=== PATIENT | female | born 1960 | race Caucasian/White ===

== ENCOUNTER 2019-07-20 13:20 | Inpatient (IN) | payer MEDICARE ==
[2019-07-20] VITALS (7 sets, daily range): BP systolic 100–133; BP diastolic 66–78
[~2019-07-20] VITALS: Ht 167.6 cm; Wt 54.9 kg
[~2019-07-20 13:20] MED LIST: ALPR1TAB2 PO; AMOX1TAB11 PO; GUAI-108 PO; IPRA3AMP29 NEB; OXYC-411 PO; QUET400T7 PO; VENL75TA PO
[2019-07-20] MEDS ORDERED: 0.9 % SODIUM CHLORIDE 10 ML DISP.SYRIN. IV PRN (17:30)
[2019-07-20] MEDS ORDERED: NOREPINEPHRIN 8MG/250ML PREMIX 250 ML IV PRN (17:45)
[2019-07-20] MEDS ORDERED: MIDAZOLAM 100mg/100ml NS BAG 100 ML IV PRN (17:45)
[2019-07-20] MEDS: PROPOFOL 100 ML IV PRN (17:57)
[2019-07-20 18:07] LABS: BASE EXCESS ABG -4 mmol/L (-3-3); HCO3 ABG 19 mmol/L (21-28); PCO2 ABG 30 mmHg (35-46); PO2 ABG 128 mmHg (65-108); SAT O2 ABG 99 % (92-99)
[2019-07-20 18:11] LABS: FIO2 ABG 40
[2019-07-20] MEDS ORDERED: INFLUENZA VAX SCREEN BY RX. MC PRN (18:45)
[2019-07-21] VITALS (24 sets, daily range): BP systolic 92–143; BP diastolic 59–80
[2019-07-21] MEDS: PROPOFOL 100 ML IV PRN (05:41)
[2019-07-21 06:25] LABS: CALCIUM 8.4 mg/dL (8.5-10.1); CREATININE 0.8 mg/dL (0.6-1.0); GFR 73.2; MAGNESIUM 1.9 mg/dL (1.8-2.4); POTASSIUM 4.6 mmol/L (3.5-5.1)
--- NOTE | 2019-07-21 07:46 | RAD ---
CHEST AP ONLY History: Ventilator Comparison: July 20, 2019 Findings: Single view of the chest is submitted. There is again enteric catheter coursing into the stomach, right internal jugular venous catheter terminating in the superior vena cava, and endotracheal tube with tip about 3 to 4 cm from juliet. There is again masslike opacity of the right perihilar region and mid to superior right hemithorax. There is mild increased infiltrate of the right lung base, other hazy airspace opacity bilaterally. Heart size is similar. No pneumothorax is identified. There is no significant dependent pleural fluid. Impression: 1. There are support catheters and tubes as stated. 2. There is again masslike opacity of the right hemithorax. There is mild increased infiltrate at the right lung base, other mild hazy airspace opacity bilaterally which could be a component of edema. Electronically signed by: Luke Schaefer MD (07/21/2019 7:43 AM) [facility]
--- NOTE | 2019-07-21 08:02 | RAD ---
KUB History: Orogastric tube placement Comparison: March 18, 2018 Findings: Single supine AP view of the abdomen is submitted. Tip of enteric catheter courses into the stomach, side port likely near level of the gastroesophageal junction. Exam is insufficient for the evaluation for free air. There is a greater degree of retained stool in the pelvis and right abdomen, gas distended segments of colon in the left abdomen likely component of redundant sigmoid colon. There may be hepatomegaly. Impression: 1. Tip of enteric catheter terminates in the region of stomach. 2. There is a greater degree of retained stool in the pelvis and right colon, somewhat gas distended colon in the left abdomen likely component of redundant sigmoid colon. 3. There may be hepatomegaly. Electronically signed by: Luke Schaefer MD (07/21/2019 7:59 AM) [facility]
[2019-07-21] MEDS: IPRATRPIUM/ALBUTEROL 0.5/2.5MG 3 ML NEBU. NEB SCH ×4 (08:05→19:40)
--- NOTE | 2019-07-21 08:44 | PN ---
DATE: 07/21/2019 SUBJECTIVE: The patient is a 59-year-old female patient who was seen yesterday at [facility] Emergency Room, went into acute hypoxic respiratory failure. She was initially put on BiPAP, but her condition deteriorated further and was intubated and mechanically ventilated, transferred to [facility]. While on BiPAP, she went into what seemed to be third-degree heart block; however, after intubation, she went into sinus tachycardia. She was treated with IV antibiotic and steroids as well as nebulized albuterol and Atrovent, was started on Levophed and overnight she remained stable in the ICU. PHYSICAL EXAMINATION: GENERAL: When I saw her this morning, she continued to be intubated, sedated, mechanically ventilated. She was pale. No jaundice, cyanosis or thyromegaly. No jugular venous distention. No lower limb edema. VITAL SIGNS: Her heart rate was 69, blood pressure was 92/59, temperature was 98.3, respiratory rate was 18 and oxygen saturation was 98%. HEAD, EYES, EARS, NOSE AND THROAT: Showed normocephalic, atraumatic. NECK: Supple. HEART: Showed normal first and second heart sounds. No gallop or murmur. CHEST: Clear to auscultation. No crepitation or rhonchi. ABDOMEN: Distended, soft, nontender. No guarding or rigidity. No organomegaly. All hernial orifices intact. Bowel sounds normal. NEUROLOGIC: She was sedated; however, she does open her eyes and responds by nodding her head. She moves all extremities without difficulty. Her intake over the last 24 hours was incompletely recorded, output was 1880. LABORATORY DATA: Her white cell count is 13,700, hemoglobin 9.5, hematocrit 29, MCV was 83 and platelet count of 117,000. Her blood gas showed a pH of 7.43, pCO2 of 30, pO2 of 128, bicarbonate 19 and oxygen saturation was 99% on FiO2 of 40%. Her chemistry showed a serum sodium 141, potassium 4.6, chloride 106, bicarbonate 26, anion gap of 9, BUN 14, creatinine 0.8, estimated GFR was 73 mL per minute. Her glucose 125, calcium was 8.4, magnesium was 1.9. She has had a chest x-ray done, which showed that there is tubes and catheters are in place. There is again mass-like opacity in the right hemithorax. There is mild increased infiltrate at the right lung base, other mild hazy airspace opacity bilaterally, which could be a component of edema. PLAN: We will continue with mechanical ventilation, sedation and continue with IV antibiotic in the form of Levaquin and vancomycin. I will consult the Infectious Disease; the Cardiology, she had an episode of third-degree heart block as well as the frame repairer for ventilator management. BERTRAND RENTERIA MD DR: SADAF/vita JOB#: [id number] / [id number]
[2019-07-21 08:50] LABS: BASE EXCESS COOX -1 mmol/L (-3-3); HCO3 COOX 24 mmol/L (21-28); METHEMOGLOBIN 0.3 % (0.0-1.9); OXYHEMOGLOBIN 92.8 %; PCO2 COOX 43 mmHg (35-46); PO2 COOX 74 mmHg (65-108); SAT O2 COOX 94 % (92-99)
--- NOTE | 2019-07-21 08:52 | HP ---
ADMIT DATE: 07/20/2019 HISTORY OF PRESENT ILLNESS: The patient is a 59-year-old female patient who was seen yesterday at the Emergency Room of [facility] with worsening shortness of breath. She was brought by the emergency medical services with respiratory distress. She noted that her oxygen saturation is down into her 60s. They noted her oxygen saturation in the 60s upon their arrival. She was placed on nonrebreather mask at 15 liters. EMS attempted to start the patient on CPAP, which they reported she refused. EMS reports the patient did appear altered. She is known to have history of alcohol and benzodiazepine abuse. The patient with limited verbal response due to respiratory distress. She is able to move all extremities. Apparently, the patient's condition has deteriorated. She has had a chest x-ray, which showed mild worsening infiltrate and/or edema, particularly in the right lung. According to the ER physician, her level of consciousness has deteriorated and the patient became more hypoxic, on BiPAP machine with decreased mentation and her heart rate has dropped to like third-degree heart block; and therefore, a pacer pad was placed and the patient was moved to trauma for airway protection by intubation. Subsequent EKG showed that she was in sinus tachycardia. Levophed was started. Chest x-ray confirmed her endotracheal tube placement and orogastric tube was placed. Central line was placed under ultrasound guidance. Her chest x-ray showed good positioning of the central line and orogastric tube. CT scan of the head was without any acute process and the patient was transferred to [facility] to continue with mechanical ventilation to consult the coach driver and photolith operator. PAST MEDICAL HISTORY: Significant for chronic obstructive pulmonary disease, congestive heart failure, vitamin D deficiency, bipolar disorder, depression, severe anxiety, tobacco use disorder and alcohol and benzodiazepine abuse. PAST SURGICAL HISTORY: Significant for hysterectomy and tonsillectomy. She did have prior intubation and mechanical ventilation. FAMILY HISTORY: She has one sister who is younger and healthy. Her father at the age of 46 as he committed suicide and mother at age of 66 because of stroke. SOCIAL HISTORY: She has 1 son. She quit smoking a year ago, although she apparently continued to smoke. She does not drink alcohol or use recreational drugs, although her urine tox screen was positive for methadone and benzodiazepine. ALLERGIES: She has no known drug allergies. MEDICATIONS: She is currently on following medications: She is on albuterol sulfate 2.5 mg 0.5 mL via nebulizer every 6 hours, metoprolol succinate 50 mg once a day, venlafaxine 150 mg daily, quetiapine fumarate 100 mg 2 tablets at bedtime, alprazolam 1 mg every 8 hours, hydroxyzine 25 mg every 6 hours as needed and Requip 0.5 mg at bedtime. PHYSICAL EXAMINATION: GENERAL: On arrival to the Emergency Room, the patient was tachypneic, hypoxic on 15 liters nonrebreather mask. Initially, the patient was somewhat lethargic, but arousable. Her Celi coma scale was 11 and she was initially found to be hypoxic with oxygen saturation of only 60%, was started on 15 liters of nonrebreather mask and eventually was started on BiPAP machine. However, she deteriorated further and was intubated, mechanically ventilated. On examining her, she was well-developed, well-nourished 59-year-old female patient who has orotracheal and orogastric tube in place. VITAL SIGNS: Her heart rate was 106, blood pressure was 110/70, temperature was 99.1, respiratory rate was 26 and oxygen saturation was 97% on 15 liters by nonrebreather mask. NECK: Supple. HEART: Showed normal first and second heart sounds. No gallop, rub or murmur. CHEST: Equally reduced expansion, reduced air entry, vesicular sounds with crepitation, more on the right than left with severe respiratory distress and tachypnea. ABDOMEN: Soft, nontender. NEUROLOGIC: She has [place] coma scale of 11. The patient was able to move her extremities. She was obtunded. LABORATORY DATA: While at [facility] showed that her white cell count was 10,600, hemoglobin 9.5, hematocrit 29.5, MCV 85 and platelet count 442,000. Her blood gases showed a pH of 7.33, pCO2 of 48, pO2 of 152, bicarbonate 25, oxygen saturation was 99% on FiO2 of 50%. Her chemistry showed a serum sodium 140, potassium 4.2, chloride 105, bicarbonate 27, anion gap of 9, BUN 9, creatinine 0.8, estimated GFR was 73 mL per minute. Her glucose 114, calcium was 8.2, magnesium was 2.2. Lactic acid was only 1.2. Total bilirubin, AST, ALT, alkaline phosphatase were normal. Ammonia was only 14. CK, CK-MB and cardiac enzymes, she had 2 cardiac enzymes were less than 0.017. Her beta natriuretic peptide was 1834. Total protein was 7.3, albumin was 2.2. Her prothrombin time, INR and aPTT were normal. Urinalysis was essentially unremarkable and tox screen was positive for methadone as well as benzodiazepine. Her influenza A and B were negative. Her chest x-ray initially showed that the patient has mild worsening infiltrate and/or edema, particularly in the right lung. The second x-ray showed that there is an endotracheal tube, there is persistent prominent right perihilar opacity increased of the right upper lobe. There is also degree of interstitial opacity near the lung bases, which may have a component of interstitial edema. Her third x-ray showed that she had an endotracheal tube remains in place. She has tip 47 mm above the juliet. She has right internal jugular vein in place and tip extended to the region of the lower superior vena cava. Feeding tube was identified with tip overlying the expected region of the stomach. Abnormal pulmonary opacities are again seen in both lungs, greatest in the right upper lobe, appears similar. No evidence of pneumothorax. There may be small pleural effusion, has had a CT scan of the head, which was unremarkable with no convincing acute intracranial abnormality identified. There is again mild prominence of the subtentorial subarachnoid spaces may be due to involutional changes. The patient was transferred to [facility], was admitted to the ICU, continued on mechanical ventilation and we will consult the coach driver as well as the photolith operator as she had an episode of third-degree heart block. BERTRAND RENTERIA MD DR: SADAF/vita JOB#: [id number] / [id number]
--- NOTE | 2019-07-21 09:05 | PDOC ---
Infectious Disease Note Vital Sign Vital Signs Vital Signs Date Time Temp Pulse Resp B/P (MAP) Pulse Ox O2 Delivery O2 Flow Rate FiO2 07/21/19 08:05 Ventilator 07/21/19 07:36 98 07/21/19 06:00 69 18 92/59 (70) 07/21/19 04:00 98.3 98.3 Labs Lab Laboratory Tests Test 07/20/19 17:30 07/21/19 05:30 07/21/19 08:40 O2 Saturation 99 % (92-99) 94 % (92-99) Arterial Blood pH 7.43 (7.35-7.45) 7.37 (7.35-7.45) Arterial Blood pCO2 at Patient Temp 30 mmHg (35-46) 43 mmHg (35-46) Arterial Blood pO2 at Patient Temp 128 mmHg (65-108) 74 mmHg (65-108) Arterial Blood HCO3 19 mmol/L (21-28) 24 mmol/L (21-28) Arterial Blood Base Excess -4 mmol/L (-3-3) -1 mmol/L (-3-3) FiO2 40 35 White Blood Count 13.7 x10^3/uL (4.0-11.0) Red Blood Count 3.54 x10^6/uL (3.50-5.40) Hemoglobin 9.5 g/dL (12.0-15.5) Hematocrit 29.3 % (36.0-47.0) Mean Corpuscular Volume 83 fL (79-100) Mean Corpuscular Hemoglobin 27 pg (25-35) Mean Corpuscular Hemoglobin Concent 32 g/dL (31-37) Red Cell Distribution Width 19.1 % (11.5-14.5) Platelet Count 417 x10^3/uL (140-400) Sodium Level 141 mmol/L (136-145) Potassium Level 4.6 mmol/L (3.5-5.1) Chloride Level 106 mmol/L (98-107) Carbon Dioxide Level 26 mmol/L (21-32) Anion Gap 9 (6-14) Blood Urea Nitrogen 14 mg/dL (7-20) Creatinine 0.8 mg/dL (0.6-1.0) Estimated GFR (Cockcroft-Gault) 73.2 Glucose Level 125 mg/dL (70-99) Calcium Level 8.4 mg/dL (8.5-10.1) Magnesium Level 1.9 mg/dL (1.8-2.4) Oxyhemoglobin 92.8 % Methemoglobin 0.3 % (0.0-1.9) Carbon Monoxide, Quantitative 0.9 % (0.0-1.9) Objective Assessment Pneumonia Leukocytosis Hypotension, levophed gtt Acute respiratory failure 3rd degree block COPD h/o substance abuse h/o MRSA Plan Plan of Care Continue Zosyn d/c Levaquin Dose vanc 07/20 f/u BC from [facility], 07/20 Pulmonary and cardiology have been consulted D/w Ambrosio D/w nursing Thank you [phone] Attending Co-Sign The patient was seen and interviewed as well as examined at the bedside. The chart was reviewed. The case was discussed. Agree with the plan of care. JO LEIGH APRN Jul 21, 2019 09:05 CANDY PEACE MD Jul 21, 2019 11:25
--- NOTE | 2019-07-21 09:30 | NUR ---
Pt extubated without difficulty. Placed on NC @ 5L. Will monitor closely.
[2019-07-21] MEDS: PIPERACILLIN/TAZOBACTAM 3.375 GM in IV NORMAL SALINE 50ML 50 ML IV SCH ×3 (09:37→19:40)
[2019-07-21] MEDS: methylPREDNISolone SOD SUCC PF 40 MG/ML VIAL. IV SCH ×3 (09:37→21:38)
--- NOTE | 2019-07-21 10:26 | PDOC ---
PULMONARY PROGRESS NOTES Vitals Vital Signs Date Time Temp Pulse Resp B/P (MAP) Pulse Ox O2 Delivery O2 Flow Rate FiO2 07/21/19 08:05 Ventilator 07/21/19 07:36 98 07/21/19 06:00 69 18 92/59 (70) 07/21/19 04:00 98.3 98.3 General: Alert, No acute distress HEENT: Other Lungs: Other Cardiovascular: S1, S2 Abdomen: Soft, Non-tender Extremities: No Edema Labs Laboratory Tests Test 07/20/19 17:30 07/21/19 05:30 07/21/19 08:40 O2 Saturation 99 % (92-99) 94 % (92-99) Arterial Blood pH 7.43 (7.35-7.45) 7.37 (7.35-7.45) Arterial Blood pCO2 at Patient Temp 30 mmHg (35-46) 43 mmHg (35-46) Arterial Blood pO2 at Patient Temp 128 mmHg (65-108) 74 mmHg (65-108) Arterial Blood HCO3 19 mmol/L (21-28) 24 mmol/L (21-28) Arterial Blood Base Excess -4 mmol/L (-3-3) -1 mmol/L (-3-3) FiO2 40 35 White Blood Count 13.7 x10^3/uL (4.0-11.0) Red Blood Count 3.54 x10^6/uL (3.50-5.40) Hemoglobin 9.5 g/dL (12.0-15.5) Hematocrit 29.3 % (36.0-47.0) Mean Corpuscular Volume 83 fL (79-100) Mean Corpuscular Hemoglobin 27 pg (25-35) Mean Corpuscular Hemoglobin Concent 32 g/dL (31-37) Red Cell Distribution Width 19.1 % (11.5-14.5) Platelet Count 417 x10^3/uL (140-400) Sodium Level 141 mmol/L (136-145) Potassium Level 4.6 mmol/L (3.5-5.1) Chloride Level 106 mmol/L (98-107) Carbon Dioxide Level 26 mmol/L (21-32) Anion Gap 9 (6-14) Blood Urea Nitrogen 14 mg/dL (7-20) Creatinine 0.8 mg/dL (0.6-1.0) Estimated GFR (Cockcroft-Gault) 73.2 Glucose Level 125 mg/dL (70-99) Calcium Level 8.4 mg/dL (8.5-10.1) Magnesium Level 1.9 mg/dL (1.8-2.4) Oxyhemoglobin 92.8 % Methemoglobin 0.3 % (0.0-1.9) Carbon Monoxide, Quantitative 0.9 % (0.0-1.9) Laboratory Tests Test 07/20/19 17:30 07/21/19 05:30 07/21/19 08:40 O2 Saturation 99 % (92-99) 94 % (92-99) Arterial Blood pH 7.43 (7.35-7.45) 7.37 (7.35-7.45) Arterial Blood pCO2 at Patient Temp 30 mmHg (35-46) 43 mmHg (35-46) Arterial Blood pO2 at Patient Temp 128 mmHg (65-108) 74 mmHg (65-108) Arterial Blood HCO3 19 mmol/L (21-28) 24 mmol/L (21-28) Arterial Blood Base Excess -4 mmol/L (-3-3) -1 mmol/L (-3-3) FiO2 40 35 White Blood Count 13.7 x10^3/uL (4.0-11.0) Red Blood Count 3.54 x10^6/uL (3.50-5.40) Hemoglobin 9.5 g/dL (12.0-15.5) Hematocrit 29.3 % (36.0-47.0) Mean Corpuscular Volume 83 fL (79-100) Mean Corpuscular Hemoglobin 27 pg (25-35) Mean Corpuscular Hemoglobin Concent 32 g/dL (31-37) Red Cell Distribution Width 19.1 % (11.5-14.5) Platelet Count 417 x10^3/uL (140-400) Sodium Level 141 mmol/L (136-145) Potassium Level 4.6 mmol/L (3.5-5.1) Chloride Level 106 mmol/L (98-107) Carbon Dioxide Level 26 mmol/L (21-32) Anion Gap 9 (6-14) Blood Urea Nitrogen 14 mg/dL (7-20) Creatinine 0.8 mg/dL (0.6-1.0) Estimated GFR (Cockcroft-Gault) 73.2 Glucose Level 125 mg/dL (70-99) Calcium Level 8.4 mg/dL (8.5-10.1) Magnesium Level 1.9 mg/dL (1.8-2.4) Oxyhemoglobin 92.8 % Methemoglobin 0.3 % (0.0-1.9) Carbon Monoxide, Quantitative 0.9 % (0.0-1.9) Medications Active Scripts Medications Dose Route/Sig Max Daily Dose Days Date Category Oxycodone-Acetaminophen 10-325 (Oxycodone Hcl/Acetaminophen) 1 Each Tablet 1 Tab PO PRN Q4HRS PRN 30 03/26/18 Rx Duoneb 0.5-3(2.5) Mg/3 Ml (Albuterol/Ipratropium) 3 Ml Ampul.neb 3 Ml NEB RTQID 30 03/26/18 Rx Amox Tr-K Clv 875-125 Mg Tab (Amoxicillin/Potassium Clav) 1 Each Tablet 1 Tab PO BID 7 03/26/18 Rx Mucinex Dm Er 600-30 Mg Tablet (Guaifenesin/Dextromethorphan) 1 Each Tab.er.12h 1 Each PO BID 03/18/18 Reported Xanax (Alprazolam) 1 Mg Tablet 1 Tab PO Q8HRS PRN 03/18/18 Reported Seroquel Xr (Quetiapine Fumarate) 400 Mg Tab.er.24h 800 Mg PO HS 03/18/18 Reported Venlafaxine Hcl 75 Mg Tablet 150 Mg PO HS 03/18/18 Reported Impression . FULL NOTE DICTATED WILL CHECK CT CHEST CONTINUE SUPPORT THANKS BO LINCOLN MD Jul 21, 2019 10:26
--- NOTE | 2019-07-21 11:50 | CONS ---
DATE OF CONSULTATION: 07/21/2019 REASON FOR CONSULTATION: Third-degree heart block. HISTORY OF PRESENT ILLNESS: The patient is a 59-year-old woman who presents to the hospital in the setting of respiratory distress. She originally presented to [facility] and during her respiratory distress with significant hypoxia she was noted to have transient third-degree heart block, which resolved after intubation and successful resuscitation. Since then, she has not had any arrhythmias, but she has been transferred to [place] for further evaluation and treatment. This morning, she has already been extubated and overall was doing well. Denies any current chest pain or angina. At home, she states that she is at baseline with functional capacity and is able to do ADLs without any significant problems or limitations. She does report a prior diagnosis of congestive heart failure and reports that 2 weeks ago, she was in [facility] where she was intubated and some workup was performed. PAST MEDICAL HISTORY: 1. COPD. 2. Presumed congestive heart failure, although whether it is systolic or diastolic is unknown. 3. History of depression, anxiety as per record and also alcohol and benzodiazepine abuse, although the patient denies this. SURGICAL HISTORY: Reviewed per H and P. FAMILY HISTORY: Reviewed per H and P. SOCIAL HISTORY: The patient reports that she quit smoking. Denies any alcohol use. ALLERGIES: No known drug allergies. CURRENT CARDIOVASCULAR MEDICATIONS: Lovenox 40 mg subcutaneous daily. REVIEW OF SYSTEMS: Negative unless otherwise mentioned above in HPI. PHYSICAL EXAMINATION: VITAL SIGNS: Afebrile, pulse 69, respirations 18, blood pressure 92/59, 98% on 3 liters nasal cannula. GENERAL: She is alert and oriented, in no acute distress. She has a flat affect. HEAD AND NECK: Unremarkable. CARDIAC: Regular rate and rhythm without any obvious murmurs, rubs or gallops. LUNGS: Notable for decreased breath sounds at the bases. ABDOMEN: Soft, nontender, nondistended. EXTREMITIES: 2+ radial and 1+ dorsalis pedis pulse. NEUROLOGIC: No obvious focal deficits. MUSCULOSKELETAL: No trauma. DIAGNOSTIC STUDIES: Potassium 4.6. Creatinine 0.8, ABG with normalization of her hypoxia. Hemoglobin is low at 9.5. Chest x-ray demonstrates a right lung mass-like opacity, but no obvious heart failure signs. EKG demonstrates sinus tachycardia. Third-degree heart block. EKG was reviewed during the time of severe hypoxia and likely vagal episode. Echocardiogram pending. IMPRESSION: 1. Third-degree heart block, likely in the setting of severe hypoxia and vagal episode, which has resolved after successful resuscitation. 2. Presumed heart failure, probable diastolic. No obvious evidence of heart failure on examination today. RECOMMENDATIONS: 1. We will obtain records from [facility] and plan for a limited echocardiogram. 2. Continue telemetry. No further cardiovascular workup necessary at this time unless she has any significant changes to her symptoms. The most likely etiology of her respiratory failure is assumed to be benzodiazepine overdose versus other, but no obvious cardiac pathology is evident thus far. Thank you for this consultation. RUBEN SCHMID MD DR: BALTAZAR/nts JOB#: [id number] / [id number]
--- NOTE | 2019-07-21 12:00 | CONS ---
DATE OF CONSULTATION: 07/21/2019 ATTENDING PHYSICIAN: Dr. Valente. REASON FOR CONSULTATION: The patient seen in pulmonary consultation at the request of Dr. Valente for acute respiratory failure requiring mechanical ventilation. HISTORY OF PRESENT ILLNESS: The patient is a 59-year-old that was here sometime in 2018 for acute respiratory failure. At that time, she underwent a diagnostic bronchoscopy for abnormal chest x-ray. The bronchoscopy, BAL grew out yeast. The patient informed me that she quit tobacco approximately 4-5 years ago, has been admitted at [facility] on several occasions. In fact, she was there approximately a week ago. She presented to the Emergency Room at [facility] with decreased saturations in the 60s. She was placed on nonrebreather. Initially, she was placed on CPAP. Apparently, the patient did not tolerate CPAP very well. She deteriorated. She was intubated. She was transferred to [facility] Her arterial blood gas upon arrival to the [facility] revealed a pH of 7.43, PaCO2 of 30, pO2 of 128, bicarb of 19. The patient was supported overnight with mechanical ventilation. This morning, she had a spontaneous trial with 5 of pressure support, 5 of PEEP. Her arterial blood gas revealed a pH of 7.37, PaCO2 of 43, pO2 of 74. The patient was extubated. She is currently awake, alert, following commands. Has a cough productive of some discolored sputum. No hemoptysis. She is wearing oxygen at home on a p.r.n. basis. Once again, she quit tobacco 4-5 months ago. I specifically asked her if she was told that she had a previously abnormal chest x-ray, she does not recall. She did have an x-ray here which I personally reviewed revealing mass-like opacity in the right hemithorax. PAST MEDICAL HISTORY: 1. COPD of the emphysematous type. 2. Prior respiratory failure requiring mechanical ventilation, she has had a prior BAL performed back in 2018 growing out yeast. 3. Tobacco dependence, in remission, quit 4-5 months ago. 4. Bipolar disorder. 5. Severe anxiety. 6. Alcohol and benzodiazepine abuse. 7. Chronic heart failure. PAST SURGICAL HISTORY: Status post hysterectomy and tonsillectomy. FAMILY HISTORY: She has one sister who is younger and healthy. Father at the age of 46 from suicide. Mother at the age of 66 as a result of stroke. No family history of lung cancer. SOCIAL HISTORY: She quit 4-5 months ago, tobacco use. Currently denies any recreational drug, although her urine tox screen was positive for methadone and benzodiazepines. ALLERGIES: No known drug allergies. REVIEW OF SYSTEMS: As indicated above, otherwise, a 10-point system was reviewed and negative. CONSTITUTIONAL: She denies fever or chills. EYES: No change in visual acuity. HEENT: No nasal congestion or sore throat. PULMONARY: As indicated above. CARDIOVASCULAR: No chest pain. No pressure. GASTROINTESTINAL: No nausea, vomiting, diarrhea. GENITOURINARY: No dysuria or frequency. MUSCULOSKELETAL: No localized muscle aches or joint pains. SKIN: No new skin rashes. NEUROLOGIC: No headaches, diplopia or blurred vision. MEDICATIONS: List was reviewed. She is currently on IV Zosyn, nebulized treatments, DVT prophylaxis and Solu-Medrol. PHYSICAL EXAMINATION: VITAL SIGNS: On examination, the patient had been previously extubated approximately 2 hours ago, currently in no respiratory distress. HEENT: Eyes, the sclerae were nonicteric. NECK: Jugular venous distention was not elevated. No lymphadenopathy. CHEST: Full expansion. LUNGS: Crackles throughout. No wheezes. CARDIOVASCULAR: Regular rate and rhythm with S1, S2, no S3. ABDOMEN: Soft, nontender, nondistended. EXTREMITIES: No clubbing, cyanosis or edema. NEUROLOGICAL: The patient was awake, alert, following commands. A detailed neuro exam was not performed. LABORATORY DATA: White count was 13.7, hemoglobin and hematocrit of 9 and 29. Electrolytes were noted. BUN and creatinine were normal. RADIOLOGICAL DATA: Chest x-ray as indicated above. IMPRESSION: 1. Acute on chronic hypoxemic respiratory failure. 2. Abnormal x-ray. 3. Right hemithorax, mass-like opacity on chest x-ray. 4. Acute exacerbation of chronic obstructive pulmonary disease. 5. Possible gram-positive, gram-negative pneumonia. 6. Third-degree heart block. 7. Hypotension, possibly related to sepsis. 8. Polysubstance use. 9. History of methicillin-resistant Staphylococcus aureus. 10. Tobacco dependence, in remission, quit approximately 4-5 months ago. PLAN: 1. As indicated above, the patient had a spontaneous breathing trial, did well. He is currently extubated. 2. Continue antibiotics per Infectious Disease: The patient on Zosyn and vancomycin. 3. We will obtain CT chest to better delineate the mass-like opacity on chest x-ray. 4. Continue steroid. 5. Nebulized treatments. 6. Deep venous thrombosis prophylaxis. The above was discussed with the patient at times. She appears to get agitated easily. We will continue current support and make recommendations once CT scan has been obtained and reviewed. Dr. Valente, I do appreciate the privilege in sharing in the patient's care. Total cumulative critical care time of 50 minutes. BO LINCOLN MD DR: BAL/vita JOB#: [id number] / [id number]
--- NOTE | 2019-07-21 12:04 | CONS ---
DATE OF CONSULTATION: 07/21/2019 REFERRING PHYSICIAN: Dr. Valente REASON FOR CONSULT: Antibiotic management. HISTORY OF PRESENT ILLNESS: This patient is a 59-year-old female with past medical history of COPD and substance abuse, who presented to [facility] ER via EMS yesterday for respiratory distress and altered mental status. She was initially found in third-degree block, likely hypoxic induced. She was intubated. A chest x-ray showed mild worsening of infiltrate and/or edema, particularly in the right lung concerning for pneumonia, possible aspiration or increased vascular congestion. A right IJ line was placed. She was dosed with dexamethasone, Lasix as well as empiric vancomycin, Zosyn and levofloxacin. She has since been transferred to [place] for continuum of care. The patient remains intubated, but awake and responsive to questions via nodding her head. She indicates that she was not feeling well for a few days. She felt increasingly short of air with chest congestion. She denies trying [id number] medications. Denies fevers, chills, sweats or body aches. Denies nausea, vomiting or diarrhea. She is and lives at home. Denies ill contacts or recent travel. She indicates that she got the flu vaccine this season. She has a former history of smoking. Denies vaping. She is requiring vasopressor support for hypotension. PAST MEDICAL HISTORY: COPD, congestive heart failure, hyperlipidemia, GERD, arthritis, osteoporosis, degenerative disk disease, hypothyroidism, bipolar disorder, depression, substance abuse, peripheral neuropathy, sexually transmitted disorders, history of UTI with streptococcus group B, history of MRSA lung abscess. PAST SURGICAL HISTORY: Tonsillectomy, hysterectomy. FAMILY HISTORY: Cardiovascular disease, suicide, COPD. SOCIAL HISTORY: The patient is and lives at home. Former smoker. History of substance abuse. ALLERGIES: No known drug allergies. MEDICATIONS: Zosyn, levofloxacin, one-time dose of vancomycin on 07/20/2019, methylprednisolone, DuoNeb, Lovenox, Levophed drip. REVIEW OF SYSTEMS: Per HPI, otherwise all other review of systems are negative. PHYSICAL EXAMINATION: VITAL SIGNS: Temperature is 98.3, blood pressure 92/59, heart rate 69, respiratory rate 18, pulse oximetry is 98% on FiO2 35% via ventilator. GENERAL: The patient is slightly propped up in bed, awake, orally intubated, calm with mittens on. HEENT: Pupils equally round, reactive. ETT and OGT in place. NECK: Supple. LUNGS: Clear to auscultation. HEART: S1 and S2. Regular. ABDOMEN: Soft and nontender with bowel sounds present. GENITOURINARY: Diaz. EXTREMITIES: No gross edema or cyanosis. SKIN: Warm to touch. No signs of rash. NEUROLOGICAL: Awake, answers questions appropriately via nodding head and trying to mouth words, follows commands. RIJ (07/20) without signs of any complications. LABORATORY AND DIAGNOSTIC DATA: Admitting labs ([facility]) WBC 10.6, hemoglobin 9.5, platelets 442,000, segs 67%, bands 2%. Electrolytes unremarkable. Creatinine 0.8, BUN 9, glucose 114, lactic acid 1.2, total bilirubin 0.3, AST 6, ALT 7, creatine kinase 31. Troponin less than 0.017, BNP 1834, albumin 2.2. Urine toxicology positive for methadone, benzodiazepines, ethyl alcohol less than 10. Urinalysis unremarkable for infection. Blood cultures from 07/20 pending. Influenza screen negative. Chest x-ray per HPI. Head CT showed no convincing acute intracranial abnormality. Today's WBC 13.7, hemoglobin 9.5, platelets 417,000. Electrolytes are unremarkable. Creatinine 0.8, BUN 14, glucose 125. Chest x-ray shows a mass-like opacity right hemothorax. Mild increased infiltrate at the right lung base. Other mild hazy airspace opacity bilaterally, which could be a component of edema. No pneumothorax or significant dependent pleural fluid. KUB shows retained stool. IMPRESSION: 1. Pneumonia. 2. Leukocytosis. 3. Hypotension requiring Levophed. 4. Acute respiratory failure. 5. Third-degree block. 6. Chronic obstructive pulmonary disease. 7. History of substance abuse. 8. History of methicillin-resistant Staphylococcus aureus. PLAN: Continue Zosyn, Levaquin. We will follow up on blood cultures from [facility]. Pulmonary and Cardiology have been consulted. Thank you, Dr. Valente for asking us to participate in this patient's care. Should you have further questions or concerns, please call. CANDY PEACE MD DR: JJ/vita JOB#: [id number] / [id number]
[2019-07-21] MEDS ORDERED: CONTRAST GIVEN. MC PRN (12:15)
[2019-07-21] MEDS ORDERED: IOHEXOL 300 MG/ML 100ML VIAL. IV ONE (12:30)
--- NOTE | 2019-07-21 12:30 | NUR ---
Pt refusing to go to CT. Dr. Cota notified.
[2019-07-21] MEDS: ENOXAPARIN 40 MG/0.4 ML SYRINGE. SQ SCH (16:00)
--- NOTE | 2019-07-21 16:15 | NUR ---
Attempted to get pt up to chair, she became hostile and refusing to get out of bed. Refusing to let RN perform assessment and refusing to let RT give breathing treatment. Addendum: 07/21/19 at 1650 by HARPREET GRAHAM RN RN Also refusing to let RN give Lovenox. Dr. Cota called and notified of situation. Orders received to transfer patient out of ICU.
--- NOTE | 2019-07-21 19:50 | NUR ---
Patient alert/orientedx4, withdrawn--only answering questions with few words without giving any additional information and with very poor eye contact. She did allow for partial assessment; refusing temperature, pupil check, sitting up to assess posterior lung sounds, coccyx check and also any hygiene. Patient continues to refuse TEDs/SCDs and Lovenox scheduled on day shift; educated on increased risk of DVT. Encouraged patient to get up in the chair or turn to avoid bedsore, which she again refused stating the whole time, "I'm ok." Patient did request Xanax reordered--Dr Valente called, notified of above and patient's complaint of back pain but no prn meds ordered and she is refusing any pain meds at this time. Orders received to restart patient's home dose of Xanax (1MG PRN PO Q8HRS) and Tylenol 650MG PRN PO Q6HRS. See orders, patient notified and agreeable.
[2019-07-21] MEDS: ALPRAZolam 1 MG TABLET PO PRN (20:14)
[2019-07-21 21:34] LABS: BASO # 0.1 x10^3/uL (0.0-0.2); BASO % 1 % (0-3); EOS % 0 % (0-3); HEMATOCRIT 31.2 % (36.0-47.0); HEMOGLOBIN 9.4 g/dL (12.0-15.5); LYMPH % 8 % (24-48); MEAN CORPUSCULAR HEMOGLOBIN 26 pg (25-35); MEAN CORPUSCULAR HGB CONC 30 g/dL (31-37); MEAN CORPUSCULAR VOLUME 88 fL (79-100); MONO # 0.8 x10^3/uL (0.0-1.1); MONO % 6 % (0-9); NEUT # 11.9 x10^3/uL (1.8-7.7); NEUT % 86 % (31-73); PLATELET COUNT 437 x10^3/uL (140-400); RED BLOOD COUNT 3.57 x10^6/uL (3.50-5.40); RED CELL DISTRIBUTION WIDTH 20.3 % (11.5-14.5); WHITE BLOOD COUNT 13.8 x10^3/uL (4.0-11.0)
[2019-07-21 21:44] LABS: ALBUMIN 2.2 g/dL (3.4-5.0); ALBUMIN/GLOBULIN RATIO 0.5 (1.0-1.7); CALCIUM 8.5 mg/dL (8.5-10.1); CREATININE 0.9 mg/dL (0.6-1.0); GFR 63.9; POTASSIUM 4.6 mmol/L (3.5-5.1); TOTAL BILIRUBIN 0.3 mg/dL (0.2-1.0)
[2019-07-21 22:28] LABS: % BANDS 8 % (0-9); % LYMPHS 10 % (24-48); % MONOS 3 % (0-10); % MYELOS 4 % (0-0); % SEGS 75 % (35-66); ANISOCYTOSIS MOD; PLT ESTIMATE INCREASED (ADEQUATE); POIKILOCYTOSIS SLIGHT; POLYCHROMASIA SLIGHT
[2019-07-21 22:29] LABS: OVALOCYTES FEW
[2019-07-21 22:30] LABS: BURR CELLS PRESENT
[2019-07-22] VITALS (8 sets, daily range): BP systolic 92–167; BP diastolic 59–76
[2019-07-22] MEDS: PIPERACILLIN/TAZOBACTAM 3.375 GM in IV NORMAL SALINE 50ML 50 ML IV SCH ×4 (02:00→18:57)
--- NOTE | 2019-07-22 02:00 | NUR ---
After notification to patient, transferred to [id number] via bed with Telemonitor on and O2 3L/NC--belongings sent separately. Patient accompanied by RN and nursing terrazzo supervisor.
--- NOTE | 2019-07-22 02:40 | NUR ---
Patient arrived to floor via bed and accompanied wit this nurse. She refused to have extra bedding removed from under her, stating that she was fine. Pt telemetry and oxygen was placed. Pt is resting and comfortable in bed.
[2019-07-22] MEDS: methylPREDNISolone SOD SUCC PF 40 MG/ML VIAL. IV SCH ×3 (06:00→22:10)
[2019-07-22] MEDS: IPRATRPIUM/ALBUTEROL 0.5/2.5MG 3 ML NEBU. NEB SCH ×4 (07:13→19:42)
[2019-07-22 08:34] LABS: BASO # 0.1 x10^3/uL (0.0-0.2); BASO % 1 % (0-3); EOS % 0 % (0-3); HEMATOCRIT 26.5 % (36.0-47.0); HEMOGLOBIN 8.6 g/dL (12.0-15.5); LYMPH # 1.2 x10^3/uL (1.0-4.8); LYMPH % 16 % (24-48); MEAN CORPUSCULAR HEMOGLOBIN 27 pg (25-35); MEAN CORPUSCULAR HGB CONC 32 g/dL (31-37); MEAN CORPUSCULAR VOLUME 83 fL (79-100); MONO # 0.6 x10^3/uL (0.0-1.1); MONO % 8 % (0-9); NEUT # 5.6 x10^3/uL (1.8-7.7); NEUT % 75 % (31-73); PLATELET COUNT 323 x10^3/uL (140-400); RED BLOOD COUNT 3.21 x10^6/uL (3.50-5.40); RED CELL DISTRIBUTION WIDTH 18.6 % (11.5-14.5); WHITE BLOOD COUNT 7.5 x10^3/uL (4.0-11.0)
[2019-07-22 09:21] LABS: ALBUMIN 2.2 g/dL (3.4-5.0); ALBUMIN/GLOBULIN RATIO 0.5 (1.0-1.7); CREATININE 0.7 mg/dL (0.6-1.0); GFR 85.4; POTASSIUM 3.8 mmol/L (3.5-5.1); TOTAL BILIRUBIN 0.3 mg/dL (0.2-1.0); TOTAL PROTEIN 6.9 g/dL (6.4-8.2)
--- NOTE | 2019-07-22 10:10 | PDOC ---
PULMONARY PROGRESS NOTES Subjective NO INCREASE SOA NO HEMOTYSISI Vitals Vital Signs Date Time Temp Pulse Resp B/P (MAP) Pulse Ox O2 Delivery O2 Flow Rate FiO2 07/22/19 07:00 97.7 75 20 167/71 (103) 14 Nasal Cannula 3.0 97.7 ROS: No Nausea, No Abdominal Pain, No Increase Cough Labs Laboratory Tests Test 07/20/19 17:30 07/21/19 05:30 07/21/19 08:40 07/22/19 08:20 O2 Saturation 99 % (92-99) 94 % (92-99) Arterial Blood pH 7.43 (7.35-7.45) 7.37 (7.35-7.45) Arterial Blood pCO2 at Patient Temp 30 mmHg (35-46) 43 mmHg (35-46) Arterial Blood pO2 at Patient Temp 128 mmHg (65-108) 74 mmHg (65-108) Arterial Blood HCO3 19 mmol/L (21-28) 24 mmol/L (21-28) Arterial Blood Base Excess -4 mmol/L (-3-3) -1 mmol/L (-3-3) FiO2 40 35 White Blood Count 13.8 x10^3/uL (4.0-11.0) 7.5 x10^3/uL (4.0-11.0) Red Blood Count 3.57 x10^6/uL (3.50-5.40) 3.21 x10^6/uL (3.50-5.40) Hemoglobin 9.4 g/dL (12.0-15.5) 8.6 g/dL (12.0-15.5) Hematocrit 31.2 % (36.0-47.0) 26.5 % (36.0-47.0) Mean Corpuscular Volume 88 fL (79-100) 83 fL (79-100) Mean Corpuscular Hemoglobin 26 pg (25-35) 27 pg (25-35) Mean Corpuscular Hemoglobin Concent 30 g/dL (31-37) 32 g/dL (31-37) Red Cell Distribution Width 20.3 % (11.5-14.5) 18.6 % (11.5-14.5) Platelet Count 437 x10^3/uL (140-400) 323 x10^3/uL (140-400) Neutrophils (%) (Auto) 86 % (31-73) 75 % (31-73) Lymphocytes (%) (Auto) 8 % (24-48) 16 % (24-48) Monocytes (%) (Auto) 6 % (0-9) 8 % (0-9) Eosinophils (%) (Auto) 0 % (0-3) 0 % (0-3) Basophils (%) (Auto) 1 % (0-3) 1 % (0-3) Neutrophils # (Auto) 11.9 x10^3/uL (1.8-7.7) 5.6 x10^3/uL (1.8-7.7) Lymphocytes # (Auto) 1.0 x10^3/uL (1.0-4.8) 1.2 x10^3/uL (1.0-4.8) Monocytes # (Auto) 0.8 x10^3/uL (0.0-1.1) 0.6 x10^3/uL (0.0-1.1) Eosinophils # (Auto) 0.0 x10^3/uL (0.0-0.7) 0.0 x10^3/uL (0.0-0.7) Basophils # (Auto) 0.1 x10^3/uL (0.0-0.2) 0.1 x10^3/uL (0.0-0.2) Segmented Neutrophils % 75 % (35-66) Band Neutrophils % 8 % (0-9) Lymphocytes % 10 % (24-48) Monocytes % 3 % (0-10) Myelocytes % 4 % (0-0) Platelet Estimate Increased (ADEQUATE) Polychromasia Slight Poikilocytosis Slight Anisocytosis Mod Ovalocytes Few [place] Cells Present Sodium Level 141 mmol/L (136-145) 144 mmol/L (136-145) Potassium Level 4.6 mmol/L (3.5-5.1) 3.8 mmol/L (3.5-5.1) Chloride Level 106 mmol/L (98-107) 109 mmol/L (98-107) Carbon Dioxide Level 26 mmol/L (21-32) 29 mmol/L (21-32) Anion Gap 9 (6-14) 6 (6-14) Blood Urea Nitrogen 14 mg/dL (7-20) 21 mg/dL (7-20) Creatinine 0.8 mg/dL (0.6-1.0) 0.7 mg/dL (0.6-1.0) Estimated GFR (Cockcroft-Gault) 73.2 85.4 BUN/Creatinine Ratio 17 (6-20) 30 (6-20) Glucose Level 125 mg/dL (70-99) 101 mg/dL (70-99) Calcium Level 8.4 mg/dL (8.5-10.1) 9.0 mg/dL (8.5-10.1) Magnesium Level 1.9 mg/dL (1.8-2.4) Total Bilirubin 0.3 mg/dL (0.2-1.0) 0.3 mg/dL (0.2-1.0) Aspartate Amino Transf (AST/SGOT) 10 U/L (15-37) 7 U/L (15-37) Alanine Aminotransferase (ALT/SGPT) 7 U/L (14-59) 7 U/L (14-59) Alkaline Phosphatase 94 U/L (46-116) 83 U/L (46-116) Total Protein 7.0 g/dL (6.4-8.2) 6.9 g/dL (6.4-8.2) Albumin 2.2 g/dL (3.4-5.0) 2.2 g/dL (3.4-5.0) Albumin/Globulin Ratio 0.5 (1.0-1.7) 0.5 (1.0-1.7) Oxyhemoglobin 92.8 % Methemoglobin 0.3 % (0.0-1.9) Carbon Monoxide, Quantitative 0.9 % (0.0-1.9) Laboratory Tests Test 07/22/19 08:20 White Blood Count 7.5 x10^3/uL (4.0-11.0) Red Blood Count 3.21 x10^6/uL (3.50-5.40) Hemoglobin 8.6 g/dL (12.0-15.5) Hematocrit 26.5 % (36.0-47.0) Mean Corpuscular Volume 83 fL (79-100) Mean Corpuscular Hemoglobin 27 pg (25-35) Mean Corpuscular Hemoglobin Concent 32 g/dL (31-37) Red Cell Distribution Width 18.6 % (11.5-14.5) Platelet Count 323 x10^3/uL (140-400) Neutrophils (%) (Auto) 75 % (31-73) Lymphocytes (%) (Auto) 16 % (24-48) Monocytes (%) (Auto) 8 % (0-9) Eosinophils (%) (Auto) 0 % (0-3) Basophils (%) (Auto) 1 % (0-3) Neutrophils # (Auto) 5.6 x10^3/uL (1.8-7.7) Lymphocytes # (Auto) 1.2 x10^3/uL (1.0-4.8) Monocytes # (Auto) 0.6 x10^3/uL (0.0-1.1) Eosinophils # (Auto) 0.0 x10^3/uL (0.0-0.7) Basophils # (Auto) 0.1 x10^3/uL (0.0-0.2) Sodium Level 144 mmol/L (136-145) Potassium Level 3.8 mmol/L (3.5-5.1) Chloride Level 109 mmol/L (98-107) Carbon Dioxide Level 29 mmol/L (21-32) Anion Gap 6 (6-14) Blood Urea Nitrogen 21 mg/dL (7-20) Creatinine 0.7 mg/dL (0.6-1.0) Estimated GFR (Cockcroft-Gault) 85.4 BUN/Creatinine Ratio 30 (6-20) Glucose Level 101 mg/dL (70-99) Calcium Level 9.0 mg/dL (8.5-10.1) Total Bilirubin 0.3 mg/dL (0.2-1.0) Aspartate Amino Transf (AST/SGOT) 7 U/L (15-37) Alanine Aminotransferase (ALT/SGPT) 7 U/L (14-59) Alkaline Phosphatase 83 U/L (46-116) Total Protein 6.9 g/dL (6.4-8.2) Albumin 2.2 g/dL (3.4-5.0) Albumin/Globulin Ratio 0.5 (1.0-1.7) Medications Active Scripts Medications Dose Route/Sig Max Daily Dose Days Date Category Oxycodone-Acetaminophen 10-325 (Oxycodone Hcl/Acetaminophen) 1 Each Tablet 1 Tab PO PRN Q4HRS PRN 30 03/26/18 Rx Duoneb 0.5-3(2.5) Mg/3 Ml (Albuterol/Ipratropium) 3 Ml Ampul.neb 3 Ml NEB RTQID 30 03/26/18 Rx Amox Tr-K Clv 875-125 Mg Tab (Amoxicillin/Potassium Clav) 1 Each Tablet 1 Tab PO BID 7 03/26/18 Rx Mucinex Dm Er 600-30 Mg Tablet (Guaifenesin/Dextromethorphan) 1 Each Tab.er.12h 1 Each PO BID 03/18/18 Reported Xanax (Alprazolam) 1 Mg Tablet 1 Tab PO Q8HRS PRN 03/18/18 Reported Seroquel Xr (Quetiapine Fumarate) 400 Mg Tab.er.24h 800 Mg PO HS 03/18/18 Reported Venlafaxine Hcl 75 Mg Tablet 150 Mg PO HS 03/18/18 Reported Impression . IMPRESSION: 1. Acute on chronic hypoxemic respiratory failure. 2. Abnormal x-ray. 3. Right hemithorax, mass-like opacity on chest x-ray. 4. Acute exacerbation of chronic obstructive pulmonary disease. 5. Possible gram-positive, gram-negative pneumonia. 6. Third-degree heart block. 7. Hypotension, possibly related to sepsis. 8. Polysubstance use. 9. History of methicillin-resistant Staphylococcus aureus. 10. Tobacco dependence, in remission, quit approximately 4-5 months ago. Plan . PATIENT REFUSES PHYSICAL EXAM REFUSES CT CHEST WILL CONTINUE THE SAME FOR NOW PT INFORMED THAT WE MAY BE DEALING WITH CANCER...SHE ADAMANTLY REFUSES WORK UP BO LINCOLN MD Jul 22, 2019 10:10
--- NOTE | 2019-07-22 11:15 | PDOC ---
Infectious Disease Note Subjective Subjective pt is feeling better ROS ROS no n/v/d/sob Vital Sign Vital Signs Vital Signs Date Time Temp Pulse Resp B/P (MAP) Pulse Ox O2 Delivery O2 Flow Rate FiO2 07/22/19 08:00 Nasal Cannula 3.0 07/22/19 07:00 97.7 75 20 167/71 (103) 14 97.7 Physical Exam PHYSICAL EXAM GENERAL: awake, comfortable, not in distress HEENT: Pupils equally round, reactive. NECK: Supple. LUNGS: Clear to auscultation. HEART: S1 and S2. Regular. ABDOMEN: Soft and nontender with bowel sounds present. GENITOURINARY: Diaz. EXTREMITIES: No gross edema or cyanosis. SKIN: Warm to touch. No signs of rash. NEUROLOGICAL: A and O x 3, no focal deficit RIJ (07/20) without signs of any complications. Labs Lab Laboratory Tests Test 07/22/19 08:20 White Blood Count 7.5 x10^3/uL (4.0-11.0) Red Blood Count 3.21 x10^6/uL (3.50-5.40) Hemoglobin 8.6 g/dL (12.0-15.5) Hematocrit 26.5 % (36.0-47.0) Mean Corpuscular Volume 83 fL (79-100) Mean Corpuscular Hemoglobin 27 pg (25-35) Mean Corpuscular Hemoglobin Concent 32 g/dL (31-37) Red Cell Distribution Width 18.6 % (11.5-14.5) Platelet Count 323 x10^3/uL (140-400) Neutrophils (%) (Auto) 75 % (31-73) Lymphocytes (%) (Auto) 16 % (24-48) Monocytes (%) (Auto) 8 % (0-9) Eosinophils (%) (Auto) 0 % (0-3) Basophils (%) (Auto) 1 % (0-3) Neutrophils # (Auto) 5.6 x10^3/uL (1.8-7.7) Lymphocytes # (Auto) 1.2 x10^3/uL (1.0-4.8) Monocytes # (Auto) 0.6 x10^3/uL (0.0-1.1) Eosinophils # (Auto) 0.0 x10^3/uL (0.0-0.7) Basophils # (Auto) 0.1 x10^3/uL (0.0-0.2) Sodium Level 144 mmol/L (136-145) Potassium Level 3.8 mmol/L (3.5-5.1) Chloride Level 109 mmol/L (98-107) Carbon Dioxide Level 29 mmol/L (21-32) Anion Gap 6 (6-14) Blood Urea Nitrogen 21 mg/dL (7-20) Creatinine 0.7 mg/dL (0.6-1.0) Estimated GFR (Cockcroft-Gault) 85.4 BUN/Creatinine Ratio 30 (6-20) Glucose Level 101 mg/dL (70-99) Calcium Level 9.0 mg/dL (8.5-10.1) Total Bilirubin 0.3 mg/dL (0.2-1.0) Aspartate Amino Transf (AST/SGOT) 7 U/L (15-37) Alanine Aminotransferase (ALT/SGPT) 7 U/L (14-59) Alkaline Phosphatase 83 U/L (46-116) Total Protein 6.9 g/dL (6.4-8.2) Albumin 2.2 g/dL (3.4-5.0) Albumin/Globulin Ratio 0.5 (1.0-1.7) Objective Assessment 1. Pneumonia. 2. Leukocytosis. 3. Hypotension requiring Levophed. 4. Acute respiratory failure. 5. Third-degree block. 6. Chronic obstructive pulmonary disease. 7. History of substance abuse. 8. History of methicillin-resistant Staphylococcus aureus. Plan Plan of Care Continue Zosyn d/c Levaquin Dose vanc 07/20 f/u BC from [facility], 07/20 D/w Ambrosio D/w nursing CANDY PEACE MD Jul 22, 2019 11:15
--- NOTE | 2019-07-22 11:24 | CARD ---
MR#: [id number] Date of Study: 07/21/2019 Ordering Physician: RUBEN SCHMID, Referring Physician: RUBEN SCHMID, Tech: Queta Crowe APPROVED REPORT EXAM: Two-dimensional and M-mode echocardiogram with Doppler and color Doppler. Other Information Quality : GoodHR: 96bpm INDICATION Dyspnea Congestive Heart Failure RISK FACTORS Smoking 2D DIMENSIONS RVDd4.2 (2.9-3.5cm)Left Atrium(2D)3.9 (1.6-4.0cm) IVSd0.7 (0.7-1.1cm)LVDd4.3 (3.9-5.9cm) LVOT Diameter2.2 (1.8-2.4cm)PWd0.9 (0.7-1.1cm) LVDs2.5 (2.5-4.0cm)FS (%) 43.0 % SV62.5 ml LEFT VENTRICLE Limited study. The left ventricle is normal size. There is normal left ventricular wall thickness. Th e left ventricular systolic function is normal and the ejection fraction is within normal range. The Ejection Fraction is 55-60%. There is normal LV segmental wall motion. Diastology not performed. RIGHT VENTRICLE The right ventricle is mildly dilated. There is normal right ventricular wall thickness. The right ve ntricular systolic function is normal. ATRIA The left atrium size is normal. The right atrium size is normal. The interatrial septum is intact wit h no evidence for an atrial septal defect or patent foramen ovale as noted on 2-D or Doppler imaging. AORTIC VALVE The aortic valve is normal in structure and function. Doppler and color-flow analysis was not perform ed. There is no significant aortic valvular stenosis. MITRAL VALVE The mitral valve is normal in structure and function. There is no evidence of mitral valve prolapse. There is no mitral valve stenosis. Doppler and color-flow analysis was not performed. TRICUSPID VALVE The tricuspid valve is normal in structure and function. Doppler and color-flow analysis was not perf ormed. There is no tricuspid valve prolapse or vegetation. There is no tricuspid valve stenosis. PULMONIC VALVE The pulmonic valve is not well visualized. Doppler and color-flow analysis was not performed. GREAT VESSELS The aortic root is normal in size. The IVC is normal in size and collapses >50% with inspiration. PERICARDIAL EFFUSION There is no evidence of significant pericardial effusion. Critical Notification Critical Value: No <Conclusion> Limited study. The left ventricle is normal size. The left ventricular systolic function is normal and the ejection fraction is within normal range. The Ejection Fraction is 55-60%. There is normal left ventricular wall thickness. There is no significant aortic valvular stenosis. There is no mitral valve stenosis. There is no evidence of significant pericardial effusion. Signed by : Guanakito Cummings MD Electronically Approved : 07/22/2019 09:07:47
--- NOTE | 2019-07-22 11:28 | PN ---
DATE: 07/22/2019 SUBJECTIVE: The patient is resting, slightly propped up in bed, in no apparent distress. She is noncompliant and uncooperative with care, refusing all the investigation and imaging studies recommended by the manager brand. She wants to basically left alone according to her, does not want to eat her breakfast. PHYSICAL EXAMINATION: GENERAL: When I examined her, she looked pale, somewhat cachectic, but no jaundice, cyanosis, or thyromegaly. No jugular venous distention. No limb edema. VITAL SIGNS: Her heart rate was 75, blood pressure was 167/71, temperature was 97.7, respiratory rate 20, and oxygen saturation was 100% on 3 liters oxygen by nasal cannula. HEAD, EYES, EARS, NOSE, AND THROAT: Showed normocephalic, atraumatic. NECK: Supple. HEART: Showed normal first and second heart sounds. No gallop or murmur. CHEST: Showed central trachea, equal bilateral expansion, air entry, vesicular sounds. I could not really appreciate any crepitation or rhonchi. ABDOMEN: Distended, soft, nontender. NEUROLOGIC: She is awake, alert. All cranial nerves are intact. She moves extremities without difficulty, however. LABORATORY DATA: This morning showed a serum sodium 144, potassium 3.8, chloride 109, bicarbonate 29, anion gap of 6, BUN 21, creatinine 0.7. Her white cell count was 7500, hemoglobin 8.6, hematocrit 26.5, MCV 83, and platelet count of 323,000. Her blood gases as of yesterday showed a pH of 7.37, pCO2 of 43, pO2 of 74, bicarbonate 24, and oxygen saturation was 94% on FiO2 of 35%. Her chest x-ray showed mass-like opacity in the right hemithorax. There is mild increased infiltrate at the right lung base. There is mild hazy airspace opacity bilaterally, could be a component of edema. ASSESSMENT: 1. This is a 59-year-old female patient who yet again came with community-acquired pneumonia. 2. Acute hypoxic respiratory failure requiring intubation and mechanical ventilation. She is known to have chronic obstructive pulmonary disease and history of narcotic abuse as well as continuous tobacco abuse. She is also known to have benzodiazepine abuse and severe anxiety. PLAN: To continue with IV steroids. Continue with IV antibiotic. Continue with bronchodilator. Continue with alprazolam and DVT prophylaxis. BERTRAND RENTERIA MD DR: SADAF/vita JOB#: [id number] / [id number]
--- NOTE | 2019-07-22 13:30 | PDOC ---
CARDIO Progress Notes Date and Time Date of Service 07/22/19 Time of Evaluation 1310 Subjective Subjective: No Chest Pain, No Palpitations, No Dizziness, Other (breathing better) Vitals Vitals Vital Signs Date Time Temp Pulse Resp B/P (MAP) Pulse Ox O2 Delivery O2 Flow Rate FiO2 07/22/19 11:00 97.4 65 18 140/75 (96) 95 Nasal Cannula 3.0 97.4 Weight Weight [ ] Input and Output Intake and Output Intake and Output 07/22/19 07:00 Intake Total 550 ml Output Total 640 ml Balance -90 ml Intake Oral 200 ml IV Total 150 ml Other 200 ml Output Urine Total 640 ml Laboratory Labs Laboratory Tests Test 07/22/19 08:20 White Blood Count 7.5 x10^3/uL (4.0-11.0) Red Blood Count 3.21 x10^6/uL (3.50-5.40) Hemoglobin 8.6 g/dL (12.0-15.5) Hematocrit 26.5 % (36.0-47.0) Mean Corpuscular Volume 83 fL (79-100) Mean Corpuscular Hemoglobin 27 pg (25-35) Mean Corpuscular Hemoglobin Concent 32 g/dL (31-37) Red Cell Distribution Width 18.6 % (11.5-14.5) Platelet Count 323 x10^3/uL (140-400) Neutrophils (%) (Auto) 75 % (31-73) Lymphocytes (%) (Auto) 16 % (24-48) Monocytes (%) (Auto) 8 % (0-9) Eosinophils (%) (Auto) 0 % (0-3) Basophils (%) (Auto) 1 % (0-3) Neutrophils # (Auto) 5.6 x10^3/uL (1.8-7.7) Lymphocytes # (Auto) 1.2 x10^3/uL (1.0-4.8) Monocytes # (Auto) 0.6 x10^3/uL (0.0-1.1) Eosinophils # (Auto) 0.0 x10^3/uL (0.0-0.7) Basophils # (Auto) 0.1 x10^3/uL (0.0-0.2) Sodium Level 144 mmol/L (136-145) Potassium Level 3.8 mmol/L (3.5-5.1) Chloride Level 109 mmol/L (98-107) Carbon Dioxide Level 29 mmol/L (21-32) Anion Gap 6 (6-14) Blood Urea Nitrogen 21 mg/dL (7-20) Creatinine 0.7 mg/dL (0.6-1.0) Estimated GFR (Cockcroft-Gault) 85.4 BUN/Creatinine Ratio 30 (6-20) Glucose Level 101 mg/dL (70-99) Calcium Level 9.0 mg/dL (8.5-10.1) Total Bilirubin 0.3 mg/dL (0.2-1.0) Aspartate Amino Transf (AST/SGOT) 7 U/L (15-37) Alanine Aminotransferase (ALT/SGPT) 7 U/L (14-59) Alkaline Phosphatase 83 U/L (46-116) Total Protein 6.9 g/dL (6.4-8.2) Albumin 2.2 g/dL (3.4-5.0) Albumin/Globulin Ratio 0.5 (1.0-1.7) Physical Exam HEENT: Neck Supple W Full Motion Chest: Symmetric LUNGS: Other (diminished bases) Heart: S1S2, RRR Abdomen: Soft N/T Extremities: No Edema Neurology: alert, oriented, follow commands Assessment Assessment 1. Acute on chronic respiratory failure in setting of CAP and AE COPD., better compensated 2. Third-degree heart block in the setting of severe hypoxia and vagal episode. No further significant arrhythmias. 3. Diastolic CHF; Echo with preserved LV systolic function 4. H/o polysubstance abuse 5. Abnormal CXR; mass-like opacity noted. Refusing further workup with CT, presently Recommendations Ongoing antibiotic, steroids Supportive care from a CV standpoint Will follow along peripherally. EDVIN HARRIS APRN Jul 22, 2019 13:30
--- NOTE | 2019-07-22 14:15 | NUR ---
SW following pt for dc planning. Chart reviewed and discussed with RN. Pt lives at home with spouse, currently at baseline per Rehab screen. Per RN, pt is wanting to be left alone, refusing medications and tx. ID following pt. SW will be available as needed.
--- NOTE | 2019-07-22 14:36 | NUR ---
Pt remains in bed. Refusing to have anything done. Refusing all medications. Refusing Chest xray and CT of chest. Refusing to let staff change sheets on her bed. She just continues to say she wants to be left alone. She did not want to have her lara cath removed but it was removed with no complications. She continues to moan and cry out but has no specific complaints. When asked how i can help, she says leave me alone. Dr Leblanc and Dr Valente have been here and are aware of the pts behaviors.
--- NOTE | 2019-07-22 16:30 | NUR ---
Pt very anxious and screaming. Up and down from the bed to the bed side commode. When I asked her what the problem was, she said nothing! Denies pain or discomfort, refused Oxygen. I called the head gauge unit operator and hospital nursing sample room supervisor to assess the situation. Pt was also pulling off telemetry. Nursing sample room supervisor spoke to pt and discussed her behaviors. Pt continues to deny pain or discomfort. They were able to get pt back into bed, tele back on and vital signs. O2 sat 80% on room air. Nursing sample room supervisor spoke to pt about the need for oxygen, pt continues to refuse. She discussed the importance of carbon dioxide build up and the dangers of needing to be intubated again. Pt continues to be non compliant. Pt continues to say "leave me alone!" Pt was sitting on the commode with the lid down. She urinated once since the Diaz was removed. Call placed to Dr Valente for update.
[2019-07-22] MEDS: ALPRAZolam 1 MG TABLET PO PRN (16:48)
[2019-07-22 17:07] LABS: BASE EXCESS COOX 1 mmol/L (-3-3); HCO3 COOX 25 mmol/L (21-28); METHEMOGLOBIN 0.4 % (0.0-1.9); OXYHEMOGLOBIN 77.3 %; PCO2 COOX 36 mmHg (35-46); SAT O2 COOX 78 % (92-99)
[2019-07-22 17:09] LABS: PO2 COOX < 42 mmHg (65-108)
--- NOTE | 2019-07-22 17:47 | NUR ---
Received orders for ABGs. Labs done with much encouragement from this nurse, RT and Rn Home Health. ABGs were critical. Call placed to Dr Valente and Dr Cota. Received orders to transfer pt to ICU. When going into the room to move the pt, she had pulled out her triple lumen. Blood noted on pts gown. No swelling noted. No active bleeding noted. Tip intact on central line. IV stabilizer was still intact with sutures. Pt taken to room 111 per bed. Ex-carlos notified.
[2019-07-22] MEDS: DEXMEDETOMIDINE 400 MCG in IV NORMAL SALINE 100ML 96 ML IV PRN (18:36)
[2019-07-22] MEDS: ENOXAPARIN 40 MG/0.4 ML SYRINGE. SQ SCH (18:43)
[2019-07-22] MEDS: ACETAMINOPHEN 325 MG TABLET. PO PRN (19:09)
[2019-07-22 19:53] LABS: BASE EXCESS ABG -3 mmol/L (-3-3); HCO3 ABG 22 mmol/L (21-28); PCO2 ABG 35 mmHg (35-46); PO2 ABG 220 mmHg (65-108); SAT O2 ABG 99 % (92-99)
[2019-07-22 20:01] LABS: FIO2 ABG 50
[2019-07-22] MEDS: LACTOBACILLUS RHAMNOSUS GG 1 CAPSULE. PO SCH (21:15)
[2019-07-23] VITALS (24 sets, daily range): BP systolic 93–153; BP diastolic 55–98
[2019-07-23] MEDS: PIPERACILLIN/TAZOBACTAM 3.375 GM in IV NORMAL SALINE 50ML 50 ML IV SCH ×4 (00:01→17:58)
[2019-07-23] MEDS: ALPRAZolam 1 MG TABLET PO PRN ×2 (04:48→14:42)
[2019-07-23] MEDS: ACETAMINOPHEN 325 MG TABLET. PO PRN (04:48)
[2019-07-23] MEDS: methylPREDNISolone SOD SUCC PF 40 MG/ML VIAL. IV SCH ×2 (05:42→14:43)
[2019-07-23 06:07] LABS: BASO % 1 % (0-3); EOS # 0.1 x10^3/uL (0.0-0.7); EOS % 2 % (0-3); HEMATOCRIT 27.7 % (36.0-47.0); LYMPH # 0.6 x10^3/uL (1.0-4.8); LYMPH % 13 % (24-48); MEAN CORPUSCULAR HEMOGLOBIN 27 pg (25-35); MEAN CORPUSCULAR HGB CONC 33 g/dL (31-37); MEAN CORPUSCULAR VOLUME 82 fL (79-100); MONO # 0.1 x10^3/uL (0.0-1.1); MONO % 2 % (0-9); NEUT # 3.6 x10^3/uL (1.8-7.7); NEUT % 83 % (31-73); PLATELET COUNT 331 x10^3/uL (140-400); RED BLOOD COUNT 3.37 x10^6/uL (3.50-5.40); RED CELL DISTRIBUTION WIDTH 19.2 % (11.5-14.5); WHITE BLOOD COUNT 4.3 x10^3/uL (4.0-11.0)
[2019-07-23 06:32] LABS: ALBUMIN 2.5 g/dL (3.4-5.0); ALBUMIN/GLOBULIN RATIO 0.5 (1.0-1.7); CREATININE 0.8 mg/dL (0.6-1.0); GFR 73.2; POTASSIUM 3.5 mmol/L (3.5-5.1); TOTAL BILIRUBIN 0.4 mg/dL (0.2-1.0); TOTAL PROTEIN 7.5 g/dL (6.4-8.2)
[2019-07-23] MEDS: HALOPERIDOL LACTATE 5 MG/ML VIAL. IVP PRN ×2 (07:35→16:27)
[2019-07-23] MEDS: IPRATRPIUM/ALBUTEROL 0.5/2.5MG 3 ML NEBU. NEB SCH ×4 (08:31→19:56)
--- NOTE | 2019-07-23 08:38 | PDOC ---
Infectious Disease Note Subjective Subjective back to ICU, pt refusing every thing and wants to go home though sob, and was agitated, now sedated ROS ROS no n/v/d/fever is sob Vital Sign Vital Signs Vital Signs Date Time Temp Pulse Resp B/P (MAP) Pulse Ox O2 Delivery O2 Flow Rate FiO2 07/23/19 08:00 Nasal Cannula 2.0 07/23/19 08:00 96.7 91 18 133/82 (99) 100 96.7 Physical Exam PHYSICAL EXAM GENERAL: pt is sedated now calm with mittens on. HEENT: Pupils equally round, reactive. NECK: Supple. LUNGS: Clear to auscultation. HEART: S1 and S2. Regular. ABDOMEN: Soft and nontender with bowel sounds present. GENITOURINARY: Diaz. EXTREMITIES: No gross edema or cyanosis. SKIN: Warm to touch. No signs of rash. NEUROLOGICAL: no focal deficit RIJ (07/20) without signs of any complications. Labs Lab Laboratory Tests Test 07/22/19 17:00 07/22/19 19:48 07/23/19 05:25 O2 Saturation 78 % (92-99) 99 % (92-99) Arterial Blood pH 7.45 (7.35-7.45) 7.41 (7.35-7.45) Arterial Blood pCO2 at Patient Temp 36 mmHg (35-46) 35 mmHg (35-46) Arterial Blood pO2 at Patient Temp < 42 mmHg (65-108) 220 mmHg (65-108) Arterial Blood HCO3 25 mmol/L (21-28) 22 mmol/L (21-28) Arterial Blood Base Excess 1 mmol/L (-3-3) -3 mmol/L (-3-3) Oxyhemoglobin 77.3 % Methemoglobin 0.4 % (0.0-1.9) Carbon Monoxide, Quantitative 0.5 % (0.0-1.9) FiO2 .21 50 White Blood Count 4.3 x10^3/uL (4.0-11.0) Red Blood Count 3.37 x10^6/uL (3.50-5.40) Hemoglobin 9.0 g/dL (12.0-15.5) Hematocrit 27.7 % (36.0-47.0) Mean Corpuscular Volume 82 fL (79-100) Mean Corpuscular Hemoglobin 27 pg (25-35) Mean Corpuscular Hemoglobin Concent 33 g/dL (31-37) Red Cell Distribution Width 19.2 % (11.5-14.5) Platelet Count 331 x10^3/uL (140-400) Neutrophils (%) (Auto) 83 % (31-73) Lymphocytes (%) (Auto) 13 % (24-48) Monocytes (%) (Auto) 2 % (0-9) Eosinophils (%) (Auto) 2 % (0-3) Basophils (%) (Auto) 1 % (0-3) Neutrophils # (Auto) 3.6 x10^3/uL (1.8-7.7) Lymphocytes # (Auto) 0.6 x10^3/uL (1.0-4.8) Monocytes # (Auto) 0.1 x10^3/uL (0.0-1.1) Eosinophils # (Auto) 0.1 x10^3/uL (0.0-0.7) Basophils # (Auto) 0.0 x10^3/uL (0.0-0.2) Sodium Level 143 mmol/L (136-145) Potassium Level 3.5 mmol/L (3.5-5.1) Chloride Level 107 mmol/L (98-107) Carbon Dioxide Level 25 mmol/L (21-32) Anion Gap 11 (6-14) Blood Urea Nitrogen 23 mg/dL (7-20) Creatinine 0.8 mg/dL (0.6-1.0) Estimated GFR (Cockcroft-Gault) 73.2 BUN/Creatinine Ratio 29 (6-20) Glucose Level 138 mg/dL (70-99) Calcium Level 9.0 mg/dL (8.5-10.1) Total Bilirubin 0.4 mg/dL (0.2-1.0) Aspartate Amino Transf (AST/SGOT) 11 U/L (15-37) Alanine Aminotransferase (ALT/SGPT) 7 U/L (14-59) Alkaline Phosphatase 83 U/L (46-116) Total Protein 7.5 g/dL (6.4-8.2) Albumin 2.5 g/dL (3.4-5.0) Albumin/Globulin Ratio 0.5 (1.0-1.7) Objective Assessment 1. Pneumonia. 2. Leukocytosis. 3. Hypotension requiring Levophed. 4. Acute respiratory failure. 5. Third-degree block. 6. Chronic obstructive pulmonary disease. 7. History of substance abuse. 8. History of methicillin-resistant Staphylococcus aureus. Plan Plan of Care Continue Zosyn d/c Levaquin Dose vanc 07/20 f/u BC from [facility], 07/20 D/w Ambrosio D/w nursing CANDY PEACE MD Jul 23, 2019 08:38
[2019-07-23] MEDS: LACTOBACILLUS RHAMNOSUS GG 1 CAPSULE. PO SCH ×2 (09:00→20:45)
--- NOTE | 2019-07-23 09:06 | PN ---
DATE: SUBJECTIVE: The patient is resting slightly propped up in bed, no apparent distress. She is on Precedex at maximum dose, has been restless, agitated, yelling, refusing all treatments, refusing to allow an IV line to be placed. When I asked did her heart stop, she stated that she does not care, refused to have the CT scans recommended by the wax cutter. PHYSICAL EXAMINATION: GENERAL: When I examined her this morning, she was pale, but no jaundice, cyanosis or thyromegaly. No jugular venous distention. No lower limb edema. VITAL SIGNS: Her heart rate was 91, blood pressure was 133/82, temperature was 96.7, respiratory rate was 18, and oxygen saturation was 100% on 2 liters oxygen. HEAD, EYES, EARS, NOSE, AND THROAT: Showed normocephalic, atraumatic. NECK: Supple. HEART: Showed normal first and second heart sounds. No gallop or murmur. CHEST: Clear to auscultation. No crepitation or rhonchi. ABDOMEN: Distended, soft, nontender. NEUROLOGIC: She is obtunded, does open her eyes and drifts back to sleep. She moves all extremities spontaneously. Her intake over the last 24 hours was 1550, output was 1660. LABORATORY DATA: Her lab work this morning showed a white cell count 4300, hemoglobin 9, hematocrit 27, MCV 82 and platelet count of 331,000. Her chemistry showed a serum sodium 143, potassium 3.5, chloride 107, bicarbonate 25, anion gap of 11, BUN 23, creatinine 0.8. Estimated GFR was 73 mL per minute. Her glucose 138, calcium was 9. Total bilirubin, AST, ALT, and alkaline phosphatase were normal. Total protein was 7.5, albumin 2.5. Her blood gases as of yesterday showed a pH of 7.41, pCO2 of 35, pO2 of 220, bicarbonate 22, and oxygen saturation was 99% on 5 liters of oxygen. Unfortunately, the patient does not keep the BiPAP on, does not keep the oxygen on and refusing all treatment and imaging studies and therefore, I did consult the palliative care team to talk with her family to perhaps consider palliative and hospice care. BERTRAND RENTERIA MD DR: SADAF/vita JOB#: [id number] / [id number]
--- NOTE | 2019-07-23 09:23 | NUR ---
Pt refusing to wear bipap this AM. placed back on precedex, 91% on RA. Refused CHG bath.
[2019-07-23] MEDS: DEXMEDETOMIDINE 400 MCG in IV NORMAL SALINE 100ML 96 ML IV PRN ×3 (10:24→21:24)
--- NOTE | 2019-07-23 10:32 | NUR ---
SS following up with discharge planning. Pt transferred to ICU. SS discussed with Daisha COLLAZO. Pt is from home with spouse and is currently requiring oxygen. Palliative Care consulted. OT screened pt on 07/22/2019 and stated no needs at that time. SS will continue to follow for discharge planning.
--- NOTE | 2019-07-23 10:39 | PDOC2 ---
PALLIATIVE CARE Palliative Care Note Palliative Care Consult requested by Dr. Valente to address goals of care/patient refusing treatments/ Consider Hospice. Medical Assessment per medical record; 1. Acute on chronic respiratory failure in setting of CAP and AE COPD., better compensated 2. Third-degree heart block in the setting of severe hypoxia and vagal episode. No further significant arrhythmias. 3. Diastolic CHF; Echo with preserved LV systolic function 4. H/o polysubstance abuse 5. Abnormal CXR; mass-like opacity noted. Refusing further workup with CT, presently Patient sedated. Attempted to reach Rivera at [phone]. Message to return call. Code status; Full Code. Rivera returned call. Discussed Code Status; He requests Full Code. Brief discussion about options for care. "She needs to go to a home" "I can't afford her" Plan: Full Code Family Meeting tomorrow at 1300. SHANTELL WARD Jul 23, 2019 10:39
--- NOTE | 2019-07-23 11:27 | PDOC ---
PULMONARY PROGRESS NOTES Subjective PT ON BIPAP NOT IN ANY DISTRESS Vitals Vital Signs Date Time Temp Pulse Resp B/P (MAP) Pulse Ox O2 Delivery O2 Flow Rate FiO2 07/23/19 09:00 71 19 125/69 (87) 90 Room Air 07/23/19 08:00 2.0 07/23/19 08:00 96.7 96.7 ROS: No Nausea, No Abdominal Pain, No Increase Cough Lungs: Crackles Cardiovascular: S1, S2 Abdomen: Soft Neuro Exam: Alert Extremities: No Edema Skin: Warm Labs Laboratory Tests Test 07/22/19 08:20 07/22/19 17:00 07/22/19 19:48 07/23/19 05:25 White Blood Count 7.5 x10^3/uL (4.0-11.0) 4.3 x10^3/uL (4.0-11.0) Red Blood Count 3.21 x10^6/uL (3.50-5.40) 3.37 x10^6/uL (3.50-5.40) Hemoglobin 8.6 g/dL (12.0-15.5) 9.0 g/dL (12.0-15.5) Hematocrit 26.5 % (36.0-47.0) 27.7 % (36.0-47.0) Mean Corpuscular Volume 83 fL (79-100) 82 fL (79-100) Mean Corpuscular Hemoglobin 27 pg (25-35) 27 pg (25-35) Mean Corpuscular Hemoglobin Concent 32 g/dL (31-37) 33 g/dL (31-37) Red Cell Distribution Width 18.6 % (11.5-14.5) 19.2 % (11.5-14.5) Platelet Count 323 x10^3/uL (140-400) 331 x10^3/uL (140-400) Neutrophils (%) (Auto) 75 % (31-73) 83 % (31-73) Lymphocytes (%) (Auto) 16 % (24-48) 13 % (24-48) Monocytes (%) (Auto) 8 % (0-9) 2 % (0-9) Eosinophils (%) (Auto) 0 % (0-3) 2 % (0-3) Basophils (%) (Auto) 1 % (0-3) 1 % (0-3) Neutrophils # (Auto) 5.6 x10^3/uL (1.8-7.7) 3.6 x10^3/uL (1.8-7.7) Lymphocytes # (Auto) 1.2 x10^3/uL (1.0-4.8) 0.6 x10^3/uL (1.0-4.8) Monocytes # (Auto) 0.6 x10^3/uL (0.0-1.1) 0.1 x10^3/uL (0.0-1.1) Eosinophils # (Auto) 0.0 x10^3/uL (0.0-0.7) 0.1 x10^3/uL (0.0-0.7) Basophils # (Auto) 0.1 x10^3/uL (0.0-0.2) 0.0 x10^3/uL (0.0-0.2) Sodium Level 144 mmol/L (136-145) 143 mmol/L (136-145) Potassium Level 3.8 mmol/L (3.5-5.1) 3.5 mmol/L (3.5-5.1) Chloride Level 109 mmol/L (98-107) 107 mmol/L (98-107) Carbon Dioxide Level 29 mmol/L (21-32) 25 mmol/L (21-32) Anion Gap 6 (6-14) 11 (6-14) Blood Urea Nitrogen 21 mg/dL (7-20) 23 mg/dL (7-20) Creatinine 0.7 mg/dL (0.6-1.0) 0.8 mg/dL (0.6-1.0) Estimated GFR (Cockcroft-Gault) 85.4 73.2 BUN/Creatinine Ratio 30 (6-20) 29 (6-20) Glucose Level 101 mg/dL (70-99) 138 mg/dL (70-99) Calcium Level 9.0 mg/dL (8.5-10.1) 9.0 mg/dL (8.5-10.1) Total Bilirubin 0.3 mg/dL (0.2-1.0) 0.4 mg/dL (0.2-1.0) Aspartate Amino Transf (AST/SGOT) 7 U/L (15-37) 11 U/L (15-37) Alanine Aminotransferase (ALT/SGPT) 7 U/L (14-59) 7 U/L (14-59) Alkaline Phosphatase 83 U/L (46-116) 83 U/L (46-116) Total Protein 6.9 g/dL (6.4-8.2) 7.5 g/dL (6.4-8.2) Albumin 2.2 g/dL (3.4-5.0) 2.5 g/dL (3.4-5.0) Albumin/Globulin Ratio 0.5 (1.0-1.7) 0.5 (1.0-1.7) O2 Saturation 78 % (92-99) 99 % (92-99) Arterial Blood pH 7.45 (7.35-7.45) 7.41 (7.35-7.45) Arterial Blood pCO2 at Patient Temp 36 mmHg (35-46) 35 mmHg (35-46) Arterial Blood pO2 at Patient Temp < 42 mmHg (65-108) 220 mmHg (65-108) Arterial Blood HCO3 25 mmol/L (21-28) 22 mmol/L (21-28) Arterial Blood Base Excess 1 mmol/L (-3-3) -3 mmol/L (-3-3) Oxyhemoglobin 77.3 % Methemoglobin 0.4 % (0.0-1.9) Carbon Monoxide, Quantitative 0.5 % (0.0-1.9) FiO2 .21 50 Laboratory Tests Test 07/22/19 17:00 07/22/19 19:48 07/23/19 05:25 O2 Saturation 78 % (92-99) 99 % (92-99) Arterial Blood pH 7.45 (7.35-7.45) 7.41 (7.35-7.45) Arterial Blood pCO2 at Patient Temp 36 mmHg (35-46) 35 mmHg (35-46) Arterial Blood pO2 at Patient Temp < 42 mmHg (65-108) 220 mmHg (65-108) Arterial Blood HCO3 25 mmol/L (21-28) 22 mmol/L (21-28) Arterial Blood Base Excess 1 mmol/L (-3-3) -3 mmol/L (-3-3) Oxyhemoglobin 77.3 % Methemoglobin 0.4 % (0.0-1.9) Carbon Monoxide, Quantitative 0.5 % (0.0-1.9) FiO2 .21 50 White Blood Count 4.3 x10^3/uL (4.0-11.0) Red Blood Count 3.37 x10^6/uL (3.50-5.40) Hemoglobin 9.0 g/dL (12.0-15.5) Hematocrit 27.7 % (36.0-47.0) Mean Corpuscular Volume 82 fL (79-100) Mean Corpuscular Hemoglobin 27 pg (25-35) Mean Corpuscular Hemoglobin Concent 33 g/dL (31-37) Red Cell Distribution Width 19.2 % (11.5-14.5) Platelet Count 331 x10^3/uL (140-400) Neutrophils (%) (Auto) 83 % (31-73) Lymphocytes (%) (Auto) 13 % (24-48) Monocytes (%) (Auto) 2 % (0-9) Eosinophils (%) (Auto) 2 % (0-3) Basophils (%) (Auto) 1 % (0-3) Neutrophils # (Auto) 3.6 x10^3/uL (1.8-7.7) Lymphocytes # (Auto) 0.6 x10^3/uL (1.0-4.8) Monocytes # (Auto) 0.1 x10^3/uL (0.0-1.1) Eosinophils # (Auto) 0.1 x10^3/uL (0.0-0.7) Basophils # (Auto) 0.0 x10^3/uL (0.0-0.2) Sodium Level 143 mmol/L (136-145) Potassium Level 3.5 mmol/L (3.5-5.1) Chloride Level 107 mmol/L (98-107) Carbon Dioxide Level 25 mmol/L (21-32) Anion Gap 11 (6-14) Blood Urea Nitrogen 23 mg/dL (7-20) Creatinine 0.8 mg/dL (0.6-1.0) Estimated GFR (Cockcroft-Gault) 73.2 BUN/Creatinine Ratio 29 (6-20) Glucose Level 138 mg/dL (70-99) Calcium Level 9.0 mg/dL (8.5-10.1) Total Bilirubin 0.4 mg/dL (0.2-1.0) Aspartate Amino Transf (AST/SGOT) 11 U/L (15-37) Alanine Aminotransferase (ALT/SGPT) 7 U/L (14-59) Alkaline Phosphatase 83 U/L (46-116) Total Protein 7.5 g/dL (6.4-8.2) Albumin 2.5 g/dL (3.4-5.0) Albumin/Globulin Ratio 0.5 (1.0-1.7) Medications Active Scripts Medications Dose Route/Sig Max Daily Dose Days Date Category Oxycodone-Acetaminophen 10-325 (Oxycodone Hcl/Acetaminophen) 1 Each Tablet 1 Tab PO PRN Q4HRS PRN 30 03/26/18 Rx Duoneb 0.5-3(2.5) Mg/3 Ml (Albuterol/Ipratropium) 3 Ml Ampul.neb 3 Ml NEB RTQID 30 03/26/18 Rx Amox Tr-K Clv 875-125 Mg Tab (Amoxicillin/Potassium Clav) 1 Each Tablet 1 Tab PO BID 7 03/26/18 Rx Mucinex Dm Er 600-30 Mg Tablet (Guaifenesin/Dextromethorphan) 1 Each Tab.er.12h 1 Each PO BID 03/18/18 Reported Xanax (Alprazolam) 1 Mg Tablet 1 Tab PO Q8HRS PRN 03/18/18 Reported Seroquel Xr (Quetiapine Fumarate) 400 Mg Tab.er.24h 800 Mg PO HS 03/18/18 Reported Venlafaxine Hcl 75 Mg Tablet 150 Mg PO HS 03/18/18 Reported Impression . IMPRESSION: 1. Acute on chronic hypoxemic respiratory failure. 2. Abnormal x-ray. 3. Right hemithorax, mass-like opacity on chest x-ray. 4. Acute exacerbation of chronic obstructive pulmonary disease. 5. Possible gram-positive, gram-negative pneumonia. 6. Third-degree heart block. 7. Hypotension, possibly related to sepsis. 8. Polysubstance use. 9. History of methicillin-resistant Staphylococcus aureus. 10. Tobacco dependence, in remission, quit approximately 4-5 months ago. 11. ACUTE TOXIC METABOLIC ENC 12 DELIRIUM Plan . PT ON BIPAP ON PRECEDEX WILL TRY GET CT TODAY ANTIBX D/W CT PERSONAL AND RN WILL CONTINUE THE SAME FOR NOW BO LINCOLN MD Jul 23, 2019 11:27
--- NOTE | 2019-07-23 15:11 | NUR ---
Pt ripping blood pressure cuff and pulse ox off every hour. Refusing to wear them. Vitals charted Q4HRS as tolerated by patient. Not waking pt due to severe agitation and verbally aggressive to take vital signs. Pt on heart monitor. Pt given Xanax and on Precedex gtt to keep patient calm.
--- NOTE | 2019-07-23 15:54 | RAD ---
Examination: PORTABLE CHEST 1V History: On BiPAP Comparison/Correlation: 07/21/2019 AP view of the chest Findings: Portable upright frontal view chest was obtained. Heart size unremarkable. Pulmonary vasculature is within upper limits of normal. No pneumothorax. Biapical pleural thickening is present. Interstitial thickening of the lung hinojosa is similar to previous exam. Right upper lung mass previously described overlies the right hilar region on the current exam and this appears to represent differences in positioning. Minimal left costophrenic angle blunting which may present small pleural effusion is unchanged. Impression: No new infiltrate. No pneumothorax. Right hilar masslike infiltrates. Electronically signed by: Arnel Carlos MD (07/23/2019 3:51 PM) [facility]
[2019-07-23] MEDS: ENOXAPARIN 40 MG/0.4 ML SYRINGE. SQ SCH (16:27)
[2019-07-23] MEDS: OLANZapine IM 10 MG VIAL. IM PRN (16:55)
[2019-07-24] VITALS (23 sets, daily range): BP systolic 86–148; BP diastolic 60–88
[2019-07-24] MEDS: PIPERACILLIN/TAZOBACTAM 3.375 GM in IV NORMAL SALINE 50ML 50 ML IV SCH ×5 (00:05→23:30)
[2019-07-24] MEDS: methylPREDNISolone SOD SUCC PF 40 MG/ML VIAL. IV SCH ×3 (00:05→20:35)
[2019-07-24] MEDS: HALOPERIDOL LACTATE 5 MG/ML VIAL. IVP PRN ×3 (00:05→14:31)
[2019-07-24 04:43] LABS: BASO # 0.1 x10^3/uL (0.0-0.2); BASO % 1 % (0-3); EOS # 0.1 x10^3/uL (0.0-0.7); EOS % 3 % (0-3); HEMATOCRIT 27.7 % (36.0-47.0); LYMPH # 0.8 x10^3/uL (1.0-4.8); LYMPH % 15 % (24-48); MEAN CORPUSCULAR HEMOGLOBIN 26 pg (25-35); MEAN CORPUSCULAR HGB CONC 33 g/dL (31-37); MEAN CORPUSCULAR VOLUME 81 fL (79-100); MONO # 0.3 x10^3/uL (0.0-1.1); MONO % 5 % (0-9); NEUT # 4.2 x10^3/uL (1.8-7.7); NEUT % 77 % (31-73); PLATELET COUNT 329 x10^3/uL (140-400); RED BLOOD COUNT 3.43 x10^6/uL (3.50-5.40); RED CELL DISTRIBUTION WIDTH 18.6 % (11.5-14.5); WHITE BLOOD COUNT 5.5 x10^3/uL (4.0-11.0)
[2019-07-24 05:02] LABS: ALBUMIN 2.6 g/dL (3.4-5.0); ALBUMIN/GLOBULIN RATIO 0.6 (1.0-1.7); CALCIUM 8.9 mg/dL (8.5-10.1); CREATININE 0.9 mg/dL (0.6-1.0); GFR 63.9; POTASSIUM 3.2 mmol/L (3.5-5.1); TOTAL BILIRUBIN 0.5 mg/dL (0.2-1.0); TOTAL PROTEIN 7.3 g/dL (6.4-8.2)
[2019-07-24] MEDS: ALPRAZolam 1 MG TABLET PO PRN ×3 (05:18→18:05)
--- NOTE | 2019-07-24 07:54 | PDOC ---
Infectious Disease Note Subjective Subjective pt is on BiPAP says feeling better ROS ROS no n/v/d/fever Vital Sign Vital Signs Vital Signs Date Time Temp Pulse Resp B/P (MAP) Pulse Ox O2 Delivery O2 Flow Rate FiO2 07/24/19 06:00 50 20 86/60 (69) 100 BiPAP/CPAP 07/24/19 04:00 98.2 98.2 07/23/19 08:00 2.0 Physical Exam PHYSICAL EXAM GENERAL: pt is on bipap calm with mittens on. HEENT: Pupils equally round, reactive. NECK: Supple. LUNGS: Clear to auscultation. HEART: S1 and S2. Regular. ABDOMEN: Soft and nontender with bowel sounds present. GENITOURINARY: Diaz. EXTREMITIES: No gross edema or cyanosis. SKIN: Warm to touch. No signs of rash. NEUROLOGICAL: no focal deficit [facility] (07/20) without signs of any complications. Labs Lab Laboratory Tests Test 07/24/19 04:25 White Blood Count 5.5 x10^3/uL (4.0-11.0) Red Blood Count 3.43 x10^6/uL (3.50-5.40) Hemoglobin 9.0 g/dL (12.0-15.5) Hematocrit 27.7 % (36.0-47.0) Mean Corpuscular Volume 81 fL (79-100) Mean Corpuscular Hemoglobin 26 pg (25-35) Mean Corpuscular Hemoglobin Concent 33 g/dL (31-37) Red Cell Distribution Width 18.6 % (11.5-14.5) Platelet Count 329 x10^3/uL (140-400) Neutrophils (%) (Auto) 77 % (31-73) Lymphocytes (%) (Auto) 15 % (24-48) Monocytes (%) (Auto) 5 % (0-9) Eosinophils (%) (Auto) 3 % (0-3) Basophils (%) (Auto) 1 % (0-3) Neutrophils # (Auto) 4.2 x10^3/uL (1.8-7.7) Lymphocytes # (Auto) 0.8 x10^3/uL (1.0-4.8) Monocytes # (Auto) 0.3 x10^3/uL (0.0-1.1) Eosinophils # (Auto) 0.1 x10^3/uL (0.0-0.7) Basophils # (Auto) 0.1 x10^3/uL (0.0-0.2) Sodium Level 144 mmol/L (136-145) Potassium Level 3.2 mmol/L (3.5-5.1) Chloride Level 107 mmol/L (98-107) Carbon Dioxide Level 24 mmol/L (21-32) Anion Gap 13 (6-14) Blood Urea Nitrogen 22 mg/dL (7-20) Creatinine 0.9 mg/dL (0.6-1.0) Estimated GFR (Cockcroft-Gault) 63.9 BUN/Creatinine Ratio 24 (6-20) Glucose Level 144 mg/dL (70-99) Calcium Level 8.9 mg/dL (8.5-10.1) Total Bilirubin 0.5 mg/dL (0.2-1.0) Aspartate Amino Transf (AST/SGOT) 8 U/L (15-37) Alanine Aminotransferase (ALT/SGPT) 6 U/L (14-59) Alkaline Phosphatase 81 U/L (46-116) Total Protein 7.3 g/dL (6.4-8.2) Albumin 2.6 g/dL (3.4-5.0) Albumin/Globulin Ratio 0.6 (1.0-1.7) Objective Assessment 1. Pneumonia. 2. Leukocytosis. 3. Hypotension improved 4. Acute respiratory failure. 5. Third-degree block. 6. Chronic obstructive pulmonary disease. 7. History of substance abuse. 8. History of methicillin-resistant Staphylococcus aureus. Plan Plan of Care Continue Zosyn d/c Levaquin Dose vanc 07/20 f/u BC from [facility], 07/20 D/w Ambrosio D/w nursing CANDY PEACE MD Jul 24, 2019 07:54
[2019-07-24] MEDS: IPRATRPIUM/ALBUTEROL 0.5/2.5MG 3 ML NEBU. NEB SCH ×4 (08:21→20:17)
--- NOTE | 2019-07-24 09:47 | PDOC ---
PULMONARY PROGRESS NOTES Subjective PT OFF BIPAP APPEARS MORE COMFORTABLE TODAY NO NEW COMPLAINTS Vitals Vital Signs Date Time Temp Pulse Resp B/P (MAP) Pulse Ox O2 Delivery O2 Flow Rate FiO2 07/24/19 08:21 94 Nasal Cannula 2.0 07/24/19 06:00 50 20 86/60 (69) 07/24/19 04:00 98.2 98.2 ROS: No Nausea, No Chest Pain, No Abdominal Pain, No Increase Cough General: Alert Lungs: Crackles Cardiovascular: S1, S2 Abdomen: Soft Neuro Exam: Alert Extremities: No Edema Skin: Warm Labs Laboratory Tests Test 07/22/19 17:00 07/22/19 19:48 07/23/19 05:25 07/24/19 04:25 O2 Saturation 78 % (92-99) 99 % (92-99) Arterial Blood pH 7.45 (7.35-7.45) 7.41 (7.35-7.45) Arterial Blood pCO2 at Patient Temp 36 mmHg (35-46) 35 mmHg (35-46) Arterial Blood pO2 at Patient Temp < 42 mmHg (65-108) 220 mmHg (65-108) Arterial Blood HCO3 25 mmol/L (21-28) 22 mmol/L (21-28) Arterial Blood Base Excess 1 mmol/L (-3-3) -3 mmol/L (-3-3) Oxyhemoglobin 77.3 % Methemoglobin 0.4 % (0.0-1.9) Carbon Monoxide, Quantitative 0.5 % (0.0-1.9) FiO2 .21 50 White Blood Count 4.3 x10^3/uL (4.0-11.0) 5.5 x10^3/uL (4.0-11.0) Red Blood Count 3.37 x10^6/uL (3.50-5.40) 3.43 x10^6/uL (3.50-5.40) Hemoglobin 9.0 g/dL (12.0-15.5) 9.0 g/dL (12.0-15.5) Hematocrit 27.7 % (36.0-47.0) 27.7 % (36.0-47.0) Mean Corpuscular Volume 82 fL (79-100) 81 fL (79-100) Mean Corpuscular Hemoglobin 27 pg (25-35) 26 pg (25-35) Mean Corpuscular Hemoglobin Concent 33 g/dL (31-37) 33 g/dL (31-37) Red Cell Distribution Width 19.2 % (11.5-14.5) 18.6 % (11.5-14.5) Platelet Count 331 x10^3/uL (140-400) 329 x10^3/uL (140-400) Neutrophils (%) (Auto) 83 % (31-73) 77 % (31-73) Lymphocytes (%) (Auto) 13 % (24-48) 15 % (24-48) Monocytes (%) (Auto) 2 % (0-9) 5 % (0-9) Eosinophils (%) (Auto) 2 % (0-3) 3 % (0-3) Basophils (%) (Auto) 1 % (0-3) 1 % (0-3) Neutrophils # (Auto) 3.6 x10^3/uL (1.8-7.7) 4.2 x10^3/uL (1.8-7.7) Lymphocytes # (Auto) 0.6 x10^3/uL (1.0-4.8) 0.8 x10^3/uL (1.0-4.8) Monocytes # (Auto) 0.1 x10^3/uL (0.0-1.1) 0.3 x10^3/uL (0.0-1.1) Eosinophils # (Auto) 0.1 x10^3/uL (0.0-0.7) 0.1 x10^3/uL (0.0-0.7) Basophils # (Auto) 0.0 x10^3/uL (0.0-0.2) 0.1 x10^3/uL (0.0-0.2) Sodium Level 143 mmol/L (136-145) 144 mmol/L (136-145) Potassium Level 3.5 mmol/L (3.5-5.1) 3.2 mmol/L (3.5-5.1) Chloride Level 107 mmol/L (98-107) 107 mmol/L (98-107) Carbon Dioxide Level 25 mmol/L (21-32) 24 mmol/L (21-32) Anion Gap 11 (6-14) 13 (6-14) Blood Urea Nitrogen 23 mg/dL (7-20) 22 mg/dL (7-20) Creatinine 0.8 mg/dL (0.6-1.0) 0.9 mg/dL (0.6-1.0) Estimated GFR (Cockcroft-Gault) 73.2 63.9 BUN/Creatinine Ratio 29 (6-20) 24 (6-20) Glucose Level 138 mg/dL (70-99) 144 mg/dL (70-99) Calcium Level 9.0 mg/dL (8.5-10.1) 8.9 mg/dL (8.5-10.1) Total Bilirubin 0.4 mg/dL (0.2-1.0) 0.5 mg/dL (0.2-1.0) Aspartate Amino Transf (AST/SGOT) 11 U/L (15-37) 8 U/L (15-37) Alanine Aminotransferase (ALT/SGPT) 7 U/L (14-59) 6 U/L (14-59) Alkaline Phosphatase 83 U/L (46-116) 81 U/L (46-116) Total Protein 7.5 g/dL (6.4-8.2) 7.3 g/dL (6.4-8.2) Albumin 2.5 g/dL (3.4-5.0) 2.6 g/dL (3.4-5.0) Albumin/Globulin Ratio 0.5 (1.0-1.7) 0.6 (1.0-1.7) Laboratory Tests Test 07/24/19 04:25 White Blood Count 5.5 x10^3/uL (4.0-11.0) Red Blood Count 3.43 x10^6/uL (3.50-5.40) Hemoglobin 9.0 g/dL (12.0-15.5) Hematocrit 27.7 % (36.0-47.0) Mean Corpuscular Volume 81 fL (79-100) Mean Corpuscular Hemoglobin 26 pg (25-35) Mean Corpuscular Hemoglobin Concent 33 g/dL (31-37) Red Cell Distribution Width 18.6 % (11.5-14.5) Platelet Count 329 x10^3/uL (140-400) Neutrophils (%) (Auto) 77 % (31-73) Lymphocytes (%) (Auto) 15 % (24-48) Monocytes (%) (Auto) 5 % (0-9) Eosinophils (%) (Auto) 3 % (0-3) Basophils (%) (Auto) 1 % (0-3) Neutrophils # (Auto) 4.2 x10^3/uL (1.8-7.7) Lymphocytes # (Auto) 0.8 x10^3/uL (1.0-4.8) Monocytes # (Auto) 0.3 x10^3/uL (0.0-1.1) Eosinophils # (Auto) 0.1 x10^3/uL (0.0-0.7) Basophils # (Auto) 0.1 x10^3/uL (0.0-0.2) Sodium Level 144 mmol/L (136-145) Potassium Level 3.2 mmol/L (3.5-5.1) Chloride Level 107 mmol/L (98-107) Carbon Dioxide Level 24 mmol/L (21-32) Anion Gap 13 (6-14) Blood Urea Nitrogen 22 mg/dL (7-20) Creatinine 0.9 mg/dL (0.6-1.0) Estimated GFR (Cockcroft-Gault) 63.9 BUN/Creatinine Ratio 24 (6-20) Glucose Level 144 mg/dL (70-99) Calcium Level 8.9 mg/dL (8.5-10.1) Total Bilirubin 0.5 mg/dL (0.2-1.0) Aspartate Amino Transf (AST/SGOT) 8 U/L (15-37) Alanine Aminotransferase (ALT/SGPT) 6 U/L (14-59) Alkaline Phosphatase 81 U/L (46-116) Total Protein 7.3 g/dL (6.4-8.2) Albumin 2.6 g/dL (3.4-5.0) Albumin/Globulin Ratio 0.6 (1.0-1.7) Medications Active Scripts Medications Dose Route/Sig Max Daily Dose Days Date Category Oxycodone-Acetaminophen 10-325 (Oxycodone Hcl/Acetaminophen) 1 Each Tablet 1 Tab PO PRN Q4HRS PRN 30 03/26/ Rx Duoneb 0.5-3(2.5) Mg/3 Ml (Albuterol/Ipratropium) 3 Ml Ampul.neb 3 Ml NEB RTQID 30 03/26/18 Rx Amox Tr-K Clv 875-125 Mg Tab (Amoxicillin/Potassium Clav) 1 Each Tablet 1 Tab PO BID 7 03/26/18 Rx Mucinex Dm Er 600-30 Mg Tablet (Guaifenesin/Dextromethorphan) 1 Each Tab.er.12h 1 Each PO BID 03/18/18 Reported Xanax (Alprazolam) 1 Mg Tablet 1 Tab PO Q8HRS PRN 03/18/18 Reported Seroquel Xr (Quetiapine Fumarate) 400 Mg Tab.er.24h 800 Mg PO HS 03/18/18 Reported Venlafaxine Hcl 75 Mg Tablet 150 Mg PO HS 03/18/18 Reported Impression . IMPRESSION: 1. Acute on chronic hypoxemic respiratory failure. 2. Abnormal x-ray. 3. Right hemithorax, mass-like opacity on chest x-ray. 4. Acute exacerbation of chronic obstructive pulmonary disease. 5. Possible gram-positive, gram-negative pneumonia. 6. Third-degree heart block. 7. Hypotension, possibly related to sepsis. 8. Polysubstance use. 9. History of methicillin-resistant Staphylococcus aureus. 10. Tobacco dependence, in remission, quit approximately 4-5 months ago. 11. ACUTE TOXIC METABOLIC ENC POA 12 DELIRIUM IMPROVED Plan . PT AGREED TO UNDERGO CT CHEST I TOLD HER THAT I WOULD TAKE GOOD CARE OF HER AND I NEEDED TO OBTAIN ADDITIONAL INFORMATION WITH CT CHEST. SHE AGREE THAT SHE IS SCARED AND ANXIOUS, INFORMED PT I CAN GIVE HER SOMETHING FOR ANXIETY D/W JANNY THOMPSON AND LEXI IN CT SCAN [address] PER ID PRN ALECIAAP BO LINCOLN MD Jul 24, 2019 09:47
[2019-07-24] MEDS: LACTOBACILLUS RHAMNOSUS GG 1 CAPSULE. PO SCH ×2 (10:16→20:41)
[2019-07-24] MEDS ORDERED: POTASSIUM CHLORIDE 20 MEQ TABLET.ER. PO ONE (11:30)
--- NOTE | 2019-07-24 11:47 | RAD ---
Examination: PORTABLE CHEST 1V History: Shortness of breath Comparison/Correlation: 07/21/2019 Portable Chest X-ray Exam Findings: Portable semiupright frontal view of the chest was obtained. Right perihilar and suprahilar infiltrates are again seen. Somewhat greater opacity at the right hilar level as suggested may represent atelectasis or may be due to slight differences in positioning. Interstitial thickening and lung hinojosa noted. No pneumothorax. Minimal left basilar angle blunting is present. Pulmonary hyperinflation noted. Impression: No significant change in pulmonary aeration. Right perihilar and suprahilar opacities again seen and may be slightly increased. Electronically signed by: Arnel Carlos MD (07/24/2019 11:44 AM) [facility]
[2019-07-24] MEDS ORDERED: CONTRAST GIVEN. MC PRN (12:15)
[2019-07-24] MEDS ORDERED: IOHEXOL 300 MG/ML 100ML VIAL. IV ONE (12:15)
--- NOTE | 2019-07-24 14:16 | PDOC2 ---
PALLIATIVE CARE Palliative Care Note Palliative Care Patient moaning, crying out, agitated. Off BiPap Met with Rivera and patient's sister Janine, son Arjun Reviewed current medical condition: COPD, respiratory distress requiring BiPap, agitation, confusion, pneumonia CHF, Bipolar CT chest pending; Janine states patient was discharged from [facility] less that a week prior to her admission here. States she has history of Histoplasmosis. Family states her mental status his her biggest problem. "She is as a good as she want to be and as bad as she wants to be" Family would like to have more opportunity to address mental status. ???[facility] or [facility] health facility. Understand that she likely is not stable medically for mental health facility. If no improvement or lacks cooperation Hospice with [facility] would be the next step. No resources for Nursing Facility. She likely would need to go home with hospice. They would like her to remain full code until evaluated for [facility]. SHANTELL WARD Jul 24, 2019 14:16
[2019-07-24] MEDS: ACETAMINOPHEN 325 MG TABLET. PO PRN (14:35)
--- NOTE | 2019-07-24 16:20 | NUR ---
SS following up with discharge planning. SS discussed with palliative care RN. SS phoned and faxed referral to [facility], ; fax [phone]. SS will await acceptance decision and will proceed accordingly.
[2019-07-24] MEDS: OLANZapine IM 10 MG VIAL. IM PRN ×2 (16:39→23:17)
[2019-07-24] MEDS: ENOXAPARIN 40 MG/0.4 ML SYRINGE. SQ SCH (16:45)
[2019-07-24] MEDS: POTASSIUM CHLORIDE 20 MEQ TABLET.ER. PO SCH ×2 (18:06→20:36)
--- NOTE | 2019-07-24 20:03 | PN ---
DATE: 07/24/2019 SUBJECTIVE: The patient is resting, slightly propped up in bed, in no apparent respiratory distress. She is awake, alert, more responsive and cooperative today. She was given Zyprexa last night and that helped her tolerate the BiPAP machine and that was taken off this morning. She managed to eat some of her breakfast. When I questioned her, she was very anxious, worried about she will . I explained to her that if she is cooperative, we will continue to work with her and help her symptoms. Dr. Cota recommended that she should do the CT scan, she seemed to be receptive to the idea. PHYSICAL EXAMINATION: GENERAL: When I examined her this morning, she looked pale, somewhat cachectic, but no jaundice, cyanosis or thyromegaly. No jugular venous distention. No limb edema. VITAL SIGNS: Her heart rate was 88, blood pressure was 128/84, temperature was 97.8, respiratory rate was 18 and oxygen saturation 98% on 2 liters of oxygen. HEAD, EYES, EARS, NOSE AND THROAT: Showed normocephalic, atraumatic. NECK: Supple. HEART: Showed normal first and second heart sounds. No gallop or murmur. CHEST: Clear to auscultation. No crepitation or rhonchi. ABDOMEN: Distended, soft, nontender. No guarding or rigidity. No organomegaly. All hernial orifices intact. Bowel sounds normal. NEUROLOGIC: She is definitely more awake, alert, responding appropriately. All cranial nerves intact. She moves extremities without difficulty. Her intake over the last 24 hours was 775, output was 1085. LABORATORY DATA: As of this morning showed a white cell count of 5500, hemoglobin 9, hematocrit 28, MCV 81 and platelet count of 329,000. Her chemistry showed a serum sodium 144, potassium 3.2, chloride 107, bicarbonate 24, anion gap of 13, BUN 22, creatinine was 0.9, estimated GFR was 64 mL per minute. Her glucose 144, calcium was 8.9. Total bilirubin, AST, ALT, alkaline phosphatase were normal. Total protein was 7.3, albumin 2.6. ASSESSMENT: 1. Acute hypoxic respiratory failure. 2. Chronic obstructive pulmonary disease exacerbation. 3. Community-acquired pneumonia. 4. Chronic obstructive pulmonary disease. 5. History of narcotic abuse as well as continued tobacco abuse. She is also known to abuse benzodiazepine for her severe anxiety. I have reconciled all her medication. Apparently Zyprexa was effective last night and she tolerated the BiPAP machine. I will cut down her steroids to 40 mg twice a day and obviously Dr. Cota might cut down that further, continue meanwhile with IV antibiotic, continue with the Xanax and we will put her back on her Seroquel as well as venlafaxine. BERTRAND RENTERIA MD DR: SADAF/vita JOB#: [id number] / [id number]
[2019-07-24] MEDS ORDERED: QUEtiapine 300 MG TAB.ER.24H. PO SCH (21:00)
[2019-07-24] MEDS ORDERED: VENLAFAXINE 75 MG TABLET. PO SCH (21:00)
[2019-07-24] MEDS ORDERED: QUEtiapine 50 MG TAB.ER.24H. PO SCH (21:00)
[2019-07-25] VITALS (13 sets, daily range): BP systolic 97–132; BP diastolic 66–78
[2019-07-25] MEDS: HALOPERIDOL LACTATE 5 MG/ML VIAL. IVP PRN (00:39)
--- NOTE | 2019-07-25 01:40 | NUR ---
Pt continues to show increased anxiety this shift. Pt shifting in bed often, moaning, and pulling at cords. Pt asked multiple times the dose of Seroquel she was to receive at bedtime. Pt also asked what other antipsychotic medications she was to receive so she "could go to sleep." Pt administered scheduled Seroquel and Effexor. Pt also given PRN Zyprexa and PRN Haldol during this shift. Pt states medications are "not very effective" when RN enters the room. This RN has noticed pt resting with eyes closed and decreased moaning since medication administration. Pt also reported "breathing better." Pt has been alert and oriented this shift, but continues to be forgetful. Pt is within sight of care team, pts call light within reach. Will continue to monitor.
[2019-07-25] MEDS: ALPRAZolam 1 MG TABLET PO PRN ×2 (02:16→10:06)
[2019-07-25] MEDS: PIPERACILLIN/TAZOBACTAM 3.375 GM in IV NORMAL SALINE 50ML 50 ML IV SCH ×2 (05:27→12:29)
[2019-07-25] MEDS: OLANZapine IM 10 MG VIAL. IM PRN ×2 (05:39→14:37)
[2019-07-25] MEDS: IPRATRPIUM/ALBUTEROL 0.5/2.5MG 3 ML NEBU. NEB SCH ×2 (08:00→11:24)
--- NOTE | 2019-07-25 08:06 | PDOC ---
Infectious Disease Note Subjective Subjective says feeling better ROS ROS no n/v/d/sob Vital Sign Vital Signs Vital Signs Date Time Temp Pulse Resp B/P (MAP) Pulse Ox O2 Delivery O2 Flow Rate FiO2 07/25/19 07:00 73 27 117/72 (87) 99 Nasal Cannula 2.0 07/25/19 04:00 97.4 97.4 Physical Exam PHYSICAL EXAM GENERAL: awake, comfortable calm with mittens on. HEENT: Pupils equally round, reactive. NECK: Supple. LUNGS: Clear to auscultation. HEART: S1 and S2. Regular. ABDOMEN: Soft and nontender with bowel sounds present. GENITOURINARY: Diaz. EXTREMITIES: No gross edema or cyanosis. SKIN: Warm to touch. No signs of rash. NEUROLOGICAL: no focal deficit [facility] (07/20) without signs of any complications. Objective Assessment 1. Pneumonia. 2. Leukocytosis. 3. Hypotension improved 4. Acute respiratory failure. 5. Third-degree block. 6. Chronic obstructive pulmonary disease. 7. History of substance abuse. 8. History of methicillin-resistant Staphylococcus aureus. Plan Plan of Care Continue Zosyn d/c Levaquin Dose vanc 07/20 f/u BC from [facility], 07/20 D/w Ambrosio D/w nursing CANDY PEACE MD Jul 25, 2019 08:06
[2019-07-25] MEDS: methylPREDNISolone SOD SUCC PF 40 MG/ML VIAL. IV SCH (08:49)
[2019-07-25] MEDS: LACTOBACILLUS RHAMNOSUS GG 1 CAPSULE. PO SCH (08:49)
[2019-07-25] MEDS: POTASSIUM CHLORIDE 20 MEQ TABLET.ER. PO SCH ×2 (08:49→14:30)
--- NOTE | 2019-07-25 08:49 | RAD ---
Examination: PORTABLE CHEST 1V History: On ventilator Comparison/Correlation: 07/24/2019 Portable Chest X-ray Exam Findings: Portable supine frontal view of the chest was obtained. Heart size normal. Interstitial thickening of the lung hinojosa is noted. Right perihilar, suprahilar infiltrate again identified although direct comparison is limited due to significant patient rotation. No significant change in pulmonary aeration and interval. Minimal biapical pleural thickening noted. No pneumothorax but may patient is supine and this may limited assessment. Impression: No change in pulmonary aeration. Electronically signed by: Arnel Carlos MD (07/25/2019 8:46 AM) [facility]
--- NOTE | 2019-07-25 09:17 | PDOC ---
PULMONARY PROGRESS NOTES Subjective PT OFF BIPAP APPEARS MORE COMFORTABLE TODAY NO NEW COMPLAINTS Vitals Vital Signs Date Time Temp Pulse Resp B/P (MAP) Pulse Ox O2 Delivery O2 Flow Rate FiO2 07/25/19 09:00 77 18 132/78 (96) 96 Nasal Cannula 2.0 07/25/19 08:00 97.8 97.8 ROS: No Nausea, No Chest Pain, No Abdominal Pain, No Increase Cough General: Alert Lungs: Crackles Cardiovascular: S1, S2 Abdomen: Soft Neuro Exam: Alert Extremities: No Edema Skin: Warm Labs Laboratory Tests Test 07/24/19 04:25 White Blood Count 5.5 x10^3/uL (4.0-11.0) Red Blood Count 3.43 x10^6/uL (3.50-5.40) Hemoglobin 9.0 g/dL (12.0-15.5) Hematocrit 27.7 % (36.0-47.0) Mean Corpuscular Volume 81 fL (79-100) Mean Corpuscular Hemoglobin 26 pg (25-35) Mean Corpuscular Hemoglobin Concent 33 g/dL (31-37) Red Cell Distribution Width 18.6 % (11.5-14.5) Platelet Count 329 x10^3/uL (140-400) Neutrophils (%) (Auto) 77 % (31-73) Lymphocytes (%) (Auto) 15 % (24-48) Monocytes (%) (Auto) 5 % (0-9) Eosinophils (%) (Auto) 3 % (0-3) Basophils (%) (Auto) 1 % (0-3) Neutrophils # (Auto) 4.2 x10^3/uL (1.8-7.7) Lymphocytes # (Auto) 0.8 x10^3/uL (1.0-4.8) Monocytes # (Auto) 0.3 x10^3/uL (0.0-1.1) Eosinophils # (Auto) 0.1 x10^3/uL (0.0-0.7) Basophils # (Auto) 0.1 x10^3/uL (0.0-0.2) Sodium Level 144 mmol/L (136-145) Potassium Level 3.2 mmol/L (3.5-5.1) Chloride Level 107 mmol/L (98-107) Carbon Dioxide Level 24 mmol/L (21-32) Anion Gap 13 (6-14) Blood Urea Nitrogen 22 mg/dL (7-20) Creatinine 0.9 mg/dL (0.6-1.0) Estimated GFR (Cockcroft-Gault) 63.9 BUN/Creatinine Ratio 24 (6-20) Glucose Level 144 mg/dL (70-99) Calcium Level 8.9 mg/dL (8.5-10.1) Total Bilirubin 0.5 mg/dL (0.2-1.0) Aspartate Amino Transf (AST/SGOT) 8 U/L (15-37) Alanine Aminotransferase (ALT/SGPT) 6 U/L (14-59) Alkaline Phosphatase 81 U/L (46-116) Total Protein 7.3 g/dL (6.4-8.2) Albumin 2.6 g/dL (3.4-5.0) Albumin/Globulin Ratio 0.6 (1.0-1.7) Medications Active Scripts Medications Dose Route/Sig Max Daily Dose Days Date Category Oxycodone-Acetaminophen 10-325 (Oxycodone Hcl/Acetaminophen) 1 Each Tablet 1 Tab PO PRN Q4HRS PRN 30 03/26/18 Rx Duoneb 0.5-3(2.5) Mg/3 Ml (Albuterol/Ipratropium) 3 Ml Ampul.neb 3 Ml NEB RTQID 30 03/26/18 Rx Amox Tr-K Clv 875-125 Mg Tab (Amoxicillin/Potassium Clav) 1 Each Tablet 1 Tab PO BID 7 03/26/18 Rx Mucinex Dm Er 600-30 Mg Tablet (Guaifenesin/Dextromethorphan) 1 Each Tab.er.12h 1 Each PO BID 03/18/18 Reported Xanax (Alprazolam) 1 Mg Tablet 1 Tab PO Q8HRS PRN 03/18/18 Reported Seroquel Xr (Quetiapine Fumarate) 400 Mg Tab.er.24h 800 Mg PO HS 03/18/18 Reported Venlafaxine Hcl 75 Mg Tablet 150 Mg PO HS 03/18/18 Reported Impression . IMPRESSION: 1. Acute on chronic hypoxemic respiratory failure. 2. Abnormal x-ray. 3. Right hemithorax, mass-like opacity on chest x-ray. 4. Acute exacerbation of chronic obstructive pulmonary disease. 5. Possible gram-positive, gram-negative pneumonia. 6. Third-degree heart block. 7. Hypotension, possibly related to sepsis. 8. Polysubstance use. 9. History of methicillin-resistant Staphylococcus aureus. 10. Tobacco dependence, in remission, quit approximately 4-5 months ago. 11. 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 Dense nodular infiltrate with spiculated margins. Findings are new since previous CT examination. While infectious or inflammatory process may account for this finding, neoplastic etiology is of concern. Follow-up to resolution is recommended. If resolution is not observed, then consider further evaluation with PET/CT imaging. Emphysema. No change in right lower paratracheal mildly enlarged lymph node. Plan . CT REPORT NOTED WILL TREAT FOR PE PT HAD A BRONCH AT [facility] NO ENDOBRONCHIAL LESION, BAL NEGATIVE FOR MALIGNANT CELL CULTURES NEGATIVE WILL NEED A REPEAT CT IN 6-8 WEEKS, CURRENT CT REVIEWED I DONT SEE A GOOD AREA TO PERFORM FNA MAY CONSIDER A PET OUT PT TRANSFER TO FLOOR BO LINCOLN MD Jul 25, 2019 09:17
[2019-07-25 10:05] LABS: BASO % 0 % (0-3); EOS # 0.1 x10^3/uL (0.0-0.7); EOS % 2 % (0-3); HEMATOCRIT 30.3 % (36.0-47.0); HEMOGLOBIN 9.8 g/dL (12.0-15.5); LYMPH # 1.4 x10^3/uL (1.0-4.8); LYMPH % 20 % (24-48); MEAN CORPUSCULAR HEMOGLOBIN 26 pg (25-35); MEAN CORPUSCULAR HGB CONC 32 g/dL (31-37); MEAN CORPUSCULAR VOLUME 81 fL (79-100); MONO # 0.6 x10^3/uL (0.0-1.1); MONO % 8 % (0-9); NEUT % 70 % (31-73); PLATELET COUNT 381 x10^3/uL (140-400); RED BLOOD COUNT 3.75 x10^6/uL (3.50-5.40); RED CELL DISTRIBUTION WIDTH 18.7 % (11.5-14.5); WHITE BLOOD COUNT 7.1 x10^3/uL (4.0-11.0)
[2019-07-25 10:35] LABS: ALBUMIN 2.8 g/dL (3.4-5.0); ALBUMIN/GLOBULIN RATIO 0.6 (1.0-1.7); CALCIUM 8.8 mg/dL (8.5-10.1); CREATININE 0.7 mg/dL (0.6-1.0); GFR 85.4; POTASSIUM 3.7 mmol/L (3.5-5.1); TOTAL BILIRUBIN 0.6 mg/dL (0.2-1.0); TOTAL PROTEIN 7.2 g/dL (6.4-8.2)
[2019-07-25] MEDS ORDERED: IOHEXOL 300 MG/ML 100ML VIAL. IV ONE (11:15)
--- NOTE | 2019-07-25 11:38 | PN ---
DATE: 07/25/2019 SUBJECTIVE: The patient is resting slightly propped up in bed, no apparent distress. She is definitely more awake, alert, apparently more cooperative and compliant with care and medication. She agreed to have a CT scan done and was screened to see if she qualifies to go to [facility]. PHYSICAL EXAMINATION: GENERAL: When I examined her, she looked pale, somewhat cachectic, but no jaundice, cyanosis or thyromegaly. No jugular venous distension. No lower limb edema. VITAL SIGNS: Her heart rate was 79, blood pressure is 109/66, temperature was 97.8, respiratory rate was 18 and oxygen saturation was 97% on room air. HEAD, EYES, EARS, NOSE AND THROAT: Showed normocephalic, atraumatic. NECK: Supple. HEART: Showed normal first and second heart sounds. No gallop or murmur. CHEST: Clear to auscultation. No crepitation or rhonchi. ABDOMEN: Distended, soft, nontender. NEUROLOGIC: She is awake, alert, responding appropriately. All cranial nerves intact. She moves extremities without difficulty. Her intake was 640, output 670. LABORATORY DATA: Her lab work this morning showed a serum sodium 144, potassium 3.2, chloride 107, bicarbonate 24, anion gap of 13, BUN 22, creatinine 0.9, estimated GFR was 64 mL per minute. Her glucose 144, calcium was 8.9. Total bilirubin, AST, ALT, alkaline phosphatase were normal. Total protein was 7.3, albumin 2.6. Her white cell count was 7100, hemoglobin 10, hematocrit 30, MCV 81 and platelet count 381,000. ASSESSMENT: Acute on chronic hypoxic respiratory failure, acute exacerbation of chronic obstructive pulmonary disease, episode of third-degree heart block, polysubstance abuse, history of methicillin-resistant Staphylococcus aureus infection, tobacco dependence, also benzodiazepine and opiate dependence. PLAN: To arrange for the CT scan of the chest. The patient can be transferred to the floor. Apparently, she was [facility] and if she is accepted, we will transfer her. Meanwhile, we will continue with steroids as well as antibiotic and nebulized treatment. BERTRAND RENTERIA MD DR: SADAF/vita JOB#: [id number] / [id number]
--- NOTE | 2019-07-25 12:10 | RAD ---
Examination: CT CHEST W/CONTRAST History: Respiratory failure, abnormal chest x-ray, pneumonia versus tumor Comparison/Correlation: CT chest without contrast 03/20/2018, CT chest with contrast 03/21/2018 Findings: Axial images of the chest were obtained following IV contrast. Sagittal and coronal reformatted images were provided. Dense patchy consolidation involving the right suprahilar region extending to the apex is noted. Mild superior retraction of the right hilum is noted. Patchy nodular infiltrate extends into the right infrahilar region within the lower lobe. This extends to nearly the paraspinal region. Spiculated margins of this dense nodular infiltrate is noted throughout its extent. Minimal linear atelectasis or scarring involving the left posterior upper and posterior lower lung hinojosa are minimal. Diffuse emphysematous involvement of the lung hinojosa noted. No pneumothorax or pleural effusion. No pericardial effusion. No new enlarged thoracic lymph nodes. Right lower paratracheal lymph node is unchanged compared to previous exam measuring up to 1.2 cm diameter. Other lymph nodes are small in size. Note is made of left upper lobe branch pulmonary arterial thromboembolic disease which is seen on images 18 through 21 of series 2. Minimal lingular breast abnormal metabolic disease is present on axial image 31 through 33 of series 2. Partially visualized upper abdomen is unremarkable although somewhat high density is evident within a right upper quadrant bowel loop of indeterminate significance. Bony structures are unremarkable. 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 Dense nodular infiltrate with spiculated margins. Findings are new since previous CT examination. While infectious or inflammatory process may account for this finding, neoplastic etiology is of concern. Follow-up to resolution is recommended. If resolution is not observed, then consider further evaluation with PET/CT imaging. Emphysema. No change in right lower paratracheal mildly enlarged lymph node. Discussed with the nurse assigned to the patient Sheree on 07/25/2019 at 12:06 PM. PQRS Compliance Statement: One or more of the following individualized dose reduction techniques were utilized for this examination: 1. Automated exposure control 2. Adjustment of the mA and/or kV according to patient size 3. Use of iterative reconstruction technique Electronically signed by: Arnel Carlos MD (07/25/2019 12:07 PM) [facility]
[2019-07-25] MEDS ORDERED: HEPARIN for IV BOLUS 10,000 UNIT/10 ML VIAL. IV ONE (12:15)
[2019-07-25] MEDS ORDERED: HEPARIN 25,000UTS/500ML PREMIX 500 ML IV PRN (12:15)
[2019-07-25] MEDS ORDERED: HEPARIN for IV BOLUS 10,000 UNIT/10 ML VIAL. IV PRN ×2 (12:15)
[2019-07-25 12:44] LABS: PROTHROMBIN TIME PATIENT 14.6 SEC (11.7-14.0)
--- NOTE | 2019-07-25 13:53 | SNU/HH DC ---
DISCHARGE ORDERS DISCHARGE INFORMATION: DISCHARGE DATE: Jul 25, 2019 FINAL DIAGNOSIS acute on chronic hypoxic respiratory failure COPD Exacerbation CAP CONDITION ON DISCHARGE: Stable CODE STATUS: Code Status: Full LTAC: ADMIT TO LTAC: Yes POST DISCHARGE ORDERS: ACTIVITY ORDERS: Activity as tolerated, Avoid exertion WEIGHT BEARING STATUS: Full weight bearing, As tolerated DIET AFTER DISCHARGE: Regular TREATMENT/EQUIPMENT ORDERS: ADAPTIVE EQUIPMENT NEEDED: None RESPIRATORY EQUIPMENT NEEDED: Oxygen, Nebulizer Occupational Therapy For: Evaluation/Treatment Speech Language Pathology For: Evaluation/Treatment DISCHARGE MEDICATIONS: Home Meds Active Scripts Ipratropium/Albuterol Sulfate (DUONEB 0.5-3(2.5) MG/3 ML) 3 Ml Ampul.neb, 3 ML NEB RTQID for 30 Days, #120 EACH Prov:RICHAR LIN MD 03/26/18 Reported Medications Guaifenesin/Dextromethorphan (MUCINEX DM ER 600-30 MG TABLET) 1 Each Tab.er.12h, 1 EACH PO BID, TAB.SR 03/18/18 Quetiapine Fumarate (SEROQUEL XR) 400 Mg Tab.er.24h, 800 MG PO HS, TAB.SR 03/18/18 Venlafaxine Hcl (VENLAFAXINE HCL) 75 Mg Tablet, 150 MG PO HS, TAB 03/18/18 Discontinued Reported Medications Alprazolam (XANAX) 1 Mg Tablet, 1 TAB PO Q8HRS PRN for ANXIETY / AGITATION, #60 TAB 03/18/18 Discontinued Scripts Oxycodone Hcl/Acetaminophen (OXYCODONE-ACETAMINOPHEN 10-325) 1 Each Tablet, 1 TAB PO PRN Q4HRS PRN for pain for 30 Days, TAB Prov:RICHAR LIN MD 03/26/18 Amoxicillin/Potassium Clav (AMOX TR-K CLV 875-125 MG TAB) 1 Each Tablet, 1 TAB PO BID for 7 Days, #14 TAB Prov:RICHAR LIN MD 03/26/18 BERTRAND RENTERIA MD Jul 25, 2019 13:53
--- NOTE | 2019-07-25 14:13 | NUR ---
SS following up with discharge planning. Pt accepted at [facility]. Discharge orders received for [facility], ; fax [phone]. SS phoned and faxed discharge orders to [facility]. Pt will discharge today and go to [facility] at [address] [facility] ambulance, . Pt, pt's spouse, and pt's RN notified.
--- NOTE | 2019-07-25 17:00 | NUR ---
Discharge Note: YONAS CASTILLO Instructions and medications reviewed with [facility] and a copy given. All questions have been answered and understanding verbalized. Peripheral IV intact for heparin infusion. Patient discharged to [facility] with Ambulance Personnel via [facility]
--- NOTE | 2019-07-25 20:25 | DS ---
DATE OF DISCHARGE: 07/25/2019 HOSPITAL COURSE: The patient is a 59-year-old female who was originally seen at the Emergency Room of [facility] with increasing worsening shortness of breath. She was started on BiPAP machine; however, her symptoms had worsened with decreased mentation. Her heart rate dropped down to third-degree heart block and therefore pacer pad was placed and the patient was moved to trauma bay for airway protection and she was intubated. Her subsequent EKG showed that she was in sinus tachycardia and Levophed was started. The chest x-ray confirmed endotracheal tube placement and orogastric tube placement. She had had a central line placed under ultrasound guidance. Her chest x-ray showed good positioning of the central line and orogastric tube. CT scan of the head was without any acute process and the patient was transferred to [facility] to continue with mechanical ventilation to consult the printing agent and medical staff services coordinator. She was admitted to ICU at [facility] and continued on mechanical ventilation. She was sedated with propofol and Versed. She was continued with IV antibiotic for community-acquired pneumonia as well as steroids and bronchodilators and did very well. She was successfully extubated; however, the patient was extremely agitated, refusing all treatments, lab draws and imaging. Once, we put her back on her Seroquel and Zyprexa, she did actually very well and became more cooperative and compliant. Her chest x-ray showed that she has persistent right upper lobe mass versus infiltrate and therefore, she had had a CT scan done this morning, which showed that she has pulmonary arterial thromboembolic disease at the present involving left upper lobe and lingular branches. She has also dense nodular infiltrate with very spiculated margin. Findings are new since previous CT examination while infectious and inflammatory process may account for this finding, neoplastic etiology is of concern. Followup to resolution is recommended. If resolution is not observed then consider further evaluation, but the PET CT imaging found to have emphysema. She has no change in the right lower paratracheal mildly enlarged lymph nodes. The patient was agreeable to be transferred to [facility] where she was accepted. PHYSICAL EXAMINATION: GENERAL: We saw her this afternoon, she looked well and was clearly in no apparent distress. She was pale, not jaundiced or cyanosed from thyromegaly. No jugular venous distention. No limb edema. VITAL SIGNS: Her heart rate was 85, blood pressure was 132/78, temperature was 97.8, respiratory rate was 21 and oxygen saturation was 96% on 2 liters of oxygen. HEAD, EYES, EARS, NOSE AND THROAT: Showed normocephalic, atraumatic. NECK: Supple. HEART: Showed normal first and second heart sounds. No gallop or murmur. CHEST: Shows central trachea, equally reduced expansion, reduced air entry, vesicular breath sounds. No crepitation or rhonchi. ABDOMEN: Slightly distended, soft, nontender. NEUROLOGIC: She was awake, alert, responding appropriately. All cranial nerves intact. She moves extremities without difficulty; however, she continued to have marked weakness and debility. LABORATORY DATA: Her lab work as of this morning showed a white cell count 7100, hemoglobin 9.8, hematocrit 30, MCV 81 and platelet count of 381,000 with normal manual differential. Her serum sodium was 142, potassium 3.7, chloride 106, bicarbonate 27, anion gap of 9, BUN 12, creatinine 0.7, estimated GFR was 85 mL per minute. Her glucose 166, calcium was 8.8. Total bilirubin, AST, ALT, alkaline phosphatase were normal. Total protein 7.2, albumin 2.8. Her prothrombin time was 14.6, INR 1.2, APTT was 30. DISCHARGE MEDICATIONS: She was discharged to [facility] to continue on heparin drip for pulmonary embolism. She should continue also on Solu-Medrol 40 mg IV q.12 hourly, quetiapine fumarate 300 mg at bedtime, venlafaxine 150 mg at bedtime, potassium chloride 20 mEq three times a day, olanzapine 2.5 mg intramuscular every 4 hours as needed, Lactobacillus rhamnosus 1 capsule twice a day, acetaminophen 650 mg as needed for pain, alprazolam 1 mg every 8 hours, continue also on Zosyn 3.375 g IV q. 6 hourly and DuoNeb 3 mL by nebulizer four times a day. FINAL DISCHARGE DIAGNOSES: 1. Acute on chronic hypoxic respiratory failure. 2. Acute exacerbation of chronic obstructive pulmonary disease. 3. An episode of third-degree heart block that has resolved. 4. Pulmonary embolism for which she is now on heparin drip. 5. Polysubstance abuse including narcotics and benzodiazepine. 6. History of methicillin-resistant Staphylococcus aureus infection. 7. Tobacco dependence. BERTRAND RENTERIA MD DR: Cari JOB#: [id number] / [id number]
== END 2019-07-25 17:00 | DRG 208 ==
LOC: 1 WEST ICU 17:17 → 6 SOUTH 07-22 02:10 → 1 WEST ICU 07-22 17:48 → 2 SOUTH 07-25 13:57
PROVIDERS: ADMIT Internal Medicine; ATTEND Internal Medicine
PROC: 0BH17EZ Insertion of Endotracheal Airway into Trachea, Via Natural or Artificial Opening (ICD-10-PCS; 2019-07-20)
PROC: 5A1935Z Respiratory Ventilation, Less than 24 Consecutive Hours (ICD-10-PCS; principal; 2019-07-22)
PROC: 5A1935Z Respiratory Ventilation, Less than 24 Consecutive Hours (ICD-10-PCS; 2019-07-23)
PROC: 5A1935Z Respiratory Ventilation, Less than 24 Consecutive Hours (ICD-10-PCS; 2019-07-24)
DX: J96.21 Acute and chronic respiratory failure with hypoxia (principal); J18.9 Pneumonia, unspecified organism; I26.99 Other pulmonary embolism without acute cor pulmonale; G92 Toxic encephalopathy; I44.2 Atrioventricular block, complete; I50.40 Unspecified combined systolic (congestive) and diastolic (congestive) heart failure; M19.90 Unspecified osteoarthritis, unspecified site; F41.9 Anxiety disorder, unspecified; J43.9 Emphysema, unspecified; F19.90 Other psychoactive substance use, unspecified, uncomplicated; K21.9 Gastro-esophageal reflux disease without esophagitis; E78.5 Hyperlipidemia, unspecified; M81.0 Age-related osteoporosis without current pathological fracture; E03.9 Hypothyroidism, unspecified; F13.10 Sedative, hypnotic or anxiolytic abuse, uncomplicated; F31.9 Bipolar disorder, unspecified; Z99.81 Dependence on supplemental oxygen; Z87.440 Personal history of urinary (tract) infections; Z86.14 Personal history of Methicillin resistant Staphylococcus aureus infection; Z90.710 Acquired absence of both cervix and uterus; Z82.5 Family history of asthma and other chronic lower respiratory diseases; Z82.3 Family history of stroke; Z82.49 Family history of ischemic heart disease and other diseases of the circulatory system
CPT/HCPCS: 36415; 36600; 71045; 71260; 74018; 80048; 80053; 82805; 83735; 85007; 85025; 85027; 85610; 85730; 93308; 94002; 94003; 94640; 94660; 94760; J1630; J1644; J1650; J2543; J2704; J2920; J3010; J3490; J7620; Q9967; G0378

== ENCOUNTER 2019-08-09 01:36 | Inpatient (IN) | payer MEDICARE ==
[2019-08-09] VITALS (23 sets, daily range): BP systolic 80–130; BP diastolic 58–81
[~2019-08-09] VITALS: Ht 160 cm; Wt 64.4 kg
--- NOTE | 2019-08-09 04:00 | NUR ---
Patient admitted to room 109. Patient transferred to bed, placed on monitor, RT at bedside place pt on vent. Dr. Valente called regarding orders, and was made aware of positive sepsis screen, no consult to ID at this time. Drug screen UA was ordered and completed. Patient currently on propofol, levophed-VSS. Dr. Cota made aware of consult. Unable to orient patient to room. Belongings accounted for.
[2019-08-09] MEDS ORDERED: MORPHINE SULFATE 2 MG/ML VIAL. IV PRN (04:30)
[2019-08-09] MEDS ORDERED: NOREPINEPHRIN 8MG/250ML PREMIX 250 ML IV PRN (04:30)
[2019-08-09] MEDS ORDERED: PROPOFOL 100 ML IV PRN (04:30)
[2019-08-09] MEDS ORDERED: MORPHINE SULFATE 4 MG/ML VIAL. IV PRN (04:30)
[2019-08-09] MEDS ORDERED: fentaNYL PF VIAL 100 MCG/2 ML VIAL IV PRN ×3 (04:30→06:45)
[2019-08-09] MEDS ORDERED: ENOXAPARIN 40 MG/0.4 ML SYRINGE. SQ SCH (05:00)
[2019-08-09] MEDS: MIDAZOLAM 100mg/100ml NS BAG 100 ML IV PRN ×3 (05:16→20:31)
[2019-08-09] MEDS ORDERED: ALBUTEROL SULFATE 2.5 MG/3 ML NEBU. NEB PRN (05:30)
[2019-08-09] MEDS ORDERED: ALBUTEROL SULFATE 2.5 MG/3 ML NEBU. ONE (05:44)
--- NOTE | 2019-08-09 06:12 | RAD ---
PORTABLE CHEST 1V Clinical History: Chest congestion Technique: AP view of the chest was obtained at 08/09/2019 6:00 AM. Comparison: July 25, 2019. Findings: The heart is visible size. The pulmonary vessels are difficult to evaluate. There is patchy reticular opacities of lungs right much worse than left. There has been interval placement of an endotracheal tube with its tip just above the clavicles 4.6 cm above the juliet and a left subclavian line with its tip in the mid SVC and NG tube with its tip in the distal stomach. Impression: Bilateral infiltrates right much worse than left suggesting atypical pneumonia. Electronically signed by: Young Sidhu III, MD (08/09/2019 6:10 AM) [facility]
[2019-08-09 06:38] LABS: BARBITURATES NEG (NEG); BENZODIAZEPINES POS (NEG); CANNABINOIDS NEG (NEG); COCAINE NEG (NEG); METHADONE NEG (NEG); OPIATES POS (NEG); PHENCYCLIDINE NEG (NEG)
[2019-08-09 06:40] LABS: AMPHETAMINE/METHAMPHETAMINE NEG (NEG)
[2019-08-09] MEDS: ALBUTEROL SULFATE 2.5 MG/3 ML NEBU. NEB SCH ×4 (07:32→20:15)
[2019-08-09 07:42] LABS: BASE EXCESS ABG 0 mmol/L (-3-3); HCO3 ABG 26 mmol/L (21-28); PCO2 ABG 48 mmHg (35-46); PO2 ABG 109 mmHg (65-108); SAT O2 ABG 98 % (92-99)
[2019-08-09 07:42] LABS: BASO % 0 % (0-3); EOS % 0 % (0-3); HEMOGLOBIN 9.3 g/dL (12.0-15.5); LYMPH # 0.3 x10^3/uL (1.0-4.8); LYMPH % 2 % (24-48); MEAN CORPUSCULAR HEMOGLOBIN 27 pg (25-35); MEAN CORPUSCULAR HGB CONC 32 g/dL (31-37); MEAN CORPUSCULAR VOLUME 84 fL (79-100); MONO # 0.6 x10^3/uL (0.0-1.1); MONO % 4 % (0-9); NEUT # 16.2 x10^3/uL (1.8-7.7); NEUT % 95 % (31-73); PLATELET COUNT 300 x10^3/uL (140-400); RED BLOOD COUNT 3.45 x10^6/uL (3.50-5.40); RED CELL DISTRIBUTION WIDTH 20.9 % (11.5-14.5); WHITE BLOOD COUNT 17.1 x10^3/uL (4.0-11.0)
[2019-08-09 07:43] LABS: FIO2 ABG 100
[2019-08-09 08:01] LABS: ALBUMIN 2.5 g/dL (3.4-5.0); ALBUMIN/GLOBULIN RATIO 0.7 (1.0-1.7); CALCIUM 8.2 mg/dL (8.5-10.1); CREATININE 0.9 mg/dL (0.6-1.0); GFR 63.9; POTASSIUM 4.3 mmol/L (3.5-5.1); TOTAL BILIRUBIN 0.3 mg/dL (0.2-1.0); TOTAL PROTEIN 6.3 g/dL (6.4-8.2)
[2019-08-09 08:34] LABS: % BANDS 31 % (0-9); % EOS 1 % (0-5); % LYMPHS 1 % (24-48); % METAS 1 % (0-0); % MONOS 5 % (0-10); % SEGS 61 % (35-66)
[2019-08-09 08:35] LABS: ANISOCYTOSIS MOD; PLT ESTIMATE ADEQUATE (ADEQUATE); POLYCHROMASIA PRESENT
[2019-08-09 08:36] LABS: TOXIC GRANULATION PRESENT; TOXIC VACUOLATION PRESENT
[2019-08-09] MEDS: CHLORHEXIDINE 0.12% 15 ML MOUTHWASH. MM SCH ×2 (09:00→20:28)
[2019-08-09] MEDS: IV NORMAL SALINE 1000ML BAG 1,000 ML IV SCH ×3 (10:26→20:29)
--- NOTE | 2019-08-09 11:22 | HP ---
ADMIT DATE: 08/09/2019 HISTORY OF PRESENT ILLNESS: The patient is a 59-year-old female patient who was discharged from [facility] only 2 days ago. She was admitted there after she was successfully extubated while here at [facility] in ICU. She was continued on IV antibiotic in the form of Zosyn. Continue with tapering course of steroids. She has had a CT scan done, which showed that she has pulmonary emboli for which she was on heparin drip and was switched to Eliquis. She underwent bronchoscopy as she has a potential malignant mass in the right upper lobe; however, there was no evidence of any endobronchial lesion and the bronchial brushing was negative for malignant cells. The patient was doing very well. She was actually maintaining her oxygen saturation at 95-96% on room air, was up and about, walking without assistance or assistive devices and was discharged home to continue on her steroids, bronchodilators. She was also discharged with some Ativan and some pain medication and it seems that she probably has overdosed as she was presented with minimum response to noxious stimuli. The paramedics stated that she was found on the floor in respiratory distress and hypoxic. She was started on CPAP with oxygen 100% with return her oxygen saturation to 90%. She was given 125 mg Solu-Medrol and breathing treatment. She currently was still smoking. She was placed in trauma and rapid response called, the patient bag mask valve with 100% until intubation. She was intubated in the past month for similar presentation and was transferred to [facility] ICU for ventilation management. LABORATORY DATA: Her lab work on arrival showed a white cell count of 21,700. Her blood gases showed a pH of 7.31, pCO2 of 60, pO2 of 74, oxygen saturation was 93% on FiO2 of 70%. Her prothrombin time, INR and aPTT were normal. D-dimer was slightly elevated at 0.73. Her chemistry showed that her BUN and creatinine slightly elevated. Urinalysis was essentially unremarkable; however, her toxic screen was positive for opiates and benzodiazepine. PAST MEDICAL HISTORY: Significant for chronic obstructive pulmonary disease, history of diastolic congestive heart failure, vitamin D deficiency, bipolar disorder, depression and severe anxiety. She has also tobacco and benzodiazepine use disorder. PAST SURGICAL HISTORY: Significant for hysterectomy as well as tonsillectomy. She did have also undergone bronchoscopy on her most recent admission to [facility]. ALLERGIES: She has no known drug allergies. FAMILY HISTORY: She has one sister who is younger and healthy. Her father at age of 46 as he committed suicide and mother at age of 67 because of stroke. SOCIAL HISTORY: She is and lives with her . She has 1 son. She quit smoking a year ago, although she apparently continued to smoke. She does not drink alcohol or use any recreational drugs, although she is known to have a history of benzodiazepine and opiate disorder. MEDICATIONS: She is currently on following medications: She is on albuterol sulfate 2.5 mg 0.5 mL by nebulizer every 6 hours; metoprolol succinate 50 mg once a day; venlafaxine 150 mg once a day; quetiapine fumarate 400 mg, she takes 800 mg at bedtime; alprazolam 1 mg every 8 hours; hydroxyzine 25 mg every 6 hours and ReQuip 0.5 mg at bedtime. She is on hydrocodone 5/325 one tablet every 4 hours as needed. PHYSICAL EXAMINATION: GENERAL: On arrival to the [facility], the patient was obviously intubated and mechanically ventilated. She was sedated. She was pale, not jaundiced, cyanosed or thyromegaly. No jugular venous distention. No lower limb edema. VITAL SIGNS: Her heart rate was 100, blood pressure was 198/70, temperature was 98.1, respiratory rate was 24, and oxygen saturation was 100% on mechanical ventilation on FiO2 of 100%. HEAD, EYES, EARS, NOSE AND THROAT: Showed normocephalic, atraumatic. She has orotracheal and orogastric tube in place. NECK: Supple. HEART: Showed normal first and second heart sounds. No gallop or murmur. CHEST: Showed central trachea, equal bilateral chest expansion, air entry, vesicular breath sounds. No crepitation or rhonchi. ABDOMEN: Distended, soft, nontender. No guarding or rigidity. No organomegaly. All hernial orifices intact. Bowel sounds normal. NEUROLOGIC: She is sedated. IMAGING: Her chest x-ray showed the heart size is normal. Pulmonary vessels are looked normal limits in size. There are reticular opacities in the lungs. There are patchy opacities throughout the entire right lung and the lower left lung. There is blunting of the left costophrenic angle and endotracheal tube with its tip just below the clavicle, 5.8 cm above the juliet and left subclavian line with its tip in the superior vena cava and NG tube with its tip in the mid stomach. LABORATORY DATA: On admission showed a white cell count 21,700; hemoglobin 9.7; hematocrit 31; MCV 85 and platelet count of 362,000. Her blood gases showed a pH of 7.36, pCO2 of 46, pO2 of 84, bicarbonate 25, and oxygen saturation was 96% on FiO2 of 70%. Her serum sodium was 140, potassium 4.1, chloride 101, bicarbonate 32, anion gap of 7, BUN 29, creatinine 1.1, estimated GFR was 50 mL per minute, glucose 130, lactic acid was 2. Calcium was 8.8, magnesium 2. Total bilirubin, AST, ALT, alkaline phosphatase were normal. Beta natriuretic peptide was 792. Total protein was 6.9, albumin was 3.2. PLAN: To continue with IV antibiotic. She was discharged from [facility] 2 days ago. Continue with IV Solu-Medrol as well as vancomycin and Zosyn. BERTRAND RENTERIA MD DR: SADAF/vita JOB#: [id number] / [id number]
[2019-08-09] MEDS: CEFEPIME HCL IV Push 1 GM VIAL. IVP SCH ×2 (11:24→22:08)
[2019-08-09] MEDS: PANTOPRAZOLE IV PUSH 40 MG VIAL. IVP SCH (11:25)
[2019-08-09] MEDS: methylPREDNISolone SOD SUCC PF 40 MG/ML VIAL. IV SCH ×2 (11:25→22:08)
[2019-08-09] MEDS ORDERED: VANCOMYCIN 1.5 GM in IV NORMAL SALINE 500ML BAG 500 ML IV ONE (12:00)
--- NOTE | 2019-08-09 12:29 | PDOC ---
Infectious Disease Note Vital Sign Vital Signs Vital Signs Date Time Temp Pulse Resp B/P (MAP) Pulse Ox O2 Delivery O2 Flow Rate FiO2 08/09/19 11:56 22 100 Ventilator 08/09/19 11:00 90 107/62 (77) 08/09/19 08:00 98.4 98.4 Labs Lab Laboratory Tests Test 08/09/19 04:30 08/09/19 07:30 08/09/19 08:00 Urine Opiates Screen Pos (NEG) Urine Methadone Screen Neg (NEG) Urine Barbiturates Neg (NEG) Urine Phencyclidine Screen Neg (NEG) Urine Amphetamine/Methamphetamine Neg (NEG) Urine Benzodiazepines Screen Pos (NEG) Urine Cocaine Screen Neg (NEG) Urine Cannabinoids Screen Neg (NEG) Urine Ethyl Alcohol Neg (NEG) White Blood Count 17.1 x10^3/uL (4.0-11.0) Red Blood Count 3.45 x10^6/uL (3.50-5.40) Hemoglobin 9.3 g/dL (12.0-15.5) Hematocrit 29.0 % (36.0-47.0) Mean Corpuscular Volume 84 fL (79-100) Mean Corpuscular Hemoglobin 27 pg (25-35) Mean Corpuscular Hemoglobin Concent 32 g/dL (31-37) Red Cell Distribution Width 20.9 % (11.5-14.5) Platelet Count 300 x10^3/uL (140-400) Neutrophils (%) (Auto) 95 % (31-73) Lymphocytes (%) (Auto) 2 % (24-48) Monocytes (%) (Auto) 4 % (0-9) Eosinophils (%) (Auto) 0 % (0-3) Basophils (%) (Auto) 0 % (0-3) Neutrophils # (Auto) 16.2 x10^3/uL (1.8-7.7) Lymphocytes # (Auto) 0.3 x10^3/uL (1.0-4.8) Monocytes # (Auto) 0.6 x10^3/uL (0.0-1.1) Eosinophils # (Auto) 0.0 x10^3/uL (0.0-0.7) Basophils # (Auto) 0.0 x10^3/uL (0.0-0.2) Segmented Neutrophils % 61 % (35-66) Band Neutrophils % 31 % (0-9) Lymphocytes % 1 % (24-48) Monocytes % 5 % (0-10) Eosinophils % 1 % (0-5) Metamyelocytes % 1 % (0-0) Toxic Granulation Present Toxic Vacuolation Present Platelet Estimate Adequate (ADEQUATE) Polychromasia Present Anisocytosis Mod Sodium Level 142 mmol/L (136-145) Potassium Level 4.3 mmol/L (3.5-5.1) Chloride Level 104 mmol/L (98-107) Carbon Dioxide Level 27 mmol/L (21-32) Anion Gap 11 (6-14) Blood Urea Nitrogen 21 mg/dL (7-20) Creatinine 0.9 mg/dL (0.6-1.0) Estimated GFR (Cockcroft-Gault) 63.9 BUN/Creatinine Ratio 23 (6-20) Glucose Level 156 mg/dL (70-99) Lactic Acid Level 3.6 mmol/L (0.4-2.0) Calcium Level 8.2 mg/dL (8.5-10.1) Total Bilirubin 0.3 mg/dL (0.2-1.0) Aspartate Amino Transf (AST/SGOT) 14 U/L (15-37) Alanine Aminotransferase (ALT/SGPT) 13 U/L (14-59) Alkaline Phosphatase 57 U/L (46-116) Total Protein 6.3 g/dL (6.4-8.2) Albumin 2.5 g/dL (3.4-5.0) Albumin/Globulin Ratio 0.7 (1.0-1.7) O2 Saturation 98 % (92-99) Arterial Blood pH 7.35 (7.35-7.45) Arterial Blood pCO2 at Patient Temp 48 mmHg (35-46) Arterial Blood pO2 at Patient Temp 109 mmHg (65-108) Arterial Blood HCO3 26 mmol/L (21-28) Arterial Blood Base Excess 0 mmol/L (-3-3) FiO2 100 Objective Assessment Encephalopathy ? Med overdose Acute resp failure intubated Hypotension Leukocytosis - on steroids Bilateral infiltrates H/o MRSA Plan Plan of Care Cont Vanc and Cefepime Add Flagyl Unlikely atypical with recent Doxy Add Procalcitonin Blood cult as no clear order in paperwork Labs in am F/u cults D/w Abdias - nursing 35 mins CC time Thank you # [id number] DEEPALI SIU MD Aug 09, 2019 12:29
[2019-08-09] MEDS: VANCOMYCIN PER PHARMACY MC PRN (12:44)
--- NOTE | 2019-08-09 12:46 | NUR ---
Pharmacy Vancomycin Dosing Note S:Consulted to monitor and dose vancomycin started . O:CB CASTILLO is a 59 year old F with Empiric . Height: 5 feet, 3 inches Weight: 60.896076 kg [place] Body Weight: 52.40 Adjusted Body Weight: 55.56 Dosing Weight: Other Antibiotics: metronidazole LABS: Last BUN: 21 Last Creatinine: 0.9 Creatinine Clearance: 58.32 mL/min Last WBC: 17.1 Last Procalcitonin: Tmax (past 24 hours): Microbiology: I/O: Drug Levels: Last level: on at Last dose given 08/09/19 at 1142 Vancomycin Dosing: Loading Dose: 1500 mg x1 Dosing Weight: Target Trough: 10-20 A: Based on: Wt and Crcl, P: 1. Start Vancomycin 1000 mg IV q24h after 1500 mg LD x1 2. Follow up Trough level on 08/11/19 at 1130 3. Pharmacy will continue to monitor, follow and adjust therapy as needed. [facility], 08/09/19 2900
--- NOTE | 2019-08-09 13:11 | NUR ---
SS following for discharge planning. SS reviewed pt chart. Pt is from home with spouse and is currently on the vent. Pt was recently at [facility] from 07/25/2019-08/07/2019 and discharged to home with home healthcare. SS will continue to follow for discharge planning.
--- NOTE | 2019-08-09 13:23 | CONS ---
DATE OF CONSULTATION: 08/09/2019 ATTENDING PHYSICIAN: Hari Valente MD REASON FOR CONSULTATION: The patient seen in pulmonary consultation at the request of Dr. Valente for acute respiratory failure. HISTORY OF PRESENT ILLNESS: The patient is a 59-year-old white female with severe COPD. She was last hospitalized here at [facility] with acute on chronic respiratory failure, required BiPAP. At that time, she underwent a CT angiogram, which revealed a left upper lobe thrombus. At that time, there was diffuse nodular infiltrates with spiculated margins. The findings were new since the previous CT. It was evaluated. The patient had initially refused to undergo any diagnostic studies. Eventually, I was able to convince her to undergo CT scan. Ultimately, we did receive information from [facility]. She had been evaluated at [facility], had undergone a bronchoscopy which revealed no endobronchial lesions. Cultures and cytology was negative for malignant cells. She now represents with hypoxic respiratory failure. She was initially started on CPAP. She was given some breathing treatments. She was ultimately intubated and is currently admitted to the intensive care unit. She is on Levophed and IV fluids. She is currently on broad-spectrum antibiotics. She has been seen in consultation by the Infectious Disease Service. PAST MEDICAL HISTORY: Remarkable for: 1. Severe oxygen dependent chronic obstructive pulmonary disease, chronic respiratory failure. 2. Previously abnormal CT chest as indicated above, revealing bilateral infiltrates. The patient has actually been evaluated at [facility]. There were no endobronchial lesions. BAL was negative for malignant cells. Cultures were negative. The plan was to repeat a scan in 6-8 weeks from previous admission. 3. Tobacco dependent. 4. Bipolar disorder. 5. Depression. 6. History of narcotic dependence. 7. Chronic diastolic dysfunction, vitamin D deficiency. PAST SURGICAL HISTORY: She has had hysterectomy and tonsillectomy. As indicated above, she had a bronchoscopy at [facility]. I believe what is currently written in the chart regarding [facility] may be an error. ALLERGIES: No known drug allergies. FAMILY HISTORY: Father at the age of 46 secondary to suicide. Mother had a stroke. SOCIAL HISTORY: She is , lives with her . Prior history of benzodiazepines and opiate abuse. CURRENT MEDICATIONS: List was reviewed. REVIEW OF SYSTEMS: Unable secondary to the patient's condition. PHYSICAL EXAMINATION: GENERAL: The patient was hypotensive, requiring Levophed to maintain mean arterial pressure above 60. HEENT: Eyes; the sclerae were nonicteric. NECK: Jugular venous distention was not elevated. No lymphadenopathy. CHEST: Full expansion. LUNGS: Coarse breath sounds throughout both lung hinojosa. CARDIOVASCULAR: Regular rate and rhythm with S1, S2, no S3. ABDOMEN: Soft, nontender, nondistended. EXTREMITIES: No clubbing, cyanosis or edema. NEUROLOGIC: The patient was sedated. LABORATORY DATA: Arterial blood gas; pH of 7.35, PaCO2 of 48, PaO2 of 109. White count was 17,000, hemoglobin 9.3, hematocrit of 29. Electrolytes were noted. Albumin was low. Toxicology screen was positive for opiates and benzodiazepines. IMPRESSION: 1. Luohy-uo-uvtvhfc hypoxemic respiratory failure. 2. Septic shock. 3. Pneumonia, suspect gram-negative, possibly gram-positive. 4. Previously abnormal CT chest as indicated above, the patient underwent bronchoscopy at [facility]. Cytology was negative for malignant cells. There were no endobronchial lesions. 5. Narcotic abuse. 6. Bronchodilators. 7. Continue anticoagulation. 8. May consider looking at her airways prior to extubation. I do appreciate the privilege in sharing in the patient's care. BO LINCOLN MD DR: BAL/vita JOB#: [id number] / [id number]
[2019-08-09] MEDS ORDERED: DEXTROSE 50% 25 GM / 50ML DISP.SYRIN. IV PRN (19:00)
[2019-08-09] MEDS ORDERED: IV NORMAL SALINE 500ML BAG 500 ML IV PRN (23:30)
[2019-08-09] MEDS ORDERED: ATROPINE 0.5 MG/5 ML DISP.SYRINGE. IV PRN (23:30)
[2019-08-09] MEDS: DEXMEDETOMIDINE 400 MCG in IV NORMAL SALINE 100ML 96 ML IV PRN (23:47)
[2019-08-10] VITALS (24 sets, daily range): BP systolic 119–164; BP diastolic 70–88
--- NOTE | 2019-08-10 00:29 | CONS ---
DATE OF CONSULTATION: 08/09/2019 ROOM: ICU #9. REQUESTING PHYSICIAN: Dr. Hair Valente. REASON FOR CONSULTATION: Pneumonia. HISTORY OF PRESENT ILLNESS: The patient is a 59-year-old female with history of COPD and substance abuse, recently admitted to [facility] with hypoxia and was diagnosed with pneumonia. Cultures were taken, they were negative. She does have a history of MRSA. She was stabilized and transferred to [facility] and was doing well over there and was discharged with, by report, doxycycline. She was brought to [facility] Emergency Room by EMS on 08/08/2019 secondary to mental status changes. The patient was difficult to awake. She has been placed on CPAP, but eventually underwent intubation. She received vancomycin and Rocephin down there. On arrival, white count was 21.7 with 83% neutrophils. She did have 11 bands. Her creatinine was 1.1, glucose was 130. INR was 1.1. Troponin was less than 0.017. Subsequently, she was transferred to [facility] where she remains intubated. She is now on vancomycin and cefepime. Drug screen is positive previously and today for opioids as well as benzos. White count today is 17.1. PAST MEDICAL HISTORY: Positive for previous MRSA, history of COPD, diastolic congestive heart failure, vitamin D deficiency, bipolar, depression, severe anxiety, history of tobacco abuse, history of UTI with group B strep, history of a lung abscess with MRSA. PAST SURGICAL HISTORY: Positive for tonsillectomy and hysterectomy. REVIEW OF SYSTEMS: Unobtainable. ALLERGIES: No known drug allergies. SOCIAL HISTORY: She is and lives at home. She is a smoker, has a history of substance abuse. FAMILY HISTORY: Noncontributory. CURRENT MEDICATIONS: Include Levophed, vancomycin, cefepime, Lovenox, Solu-Medrol and pantoprazole. Other meds are available and reviewed in the chart. PHYSICAL EXAMINATION: VITAL SIGNS: She is afebrile, temperature 98.4 axillary, respiratory rate 22, pulse 90, blood pressure 107/67 and satting 100% on the ventilator. CONSTITUTIONAL: She is intubated. She is sedated. She did move her head a little bit. HEENT: Her pupils are equal and reactive. NECK: Supple. LUNGS: Mild coarse ____ in the right side. HEART: S1, S2. ABDOMEN: Soft, no guarding, no rebound. GENITOURINARY: Diaz in place. EXTREMITIES: Without clubbing, cyanosis, or gross edema. She has a left IJ and a peripheral IV as well. SKIN: Warm to touch without signs of rash. She does have a tattoo on her left lower extremity. LABORATORY DATA: White count 17.1, hemoglobin 9.3, platelets 300 with 61 neutrophils, 31 bands, 1 lymph. Creatinine 0.9, glucose of 156, AST 14, ALT 13. Urinalysis from [facility] is pending. Chest x-ray had bilateral infiltrates, right much worse than left, suggesting atypical pneumonia. IMPRESSION: 1. Encephalopathy, questionable medication overdose. 2. Acute respiratory failure, intubated. 3. Hypertension. 4. Leukocytosis, on steroids. 5. Bilateral infiltrates. 6. History of methicillin-resistant Staphylococcus aureus. RECOMMENDATIONS: For now, continue vancomycin and cefepime. We will add Flagyl. She did aspirate unlikely atypical as it is reported that she has been on doxycycline prior to admission. We will add a procalcitonin to today's levels. Blood cultures will be obtained as reviewing the paper works, no clear order written for blood cultures. Obtain labs in the morning. Follow up cultures. This was discussed with the nursing. Thank you for letting me participate in the patient's care. Should you have any questions, please do not hesitate to contact me. DEEPALI SIU MD DR: LOULOU/vita JOB#: [id number] / [id number]
[2019-08-10] MEDS: IV NORMAL SALINE 1000ML BAG 1,000 ML IV SCH ×3 (03:45→18:45)
[2019-08-10] MEDS: DEXMEDETOMIDINE 400 MCG in IV NORMAL SALINE 100ML 96 ML IV PRN ×4 (04:33→22:32)
[2019-08-10 05:25] LABS: BASO % 0 % (0-3); EOS % 0 % (0-3); HEMOGLOBIN 8.3 g/dL (12.0-15.5); LYMPH # 0.2 x10^3/uL (1.0-4.8); LYMPH % 1 % (24-48); MEAN CORPUSCULAR HEMOGLOBIN 27 pg (25-35); MEAN CORPUSCULAR HGB CONC 32 g/dL (31-37); MEAN CORPUSCULAR VOLUME 85 fL (79-100); MONO # 0.6 x10^3/uL (0.0-1.1); MONO % 3 % (0-9); NEUT # 21.4 x10^3/uL (1.8-7.7); NEUT % 96 % (31-73); PLATELET COUNT 256 x10^3/uL (140-400); RED BLOOD COUNT 3.07 x10^6/uL (3.50-5.40); RED CELL DISTRIBUTION WIDTH 20.8 % (11.5-14.5); WHITE BLOOD COUNT 22.2 x10^3/uL (4.0-11.0)
[2019-08-10 05:55] LABS: CALCIUM 8.9 mg/dL (8.5-10.1); CREATININE 0.7 mg/dL (0.6-1.0); GFR 85.4; POTASSIUM 4.8 mmol/L (3.5-5.1)
--- NOTE | 2019-08-10 06:05 | PDOC ---
Infectious Disease Note Subjective Subjective Intubated/sedated ROS ROS unable to obtain Vital Sign Vital Signs Vital Signs Date Time Temp Pulse Resp B/P (MAP) Pulse Ox O2 Delivery O2 Flow Rate FiO2 08/10/19 05:00 69 22 142/83 (102) 100 Ventilator 08/10/19 04:00 99.0 99.0 Physical Exam PHYSICAL EXAM CONSTITUTIONAL: She is intubated. She is sedated. HEENT: Her pupils are equal and reactive. NECK: Supple. LUNGS: Mild coarse in the right side. HEART: S1, S2. ABDOMEN: Soft, no guarding, no rebound. GENITOURINARY: Diaz in place. EXTREMITIES: Without clubbing, cyanosis, or gross edema. IVS: She has a left IJ and a peripheral IV as well. SKIN: Warm to touch without signs of rash. She does have a tattoo on her left lower extremity. Labs Lab Laboratory Tests Test 08/09/19 07:30 08/09/19 08:00 08/09/19 12:15 08/09/19 18:19 White Blood Count 17.1 x10^3/uL (4.0-11.0) Red Blood Count 3.45 x10^6/uL (3.50-5.40) Hemoglobin 9.3 g/dL (12.0-15.5) Hematocrit 29.0 % (36.0-47.0) Mean Corpuscular Volume 84 fL (79-100) Mean Corpuscular Hemoglobin 27 pg (25-35) Mean Corpuscular Hemoglobin Concent 32 g/dL (31-37) Red Cell Distribution Width 20.9 % (11.5-14.5) Platelet Count 300 x10^3/uL (140-400) Neutrophils (%) (Auto) 95 % (31-73) Lymphocytes (%) (Auto) 2 % (24-48) Monocytes (%) (Auto) 4 % (0-9) Eosinophils (%) (Auto) 0 % (0-3) Basophils (%) (Auto) 0 % (0-3) Neutrophils # (Auto) 16.2 x10^3/uL (1.8-7.7) Lymphocytes # (Auto) 0.3 x10^3/uL (1.0-4.8) Monocytes # (Auto) 0.6 x10^3/uL (0.0-1.1) Eosinophils # (Auto) 0.0 x10^3/uL (0.0-0.7) Basophils # (Auto) 0.0 x10^3/uL (0.0-0.2) Segmented Neutrophils % 61 % (35-66) Band Neutrophils % 31 % (0-9) Lymphocytes % 1 % (24-48) Monocytes % 5 % (0-10) Eosinophils % 1 % (0-5) Metamyelocytes % 1 % (0-0) Toxic Granulation Present Toxic Vacuolation Present Platelet Estimate Adequate (ADEQUATE) Polychromasia Present Anisocytosis Mod Sodium Level 142 mmol/L (136-145) Potassium Level 4.3 mmol/L (3.5-5.1) Chloride Level 104 mmol/L (98-107) Carbon Dioxide Level 27 mmol/L (21-32) Anion Gap 11 (6-14) Blood Urea Nitrogen 21 mg/dL (7-20) Creatinine 0.9 mg/dL (0.6-1.0) Estimated GFR (Cockcroft-Gault) 63.9 BUN/Creatinine Ratio 23 (6-20) Glucose Level 156 mg/dL (70-99) Lactic Acid Level 3.6 mmol/L (0.4-2.0) 3.6 mmol/L (0.4-2.0) Calcium Level 8.2 mg/dL (8.5-10.1) Total Bilirubin 0.3 mg/dL (0.2-1.0) Aspartate Amino Transf (AST/SGOT) 14 U/L (15-37) Alanine Aminotransferase (ALT/SGPT) 13 U/L (14-59) Alkaline Phosphatase 57 U/L (46-116) Total Protein 6.3 g/dL (6.4-8.2) Albumin 2.5 g/dL (3.4-5.0) Albumin/Globulin Ratio 0.7 (1.0-1.7) Procalcitonin 5.40 ng/mL (0.00-0.10) O2 Saturation 98 % (92-99) Arterial Blood pH 7.35 (7.35-7.45) Arterial Blood pCO2 at Patient Temp 48 mmHg (35-46) Arterial Blood pO2 at Patient Temp 109 mmHg (65-108) Arterial Blood HCO3 26 mmol/L (21-28) Arterial Blood Base Excess 0 mmol/L (-3-3) FiO2 100 Glucose (Fingerstick) 167 mg/dL (70-99) Test 08/10/19 00:11 08/10/19 05:00 Glucose (Fingerstick) 158 mg/dL (70-99) White Blood Count 22.2 x10^3/uL (4.0-11.0) Red Blood Count 3.07 x10^6/uL (3.50-5.40) Hemoglobin 8.3 g/dL (12.0-15.5) Hematocrit 26.0 % (36.0-47.0) Mean Corpuscular Volume 85 fL (79-100) Mean Corpuscular Hemoglobin 27 pg (25-35) Mean Corpuscular Hemoglobin Concent 32 g/dL (31-37) Red Cell Distribution Width 20.8 % (11.5-14.5) Platelet Count 256 x10^3/uL (140-400) Neutrophils (%) (Auto) 96 % (31-73) Lymphocytes (%) (Auto) 1 % (24-48) Monocytes (%) (Auto) 3 % (0-9) Eosinophils (%) (Auto) 0 % (0-3) Basophils (%) (Auto) 0 % (0-3) Neutrophils # (Auto) 21.4 x10^3/uL (1.8-7.7) Lymphocytes # (Auto) 0.2 x10^3/uL (1.0-4.8) Monocytes # (Auto) 0.6 x10^3/uL (0.0-1.1) Eosinophils # (Auto) 0.0 x10^3/uL (0.0-0.7) Basophils # (Auto) 0.0 x10^3/uL (0.0-0.2) Sodium Level 139 mmol/L (136-145) Potassium Level 4.8 mmol/L (3.5-5.1) Chloride Level 104 mmol/L (98-107) Carbon Dioxide Level 27 mmol/L (21-32) Anion Gap 8 (6-14) Blood Urea Nitrogen 18 mg/dL (7-20) Creatinine 0.7 mg/dL (0.6-1.0) Estimated GFR (Cockcroft-Gault) 85.4 Glucose Level 199 mg/dL (70-99) Calcium Level 8.9 mg/dL (8.5-10.1) Objective Assessment Encephalopathy ? Med overdose Acute resp failure intubated Hypotension - off pressors Leukocytosis - on steroids Procal 5.4 Bilateral infiltrates H/o MRSA Plan Plan of Care Cont Vanc and Cefepime/Flagyl Labs in am F/u cults D/w nursing DEEPALI SIU MD Aug 10, 2019 06:05
[2019-08-10] MEDS: methylPREDNISolone SOD SUCC PF 40 MG/ML VIAL. IV SCH ×3 (06:21→21:30)
[2019-08-10] MEDS: CEFEPIME HCL IV Push 1 GM VIAL. IVP SCH ×3 (06:21→21:30)
[2019-08-10] MEDS: ALBUTEROL SULFATE 2.5 MG/3 ML NEBU. NEB SCH (08:06)
[2019-08-10 08:26] LABS: BASE EXCESS ABG 0 mmol/L (-3-3); HCO3 ABG 26 mmol/L (21-28); PCO2 ABG 46 mmHg (35-46); PO2 ABG 146 mmHg (65-108); SAT O2 ABG 99 % (92-99)
[2019-08-10 08:28] LABS: FIO2 ABG 60
[2019-08-10] MEDS: PANTOPRAZOLE IV PUSH 40 MG VIAL. IVP SCH (08:34)
--- NOTE | 2019-08-10 08:34 | RAD ---
AP chest x-ray COMPARISON: Chest x-ray August 09, 2019. HISTORY: Chest congestion. [id number]. FINDINGS: Endotracheal tube tip 4 cm above the juliet. Nasogastric tube extends the left abdomen outside the horel-ia-zjae. Left-sided central venous catheter tip radiographic region of SVC. Heart size stable. Aortic arch calcified plaque. No pneumothorax. No pleural effusions. There is a spiculated right suprahilar upper lobe density extending to the hilum concerning for malignancy. There is decreased peripheral opacity about this spiculated lesion along the right upper lobe. There is persistent opacity at the right lung base. Coarse interstitial markings throughout the lungs are stable likely due to chronic interstitial disease or pulmonary emphysema. No pneumothorax or pleural effusions. IMPRESSION: Lines and tubes as described above. Right suprahilar upper lobe spiculated density and right hilar density concerning for lung malignancy with hilar involvement and/or superimposed hilar adenopathy. Improved aeration with decreased opacity of the right upper lobe peripheral of the lesion which may indicate less postobstructive atelectasis/pneumonia. There is persistent atelectasis/pneumonia of the right lung base. Electronically signed by: Jones Banda MD (08/10/2019 8:31 AM) [facility]
[2019-08-10] MEDS: CHLORHEXIDINE 0.12% 15 ML MOUTHWASH. MM SCH (08:35)
[2019-08-10] MEDS: INSULIN LISPRO 300 UNITS/3 ML VIAL. SQ SCH ×3 (08:37→17:01)
--- NOTE | 2019-08-10 09:28 | PDOC ---
PULMONARY PROGRESS NOTES Subjective 59 yo female with chronic respiratory failure due to COPD. Recent hospitalization for acute on chronic failure and found to have pulmonary embolus. She is fully anticoagulated for that. no obvious bleeding. She also has a RUL suspicious density although bronchoscopy at outside institution non- diagnostic by report. Admitted with acute on chronic respiratory failure, hypotension and new right lung infiltrate. BP better, and now off pressor support. FiO2 decreasing (0.5). Vitals Vital Signs Date Time Temp Pulse Resp B/P (MAP) Pulse Ox O2 Delivery O2 Flow Rate FiO2 08/10/19 08:06 100 Ventilator 08/10/19 07:00 64 22 129/73 (91) 08/10/19 04:00 99.0 99.0 Comments Patient responds somwhat to questions, but not meaningful. No ROS obtainable. Lungs: Other (breath sounds equal. tubular on right. wheezing bilaterally, more on right) Cardiovascular: S1, S2 Abdomen: Soft Extremities: No Edema Skin: Warm Labs Laboratory Tests Test 08/09/19 04:30 08/09/19 07:30 08/09/19 08:00 08/09/19 12:15 Urine Opiates Screen Pos (NEG) Urine Methadone Screen Neg (NEG) Urine Barbiturates Neg (NEG) Urine Phencyclidine Screen Neg (NEG) Urine Amphetamine/Methamphetamine Neg (NEG) Urine Benzodiazepines Screen Pos (NEG) Urine Cocaine Screen Neg (NEG) Urine Cannabinoids Screen Neg (NEG) Urine Ethyl Alcohol Neg (NEG) White Blood Count 17.1 x10^3/uL (4.0-11.0) Red Blood Count 3.45 x10^6/uL (3.50-5.40) Hemoglobin 9.3 g/dL (12.0-15.5) Hematocrit 29.0 % (36.0-47.0) Mean Corpuscular Volume 84 fL (79-100) Mean Corpuscular Hemoglobin 27 pg (25-35) Mean Corpuscular Hemoglobin Concent 32 g/dL (31-37) Red Cell Distribution Width 20.9 % (11.5-14.5) Platelet Count 300 x10^3/uL (140-400) Neutrophils (%) (Auto) 95 % (31-73) Lymphocytes (%) (Auto) 2 % (24-48) Monocytes (%) (Auto) 4 % (0-9) Eosinophils (%) (Auto) 0 % (0-3) Basophils (%) (Auto) 0 % (0-3) Neutrophils # (Auto) 16.2 x10^3/uL (1.8-7.7) Lymphocytes # (Auto) 0.3 x10^3/uL (1.0-4.8) Monocytes # (Auto) 0.6 x10^3/uL (0.0-1.1) Eosinophils # (Auto) 0.0 x10^3/uL (0.0-0.7) Basophils # (Auto) 0.0 x10^3/uL (0.0-0.2) Segmented Neutrophils % 61 % (35-66) Band Neutrophils % 31 % (0-9) Lymphocytes % 1 % (24-48) Monocytes % 5 % (0-10) Eosinophils % 1 % (0-5) Metamyelocytes % 1 % (0-0) Toxic Granulation Present Toxic Vacuolation Present Platelet Estimate Adequate (ADEQUATE) Polychromasia Present Anisocytosis Mod Sodium Level 142 mmol/L (136-145) Potassium Level 4.3 mmol/L (3.5-5.1) Chloride Level 104 mmol/L (98-107) Carbon Dioxide Level 27 mmol/L (21-32) Anion Gap 11 (6-14) Blood Urea Nitrogen 21 mg/dL (7-20) Creatinine 0.9 mg/dL (0.6-1.0) Estimated GFR (Cockcroft-Gault) 63.9 BUN/Creatinine Ratio 23 (6-20) Glucose Level 156 mg/dL (70-99) Lactic Acid Level 3.6 mmol/L (0.4-2.0) 3.6 mmol/L (0.4-2.0) Calcium Level 8.2 mg/dL (8.5-10.1) Total Bilirubin 0.3 mg/dL (0.2-1.0) Aspartate Amino Transf (AST/SGOT) 14 U/L (15-37) Alanine Aminotransferase (ALT/SGPT) 13 U/L (14-59) Alkaline Phosphatase 57 U/L (46-116) Total Protein 6.3 g/dL (6.4-8.2) Albumin 2.5 g/dL (3.4-5.0) Albumin/Globulin Ratio 0.7 (1.0-1.7) Procalcitonin 5.40 ng/mL (0.00-0.10) O2 Saturation 98 % (92-99) Arterial Blood pH 7.35 (7.35-7.45) Arterial Blood pCO2 at Patient Temp 48 mmHg (35-46) Arterial Blood pO2 at Patient Temp 109 mmHg (65-108) Arterial Blood HCO3 26 mmol/L (21-28) Arterial Blood Base Excess 0 mmol/L (-3-3) FiO2 100 Test 08/09/19 18:19 08/10/19 00:11 08/10/19 05:00 08/10/19 06:20 Glucose (Fingerstick) 167 mg/dL (70-99) 158 mg/dL (70-99) 194 mg/dL (70-99) White Blood Count 22.2 x10^3/uL (4.0-11.0) Red Blood Count 3.07 x10^6/uL (3.50-5.40) Hemoglobin 8.3 g/dL (12.0-15.5) Hematocrit 26.0 % (36.0-47.0) Mean Corpuscular Volume 85 fL (79-100) Mean Corpuscular Hemoglobin 27 pg (25-35) Mean Corpuscular Hemoglobin Concent 32 g/dL (31-37) Red Cell Distribution Width 20.8 % (11.5-14.5) Platelet Count 256 x10^3/uL (140-400) Neutrophils (%) (Auto) 96 % (31-73) Lymphocytes (%) (Auto) 1 % (24-48) Monocytes (%) (Auto) 3 % (0-9) Eosinophils (%) (Auto) 0 % (0-3) Basophils (%) (Auto) 0 % (0-3) Neutrophils # (Auto) 21.4 x10^3/uL (1.8-7.7) Lymphocytes # (Auto) 0.2 x10^3/uL (1.0-4.8) Monocytes # (Auto) 0.6 x10^3/uL (0.0-1.1) Eosinophils # (Auto) 0.0 x10^3/uL (0.0-0.7) Basophils # (Auto) 0.0 x10^3/uL (0.0-0.2) Sodium Level 139 mmol/L (136-145) Potassium Level 4.8 mmol/L (3.5-5.1) Chloride Level 104 mmol/L (98-107) Carbon Dioxide Level 27 mmol/L (21-32) Anion Gap 8 (6-14) Blood Urea Nitrogen 18 mg/dL (7-20) Creatinine 0.7 mg/dL (0.6-1.0) Estimated GFR (Cockcroft-Gault) 85.4 Glucose Level 199 mg/dL (70-99) Calcium Level 8.9 mg/dL (8.5-10.1) Test 08/10/19 08:20 O2 Saturation 99 % (92-99) Arterial Blood pH 7.37 (7.35-7.45) Arterial Blood pCO2 at Patient Temp 46 mmHg (35-46) Arterial Blood pO2 at Patient Temp 146 mmHg (65-108) Arterial Blood HCO3 26 mmol/L (21-28) Arterial Blood Base Excess 0 mmol/L (-3-3) FiO2 60 Laboratory Tests Test 08/09/19 12:15 08/09/19 18:19 08/10/19 00:11 08/10/19 05:00 Lactic Acid Level 3.6 mmol/L (0.4-2.0) Glucose (Fingerstick) 167 mg/dL (70-99) 158 mg/dL (70-99) White Blood Count 22.2 x10^3/uL (4.0-11.0) Red Blood Count 3.07 x10^6/uL (3.50-5.40) Hemoglobin 8.3 g/dL (12.0-15.5) Hematocrit 26.0 % (36.0-47.0) Mean Corpuscular Volume 85 fL (79-100) Mean Corpuscular Hemoglobin 27 pg (25-35) Mean Corpuscular Hemoglobin Concent 32 g/dL (31-37) Red Cell Distribution Width 20.8 % (11.5-14.5) Platelet Count 256 x10^3/uL (140-400) Neutrophils (%) (Auto) 96 % (31-73) Lymphocytes (%) (Auto) 1 % (24-48) Monocytes (%) (Auto) 3 % (0-9) Eosinophils (%) (Auto) 0 % (0-3) Basophils (%) (Auto) 0 % (0-3) Neutrophils # (Auto) 21.4 x10^3/uL (1.8-7.7) Lymphocytes # (Auto) 0.2 x10^3/uL (1.0-4.8) Monocytes # (Auto) 0.6 x10^3/uL (0.0-1.1) Eosinophils # (Auto) 0.0 x10^3/uL (0.0-0.7) Basophils # (Auto) 0.0 x10^3/uL (0.0-0.2) Sodium Level 139 mmol/L (136-145) Potassium Level 4.8 mmol/L (3.5-5.1) Chloride Level 104 mmol/L (98-107) Carbon Dioxide Level 27 mmol/L (21-32) Anion Gap 8 (6-14) Blood Urea Nitrogen 18 mg/dL (7-20) Creatinine 0.7 mg/dL (0.6-1.0) Estimated GFR (Cockcroft-Gault) 85.4 Glucose Level 199 mg/dL (70-99) Calcium Level 8.9 mg/dL (8.5-10.1) Test 08/10/19 06:20 08/10/19 08:20 Glucose (Fingerstick) 194 mg/dL (70-99) O2 Saturation 99 % (92-99) Arterial Blood pH 7.37 (7.35-7.45) Arterial Blood pCO2 at Patient Temp 46 mmHg (35-46) Arterial Blood pO2 at Patient Temp 146 mmHg (65-108) Arterial Blood HCO3 26 mmol/L (21-28) Arterial Blood Base Excess 0 mmol/L (-3-3) FiO2 60 Medications Active Scripts Medications Dose Route/Sig Max Daily Dose Days Date Category Duoneb 0.5-3(2.5) Mg/3 Ml (Albuterol/Ipratropium) 3 Ml Ampul.neb 3 Ml NEB RTQID 30 03/26/18 Rx Mucinex Dm Er 600-30 Mg Tablet (Guaifenesin/Dextromethorphan) 1 Each Tab.er.12h 1 Each PO BID 03/18/18 Reported Seroquel Xr (Quetiapine Fumarate) 400 Mg Tab.er.24h 800 Mg PO HS 03/18/18 Reported Venlafaxine Hcl 75 Mg Tablet 150 Mg PO HS 03/18/18 Reported Comments CXR 08/10 reviewed. unchanged compared to 08/09. but diffuse infiltrates right compared to July xrays Impression . 1. Acute on chronic respiratory failure 2. Acute Pneumonia 3. Septic shock, improving 4. pulmonary embolus 5. COPD 6. RUL density/mass of uncertain significance Plan . 1. Continue mechanical ventilation. Will titrate down FiO2 as tolerated keeping O2 sat above 92% 2. Antibiotics per ID 3. Agree with bronchodilators and steroids 4. Agree with anticoagulation. Watch Hgb which has dropped slightly. no overt bleeding and better hemodynamically. [facility] time spent reviewing chart, xrays and ct, lab, examining patient 40 min DELTA CALDERA MD Aug 10, 2019 09:28
[2019-08-10] MEDS: VANCOMYCIN PER PHARMACY MC PRN ×3 (10:23→10:52)
[2019-08-10] MEDS: ANTI-COAG MONITOR BY PHARMACY. MC PRN (10:26)
--- NOTE | 2019-08-10 10:50 | NUR ---
Pharmacy Vancomycin Dosing Note S:Consulted to monitor and dose vancomycin started 08/09/19. O:CB CASTILLO is a 59 year old F with Pneumonia . Height: 5 feet, 3 inches Weight: [id number] kg [place] Body Weight: 52.40 Adjusted Body Weight: 55.56 Dosing Weight: Other Antibiotics: metronidazole LABS: Last BUN: 18 Last Creatinine: 0.7 Creatinine Clearance: 75 mL/min Last WBC: 22.2 Last Procalcitonin: 5.4 Tmax (past 24 hours): 99.5 Microbiology: I/O: [id number] Drug Levels: Last level: on at Last dose given 08/09/19 at 1142 Vancomycin Dosing: Loading Dose: 1500 mg x1 Dosing Weight: Target Trough: 10-20 A: Based on: improved renal fxn P: 1. Begin Vancomycin 750 mg IV q12h 2. Follow up Trough level on 08/11/19 at 2230 3. Pharmacy will continue to monitor, follow and adjust therapy as needed. KASEY DE JESUS, [facility], 08/10/19 [id number]
[2019-08-10] MEDS: IPRATRPIUM/ALBUTEROL 0.5/2.5MG 3 ML NEBU. NEB SCH ×3 (11:03→19:31)
[2019-08-10] MEDS: VANCOMYCIN 750 MG in IV NORMAL SALINE 250ML 250 ML IV SCH ×2 (11:17→23:59)
[2019-08-10] MEDS ORDERED: VANCOMYCIN 1 GM in IV NORMAL SALINE 250ML 250 ML IV SCH (12:00)
--- NOTE | 2019-08-10 13:02 | PN ---
DATE: 08/10/2019 SUBJECTIVE: The patient is resting, slightly propped up in bed, in no apparent respiratory distress. She is awake, responding appropriately, asking whether she is dying or not. She is off the sedation. She is now on the Precedex and she is now maintaining her oxygen saturation 98% on FiO2 of 50%. PHYSICAL EXAMINATION: GENERAL: When I examined her, she was pale, cachectic, but no jaundice, cyanosis or thyromegaly. No jugular venous distension. No limb edema. VITAL SIGNS: Her heart rate was 66, blood pressure 120/73, temperature was 98.4, respiratory rate was 22 and oxygen saturation was 98%. HEAD, EYES, EARS, NOSE AND THROAT: Showed normocephalic, atraumatic. NECK: Supple. HEART: Showed normal first and second heart sounds with no gallop or murmur. CHEST: Clear to auscultation. No crepitation or rhonchi. ABDOMEN: Distended, soft, nontender. NEUROLOGIC: She was definitely awake, alert, responding appropriately. All cranial nerves intact. She moves extremities without difficulty. Her intake over the last 24 hours was 5054, output was 3940. LABORATORY DATA: As of this morning, her arterial blood gas showed a pH of 7.37, pCO2 of 46, pO2 146, bicarbonate 26 and oxygen saturation was 99% on FiO2 of 50%. Her white blood count is 22,200, hemoglobin 8.3, hematocrit 26, MCV 85 and platelet count 256,000. Her chemistry showed a serum sodium 139, potassium 4.8, chloride 104, bicarbonate 27, anion gap of 8, BUN 18, creatinine 0.7, estimated GFR was 85 mL per minute. Her glucose was 199, calcium was 8.9. ASSESSMENT: 1. Bscuf-we-wabklen hypoxic hypercapnic respiratory failure. 2. Right-sided pneumonia. 3. Chronic obstructive pulmonary disease exacerbation. 4. Septic shock, which is improving. 5. Right upper lobe density mass of uncertain significance. Did have bronchoscopy done at [facility], which showed no evidence of any endobronchial tumor and the bronchial brushing was negative for malignant cells. PLAN: To continue mechanical ventilation and wean as tolerated. Continue with antibiotic as per infectious disease specialist. Continue with steroids and bronchodilator. She has pulmonary embolus for which she is now on Lovenox. Once she is able to eat and drink, we will switch her back to her Eliquis. BERTRAND RENTERIA MD DR: SDAAF/vita JOB#: [id number] / [id number]
--- NOTE | 2019-08-10 22:00 | NUR ---
Pt found once again sitting up in bed attempting to extubate self and quite agitated. Versed drip restarted at 5mg/hr.
[2019-08-11] VITALS (24 sets, daily range): BP systolic 108–170; BP diastolic 54–90
[2019-08-11] MEDS: INSULIN LISPRO 300 UNITS/3 ML VIAL. SQ SCH ×4 (00:02→17:43)
[2019-08-11] MEDS: MIDAZOLAM 100mg/100ml NS BAG 100 ML IV PRN (03:39)
[2019-08-11] MEDS: DEXMEDETOMIDINE 400 MCG in IV NORMAL SALINE 100ML 96 ML IV PRN ×2 (03:39→09:52)
[2019-08-11] MEDS: IV NORMAL SALINE 1000ML BAG 1,000 ML IV SCH ×2 (05:47→18:10)
[2019-08-11] MEDS: CEFEPIME HCL IV Push 1 GM VIAL. IVP SCH ×3 (05:48→21:39)
[2019-08-11] MEDS: methylPREDNISolone SOD SUCC PF 40 MG/ML VIAL. IV SCH ×3 (05:48→21:38)
--- NOTE | 2019-08-11 06:16 | NUR ---
Overnight, pt found several times sitting up in bed and attempting to grasp ETT. PT awake at these times. Versed drip at 5mg/hr, Fentanyl drip at 75 mcg/hr, and Precedex drip at 0.9 mcg/kg/hr all infusing. Tolerating TF with minimal residual.
[2019-08-11 06:31] LABS: CREATININE 0.8 mg/dL (0.6-1.0); GFR 73.2; POTASSIUM 4.3 mmol/L (3.5-5.1)
[2019-08-11 06:35] LABS: HEMATOCRIT 25.6 % (36.0-47.0); HEMOGLOBIN 8.3 g/dL (12.0-15.5); RED BLOOD COUNT 3.04 x10^6/uL (3.50-5.40); RED CELL DISTRIBUTION WIDTH 20.7 % (11.5-14.5); WHITE BLOOD COUNT 17.7 x10^3/uL (4.0-11.0)
--- NOTE | 2019-08-11 06:42 | PDOC ---
Infectious Disease Note Subjective Subjective Intubated/sedated ROS ROS unable to obtain Vital Sign Vital Signs Vital Signs Date Time Temp Pulse Resp B/P (MAP) Pulse Ox O2 Delivery O2 Flow Rate FiO2 08/11/19 06:00 59 22 169/87 (114) 100 Ventilator 08/11/19 04:00 99.2 99.2 Physical Exam PHYSICAL EXAM CONSTITUTIONAL: She is intubated. She is sedated. HEENT: Her pupils are equal and reactive. nml conj. ETT/OGT NECK: Supple. LUNGS: Mild coarse in the right side but better. HEART: S1, S2. ABDOMEN: Soft, no guarding, no rebound. GENITOURINARY: Diaz in place. EXTREMITIES: Without clubbing, cyanosis, or gross edema. IVS: She has a left IJ and a peripheral IV as well. SKIN: Warm to touch without signs of rash. She does have a tattoo on her left lower extremity. Labs Lab Laboratory Tests Test 08/10/19 08:20 08/10/19 11:21 08/10/19 16:36 08/11/19 00:01 O2 Saturation 99 % (92-99) Arterial Blood pH 7.37 (7.35-7.45) Arterial Blood pCO2 at Patient Temp 46 mmHg (35-46) Arterial Blood pO2 at Patient Temp 146 mmHg (65-108) Arterial Blood HCO3 26 mmol/L (21-28) Arterial Blood Base Excess 0 mmol/L (-3-3) FiO2 60 Glucose (Fingerstick) 174 mg/dL (70-99) 188 mg/dL (70-99) 202 mg/dL (70-99) Test 08/11/19 05:46 08/11/19 06:00 Glucose (Fingerstick) 173 mg/dL (70-99) Sodium Level 137 mmol/L (136-145) Potassium Level 4.3 mmol/L (3.5-5.1) Chloride Level 104 mmol/L (98-107) Carbon Dioxide Level 26 mmol/L (21-32) Anion Gap 7 (6-14) Blood Urea Nitrogen 22 mg/dL (7-20) Creatinine 0.8 mg/dL (0.6-1.0) Estimated GFR (Cockcroft-Gault) 73.2 Glucose Level 181 mg/dL (70-99) Calcium Level 9.0 mg/dL (8.5-10.1) Micro Microbiology 08/09/19 Blood Culture - Preliminary, Resulted NO GROWTH AFTER 1 DAY Objective Assessment Encephalopathy on presentation ? Med overdose Acute resp failure intubated Hypotension - off pressors Leukocytosis - on steroids Procal 5.4 Bilateral infiltrates H/o MRSA Plan Plan of Care Cont Vanc and Cefepime/Flagyl Labs in am F/u cults d/w [facility] this am no cults from [facility] D/w nursing DEEPALI SIU MD Aug 11, 2019 06:42
--- NOTE | 2019-08-11 06:53 | RAD ---
AP chest. HISTORY: Intubated AP view was taken of the chest. Comparison is made to study from one day ago. Endotracheal tube, central line and NG tube are unchanged. Heart is enlarged. There are diffuse right lung infiltrates. A right upper lobe lung mass is possible. There is been no change from the recent study. IMPRESSION: 1. Tubes and lines unchanged. 2. Persistent infiltrates without change. Electronically signed by: Giovanny Connell MD (08/11/2019 6:50 AM) [id number]
[2019-08-11] MEDS: PANTOPRAZOLE IV PUSH 40 MG VIAL. IVP SCH (07:57)
--- NOTE | 2019-08-11 08:19 | PDOC ---
PULMONARY PROGRESS NOTES Subjective 59 yo female with chronic respiratory failure due to COPD. Recent hospitalization for acute on chronic failure and found to have pulmonary embolus. She is fully anticoagulated for that. no obvious bleeding. She also has a RUL suspicious density although bronchoscopy at outside institution non- diagnostic by report. Admitted with acute on chronic respiratory failure, hypotension and new right lung infiltrate. BP better, and now off pressor support. FiO2 decreasing, now at 0.4 with excellent O2 sat. Vitals Vital Signs Date Time Temp Pulse Resp B/P (MAP) Pulse Ox O2 Delivery O2 Flow Rate FiO2 08/11/19 07:00 57 22 166/90 (115) 100 Ventilator 08/11/19 04:00 99.2 99.2 Comments Patient responds somwhat to questions, but not meaningful. No ROS obtainable. Lungs: Other (breath sounds slightly diminished on right. no wheezing.) Cardiovascular: S1, S2 Abdomen: Soft Extremities: No Edema Skin: Warm Labs Laboratory Tests Test 08/09/19 12:15 08/09/19 18:19 08/10/19 00:11 08/10/19 05:00 Lactic Acid Level 3.6 mmol/L (0.4-2.0) Glucose (Fingerstick) 167 mg/dL (70-99) 158 mg/dL (70-99) White Blood Count 22.2 x10^3/uL (4.0-11.0) Red Blood Count 3.07 x10^6/uL (3.50-5.40) Hemoglobin 8.3 g/dL (12.0-15.5) Hematocrit 26.0 % (36.0-47.0) Mean Corpuscular Volume 85 fL (79-100) Mean Corpuscular Hemoglobin 27 pg (25-35) Mean Corpuscular Hemoglobin Concent 32 g/dL (31-37) Red Cell Distribution Width 20.8 % (11.5-14.5) Platelet Count 256 x10^3/uL (140-400) Neutrophils (%) (Auto) 96 % (31-73) Lymphocytes (%) (Auto) 1 % (24-48) Monocytes (%) (Auto) 3 % (0-9) Eosinophils (%) (Auto) 0 % (0-3) Basophils (%) (Auto) 0 % (0-3) Neutrophils # (Auto) 21.4 x10^3/uL (1.8-7.7) Lymphocytes # (Auto) 0.2 x10^3/uL (1.0-4.8) Monocytes # (Auto) 0.6 x10^3/uL (0.0-1.1) Eosinophils # (Auto) 0.0 x10^3/uL (0.0-0.7) Basophils # (Auto) 0.0 x10^3/uL (0.0-0.2) Sodium Level 139 mmol/L (136-145) Potassium Level 4.8 mmol/L (3.5-5.1) Chloride Level 104 mmol/L (98-107) Carbon Dioxide Level 27 mmol/L (21-32) Anion Gap 8 (6-14) Blood Urea Nitrogen 18 mg/dL (7-20) Creatinine 0.7 mg/dL (0.6-1.0) Estimated GFR (Cockcroft-Gault) 85.4 Glucose Level 199 mg/dL (70-99) Calcium Level 8.9 mg/dL (8.5-10.1) Test 08/10/19 06:20 08/10/19 08:20 08/10/19 11:21 08/10/19 16:36 Glucose (Fingerstick) 194 mg/dL (70-99) 174 mg/dL (70-99) 188 mg/dL (70-99) O2 Saturation 99 % (92-99) Arterial Blood pH 7.37 (7.35-7.45) Arterial Blood pCO2 at Patient Temp 46 mmHg (35-46) Arterial Blood pO2 at Patient Temp 146 mmHg (65-108) Arterial Blood HCO3 26 mmol/L (21-28) Arterial Blood Base Excess 0 mmol/L (-3-3) FiO2 60 Test 08/11/19 00:01 08/11/19 05:46 08/11/19 06:00 Glucose (Fingerstick) 202 mg/dL (70-99) 173 mg/dL (70-99) White Blood Count 17.7 x10^3/uL (4.0-11.0) Red Blood Count 3.04 x10^6/uL (3.50-5.40) Hemoglobin 8.3 g/dL (12.0-15.5) Hematocrit 25.6 % (36.0-47.0) Mean Corpuscular Volume 84 fL (79-100) Mean Corpuscular Hemoglobin 27 pg (25-35) Mean Corpuscular Hemoglobin Concent 32 g/dL (31-37) Red Cell Distribution Width 20.7 % (11.5-14.5) Platelet Count 241 x10^3/uL (140-400) Sodium Level 137 mmol/L (136-145) Potassium Level 4.3 mmol/L (3.5-5.1) Chloride Level 104 mmol/L (98-107) Carbon Dioxide Level 26 mmol/L (21-32) Anion Gap 7 (6-14) Blood Urea Nitrogen 22 mg/dL (7-20) Creatinine 0.8 mg/dL (0.6-1.0) Estimated GFR (Cockcroft-Gault) 73.2 Glucose Level 181 mg/dL (70-99) Calcium Level 9.0 mg/dL (8.5-10.1) Laboratory Tests Test 08/10/19 08:20 08/10/19 11:21 08/10/19 16:36 08/11/19 00:01 O2 Saturation 99 % (92-99) Arterial Blood pH 7.37 (7.35-7.45) Arterial Blood pCO2 at Patient Temp 46 mmHg (35-46) Arterial Blood pO2 at Patient Temp 146 mmHg (65-108) Arterial Blood HCO3 26 mmol/L (21-28) Arterial Blood Base Excess 0 mmol/L (-3-3) FiO2 60 Glucose (Fingerstick) 174 mg/dL (70-99) 188 mg/dL (70-99) 202 mg/dL (70-99) Test 08/11/19 05:46 08/11/19 06:00 Glucose (Fingerstick) 173 mg/dL (70-99) White Blood Count 17.7 x10^3/uL (4.0-11.0) Red Blood Count 3.04 x10^6/uL (3.50-5.40) Hemoglobin 8.3 g/dL (12.0-15.5) Hematocrit 25.6 % (36.0-47.0) Mean Corpuscular Volume 84 fL (79-100) Mean Corpuscular Hemoglobin 27 pg (25-35) Mean Corpuscular Hemoglobin Concent 32 g/dL (31-37) Red Cell Distribution Width 20.7 % (11.5-14.5) Platelet Count 241 x10^3/uL (140-400) Sodium Level 137 mmol/L (136-145) Potassium Level 4.3 mmol/L (3.5-5.1) Chloride Level 104 mmol/L (98-107) Carbon Dioxide Level 26 mmol/L (21-32) Anion Gap 7 (6-14) Blood Urea Nitrogen 22 mg/dL (7-20) Creatinine 0.8 mg/dL (0.6-1.0) Estimated GFR (Cockcroft-Gault) 73.2 Glucose Level 181 mg/dL (70-99) Calcium Level 9.0 mg/dL (8.5-10.1) Medications Active Scripts Medications Dose Route/Sig Max Daily Dose Days Date Category Duoneb 0.5-3(2.5) Mg/3 Ml (Albuterol/Ipratropium) 3 Ml Ampul.neb 3 Ml NEB RTQID 30 03/26/18 Rx Mucinex Dm Er 600-30 Mg Tablet (Guaifenesin/Dextromethorphan) 1 Each Tab.er.12h 1 Each PO BID 03/18/18 Reported Seroquel Xr (Quetiapine Fumarate) 400 Mg Tab.er.24h 800 Mg PO HS 03/18/18 Reported Venlafaxine Hcl 75 Mg Tablet 150 Mg PO HS 03/18/18 Reported Comments CXR 08/10 reviewed. unchanged compared to 08/09. but diffuse infiltrates right compared to July xrays Impression . 1. Acute on chronic respiratory failure, improving 2. Acute Pneumonia 3. Septic shock, improving 4. pulmonary embolus 5. COPD 6. RUL density/mass of uncertain significance Plan . 1. Will hold sedation and assess for extubation 2. Antibiotics per ID 3. Agree with bronchodilators and steroids 4. Agree with anticoagulation. DELTA CALDERA MD Aug 11, 2019 08:19
[2019-08-11] MEDS: IPRATRPIUM/ALBUTEROL 0.5/2.5MG 3 ML NEBU. NEB SCH ×4 (08:43→20:33)
--- NOTE | 2019-08-11 08:56 | PN ---
DATE: 08/11/2019 SUBJECTIVE: The patient is resting slightly propped up in bed, continued to be sedated, intubated and mechanically ventilated. She apparently has been restless yesterday and therefore, she was started on Precedex. PHYSICAL EXAMINATION: GENERAL: When I examined her, she was pale, cachectic, not jaundiced, cyanosed or thyromegaly. No jugular venous distension. No lower limb edema. VITAL SIGNS: Her heart rate was 57, blood pressure was 166/90, temperature was 99.2, respiratory rate was 22, and oxygen saturation was 100% on FiO2 of 40%. HEAD, EYES, EARS, NOSE AND THROAT: Normocephalic, atraumatic. NECK: Supple. HEART: Showed normal first and second heart sounds. No gallop, rub or murmur. CHEST: Showed central trachea, equal bilateral expansion, air entry, vesicular breath sounds. No crepitation or rhonchi. ABDOMEN: Soft, nontender. NEUROLOGIC: She is heavily sedated. Her intake over the last 24 hours was 5000, output was 2940. LABORATORY DATA: Her lab work this morning showed a white cell count 17,700; hemoglobin 8.3; hematocrit 25.6; MCV 84 and platelet count 241,000. Her chemistry showed a serum sodium 137, potassium 4.3, chloride 104, bicarbonate 26, anion gap of 7, BUN 22, creatinine was 0.8, estimated GFR was 73 mL per minute. Her glucose 181, calcium was 9. ASSESSMENT: 1. Acute on chronic hypoxic hypercapnic respiratory failure. 2. Right-sided pneumonia. 3. Chronic obstructive pulmonary disease exacerbation. 4. Septic shock, improving. 5. Right upper lobe density mass of uncertain significance. Did have bronchoscopy done at [facility], showed no evidence of any bronchial tumor. Bronchial brushing was negative for malignant cells. PLAN: To continue mechanical ventilation at present rate. Continue with antibiotic as per infectious disease specialist. Continue with steroids and bronchodilators. She has pulmonary embolus for which she is now on Lovenox. Once she is able to eat and drink, we will switch her back on to her Eliquis. BERTRAND RENTERIA MD DR: SADAF/vita JOB#: [id number] / [id number]
[2019-08-11] MEDS: QUEtiapine 100 MG TABLET. NG SCH ×2 (09:13→20:32)
[2019-08-11] MEDS: VANCOMYCIN PER PHARMACY MC PRN (09:49)
[2019-08-11] MEDS ORDERED: VENL150C6 PO (09:51)
[2019-08-11] MEDS: VANCOMYCIN 750 MG in IV NORMAL SALINE 250ML 250 ML IV SCH (11:40)
[2019-08-11] MEDS ORDERED: IPRATRPIUM/ALBUTEROL 0.5/2.5MG 3 ML NEBU. NEB SCH (12:00)
--- NOTE | 2019-08-11 12:51 | NUR ---
Sedation turned off at 0800. Patient alert and following commands at 1155, placed on cpap trial. ABG drawn at [address] Schaefer. Patient extubated at [address] schaefer. Patient placed on 4LNC, VS wnl. Will monitor
[2019-08-11] MEDS: fentaNYL PF VIAL 100 MCG/2 ML VIAL IVP PRN ×5 (13:22→23:26)
[2019-08-11] MEDS: VENLAFAXINE 50 MG TABLET. PO SCH ×2 (13:52→20:32)
[2019-08-11 15:02] LABS: BASE EXCESS ABG -1 mmol/L (-3-3); HCO3 ABG 23 mmol/L (21-28); PCO2 ABG 36 mmHg (35-46); PO2 ABG 77 mmHg (65-108); SAT O2 ABG 95 % (92-99)
[2019-08-11 15:11] LABS: FIO2 ABG 30%
[2019-08-11] MEDS ORDERED: VENLAFAXINE 75 MG TABLET. PO SCH (21:00)
[2019-08-11 23:36] LABS: VANC TR 13.9 mcg/mL (10.0-20.0)
[2019-08-12] VITALS (15 sets, daily range): BP systolic 107–151; BP diastolic 52–89
[2019-08-12] MEDS: VANCOMYCIN PER PHARMACY MC PRN ×3 (00:15→10:48)
--- NOTE | 2019-08-12 00:22 | NUR ---
Pharmacy Vancomycin Dosing Note S: Consulted to monitor and dose vancomycin started 08/09/19. O: CB CASTILLO is a 59 year old F with Pneumonia, . Other Antibiotics: CEFEPIME 1G IV Q8HRS FLAGYL 500 MG IV Q8HRS LABS: Last BUN: 22 Last Creatinine: 0.8 Creatinine Clearance: 66 mL/min Last WBC: 17.7 Last Procalcitonin: 5.4 Tmax (past 24 hours): 99.5 Microbiology: I/O: 4447/1780 Drug Levels: Last Trough level: 13.9 on 08/11/19 at 2315 Last dose given 08/11/19 at 1200 Vancomycin Dosing: Dosing Weight: Target Trough: 15-20 A: Based on: Trough, Updated Actual Wt and CrCl P: 1. 08/12/19 0030 Increase Vancomycin 1000 mg IV q12h 2. Follow up Trough level on 08/13/19 at 1200 3. Pharmacy will continue to monitor, follow and adjust therapy as needed. DELTA CUEVA RPH, 08/12/19 0022 Signed: 08/12/19 at 0023 by DELTA CUEVA RPH PHA
[2019-08-12] MEDS: INSULIN LISPRO 300 UNITS/3 ML VIAL. SQ SCH ×3 (00:29→12:00)
[2019-08-12] MEDS: VANCOMYCIN 1 GM in IV NORMAL SALINE 250ML 250 ML IV SCH ×2 (00:30→12:34)
[2019-08-12] MEDS: fentaNYL PF VIAL 100 MCG/2 ML VIAL IVP PRN ×5 (03:09→11:51)
[2019-08-12] MEDS: IV NORMAL SALINE 1000ML BAG 1,000 ML IV SCH ×2 (05:31→18:33)
[2019-08-12] MEDS: methylPREDNISolone SOD SUCC PF 40 MG/ML VIAL. IV SCH ×3 (05:32→21:55)
[2019-08-12] MEDS: CEFEPIME HCL IV Push 1 GM VIAL. IVP SCH ×3 (05:34→21:55)
[2019-08-12 06:02] LABS: HEMATOCRIT 24.6 % (36.0-47.0); HEMOGLOBIN 7.9 g/dL (12.0-15.5); RED BLOOD COUNT 2.97 x10^6/uL (3.50-5.40); RED CELL DISTRIBUTION WIDTH 20.9 % (11.5-14.5); WHITE BLOOD COUNT 13.6 x10^3/uL (4.0-11.0)
[2019-08-12 06:25] LABS: CALCIUM 8.8 mg/dL (8.5-10.1); CREATININE 0.7 mg/dL (0.6-1.0); GFR 85.4; POTASSIUM 3.2 mmol/L (3.5-5.1)
[2019-08-12] MEDS: QUEtiapine 100 MG TABLET. NG SCH (07:31)
[2019-08-12] MEDS: VENLAFAXINE 50 MG TABLET. PO SCH ×3 (07:32→21:55)
[2019-08-12] MEDS: PANTOPRAZOLE IV PUSH 40 MG VIAL. IVP SCH (07:41)
[2019-08-12] MEDS ORDERED: ELECTROLYTE (ICU) PROTOCOL. MC PRN (07:45)
--- NOTE | 2019-08-12 07:54 | PDOC ---
Infectious Disease Note Subjective Subjective extubated, awake, says feeling better ROS ROS no n/v/d/sob Vital Sign Vital Signs Vital Signs Date Time Temp Pulse Resp B/P (MAP) Pulse Ox O2 Delivery O2 Flow Rate FiO2 08/12/19 07:39 22 97 Nasal Cannula 2.0 08/12/19 05:50 71 132/79 (96) 08/12/19 04:00 98.0 98.0 Physical Exam PHYSICAL EXAM CONSTITUTIONAL: pt is extubated, awake comfortable HEENT: Her pupils are equal and reactive. nml NECK: Supple. LUNGS: Mild coarse in the right side but better. HEART: S1, S2. ABDOMEN: Soft, no guarding, no rebound. GENITOURINARY: Diaz in place. EXTREMITIES: Without clubbing, cyanosis, or gross edema. IVS: She has a left IJ and a peripheral IV as well. SKIN: Warm to touch without signs of rash. She does have a tattoo on her left lower extremity. 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 , no focal deficit Labs Lab Laboratory Tests Test 08/11/19 08:00 08/11/19 11:19 08/11/19 17:43 08/11/19 23:15 O2 Saturation 95 % (92-99) Arterial Blood pH 7.43 (7.35-7.45) Arterial Blood pCO2 at Patient Temp 36 mmHg (35-46) Arterial Blood pO2 at Patient Temp 77 mmHg (65-108) Arterial Blood HCO3 23 mmol/L (21-28) Arterial Blood Base Excess -1 mmol/L (-3-3) FiO2 30% Glucose (Fingerstick) 189 mg/dL (70-99) 158 mg/dL (70-99) Vancomycin Level Trough 13.9 mcg/mL (10.0-20.0) Vancomycin Last Dose Date [id number] Vancomycin Last Dose Time 1200 Test 08/12/19 00:19 08/12/19 05:15 08/12/19 05:27 Glucose (Fingerstick) 171 mg/dL (70-99) 163 mg/dL (70-99) White Blood Count 13.6 x10^3/uL (4.0-11.0) Red Blood Count 2.97 x10^6/uL (3.50-5.40) Hemoglobin 7.9 g/dL (12.0-15.5) Hematocrit 24.6 % (36.0-47.0) Mean Corpuscular Volume 83 fL (79-100) Mean Corpuscular Hemoglobin 27 pg (25-35) Mean Corpuscular Hemoglobin Concent 32 g/dL (31-37) Red Cell Distribution Width 20.9 % (11.5-14.5) Platelet Count 263 x10^3/uL (140-400) Sodium Level 142 mmol/L (136-145) Potassium Level 3.2 mmol/L (3.5-5.1) Chloride Level 105 mmol/L (98-107) Carbon Dioxide Level 29 mmol/L (21-32) Anion Gap 8 (6-14) Blood Urea Nitrogen 25 mg/dL (7-20) Creatinine 0.7 mg/dL (0.6-1.0) Estimated GFR (Cockcroft-Gault) 85.4 Glucose Level 166 mg/dL (70-99) Calcium Level 8.8 mg/dL (8.5-10.1) Micro Microbiology 08/09/19 Blood Culture - Preliminary, Resulted NO GROWTH AFTER 2 DAYS Objective Assessment Encephalopathy on presentation ? Med overdose Acute resp failure intubated, now extubated Hypotension - off pressors Leukocytosis - on steroids Procal 5.4 Bilateral infiltrates H/o MRSA Plan Plan of Care Cont Vanc and Cefepime/Flagyl Labs in am F/u cults d/w [facility] this am no cults from [facility] d/w dr Valente D/w nursing CANDY PEACE MD Aug 12, 2019 07:53
[2019-08-12] MEDS: IPRATRPIUM/ALBUTEROL 0.5/2.5MG 3 ML NEBU. NEB SCH ×4 (08:18→20:33)
--- NOTE | 2019-08-12 08:33 | RAD ---
EXAM: CHEST ONE VIEW. HISTORY: Renal failure, infiltrate. COMPARISON: 08/11/2019. FINDINGS: A frontal view of the chest is obtained. A left subclavian central venous catheter has its tip in the superior cavoatrial junction. The right upper lobe and perihilar opacity appears similar across recent examinations. Right greater than left basilar infiltrates have improved since the prior study. Hyperinflation is consistent with chronic obstructive pulmonary disease. Enlargement of the pulmonary arteries suggests pulmonary arterial hypertension. There is no pneumothorax or clear pleural effusion. The heart is mildly enlarged. There are atherosclerotic calcifications of the aorta. IMPRESSION: 1. Right greater than left basilar infiltrates have improved. 2. Stable right perihilar and upper lobe opacity. Ongoing follow-up is recommended to exclude a mass if the diagnosis remains unclear. 3. Chronic obstructive pulmonary disease with evidence of pulmonary arterial hypertension. Electronically signed by: Ashlie Neely MD (08/12/2019 8:30 AM) [facility]
--- NOTE | 2019-08-12 08:35 | PDOC ---
PULMONARY PROGRESS NOTES Subjective PT EXTUBATED DOING WELL NOT MORE SOA TODAY Vitals Vital Signs Date Time Temp Pulse Resp B/P (MAP) Pulse Ox O2 Delivery O2 Flow Rate FiO2 08/12/19 08:19 96 Nasal Cannula 2.0 08/12/19 07:39 22 08/12/19 05:50 71 132/79 (96) 08/12/19 04:00 98.0 98.0 ROS: No Nausea, No Chest Pain, No Abdominal Pain, No Increase Cough General: Alert Lungs: Clear, Other Cardiovascular: S1, S2 Abdomen: Soft Neuro Exam: Alert Extremities: No Edema Skin: Warm Labs Laboratory Tests Test 08/10/19 11:21 08/10/19 16:36 08/11/19 00:01 08/11/19 05:46 Glucose (Fingerstick) 174 mg/dL (70-99) 188 mg/dL (70-99) 202 mg/dL (70-99) 173 mg/dL (70-99) Test 08/11/19 06:00 08/11/19 08:00 08/11/19 11:19 08/11/19 17:43 White Blood Count 17.7 x10^3/uL (4.0-11.0) Red Blood Count 3.04 x10^6/uL (3.50-5.40) Hemoglobin 8.3 g/dL (12.0-15.5) Hematocrit 25.6 % (36.0-47.0) Mean Corpuscular Volume 84 fL (79-100) Mean Corpuscular Hemoglobin 27 pg (25-35) Mean Corpuscular Hemoglobin Concent 32 g/dL (31-37) Red Cell Distribution Width 20.7 % (11.5-14.5) Platelet Count 241 x10^3/uL (140-400) Sodium Level 137 mmol/L (136-145) Potassium Level 4.3 mmol/L (3.5-5.1) Chloride Level 104 mmol/L (98-107) Carbon Dioxide Level 26 mmol/L (21-32) Anion Gap 7 (6-14) Blood Urea Nitrogen 22 mg/dL (7-20) Creatinine 0.8 mg/dL (0.6-1.0) Estimated GFR (Cockcroft-Gault) 73.2 Glucose Level 181 mg/dL (70-99) Calcium Level 9.0 mg/dL (8.5-10.1) O2 Saturation 95 % (92-99) Arterial Blood pH 7.43 (7.35-7.45) Arterial Blood pCO2 at Patient Temp 36 mmHg (35-46) Arterial Blood pO2 at Patient Temp 77 mmHg (65-108) Arterial Blood HCO3 23 mmol/L (21-28) Arterial Blood Base Excess -1 mmol/L (-3-3) FiO2 30% Glucose (Fingerstick) 189 mg/dL (70-99) 158 mg/dL (70-99) Test 08/11/19 23:15 08/12/19 00:19 08/12/19 05:15 08/12/19 05:27 Vancomycin Level Trough 13.9 mcg/mL (10.0-20.0) Vancomycin Last Dose Date Vancomycin Last Dose Time 1200 Glucose (Fingerstick) 171 mg/dL (70-99) 163 mg/dL (70-99) White Blood Count 13.6 x10^3/uL (4.0-11.0) Red Blood Count 2.97 x10^6/uL (3.50-5.40) Hemoglobin 7.9 g/dL (12.0-15.5) Hematocrit 24.6 % (36.0-47.0) Mean Corpuscular Volume 83 fL (79-100) Mean Corpuscular Hemoglobin 27 pg (25-35) Mean Corpuscular Hemoglobin Concent 32 g/dL (31-37) Red Cell Distribution Width 20.9 % (11.5-14.5) Platelet Count 263 x10^3/uL (140-400) Sodium Level 142 mmol/L (136-145) Potassium Level 3.2 mmol/L (3.5-5.1) Chloride Level 105 mmol/L (98-107) Carbon Dioxide Level 29 mmol/L (21-32) Anion Gap 8 (6-14) Blood Urea Nitrogen 25 mg/dL (7-20) Creatinine 0.7 mg/dL (0.6-1.0) Estimated GFR (Cockcroft-Gault) 85.4 Glucose Level 166 mg/dL (70-99) Calcium Level 8.8 mg/dL (8.5-10.1) Laboratory Tests Test 08/11/19 11:19 08/11/19 17:43 08/11/19 23:15 08/12/19 00:19 Glucose (Fingerstick) 189 mg/dL (70-99) 158 mg/dL (70-99) 171 mg/dL (70-99) Vancomycin Level Trough 13.9 mcg/mL (10.0-20.0) Vancomycin Last Dose Date [id number] Vancomycin Last Dose Time 1200 Test 08/12/19 05:15 08/12/19 05:27 White Blood Count 13.6 x10^3/uL (4.0-11.0) Red Blood Count 2.97 x10^6/uL (3.50-5.40) Hemoglobin 7.9 g/dL (12.0-15.5) Hematocrit 24.6 % (36.0-47.0) Mean Corpuscular Volume 83 fL (79-100) Mean Corpuscular Hemoglobin 27 pg (25-35) Mean Corpuscular Hemoglobin Concent 32 g/dL (31-37) Red Cell Distribution Width 20.9 % (11.5-14.5) Platelet Count 263 x10^3/uL (140-400) Sodium Level 142 mmol/L (136-145) Potassium Level 3.2 mmol/L (3.5-5.1) Chloride Level 105 mmol/L (98-107) Carbon Dioxide Level 29 mmol/L (21-32) Anion Gap 8 (6-14) Blood Urea Nitrogen 25 mg/dL (7-20) Creatinine 0.7 mg/dL (0.6-1.0) Estimated GFR (Cockcroft-Gault) 85.4 Glucose Level 166 mg/dL (70-99) Calcium Level 8.8 mg/dL (8.5-10.1) Glucose (Fingerstick) 163 mg/dL (70-99) Medications Active Scripts Medications Dose Route/Sig Max Daily Dose Days Date Category Duoneb 0.5-3(2.5) Mg/3 Ml (Albuterol/Ipratropium) 3 Ml Ampul.neb 3 Ml NEB RTQID 30 03/26/18 Rx Mucinex Dm Er 600-30 Mg Tablet (Guaifenesin/Dextromethorphan) 1 Each Tab.er.12h 1 Each PO BID 03/18/18 Reported Seroquel Xr (Quetiapine Fumarate) 400 Mg Tab.er.24h 800 Mg PO HS 03/18/18 Reported Venlafaxine Hcl 75 Mg Tablet 150 Mg PO HS 03/18/18 Reported Comments s Impression . 1. [id number]-[id number] hypoxemic respiratory failure. 2. Septic shock. 3. Pneumonia, suspect gram-negative, possibly gram-positive. 4. Previously abnormal CT chest as indicated above, the patient underwent bronchoscopy at [facility]. Cytology was negative for malignant cells. There were no endobronchial lesions. 5. Narcotic abuse. 6. Bronchodilators. 7. Continue anticoagulation. Plan . WILL CONTINUE SUPPORT OK TO MOVE OUT OF ICU START DIET BD PT EVAL E TREAT 2. Antibiotics per ID 3. Agree with bronchodilators and steroids 4. Agree with anticoagulation. BO LINCOLN MD Aug 12, 2019 08:35
[2019-08-12] MEDS: ANTI-COAG MONITOR BY PHARMACY. MC PRN (10:41)
--- NOTE | 2019-08-12 10:58 | PN ---
DATE: 08/12/2019 SUBJECTIVE: The patient was extubated successfully yesterday. She is awake and alert, wondering why this happened to her and I explained to her that she probably took her Xanax and pain medication ____. She became very angry and aggravated. OBJECTIVE: GENERAL: In any case when I examined her, she looked pale, cachectic but no jaundice, cyanosis or thyromegaly. No jugular venous distention. No lower limb edema. VITAL SIGNS: Her heart rate was 71, blood pressure was 132/79, temperature was 98, respiratory rate was 14 and oxygen saturation was 94% on 2 liters of oxygen. HEAD, EYES, EARS, NOSE AND THROAT: Showed normocephalic, atraumatic. NECK: Supple. HEART: Showed normal first and second heart sounds. No gallop or murmur. CHEST: Clear to auscultation. No crepitation or rhonchi. ABDOMEN: Distended, soft and nontender. NEUROLOGIC: She is awake and alert, responding appropriately. All cranial nerves intact. She moves extremities without difficulty. Her intake over the last 24 hours was 4450, output was 1780. LABORATORY DATA: Her lab work this morning showed that her white cell count was 13,600, hemoglobin 8, hematocrit 24, MCV 83 and platelet count 263,000. Her chemistry showed serum sodium 142, potassium 3.2, chloride 105, bicarbonate 29, anion gap of 8, BUN 25 and creatinine 0.7. Estimated GFR was 85 mL per minute. Her glucose was 166. Calcium was 8.8. ASSESSMENT: 1. Acute on chronic hypoxic hypercapnic respiratory failure. The patient was successfully extubated. 2. Right-sided pneumonia. 3. Chronic obstructive pulmonary disease exacerbation. 4. Septic shock, improving. 5. Right upper lobe density mass, of uncertain significance. She has had bronchoscopy done at [facility] showed no evidence of any bronchial tumor. 6. Bronchial wash. Brushing was negative for malignant cells. PLAN: To consult the speech and language pathology for swallowing evaluation. When she is able to take things by mouth, we can change her to oral Eliquis and she is to continue also on her Seroquel 800 mg. BERTRAND RENTERIA MD DR: SADAF/vita JOB#: [id number] / [id number]
--- NOTE | 2019-08-12 11:23 | NUR ---
SS following up with discharge planning. Pt is currently on nasal cannula oxygen. SS received request for PAT team referral to assess for psych and substance abuse issues. Pt's RN reported that pt was positive for opiates and benzos. SS contacted PAT team for assessment and recommendations. PT/OT ordered for evaluation and recommendations as well. SS will continue to follow for discharge planning.
[2019-08-12] MEDS ORDERED: ALPRAZolam 0.25 MG TABLET PO PRN (12:30)
[2019-08-12] MEDS: HYDROcodone/APAP 5/325MG 1 TAB TABLET PO PRN ×2 (12:33→18:48)
--- NOTE | 2019-08-12 13:00 | NUR ---
Pt thrashing around bed stating "I need xanax for my anxiety." Contacted Dr. Valente regarding pt request. Received orders at this time. Will continue to monitor.
[2019-08-12] MEDS: LORazepam 0.5 MG TABLET PO PRN (14:46)
--- NOTE | 2019-08-12 15:00 | NUR ---
Pt started hitting head against bed and kicking legs. Heart rate elevated and her oxygen saturation desaturates. When asked, pt stated "You need to tell Dr. Valente I need Ativan because I have too much anxiety." Contacted Dr. Valente regarding pt. Received orders. When giving pt medication, pt stated every 8 hours is not enough and she needs more. Pt stops thrashing herself around after taking medication and heart rate in 70s and oxygen saturation 92% on 2L NC. Will continue to monitor.
[2019-08-12] MEDS ORDERED: POTASSIUM CHL 20MEQ PREMIX 50 ML IV SCH (16:00)
[2019-08-12] MEDS ORDERED: QUEtiapine 300 MG TAB.ER.24H. PO SCH (16:00)
[2019-08-12] MEDS ORDERED: QUEtiapine 50 MG TAB.ER.24H. PO SCH (16:00)
--- NOTE | 2019-08-12 17:00 | NUR ---
Notified by [facility] student that left patient's room that patient told her she called her and he is bringing her home Xanax and she is going to take it. Notified the 6S nurse at this time. Will continue to monitor.
[2019-08-13 00:33] VITALS: BP 138/79
[2019-08-13] MEDS: VANCOMYCIN 1 GM in IV NORMAL SALINE 250ML 250 ML IV SCH (01:10)
[2019-08-13 03:02] VITALS: BP 100/84
[2019-08-13] MEDS: LORazepam 0.5 MG TABLET PO PRN (03:44)
[2019-08-13] MEDS: HYDROcodone/APAP 5/325MG 1 TAB TABLET PO PRN (04:21)
[2019-08-13] MEDS: IV NORMAL SALINE 1000ML BAG 1,000 ML IV SCH (04:22)
[2019-08-13] MEDS: INSULIN LISPRO 300 UNITS/3 ML VIAL. SQ SCH ×2 (06:00)
[2019-08-13] MEDS: methylPREDNISolone SOD SUCC PF 40 MG/ML VIAL. IV SCH (06:03)
[2019-08-13] MEDS: CEFEPIME HCL IV Push 1 GM VIAL. IVP SCH (06:03)
[2019-08-13 07:00] VITALS: BP 158/86
[2019-08-13] MEDS: IPRATRPIUM/ALBUTEROL 0.5/2.5MG 3 ML NEBU. NEB SCH ×2 (07:50→11:43)
--- NOTE | 2019-08-13 08:22 | RAD ---
EXAM: CHEST ONE VIEW. HISTORY: Respiratory failure. COMPARISON: 08/12/2019. FINDINGS: A frontal view of the chest is obtained. A left subclavian central venous catheter has its tip in the superior vena cava. There is rotation to the left. Interstitial opacities on the right greater than left are mildly increased. The inspiration is smaller. There is a more focal opacity in the right upper lobe and right perihilar region. Enlargement of the pulmonary arteries suggests pulmonary arterial hypertension. There is no pleural effusion. There is no pneumothorax. The heart is not enlarged. There are atherosclerotic calcifications of the aorta. IMPRESSION: 1. Increased right greater than left interstitial infiltrates. Correlate for atypical pneumonia or mild to moderate pulmonary edema. 2. Right upper lobe and perihilar opacities are indeterminate. Correlate to exclude malignancy. Electronically signed by: Ashlie Neely MD (08/13/2019 8:19 AM) [facility]
--- NOTE | 2019-08-13 09:49 | PDOC ---
Infectious Disease Note Subjective Subjective awake, says feeling better ROS ROS no n/v/d/sob Vital Sign Vital Signs Vital Signs Date Time Temp Pulse Resp B/P (MAP) Pulse Ox O2 Delivery O2 Flow Rate FiO2 08/13/19 07:52 94 Nasal Cannula 2.0 08/13/19 07:00 97.8 67 18 158/86 (110) 97.8 Physical Exam PHYSICAL EXAM CONSTITUTIONAL: pt is extubated, awake comfortable HEENT: Her pupils are equal and reactive. nml NECK: Supple. LUNGS: Mild coarse in the right side but better. HEART: S1, S2. ABDOMEN: Soft, no guarding, no rebound. GENITOURINARY: Diaz in place. EXTREMITIES: Without clubbing, cyanosis, or gross edema. IVS: She has a left IJ and a peripheral IV as well. SKIN: Warm to touch without signs of rash. She does have a tattoo on her left lower extremity. 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 Med overdose Acute resp failure intubated, now extubated Hypotension - off pressors Leukocytosis - on steroids Procal 5.4 Bilateral infiltrates H/o MRSA Plan Plan of Care Cont Vanc and Cefepime/Flagyl,,, change to po augmentin Labs in am F/u cults d/w [facility] this am no cults from [facility] d/w dr Valente D/w nursing CANDY PEACE MD Aug 13, 2019 09:49
[2019-08-13] MEDS: VENLAFAXINE 50 MG TABLET. PO SCH (09:50)
[2019-08-13] MEDS: PANTOPRAZOLE IV PUSH 40 MG VIAL. IVP SCH (09:50)
--- NOTE | 2019-08-13 10:48 | PDOC ---
PULMONARY PROGRESS NOTES Subjective PT EXTUBATED DOING WELL NOT MORE SOA TODAY Vitals Vital Signs Date Time Temp Pulse Resp B/P (MAP) Pulse Ox O2 Delivery O2 Flow Rate FiO2 08/13/19 07:52 94 Nasal Cannula 2.0 08/13/19 07:00 97.8 67 18 158/86 (110) 97.8 ROS: No Nausea, No Chest Pain, No Abdominal Pain, No Increase Cough General: Alert Lungs: Clear, Other Cardiovascular: S1, S2 Abdomen: Soft Neuro Exam: Alert Extremities: No Edema Skin: Warm Labs Laboratory Tests Test 08/11/19 11:19 08/11/19 17:43 08/11/19 23:15 08/12/19 00:19 Glucose (Fingerstick) 189 mg/dL (70-99) 158 mg/dL (70-99) 171 mg/dL (70-99) Vancomycin Level Trough 13.9 mcg/mL (10.0-20.0) Vancomycin Last Dose Date [id number] Vancomycin Last Dose Time 1200 Test 08/12/19 05:15 08/12/19 05:27 08/12/19 11:55 08/12/19 19:29 White Blood Count 13.6 x10^3/uL (4.0-11.0) Red Blood Count 2.97 x10^6/uL (3.50-5.40) Hemoglobin 7.9 g/dL (12.0-15.5) Hematocrit 24.6 % (36.0-47.0) Mean Corpuscular Volume 83 fL (79-100) Mean Corpuscular Hemoglobin 27 pg (25-35) Mean Corpuscular Hemoglobin Concent 32 g/dL (31-37) Red Cell Distribution Width 20.9 % (11.5-14.5) Platelet Count 263 x10^3/uL (140-400) Sodium Level 142 mmol/L (136-145) Potassium Level 3.2 mmol/L (3.5-5.1) Chloride Level 105 mmol/L (98-107) Carbon Dioxide Level 29 mmol/L (21-32) Anion Gap 8 (6-14) Blood Urea Nitrogen 25 mg/dL (7-20) Creatinine 0.7 mg/dL (0.6-1.0) Estimated GFR (Cockcroft-Gault) 85.4 Glucose Level 166 mg/dL (70-99) Calcium Level 8.8 mg/dL (8.5-10.1) Glucose (Fingerstick) 163 mg/dL (70-99) 170 mg/dL (70-99) 216 mg/dL (70-99) Test 08/13/19 00:25 08/13/19 06:19 Glucose (Fingerstick) 226 mg/dL (70-99) 135 mg/dL (70-99) Laboratory Tests Test 08/12/19 11:55 08/12/19 19:29 08/13/19 00:25 08/13/19 06:19 Glucose (Fingerstick) 170 mg/dL (70-99) 216 mg/dL (70-99) 226 mg/dL (70-99) 135 mg/dL (70-99) Medications Active Scripts Medications Dose Route/Sig Max Daily Dose Days Date Category Duoneb 0.5-3(2.5) Mg/3 Ml (Albuterol/Ipratropium) 3 Ml Ampul.neb 3 Ml NEB RTQID 30 03/26/18 Rx Mucinex Dm Er 600-30 Mg Tablet (Guaifenesin/Dextromethorphan) 1 Each Tab.er.12h 1 Each PO BID 03/18/18 Reported Seroquel Xr (Quetiapine Fumarate) 400 Mg Tab.er.24h 800 Mg PO HS 03/18/18 Reported Venlafaxine Hcl 75 Mg Tablet 150 Mg PO HS 03/18/18 Reported Comments s Impression . 1. Pexbu-nh-jefuprp hypoxemic respiratory failure. 2. Septic shock. 3. Pneumonia, suspect gram-negative, possibly gram-positive. 4. Previously abnormal CT chest as indicated above, the patient underwent bronchoscopy at [facility]. Cytology was negative for malignant cells. There were no endobronchial lesions. 5. Narcotic abuse. 6. Bronchodilators. 7. Continue anticoagulation. Plan . WILL CONTINUE SUPPORT OK TO MOVE OUT OF ICU START DIET BD PT EVAL E TREAT 2. Antibiotics per ID 3. Agree with bronchodilators and steroids 4. Agree with anticoagulation. BO LINCOLN MD Aug 13, 2019 10:48
[2019-08-13 11:00] VITALS: BP 149/78
[2019-08-13] MEDS: ANTI-COAG MONITOR BY PHARMACY. MC PRN (11:08)
[2019-08-13] MEDS ORDERED: ALPRAZolam 0.5 MG TABLET PO SCH (12:00)
[2019-08-13 12:08] LABS: CALCIUM 8.3 mg/dL (8.5-10.1); CREATININE 1.1 mg/dL (0.6-1.0); GFR 50.7; POTASSIUM 3.2 mmol/L (3.5-5.1)
--- NOTE | 2019-08-13 12:18 | NUR ---
SW following pt. Pt is a transfer from ICU and Seen by PAT team yesterday. PAT team notes reviewed. Pt denies HI and SI. Pt agreeable to f/u with [facility], [facility] and [facility]. Spoke with pt with Physician and pt agreeable to work with PT/OT today. Pt does not want to go to SNU but agreeable with home health services. Physician wants to keep pt one more night. Will continue to follow.
--- NOTE | 2019-08-13 15:42 | PN ---
DATE: 08/13/2019 SUBJECTIVE: The patient is a 59-year-old female patient who was admitted with acute hypoxic hypercapnic respiratory failure, requiring intubation and mechanical ventilation; however, she was successfully intubated. When I saw her this morning, she was sitting at the edge of the bed comfortably in no apparent distress; however, according to the [facility] nursing staff, she continued to be unsteady and has nearly fallen twice and was supported by the MANAGER TESTING. She continued to be extremely anxious. Yesterday, she refused Xanax and today she is very insisting to be on Xanax and does not like Ativan, this is what she wanted yesterday. PHYSICAL EXAMINATION: GENERAL: When I examined her, she was pale, not jaundiced, cyanosed or thyromegaly. No jugular venous distension. No lower limb edema. VITAL SIGNS: Her heart rate was 67, blood pressure 158/86, temperature was 97.8, respiratory rate was 18 and oxygen saturation was 98% on 2 liters of oxygen. The rest of exam is stable. PLAN: To continue with steroids, continue with oral antibiotic. Continue with Seroquel. I will discontinue her Ativan and put her back on Xanax. We will recommend that she go to prison facility, but the patient is refusing, but she is agreeable to go home with home health. BERTRAND RENTERIA MD DR: SADAF/vita JOB#: [id number] / [id number]
--- NOTE | 2019-08-13 16:03 | NUR ---
Pt was found holding a plastic bag of pills and said that her had brought them in for her. After looking them up, the pills were found to be Alprazolam 1 mg. After taking them out of the room the patient wanted to leave. Dr. Valente was notified and AMA paperwork was signed. Central line and lara catheter were removed before pt left. Security was called to escort her out by wheelchair. Transportation was provided by her .
[2019-08-13] MEDS ORDERED: AMOXICILLIN/K CLAV 875/125MG TABLET. PO SCH (21:00)
[2019-08-13] MEDS ORDERED: LACTOBACILLUS RHAMNOSUS GG 1 CAPSULE. PO SCH (21:00)
[2019-08-13] MEDS ORDERED: APIXABAN 5 MG TABLET. PO SCH (21:00)
[2019-08-13] MEDS ORDERED: QUEtiapine 50 MG TAB.ER.24H. PO SCH (21:00)
[2019-08-13] MEDS ORDERED: QUEtiapine 300 MG TAB.ER.24H. PO SCH (21:00)
[2019-08-14] MEDS ORDERED: PANTOPRAZOLE 40 MG TABLET.DR. PO SCH (07:30)
== END 2019-08-13 13:10 | disposition left against medical advice (07) | DRG 871 ==
LOC: 1 WEST ICU 03:47 → 6 SOUTH 08-12 17:19
PROVIDERS: ADMIT Internal Medicine; ATTEND Internal Medicine
PROC: 5A1945Z Respiratory Ventilation, 24-96 Consecutive Hours (ICD-10-PCS; principal; 2019-08-09)
PROC: 0BH17EZ Insertion of Endotracheal Airway into Trachea, Via Natural or Artificial Opening (ICD-10-PCS; 2019-08-09)
DX: A41.9 Sepsis, unspecified organism (principal); J96.21 Acute and chronic respiratory failure with hypoxia; J18.9 Pneumonia, unspecified organism; I26.99 Other pulmonary embolism without acute cor pulmonale; J96.22 Acute and chronic respiratory failure with hypercapnia; R65.21 Severe sepsis with septic shock; G93.40 Encephalopathy, unspecified; I50.32 Chronic diastolic (congestive) heart failure; J44.0 Chronic obstructive pulmonary disease with (acute) lower respiratory infection; J44.1 Chronic obstructive pulmonary disease with (acute) exacerbation; F11.10 Opioid abuse, uncomplicated; F17.200 Nicotine dependence, unspecified, uncomplicated; F31.9 Bipolar disorder, unspecified; I11.0 Hypertensive heart disease with heart failure; Z79.01 Long term (current) use of anticoagulants; Z82.3 Family history of stroke; Z86.14 Personal history of Methicillin resistant Staphylococcus aureus infection; Z87.440 Personal history of urinary (tract) infections; Z90.710 Acquired absence of both cervix and uterus; Z99.81 Dependence on supplemental oxygen; Z86.711 Personal history of pulmonary embolism; F41.9 Anxiety disorder, unspecified
CPT/HCPCS: 36415; 36600; 71045; 80048; 80053; 80202; 80307; 82805; 82962; 83605; 84145; 85007; 85025; 85027; 87040; 94002; 94003; 94640; C9113; J0692; J1650; J1815; J2250; J2704; J2920; J3010; J3370; J3480; J3490; J7030; J7040; J7050; J7613; J7620; 92526; 92610; G0378

== ENCOUNTER 2019-11-12 06:48 | Inpatient (IN) | payer MEDICARE ==
[2019-11-12] VITALS (21 sets, daily range): BP systolic 67–119; BP diastolic 51–75
[~2019-11-12] VITALS: Ht 170.2 cm; Wt 63.0 kg
[~2019-11-12 06:48] MED LIST changes: +ACET325T9 PO; +ALPR1TAB6 PO; +AMOX1TAB58 PO; +DOCU-153 PO; +DOXY100T PO; +FERR325T72 PO; +LACT1CAP19 PO; +MELA5TAB20 PO; +METO25TA4 PO; +PANT40TA77 PO; +POLY500P14 MC; +QUET400T4 PO; +RIVA10TA PO; +ROPI0.254 PO; +VENL150C6 PO
[2019-11-12] MEDS ORDERED: MIDAZOLAM HCL/PF 5 MG/5 ML VIAL. ONE (07:11)
[2019-11-12] MEDS ORDERED: fentaNYL PF VIAL 100 MCG/2 ML VIAL ONE (07:11)
[2019-11-12] MEDS ORDERED: fentaNYL PF VIAL 100 MCG/2 ML VIAL IVP ONE (07:15)
[2019-11-12] MEDS ORDERED: MIDAZOLAM HCL/PF 5 MG/5 ML VIAL. IV ONE (07:15)
--- NOTE | 2019-11-12 07:33 | RAD ---
EXAM: CHEST ONE VIEW. HISTORY: Related, respiratory failure, chest tube placement. COMPARISON: 08/31/2019. FINDINGS: A frontal view of the chest is obtained. An endotracheal tube has its tip 4.5 cm above the juliet. A nasogastric tube has its tip below the inferior margin of the view. A left chest tube is not placed. There is a small left pneumothorax. There is extensive left chest wall gas. Patchy infiltrates on the right greater than the left appears slightly improved on the left. Small pleural effusions are suspected. The heart is not enlarged. Enlargement of the pulmonary arteries suggests pulmonary arterial hypertension. There is gaseous distention of bowel loops in the upper abdomen. IMPRESSION: 1. Small left pneumothorax with a chest tube in place. Extensive left chest wall gas. 2. Bilateral patchy infiltrates are slightly improved on the left. 3. Enlargement of the pulmonary arteries suggests pulmonary arterial hypertension. Electronically signed by: Ashlie Neely MD (11/12/2019 7:31 AM) [facility]
[2019-11-12] MEDS: MIDAZOLAM HCL 50 MG in IV NORMAL SALINE 50ML 50 ML IV PRN ×4 (07:52→22:21)
[2019-11-12 08:40] LABS: BASE EXCESS COOX -2 mmol/L (-3-3); HCO3 COOX 25 mmol/L (21-28); METHEMOGLOBIN 0.2 % (0.0-1.9); OXYHEMOGLOBIN 87.2 %; PCO2 COOX 59 mmHg (35-46); PO2 COOX 60 mmHg (65-108); SAT O2 COOX 88 % (92-99)
[2019-11-12] MEDS: NOREPINEPHRINE VIAL 8 MG in IV DEXTROSE 5% 250 ML IV PRN ×2 (09:58→19:09)
[2019-11-12] MEDS ORDERED: PIPERACILLIN/TAZOBACTAM 3.375 GM in IV NORMAL SALINE 50ML 50 ML IV SCH (10:00)
[2019-11-12 10:28] LABS: CALCIUM 7.4 mg/dL (8.5-10.1); CREATININE 1.2 mg/dL (0.6-1.0); GFR 45.8; POTASSIUM 3.3 mmol/L (3.5-5.1)
[2019-11-12 10:34] LABS: ALBUMIN 2.1 g/dL (3.4-5.0); ALBUMIN/GLOBULIN RATIO 0.7 (1.0-1.7); TOTAL BILIRUBIN 0.3 mg/dL (0.2-1.0); TOTAL PROTEIN 5.3 g/dL (6.4-8.2)
[2019-11-12] MEDS: IV NORMAL SALINE 1000ML BAG 1,000 ML IV SCH ×2 (10:35→11:04)
[2019-11-12] MEDS: methylPREDNISolone SOD SUCC PF 40 MG/ML VIAL. IV SCH ×2 (10:36→22:19)
[2019-11-12 10:46] LABS: HEMATOCRIT 27.7 % (36.0-47.0); HEMOGLOBIN 8.7 g/dL (12.0-15.5); RED BLOOD COUNT 3.47 x10^6/uL (3.50-5.40); RED CELL DISTRIBUTION WIDTH 19.1 % (11.5-14.5); WHITE BLOOD COUNT 13.2 x10^3/uL (4.0-11.0)
--- NOTE | 2019-11-12 10:58 | HP ---
ADMIT DATE: 11/12/2019 HISTORY OF PRESENT ILLNESS: The patient is a 59-year-old female patient, known to have chronic obstructive pulmonary disease, has been admitted numerous times with acute hypoxic hypercapnic respiratory failure, requiring intubation who presented to the Emergency Room complaining that she cannot breathe stating that no intubation unless I have to. The patient has a history of frequent exacerbation of her COPD. By the time she arrived to the Emergency Room, she was in acute hypoxic hypercapnic respiratory failure. Her pCO2 was 57, pO2 was 74, and pH was 7.31. She is normally on 3 liters by nasal cannula. However, by the time she arrived there, she was requiring 100% by nonrebreather mask, has a history of noncompliance with medical regimen. Continued the use of tobacco. She was placed on BiPAP machine in attempt to avoid intubation per the patient's request. While on the BiPAP, the patient vomited and aspirated gastric content and needed emergent intubation. She also required needle decompression of the left pneumothorax after central line placement and required chest tube placement and was transferred to [facility] to continue with mechanical ventilation, continue with antibiotic therapy as well as steroids and bronchodilator. Prior to the transfer to [facility], her heart rate was 134, blood pressure 127/83, temperature was 98.1, respiratory rate was 44 and oxygen saturation was 97% on 12 liters and when I saw her in the ICU, she was intubated, mechanically ventilated and sedated and also on Levophed. PAST MEDICAL HISTORY: Significant for chronic obstructive pulmonary disease, history of diastolic congestive heart failure, vitamin D deficiency, bipolar disorder, depression, severe anxiety, continued tobacco and benzodiazepine use. She was admitted on numerous occasions with mnxuk-sj-uoqcemu hypoxic hypercapnic respiratory failure, requiring intubation and mechanical ventilation. Most times she leaves against medical advice immediately after she gets extubated. PAST SURGICAL HISTORY: Significant for hysterectomy as well as tonsillectomy. She had undergone bronchoscopy on her most recent admission to [facility]. ALLERGIES: She has no known drug allergies. FAMILY HISTORY: She has one sister who is younger and healthy. Her father at age of 46 as he committed suicide and mother at the age of 67 because of stroke. SOCIAL HISTORY: She is and lives with her . She has one son. She claims that she quit smoking, but apparently she continues to smoke. She does not drink alcohol or use any recreational drugs. She is known to have history of benzodiazepine and opiate use disorder. MEDICATIONS: She is currently on ipratropium bromide by nebulizer 4 times a day, ferrous sulfate 325 mg twice a day, rivaroxaban 20 mg daily, metoprolol tartrate 0.5 mg p.o. b.i.d., acetaminophen 650 mg every 4 hours, venlafaxine 150 mg at bedtime. She is on quetiapine fumarate extended release 800 mg once a day, alprazolam 0.5 mg 3 times a day, Requip 0.25 mg twice a day, Mucinex D 600 mg/30 one tablet twice a day, Colace 100 mg twice a day, Protonix 40 mg daily, lactobacillus rhamnosus 1 capsule twice a day and melatonin 5 mg at bedtime. PHYSICAL EXAMINATION: GENERAL: On arrival to the ICU, she was resting slightly propped up in bed, intubated, sedated, mechanically ventilated. VITAL SIGNS: Her heart rate was 119, blood pressure was 98/75, temperature was 97.7, respiratory rate was 20, and oxygen saturation was 94% on FiO2 of 100%. HEAD, EYES, EARS, NOSE AND THROAT: Showed she is normocephalic, atraumatic with orotracheal and orogastric tube in place. NECK: Supple. HEART: Showed normal first and second heart sounds. No gallop or murmur. CHEST: Shows central trachea with tracheostomy tube about 4.5 cm above the juliet. There is equal bilateral chest expansion, air entry, vesicular breath sounds. ABDOMEN: Distended, soft, nontender. NEUROLOGIC: She is heavily sedated, but she moves her extremities spontaneously. LABORATORY WORK: Her lab work on arrival to the Emergency Room of [facility] showed a white cell count 9400, hemoglobin 10, hematocrit 33, MCV 79, and platelet count 444,000. Her prothrombin time, INR and aPTT were normal. D-dimer was slightly elevated at 1.39. Her chemistry showed a serum sodium 141, potassium 3.4, chloride 101, bicarbonate 30, anion gap of 10, BUN 16, creatinine 1, estimated GFR was 56 mL per minute. Her glucose was 121. Lactic acid was 1.9. Her calcium and magnesium were normal. Total bilirubin, AST, ALT, alkaline phosphatase were normal. Total protein 7.5, albumin was 3.2. Urinalysis was essentially unremarkable. Tox screen was positive for methadone and benzodiazepine. Her chest x-ray on arrival showed that the patient's cardiomediastinal silhouette is normal. The pulmonary vasculature is normal. There are patchy and reticular opacities throughout the lungs. There are multiple dilated air-filled loops of the small bowel in the abdomen with the impression that the patient has worsening bilateral infiltrates suggesting atypical pneumonia, gas distention of small bowel suggestive of small-bowel obstruction. She had another chest x-ray after she vomited and it showed that the endotracheal tube and NG tube are adequately positioned. Bilateral mixed airspace and interstitial opacities, left worse than right, suggesting atypical pneumonia that is unchanged. There is tiny right pleural effusion, interval placement of left-sided chest tube. There is now a small left pneumothorax and marked left chest wall subcutaneous emphysema. In summary, this is a 59-year-old female patient, who was seen initially with worsening shortness of breath at the Emergency Room and her chest x-ray showed bilateral infiltrate. She initially did not want to be intubated. She was started on BiPAP machine. Unfortunately, she vomited and aspirated requiring emergency intubation. She developed left-sided pneumothorax after placement of a central line and required chest tube placement; and therefore, the patient was transferred to [facility] ICU to continue mechanical ventilation. Continue with the antibiotic treatment, bronchodilators and steroids. We will consult the manufacturing plant technician as well as Infectious Disease specialist to assist with her management. BERTRAND RENTERIA MD DR: SADAF/vita JOB#: [id number] / [id number]
[2019-11-12] MEDS ORDERED: VANCOMYCIN 1.5 GM in IV NORMAL SALINE 500ML BAG 500 ML IV ONE (11:00)
[2019-11-12] MEDS ORDERED: PANTOPRAZOLE IV PUSH 40 MG VIAL. IVP SCH (11:00)
[2019-11-12] MEDS ORDERED: IV NORMAL SALINE 500ML BAG 500 ML IV PRN (11:00)
--- NOTE | 2019-11-12 11:15 | NUR ---
Patient admitted from [facility] at 0700. CL, ETT, OG, lara present on admission. Order received to start Sepsis bolus IV fluids from Dr. Valente. Order received for Ativan PRN, antibiotics, consults. Order received to stop IV NS bolus-- per Dr. Arriaza. Patient received a total of 2.5 L NS between [facility] and [facility]. CT head, chest, abd/pelv ordered. GI consult placed-- coffee ground emesis present in OG tube. GI assessed patient. U/O diminished-- Dr. Arriaza notified. 15-20ml/hr. See assessments, VS.
--- NOTE | 2019-11-12 11:45 | PDOC2 ---
GI CONSULT Reason For Consult: coffee-ground emesis HPI: HPI: 59 y/o female who presented to [facility] ER w/ shortness of breath. Was placed on BiPAP, then vomited/aspirated and was emergently intubated. Also had chest tube placed for pneumothorax. Nurse reports coffee-ground emesis and dark material from OG and when suctioned. Hgb stable compared to when we last saw in 08/2019. Plans for CT head/chest/abd/pelv. Recurrent admissions for respiratory issues. H/o ACD/YESSY w/ past use of Xarelto for PE (unclear if still taking). Have recommended outpt EGD and colonoscopy along w/ PPI use and iron supplementation. From past encounters, no previous EGD or colonoscopy. No GB, liver, or pancreas history. PMH: PMH: COPD, resp failure requiring past intubation, pneumonia, MRSA lung abscess, CHF, PE, bipolar, anxiety, depression, substance abuse, non-compliance hysterectomy, tonsillectomy, bronchoscopy FH: Family History: Other Social History: Smoke: 2 packs per day ALCOHOL: none Drugs: Other ROS: Unable to obtain. Vitals: Vitals: Vital Signs Date Time Temp Pulse Resp B/P (MAP) Pulse Ox O2 Delivery O2 Flow Rate FiO2 11/12/19 11:00 126 22 99/62 (74) 92 Ventilator 11/12/19 07:15 97.7 97.7 Labs: Labs: Laboratory Tests Test 11/12/19 08:35 11/12/19 10:05 O2 Saturation 88 % (92-99) Arterial Blood pH 7.25 (7.35-7.45) Arterial Blood pCO2 at Patient Temp 59 mmHg (35-46) Arterial Blood pO2 at Patient Temp 60 mmHg (65-108) Arterial Blood HCO3 25 mmol/L (21-28) Arterial Blood Base Excess -2 mmol/L (-3-3) Oxyhemoglobin 87.2 % Methemoglobin 0.2 % (0.0-1.9) Carbon Monoxide, Quantitative 0.3 % (0.0-1.9) FiO2 100 White Blood Count 13.2 x10^3/uL (4.0-11.0) Red Blood Count 3.47 x10^6/uL (3.50-5.40) Hemoglobin 8.7 g/dL (12.0-15.5) Hematocrit 27.7 % (36.0-47.0) Mean Corpuscular Volume 80 fL (79-100) Mean Corpuscular Hemoglobin 25 pg (25-35) Mean Corpuscular Hemoglobin Concent 31 g/dL (31-37) Red Cell Distribution Width 19.1 % (11.5-14.5) Platelet Count 407 x10^3/uL (140-400) Sodium Level 142 mmol/L (136-145) Potassium Level 3.3 mmol/L (3.5-5.1) Chloride Level 107 mmol/L (98-107) Carbon Dioxide Level 25 mmol/L (21-32) Anion Gap 10 (6-14) Blood Urea Nitrogen 26 mg/dL (7-20) Creatinine 1.2 mg/dL (0.6-1.0) Estimated GFR (Cockcroft-Gault) 45.8 BUN/Creatinine Ratio 22 (6-20) Glucose Level 123 mg/dL (70-99) Lactic Acid Level 3.5 mmol/L (0.4-2.0) Calcium Level 7.4 mg/dL (8.5-10.1) Total Bilirubin 0.3 mg/dL (0.2-1.0) Aspartate Amino Transf (AST/SGOT) 12 U/L (15-37) Alanine Aminotransferase (ALT/SGPT) 6 U/L (14-59) Alkaline Phosphatase 58 U/L (46-116) Total Protein 5.3 g/dL (6.4-8.2) Albumin 2.1 g/dL (3.4-5.0) Albumin/Globulin Ratio 0.7 (1.0-1.7) Allergies: Coded Allergies: No Known Drug Allergies (Unverified , 03/18/18) Medications: Current Medications Medications (Trade) Dose Ordered Sig/Isma Route PRN Reason Start Time Stop Time Status Last Admin Dose Admin Fentanyl Citrate 30 ml @ 0 mls/hr CONT PRN IV SEE PROTOCOL 11/12/19 07:00 11/12/19 07:45 Midazolam HCl 50 mg/Sodium Chloride 50 ml @ 0 mls/hr CONT PRN IV SEE PROTOCOL 11/12/19 07:00 11/12/19 10:20 Midazolam HCl (Versed) 5 mg 1X ONCE IV 11/12/19 07:15 11/12/19 07:20 DC 11/12/19 07:24 Fentanyl Citrate (Fentanyl 2ml Vial) 100 mcg 1X ONCE IVP 11/12/19 07:15 11/12/19 07:20 DC 11/12/19 07:24 Norepinephrine Bitartrate 8 mg/ Dextrose 258 ml @ 10.836 mls/ hr CONT PRN IV HYPOTENSION 11/12/19 08:15 11/12/19 09:58 Methylprednisolone Sodium Succinate (SOLU-Medrol 40MG VIAL) 40 mg Q8HRS IV 11/12/19 11:00 11/12/19 10:36 Levofloxacin/ Dextrose 150 ml @ 100 mls/hr Q24H IV 11/12/19 11:00 11/12/19 10:35 Pantoprazole Sodium (PROTONIX VIAL for IV PUSH) 40 mg DAILYAC IVP 11/12/19 11:00 11/12/19 10:36 Lorazepam (Ativan Inj) 2 mg PRN Q2HR PRN IVP ANXIETY / AGITATION 11/12/19 10:15 11/12/19 10:36 Sodium Chloride 1,000 ml @ 1,770 mls/hr Q34M IV 11/12/19 10:30 11/12/19 11:30 11/12/19 10:35 Imaging: Imaging: CXR 11/12 IMPRESSION: 1. Small left pneumothorax with a chest tube in place. Extensive left chest wall gas. 2. Bilateral patchy infiltrates are slightly improved on the left. 3. Enlargement of the pulmonary arteries suggests pulmonary arterial hypertension. PE: GEN: intubated HEENT: black liquid in OG canister LUNGS: coarse, vent HEART: tachycardic ABD: soft, non-distended EXTREMITY: No edema SKIN: No rashes, no jaundice NEURO/PSYCH: sedated A/P: A/P: Resp failure, aspiration, pneumothorax, h/o COPD and PE Lactic acidosis Coffee-ground emesis H/o ACD/YESSY - chronic/stable - outpt scopes recommended in the past CRC screen - none -- Agree w/ IV PPI, await CTs. Other per Dr. Espinal. NAIDA SANZ Nov 12, 2019 11:44
--- NOTE | 2019-11-12 11:55 | CONS ---
DATE OF CONSULTATION: PULMONARY CONSULTATION ATTENDING PHYSICIAN: Hari Valente MD. REASON FOR CONSULTATION: Respiratory failure, shock. HISTORY OF PRESENT ILLNESS: The patient is a 59-year-old female who has history of known chronic hypoxic respiratory failure secondary to COPD. She had required multiple intubations in the past and had multiple admissions for COPD exacerbation. She presented to [facility] with acute respiratory distress. She had acute on chronic hypercapnia, pH was 7.31, pCO2 of 57 and a pO2 of 74. She normally uses 3 liters of oxygen on a 24-hour basis. She was placed on 100% nonrebreather mask. The patient then was placed on a BiPAP; however, she vomited and aspirated gastric contents and needed emergent intubation. She had attempted central lines on her left neck and developed left-sided pneumothorax, which required a left sided chest tube by the ER physician at [place]. She was transferred to our facility. The patient apparently had a chest tube clamped during the transfer. When she arrived here, we noticed a large amount of subcutaneous air on the left side. The chest tube was unclamped and it is hooked to suction. There is continuous air leak. Her chest x-ray was reviewed. There are bilateral interstitial infiltrates. There is a left-sided chest tube and endotracheal tube is above the juliet. There is a small left pneumothorax. There is evidence of pulmonary arterial hypertension with prominent pulmonary arteries, especially on the right side. She received 2 liters of IV fluids for initial suspected sepsis; however, she is requiring 100% oxygen, currently with sats in the 94%. Her pH was 7.25, pCO2 59 and a pO2 of 60. I have been asked to see her for further evaluation. She is on 20 mcg of Levophed. PAST MEDICAL HISTORY: Significant for chronic obstructive airway disease, history of diastolic congestive heart failure, history of chronic hypoxia, depression, anxiety, continued tobaccoism and benzodiazepine dependence. History of prior intubation. History of noncompliance. PAST SURGICAL HISTORY: Hysterectomy, tonsillectomy and bronchoscopy at [facility]. ALLERGIES: None. FAMILY HISTORY: One sister, younger and healthy. Father at age 46 as he committed suicide. SOCIAL HISTORY: , lives with her , has one son. She does not drink alcohol. She apparently quit tobacco. CURRENT MEDICATIONS: Reviewed as listed in the MRAD including antibiotics, IV steroids and Levophed, Versed and fentanyl. REVIEW OF SYSTEMS: Unable to obtain from the patient. PHYSICAL EXAMINATION: VITAL SIGNS: Reviewed. Blood pressure 95 on 20 mcg of Levophed. She is afebrile, pulse ox 97%. HEENT: Sclerae nonicteric. NECK: Supple. LUNGS: With crepitus on the left upper chest and left neck along with diffuse wheezing. CARDIOVASCULAR: With a regular rate. ABDOMEN: Soft, nontender. EXTREMITIES: With trace pitting edema. LABORATORY DATA: Reviewed. ABGs as discussed in my history of present illness. BUN 26, creatinine 1.2. White cell count 13.2, hemoglobin 8.7, and platelets are 407. IMPRESSION: 1. Acute on chronic hypoxic and hypercapnic respiratory failure secondary to multifactorial etiologies including acute exacerbation of chronic obstructive pulmonary disease, shock of unclear etiology and left-sided pneumothorax post-attempted line placement. 2. Bilateral interstitial infiltrates, could be worsening diastolic heart failure. She did receive 2 liters of IV fluids for possible sepsis. I will stop the IV fluids and she is scheduled to have a CT chest for further evaluation. 3. Emesis while on BiPAP, possibility of aspiration pneumonia is also a consideration. 4. Left-sided pneumothorax post-attempted line placement, status post chest tube. We will continue chest tube to suction. She has persistent air leak. We will monitor any further increase in pneumothorax. We will monitor subcutaneous air as well. 5. Underlying chronic obstructive pulmonary disease with chronic hypoxic respiratory failure and noncompliance. 6. Acute kidney injury. 7. Shock of unclear etiology, could be cardiogenic shock. Cannot exclude the possibility of septic shock. RECOMMENDATIONS: 1. Continue present assist control mode. I have reduced the tidal volume to 450 in light of pneumothorax. We will follow ABGs and make necessary adjustments. 2. CT chest, head, abdomen and pelvis has been ordered by Dr. Valente and we will follow the results. 3. Continue chest tube to suction. 4. Broad-spectrum antibiotics. 5. IV steroids. 6. Hold IV fluids. 7. Monitor urine output. 8. ID and Renal recommendations. 9. Stress ulcer and DVT prophylaxis. 10. Wean vasopressor targeting blood pressure 90 systolic and above. 11. Discussed with RN and RT. Critical care time 39 minutes. VASHTI FORTUNE MD DR: DEE/vita JOB#: [id number] / [id number]
[2019-11-12] MEDS: PIPERACILLIN/TAZOBACTAM 4.5 GM in IV NORMAL SALINE 100ML 100 ML IV SCH ×2 (12:24→17:49)
--- NOTE | 2019-11-12 12:39 | PDOC ---
Infectious Disease Note Vital Signs: Vital Signs Vital Signs Date Time Temp Pulse Resp B/P (MAP) Pulse Ox O2 Delivery O2 Flow Rate FiO2 11/12/19 11:51 91 Ventilator 11/12/19 11:00 126 22 99/62 (74) 11/12/19 07:15 97.7 97.7 Medications: Inpatient Meds: Current Medications Medications (Trade) Dose Ordered Sig/Isma Start Time Stop Time Status Last Admin Dose Admin Fentanyl Citrate (Fentanyl 2ml Vial) 100 mcg 1X ONCE 11/12/19 07:15 11/12/19 07:20 DC 11/12/19 07:24 100 MCG Levofloxacin/ Dextrose 150 ml @ 100 mls/hr Q24H 11/12/19 11:00 11/12/19 10:35 100 MLS/HR Lorazepam (Ativan Inj) 2 mg PRN Q2HR PRN 11/12/19 10:15 11/12/19 10:36 2 MG Methylprednisolone Sodium Succinate (SOLU-Medrol 40MG VIAL) 40 mg Q8HRS 11/12/19 11:00 11/12/19 10:36 40 MG Midazolam HCl (Versed) 5 mg 1X ONCE 11/12/19 07:15 11/12/19 07:20 DC 11/12/19 07:24 5 MG Midazolam HCl 50 mg/Sodium Chloride 50 ml @ 0 mls/hr CONT PRN 11/12/19 07:00 11/12/19 10:20 7 MLS/HR Norepinephrine Bitartrate 8 mg/ Dextrose 258 ml @ 10.836 mls/ hr CONT PRN 11/12/19 08:15 11/12/19 09:58 37.5 MLS/HR Pantoprazole Sodium (PROTONIX VIAL for IV PUSH) 40 mg DAILYAC 11/12/19 11:00 11/12/19 10:36 40 MG Piperacillin Sod/ Tazobactam Sod 3.375 gm/Sodium Chloride 50 ml @ 100 mls/hr Q8H 11/12/19 10:00 UNV Piperacillin Sod/ Tazobactam Sod 4.5 gm/Sodium Chloride 100 ml @ 200 mls/hr Q6HRS 11/12/19 12:00 Propofol 100 ml @ 0 mls/hr CONT PRN 11/12/19 07:00 Sodium Chloride 500 ml @ 1,000 mls/hr PRN Q30MIN PRN 11/12/19 11:00 Vancomycin HCl (Vanco Per Pharmacy) 1 each PRN DAILY PRN 11/12/19 10:00 Vancomycin HCl 1.5 gm/Sodium Chloride 500 ml @ 250 mls/hr 1X ONCE 11/12/19 11:00 11/12/19 12:59 Labs: Lab Laboratory Tests Test 11/12/19 08:35 11/12/19 10:05 O2 Saturation 88 % (92-99) Arterial Blood pH 7.25 (7.35-7.45) Arterial Blood pCO2 at Patient Temp 59 mmHg (35-46) Arterial Blood pO2 at Patient Temp 60 mmHg (65-108) Arterial Blood HCO3 25 mmol/L (21-28) Arterial Blood Base Excess -2 mmol/L (-3-3) Oxyhemoglobin 87.2 % Methemoglobin 0.2 % (0.0-1.9) Carbon Monoxide, Quantitative 0.3 % (0.0-1.9) FiO2 100 White Blood Count 13.2 x10^3/uL (4.0-11.0) Red Blood Count 3.47 x10^6/uL (3.50-5.40) Hemoglobin 8.7 g/dL (12.0-15.5) Hematocrit 27.7 % (36.0-47.0) Mean Corpuscular Volume 80 fL (79-100) Mean Corpuscular Hemoglobin 25 pg (25-35) Mean Corpuscular Hemoglobin Concent 31 g/dL (31-37) Red Cell Distribution Width 19.1 % (11.5-14.5) Platelet Count 407 x10^3/uL (140-400) Sodium Level 142 mmol/L (136-145) Potassium Level 3.3 mmol/L (3.5-5.1) Chloride Level 107 mmol/L (98-107) Carbon Dioxide Level 25 mmol/L (21-32) Anion Gap 10 (6-14) Blood Urea Nitrogen 26 mg/dL (7-20) Creatinine 1.2 mg/dL (0.6-1.0) Estimated GFR (Cockcroft-Gault) 45.8 BUN/Creatinine Ratio 22 (6-20) Glucose Level 123 mg/dL (70-99) Lactic Acid Level 3.5 mmol/L (0.4-2.0) Calcium Level 7.4 mg/dL (8.5-10.1) Total Bilirubin 0.3 mg/dL (0.2-1.0) Aspartate Amino Transf (AST/SGOT) 12 U/L (15-37) Alanine Aminotransferase (ALT/SGPT) 6 U/L (14-59) Alkaline Phosphatase 58 U/L (46-116) Total Protein 5.3 g/dL (6.4-8.2) Albumin 2.1 g/dL (3.4-5.0) Albumin/Globulin Ratio 0.7 (1.0-1.7) Procalcitonin 9.52 ng/mL (0.00-0.10) Objective: Assessment: Pt seen and examined ID consult dictated IMP: Severe sepsis ? etiology Acute resp failure Pneumothorax Lt side attempts for Lt IJ placement Aspiration Coffee ground emesis H/O chronic resp failure on home o2, copd H/O PE anemia leucocytosis bipolar disorder Plan: Plan of Care cont zosyn, vanco levaquin ,may need renal adjustment, pharmacy to assist monitor renal functions closely f/u imaging pending at this time f/u cults from [facility] Condition critical d/w MAIDA Jade MD Nov 12, 2019 12:39
[2019-11-12] MEDS: VANCOMYCIN PER PHARMACY MC PRN (12:42)
--- NOTE | 2019-11-12 12:42 | NUR ---
Pharmacy Vancomycin Dosing Note S:Consulted to monitor and dose vancomycin started 11/12/19. O:CB CASTILLO is a 59 year old F with Pneumonia. Height: 5 feet, 6 inches Weight: 56.0 kg [place] Body Weight: 59.30 Adjusted Body Weight: 57.98 Dosing Weight: Actual Other Antibiotics: LEVAQUIN ZOSYN LABS: Last BUN: 26 Last Creatinine: 1.2 Creatinine Clearance: 44 mL/min Last WBC: 13.2 Last Procalcitonin: 9.52 Tmax (past 24 hours): 97.7 Microbiology: 11/12: BLOOD CX PENDING I/O: --/ 177 Last dose given 11/12/19 at 1224 Vancomycin Dosing: Loading Dose: 1500 mg x1 Dosing Weight: Actual Target Trough: 15-20 A: Based on: patient's weight, renal function and indication. P: 1. Begin Vancomycin 1000 mg IV q24h 2. Follow up Trough level on 11/14/19 at 1230 3. Pharmacy will continue to monitor, follow and adjust therapy as needed. MEAGAN HALLMAN [facility], 11/12/19 [id number]
--- NOTE | 2019-11-12 13:25 | CONS ---
DATE OF CONSULTATION: 11/12/2019 REFERRING PHYSICIAN: Hari Valente MD. REASON FOR CONSULTATION: Antibiotic management. HISTORY OF PRESENT ILLNESS: A 59-year-old female, transferred from [facility] to [facility] with acute respiratory failure, left pneumothorax, GI bleed for further evaluation and treatment. The patient is unable to give history. The patient is intubated, currently in ICU at [facility]. History obtained from chart and medical staff. The patient presented to [facility] with acute respiratory failure. She had a history of chronic respiratory failure, on home O2 and multiple hospitalizations for the same. She also has CHF. They initially started her on BiPAP; however, she vomited and aspirated gastric contents requiring her to undergo emergent intubation. Multiple attempts made for central line placement on the left side of the neck and she developed left-sided pneumothorax, which required a left-sided chest tube at [place]. She is on pressors. White count here is 13.2, hemoglobin of 8.7, hematocrit of 27.7, platelets of 407, creatinine is 1.2, lactate of 3.5, procalcitonin of 9.52, potassium of 3.2. She was started on IV vancomycin, Levaquin and Zosyn. ID consult has been requested for antibiotic management. GI and Pulmonary has evaluated the patient also. A chest x-ray here shows bilateral patchy infiltrate, enlargement of the pulmonary arteries suggesting pulmonary artery hypertension, small left pneumothorax with chest tube in place, extensive chest wall gas. PAST MEDICAL HISTORY: COPD, chronic respiratory failure on home O2, history of CHF, anxiety, continued tobaccoism and benzodiazepine dependence, history of prior intubation, history of noncompliance, pulmonary embolism, history of MRSA, status post bronchoscopy multiple times. PAST SURGICAL HISTORY: Hysterectomy, tonsillectomy. FAMILY HISTORY: As per HPI. SOCIAL HISTORY: , lives at home, multiple hospitalizations and ER visits as above. ALLERGIES: No known drug allergies. CURRENT MEDICATIONS: IV vancomycin, Zosyn and Levaquin. Other medications reviewed in medication list. REVIEW OF SYSTEMS: Unable to obtain due to intubation. PHYSICAL EXAMINATION: VITAL SIGNS: Temperature 97.7, pulse 126, respiratory rate 22, blood pressure 99/62, oxygen saturation 92% on FiO2 of 100%, on Levophed. GENERAL: Intubated, sedated. HEENT: Sclerae are anicteric. NG tube in place. NECK: Supple. LUNGS: Crepitus on the left side with scattered wheezing. Left-sided chest tube present. HEART: S1, S2, tachycardia, no murmurs. ABDOMEN: Soft, nontender. EXTREMITIES: Trace edema. Femoral line in the groin. DERMATOLOGIC: Warm, dry. No generalized rash. CENTRAL NERVOUS SYSTEM: Intubated. LINES: Femoral line, sites look okay. LABORATORY DATA: WBC 13.2, hemoglobin 8.7, hematocrit 27.7, platelets 407. Sodium 142, potassium 3.3, chloride 107, bicarbonate 25, BUN 26, creatinine 1.2, glucose 123. Lactate 3.5, calcium 7.4, procalcitonin 9.52. MICROBIOLOGY: None here. IMAGING: Chest x-ray shows small left pneumothorax with chest tube in place, extensive left chest wall gas, bilateral patchy infiltrates slightly improved on the left, enlargement of the pulmonary artery suggesting pulmonary artery hypertension. CT abdomen, chest, and pelvis is pending at this time. IMPRESSION: 1. Severe sepsis ? source appears multifactorial 2. Acute hypoxic respiratory failure on chronic respiratory failure, on home O2 with history of chronic obstructive pulmonary disease, left-sided pneumothorax, status post line placement, now with chest tube. 3. Leucocytosis and lactic acidosis 4. Aspiration pneumonia with emesis while on BiPAP. 5. Bilateral interstitial infiltrates at [facility], likely worsening congestive heart failure, status post IV fluids, now on pressors, CT chest pending at this time. 6. Coffee-ground emesis. 7. History of pulmonary embolism. 8 Bipolar disorder. 9. History of methicillin-resistant Staphylococcus aureus. 10 Hypokalemia. 11. Anemia. 12. Protein-calorie malnutrition. 13. History of smoking. 14.H/O noncomplaiance RECOMMENDATIONS: 1. Continue empiric IV vancomycin, Zosyn and Levaquin, may need renal dosing. 2. Follow up creatinine closely. 3. Adjust dose of vancomycin depending on renal function. 4. Repeat blood cultures. 5. Follow up cultures and lab. 6. Supportive care. 7. Follow up imaging ordered. 8. GI and Pulmonary team are following. 9. Condition critical. 10. Overall, prognosis poor. Thank you for allowing me to participate in this patient's care. If you have any questions, do not hesitate to contact me. MAIDA PEACE MD DR: Ivy JOB#: [id number] / [id number] EFREN
--- NOTE | 2019-11-12 14:25 | NUR ---
SS following for discharge planning. SS reviewed pt chart. Pt transferred from [facility]. Pt is from home and is currently on the vent. Pt has had services with [facility], ; fax [phone], in the past. SS will continue to follow for discharge planning.
[2019-11-12 15:57] LABS: HEMATOCRIT 26.6 % (36.0-47.0); HEMOGLOBIN 8.3 g/dL (12.0-15.5); RED BLOOD COUNT 3.34 x10^6/uL (3.50-5.40); RED CELL DISTRIBUTION WIDTH 19.4 % (11.5-14.5); WHITE BLOOD COUNT 14.3 x10^3/uL (4.0-11.0)
[2019-11-12] MEDS ORDERED: ACETAMINOPHEN 325 MG SUPP.RECT. PR PRN (16:00)
[2019-11-12] MEDS ORDERED: POTASSIUM CHLORIDE 20MEQ 100 ML IV ONE (16:00)
[2019-11-12] MEDS ORDERED: ALBUMIN HUMAN 5% 500 ML IV ONE (16:30)
[2019-11-12] MEDS ORDERED: IV NORMAL SALINE 250ML 500 ML IV ONE (16:30)
[2019-11-12] MEDS: PANTOPRAZOLE IV PUSH 40 MG VIAL. IVP SCH (16:46)
--- NOTE | 2019-11-12 17:26 | RAD ---
EXAM: CT Head without IV contrast INDICATION: Altered mental status. Question intracerebral hemorrhage. TECHNIQUE: Multi-detector row CT images were obtained of the head without the use of IV contrast. All CT scans performed at this facility utilize dose optimization techniques as appropriate to the exam, including the following: Automated exposure control and adjustment of the mA and/or KV according to patient size (this includes techniques or standardized protocols for targeted exams where dose is indication/reason for exam). COMPARISON: July 20, [address] FINDINGS: There are some motion artifact degrading detail. Patient is intubated and has an enteric tube in place. BRAIN PARENCHYMA: No evidence of acute intraparenchymal hemorrhage or infarct. No abnormal parenchymal density or mass. VENTRICLES & EXTRA-AXIAL SPACES: Ventricles are within normal limits. Basilar cisterns are patent. No pathologic extra-axial fluid collection or mass. ORBITS: Orbital contents are unremarkable. SINUSES: Visualized paranasal sinuses and mastoid air cells are clear. OSSEOUS & SOFT TISSUES: Calvarium and skull base are intact. Air-fluid levels in the nasal cavity may relate to intubation. There is gas in soft tissues of the upper neck bilaterally, right greater than left. IMPRESSION: No acute intracranial pathology. EXAM: CT Chest, Abdomen, and Pelvis without IV contrast INDICATION: Pneumothorax. GI bleed. TECHNIQUE: Multi-detector row CT images were acquired from the thoracic inlet through the ischial tuberosities without the use of IV contrast. Sagittal and coronal images were acquired from the transaxial data. All CT scans performed at this facility utilize dose optimization techniques as appropriate to the exam, including the following: Automated exposure control and adjustment of the mA and/or KV according to patient size (this includes techniques or standardized protocols for targeted exams where dose is indication/reason for exam). IV CONTRAST: Administered ORAL CONTRAST: Not administered. COMPARISON: September 01, [address] without IV contrast FINDINGS: CHEST: CARDIOVASCULAR: There is gas in the patient's left upper extremity deep veins including the axillary, subclavian and brachial veins and also gas in the patient's left cephalic vein. MEDIASTINUM & ROMELIA: Patient has since been intubated with the endotracheal tube present in the mid trachea in apparent satisfactory position. The tracheal balloon is inflated to an AP diameter of 3.5 cm and a transverse diameter of 2.3 cm and distally, the trachea is almost completely collapsed around the endotracheal tube. On axial image 20 of series 2, pneumomediastinum is present between the trachea and esophagus and it extends towards the dorsal aspect of the trachea, making posterior tracheal wall injury difficult to exclude. An enteric tube has been placed, tip terminating in the gastric antrum. The esophagus is partly fluid-filled. LUNGS: Bilateral pulmonary infiltrates are present involving the majority of the lower lobes and to a lesser extent, the bilateral upper lobes. These have increased since the last chest CT. PLEURAL SPACE: A small left apical pneumothorax is now present. No significant pleural effusion. Patient now has a left-sided chest tube whose side port (best illustrated on image 34 of 136 on axial series 2) lies just outside the pleural space between the fourth and fifth ribs in the left anterior axillary line. OSSEOUS & SOFT TISSUE: Extensive left chest wall subcutaneous emphysema extending up into the left neck and upper back is present. No acute osseous abnormalities noted. ABDOMEN/PELVIS: LIVER: Unremarkable BILIARY SYSTEM: Gallbladder is unremarkable. Bile ducts are not dilated. PANCREAS: Unremarkable SPLEEN: Unremarkable ADRENALS: Unremarkable KIDNEYS & URETERS: Unremarkable BLADDER: Completely emptied by an indwelling Diaz catheter. REPRODUCTIVE ORGANS: Surgically absent. GASTROINTESTINAL: There is distention of multiple small bowel loops with moderate formed stool in the large bowel. No wall thickening, mesenteric edema or transition point. The stomach is distended despite presence of a nasogastric tube. The appendix is not well seen but there are no findings of acute appendicitis. MESENTERY/PERITONEUM/RETROPERITONEUM: Unremarkable VASCULAR: Left femoral venous access line terminates in the left common femoral vein. Scattered atherosclerotic calcifications in the abdominal and pelvic arteries without aneurysmal dilation. LYMPH NODES: No adenopathy OSSEOUS & SOFT TISSUES: Unremarkable IMPRESSION: 1. Endotracheal intubation with pneumomediastinum and equivocal findings for potential posterior tracheal wall injury. If it is important to determine whether a small tracheal injury exists without interrupting the positioning of the tube, the chest CT could be repeated following administration of a trace amount of water-soluble contrast material down the endotracheal tube to assess for mediastinal leak. 2. Patient's left-sided chest tube has its side-port in the left-sided chest wall where a large amount of subcutaneous emphysema is present. Patient does have a small left apical pneumothorax with no findings of tension. 3. Patient's extensive pneumomediastinum and subcutaneous emphysema in the left chest is also associated with gas in the left upper extremity venous system, which is at potential risk for air embolus. 4. Multifocal pneumonia has worsened since the last chest CT of slightly over 2 months ago. Although a component of aspiration pneumonitis is difficult to exclude, the endotracheal tube cuff appears very well inflated. It is likely a clinical judgment on how well inflated it should be. 5. Diffuse small bowel ileus with fluid distended stomach, small bowel and distal thoracic esophagus despite presence of an enteric tube. Consider repositioning the patient more upright such that the enteric tube tip more effectively evacuates the stomach and small bowel. FOR INTERNAL CODING PURPOSES Critical result: Findings discussed with the patient's ICU nurse Teresa who took the report on behalf of Dr. BERTRAND RENTERIA at 11/12/2019 4:49 PM. RESULT CODE: (C) Electronically signed by: Matt Gomez MD (11/12/2019 5:23 PM) [facility]
--- NOTE | 2019-11-12 17:54 | NUR ---
RN notified Dr. Arriaza of CT results. See report.
--- NOTE | 2019-11-12 18:29 | PDOC ---
Provider Note Provider Note Discussed with radiologist about ct chest. There is a concern for posterior tracheal tear. D/w Dr Valente. We have no thoracic surgery available. Patient would benefit from transfer to for thoracic surgery emergent consult. RN also reported low TV 350's while set at TV of 450. This is also concerning for tracheal injury. VASHTI FORTUNE MD Nov 12, 2019 18:29
[2019-11-12] MEDS: IPRATRPIUM/ALBUTEROL 0.5/2.5MG 3 ML NEBU. NEB SCH (19:41)
--- NOTE | 2019-11-12 23:20 | NUR ---
During report at 184 this nurse was told of the patients condition and the plan to transfer to for a higher level of care. The patient information was needing to be sent to transfer service via Fax. The patients information was sent to the nursing masonry supervisor and then sent to as requested. This nurse received a phone call from stating the patient was declined admission due to no beds available and the Thoracic surgeon being in a procedure. At 1999 Dr. Valente called and said that he spoke with the Thoracic surgeon at and he said a bronchoscopy would need to be done to confirm the tear in the trachea seen on the CT. Dr. Arriaza was then paged and informed of the situation. Dr. Arriaza stated that the tear would not be seen during a bronchoscopy due to the inflation in the cuff of the ET tube and the position of the tear. Dr. Arriaza also stated that we need to see if we can transfer the patient to [facility] on the [address], but stated that he did not need to be called regarding patient transfer status. The nursing masonry supervisor was then paged and informed of the decision to transfer to [facility]. Dr. Valente called informing me that he too is calling [facility] to initiate the patients transfer. All relevant information was sent to [facility] transfer department and eventually was denied stating "pt will not be able to be transferred tonight, but we will see in the morning". Dr Valente made aware of the situation. Patient is currently stable, will continue to monitor.
[2019-11-13] VITALS (33 sets, daily range): BP systolic 96–152; BP diastolic 56–100
[2019-11-13] MEDS: PIPERACILLIN/TAZOBACTAM 4.5 GM in IV NORMAL SALINE 100ML 100 ML IV SCH ×4 (00:08→17:26)
[2019-11-13] MEDS: NOREPINEPHRINE VIAL 8 MG in IV DEXTROSE 5% 250 ML IV PRN ×2 (01:42→09:25)
[2019-11-13] MEDS: methylPREDNISolone SOD SUCC PF 40 MG/ML VIAL. IV SCH ×3 (05:26→22:22)
[2019-11-13 07:44] LABS: BASO % 0 % (0-3); CALCIUM 7.8 mg/dL (8.5-10.1); EOS % 0 % (0-3); GFR 56.6; HEMATOCRIT 23.4 % (36.0-47.0); HEMOGLOBIN 7.3 g/dL (12.0-15.5); LYMPH # 0.4 x10^3/uL (1.0-4.8); LYMPH % 2 % (24-48); MEAN CORPUSCULAR HEMOGLOBIN 25 pg (25-35); MEAN CORPUSCULAR HGB CONC 31 g/dL (31-37); MEAN CORPUSCULAR VOLUME 79 fL (79-100); MONO # 0.6 x10^3/uL (0.0-1.1); MONO % 3 % (0-9); NEUT # 21.4 x10^3/uL (1.8-7.7); NEUT % 95 % (31-73); PLATELET COUNT 358 x10^3/uL (140-400); POTASSIUM 3.5 mmol/L (3.5-5.1); RED BLOOD COUNT 2.95 x10^6/uL (3.50-5.40); WHITE BLOOD COUNT 22.5 x10^3/uL (4.0-11.0)
[2019-11-13] MEDS: IPRATRPIUM/ALBUTEROL 0.5/2.5MG 3 ML NEBU. NEB SCH ×4 (07:53→20:14)
[2019-11-13 08:03] LABS: BASE EXCESS ABG -4 mmol/L (-3-3); HCO3 ABG 22 mmol/L (21-28); PCO2 ABG 43 mmHg (35-46); PO2 ABG 60 mmHg (65-108); SAT O2 ABG 90 % (92-99)
--- NOTE | 2019-11-13 08:22 | RAD ---
PORTABLE CHEST 1V History: Endotracheal tube. Comparison: November 12, 2019 CT and chest x-ray. Findings: Stable endotracheal tube. Enteric tube looped within the stomach with tip beyond the image. Small left apical pneumothorax. Stable left-sided thoracostomy tube. Extensive left chest wall subcutaneous gas. Pneumomediastinum better characterized on prior CT. Diffuse interstitial thickening and alveolar opacities. Prominence of the bilateral isatu, unchanged. Impression: 1. Small left apical pneumothorax, unchanged. Stable left thoracostomy tube. 2. Extensive left chest wall subcutaneous gas, similar compared to prior. 3. Diffuse pulmonary interstitial and alveolar opacities, increased within the left lung base. Electronically signed by: Alfredo Roper DO (11/13/2019 8:19 AM) [id number]
[2019-11-13 08:29] LABS: MAGNESIUM 1.4 mg/dL (1.8-2.4); PHOSPHORUS 3.5 mg/dL (2.6-4.7)
--- NOTE | 2019-11-13 08:38 | PDOC ---
Infectious Disease Note Subjective: Subjective pt remains intubated and sedated on pressors Vital Signs: Vital Signs Vital Signs Date Time Temp Pulse Resp B/P (MAP) Pulse Ox O2 Delivery O2 Flow Rate FiO2 11/13/19 07:53 92 Ventilator 11/13/19 06:00 109 22 109/68 (82) 11/13/19 04:00 98.4 98.4 Physical Exam: PHYSICAL EXAM GENERAL: Intubated, sedated. HEENT: Sclerae are anicteric. NG tube in place. NECK: Supple. LUNGS: Crepitus on the left side with coarse bs, wheezing. Left-sided chest tube present. HEART: S1, S2, tachycardia, ABDOMEN: Soft, nontender.distended EXTREMITIES: Trace edema. Lt Femoral line in the groin. DERMATOLOGIC: Warm, dry. No generalized rash. CENTRAL NERVOUS SYSTEM: Intubated. LINES: Lt Femoral line, sites look okay. Medications: Inpatient Meds: Current Medications Medications (Trade) Dose Ordered Sig/Isma Start Time Stop Time Status Last Admin Dose Admin Acetaminophen (Tylenol Supp) 325 mg PRN Q6HRS PRN 11/12/19 16:00 Albumin Human 500 ml @ 125 mls/hr 1X ONCE 11/12/19 16:30 11/12/19 20:29 DC 11/12/19 16:45 125 MLS/HR Albuterol/ Ipratropium (Duoneb) 3 ml RTQID 11/12/19 20:00 11/13/19 07:53 3 ML Fentanyl Citrate (Fentanyl 2ml Vial) 100 mcg 1X ONCE 11/12/19 07:15 11/12/19 07:20 DC 11/12/19 07:24 100 MCG Levofloxacin/ Dextrose 150 ml @ 100 mls/hr Q48H 11/14/19 10:00 Lorazepam (Ativan Inj) 2 mg PRN Q2HR PRN 11/12/19 10:15 11/12/19 15:59 2 MG Methylprednisolone Sodium Succinate (SOLU-Medrol 40MG VIAL) 40 mg Q8HRS 11/12/19 11:00 11/13/19 05:26 40 MG Midazolam HCl (Versed) 5 mg 1X ONCE 11/12/19 07:15 11/12/19 07:20 DC 11/12/19 07:24 5 MG Midazolam HCl 50 mg/Sodium Chloride 50 ml @ 0 mls/hr CONT PRN 11/12/19 07:00 11/12/19 22:21 8 MLS/HR Norepinephrine Bitartrate 8 mg/ Dextrose 258 ml @ 10.836 mls/ hr CONT PRN 11/12/19 08:15 11/13/19 01:42 38.1 MLS/HR Pantoprazole Sodium (PROTONIX VIAL for IV PUSH) 40 mg BIDAC 11/12/19 16:30 11/12/19 16:46 40 MG Piperacillin Sod/ Tazobactam Sod 3.375 gm/Sodium Chloride 50 ml @ 100 mls/hr Q8H 11/12/19 10:00 UNV Piperacillin Sod/ Tazobactam Sod 4.5 gm/Sodium Chloride 100 ml @ 200 mls/hr Q6HRS 11/12/19 12:00 11/13/19 05:25 200 MLS/HR Potassium Chloride/Water 100 ml @ 100 mls/hr 1X ONCE 11/12/19 16:00 11/12/19 16:59 DC 11/12/19 15:59 100 MLS/HR Propofol 100 ml @ 0 mls/hr CONT PRN 11/12/19 07:00 Sodium Chloride 500 ml @ 500 mls/hr 1X ONCE 11/12/19 16:30 11/12/19 17:29 DC 11/12/19 16:30 500 MLS/HR Vancomycin HCl (Vanco Per Pharmacy) 1 each PRN DAILY PRN 11/12/19 10:00 11/12/19 12:42 1 EACH Vancomycin HCl (Vancomycin Trough Level) 1 each 1X ONCE 11/14/19 12:30 11/14/19 12:31 Vancomycin HCl 1.5 gm/Sodium Chloride 500 ml @ 250 mls/hr 1X ONCE 11/12/19 11:00 11/12/19 12:59 DC 11/12/19 12:24 250 MLS/HR Vancomycin HCl 1 gm/Sodium Chloride 250 ml @ 250 mls/hr Q24H 11/13/19 13:00 Labs: Lab Laboratory Tests Test 11/12/19 10:05 11/12/19 14:20 11/13/19 05:35 White Blood Count 13.2 x10^3/uL (4.0-11.0) 14.3 x10^3/uL (4.0-11.0) 22.5 x10^3/uL (4.0-11.0) Red Blood Count 3.47 x10^6/uL (3.50-5.40) 3.34 x10^6/uL (3.50-5.40) 2.95 x10^6/uL (3.50-5.40) Hemoglobin 8.7 g/dL (12.0-15.5) 8.3 g/dL (12.0-15.5) 7.3 g/dL (12.0-15.5) Hematocrit 27.7 % (36.0-47.0) 26.6 % (36.0-47.0) 23.4 % (36.0-47.0) Mean Corpuscular Volume 80 fL (79-100) 80 fL (79-100) 79 fL (79-100) Mean Corpuscular Hemoglobin 25 pg (25-35) 25 pg (25-35) 25 pg (25-35) Mean Corpuscular Hemoglobin Concent 31 g/dL (31-37) 31 g/dL (31-37) 31 g/dL (31-37) Red Cell Distribution Width 19.1 % (11.5-14.5) 19.4 % (11.5-14.5) 19.0 % (11.5-14.5) Platelet Count 407 x10^3/uL (140-400) 420 x10^3/uL (140-400) 358 x10^3/uL (140-400) Sodium Level 142 mmol/L (136-145) 143 mmol/L (136-145) Potassium Level 3.3 mmol/L (3.5-5.1) 3.5 mmol/L (3.5-5.1) Chloride Level 107 mmol/L (98-107) 109 mmol/L (98-107) Carbon Dioxide Level 25 mmol/L (21-32) 25 mmol/L (21-32) Anion Gap 10 (6-14) 9 (6-14) Blood Urea Nitrogen 26 mg/dL (7-20) 22 mg/dL (7-20) Creatinine 1.2 mg/dL (0.6-1.0) 1.0 mg/dL (0.6-1.0) Estimated GFR (Cockcroft-Gault) 45.8 56.6 BUN/Creatinine Ratio 22 (6-20) Glucose Level 123 mg/dL (70-99) 147 mg/dL (70-99) Lactic Acid Level 3.5 mmol/L (0.4-2.0) 2.5 mmol/L (0.4-2.0) Calcium Level 7.4 mg/dL (8.5-10.1) 7.8 mg/dL (8.5-10.1) Total Bilirubin 0.3 mg/dL (0.2-1.0) Aspartate Amino Transf (AST/SGOT) 12 U/L (15-37) Alanine Aminotransferase (ALT/SGPT) 6 U/L (14-59) Alkaline Phosphatase 58 U/L (46-116) Total Protein 5.3 g/dL (6.4-8.2) Albumin 2.1 g/dL (3.4-5.0) Albumin/Globulin Ratio 0.7 (1.0-1.7) Procalcitonin 9.52 ng/mL (0.00-0.10) Neutrophils (%) (Auto) 95 % (31-73) Lymphocytes (%) (Auto) 2 % (24-48) Monocytes (%) (Auto) 3 % (0-9) Eosinophils (%) (Auto) 0 % (0-3) Basophils (%) (Auto) 0 % (0-3) Neutrophils # (Auto) 21.4 x10^3/uL (1.8-7.7) Lymphocytes # (Auto) 0.4 x10^3/uL (1.0-4.8) Monocytes # (Auto) 0.6 x10^3/uL (0.0-1.1) Eosinophils # (Auto) 0.0 x10^3/uL (0.0-0.7) Basophils # (Auto) 0.0 x10^3/uL (0.0-0.2) Phosphorus Level 3.5 mg/dL (2.6-4.7) Magnesium Level 1.4 mg/dL (1.8-2.4) Micro CT C/A/P 1. Endotracheal intubation with pneumomediastinum and equivocal findings for potential posterior tracheal wall injury. If it is important to determine whether a small tracheal injury exists without interrupting the positioning of the tube, the chest CT could be repeated following administration of a trace amount of water-soluble contrast material down the endotracheal tube to assess for mediastinal leak. 2. Patient's left-sided chest tube has its side-port in the left-sided chest wall where a large amount of subcutaneous emphysema is present. Patient does have a small left apical pneumothorax with no findings of tension. 3. Patient's extensive pneumomediastinum and subcutaneous emphysema in the left chest is also associated with gas in the left upper extremity venous system, which is at potential risk for air embolus. 4. Multifocal pneumonia has worsened since the last chest CT of slightly over 2 months ago. Although a component of aspiration pneumonitis is difficult to exclude, the endotracheal tube cuff appears very well inflated. It is likely a clinical judgment on how well inflated it should be. 5. Diffuse small bowel ileus with fluid distended stomach, small bowel and distal thoracic esophagus despite presence of an enteric tube. Consider repositioning the patient more upright such that the enteric tube tip more effectively evacuates the stomach and small bowel. Objective: Assessment: 1. Severe sepsis ,shock, source appears multifactorial 2. Acute hypoxic respiratory failure ,left-sided pneumothorax, extensive pneumomediastinum, potential tracheal injury status post line placement, chest tube., CT with multiple abn 3. Leucocytosis and lactic acidosis ,leucocytosis can also have a reactive component 4. Aspiration pneumonia with emesis while on BiPAP at [facility]. 5. Bilateral interstitial infiltrates at [facility], likely worsening congestive heart failure, status post IV fluids, now on pressors, CT chest pending at this time. 6. Coffee-ground emesis. Bowel obstruction, Ileus 7. History of pulmonary embolism. Chronic respiratory failure, on home O2 with history of chronic obstructive pulmonary disease, 8 Bipolar disorder. 9. History of methicillin-resistant Staphylococcus aureus. 10 Hypokalemia. 11. Anemia. 12. Protein-calorie malnutrition. 13. History of smoking. 14.H/O noncomplaiance Plan: Plan of Care Continue empiric IV vancomycin, Zosyn and Levaquin, may need renal dosing. Follow up creatinine closely. Adjust dose of vancomycin depending on renal function. influenza screen F/U echo report f/u cults and labs in am Condition critical. Overall, prognosis poor. Team is trying to transfer pt to /[facility] D/W MAIDA KIM MD Nov 13, 2019 08:38
[2019-11-13 08:58] LABS: FIO2 ABG 100
--- NOTE | 2019-11-13 09:01 | PDOC ---
PULMONARY PROGRESS NOTES Subjective remains intubated, sedated ,on 100%FIO2, with continous air leak on chest tube and ct chest findings suspicious for tracheal tear Numerous attempts to transfer to [facility] last night not successful as they declined to accept patient . we don't have thoracic surgery in house Vitals Vital Signs Date Time Temp Pulse Resp B/P (MAP) Pulse Ox O2 Delivery O2 Flow Rate FiO2 11/13/19 07:53 92 Ventilator 11/13/19 06:00 109 22 109/68 (82) 11/13/19 04:00 98.4 98.4 Lungs: Other (crepitus and continous squeaking sound left upper chest) Cardiovascular: S1, S2 Abdomen: Soft, Non-tender Extremities: No Edema Skin: Warm Labs Laboratory Tests Test 11/12/19 08:35 11/12/19 10:05 11/12/19 14:20 11/13/19 05:35 O2 Saturation 88 % (92-99) Arterial Blood pH 7.25 (7.35-7.45) Arterial Blood pCO2 at Patient Temp 59 mmHg (35-46) Arterial Blood pO2 at Patient Temp 60 mmHg (65-108) Arterial Blood HCO3 25 mmol/L (21-28) Arterial Blood Base Excess -2 mmol/L (-3-3) Oxyhemoglobin 87.2 % Methemoglobin 0.2 % (0.0-1.9) Carbon Monoxide, Quantitative 0.3 % (0.0-1.9) FiO2 100 White Blood Count 13.2 x10^3/uL (4.0-11.0) 14.3 x10^3/uL (4.0-11.0) 22.5 x10^3/uL (4.0-11.0) Red Blood Count 3.47 x10^6/uL (3.50-5.40) 3.34 x10^6/uL (3.50-5.40) 2.95 x10^6/uL (3.50-5.40) Hemoglobin 8.7 g/dL (12.0-15.5) 8.3 g/dL (12.0-15.5) 7.3 g/dL (12.0-15.5) Hematocrit 27.7 % (36.0-47.0) 26.6 % (36.0-47.0) 23.4 % (36.0-47.0) Mean Corpuscular Volume 80 fL (79-100) 80 fL (79-100) 79 fL (79-100) Mean Corpuscular Hemoglobin 25 pg (25-35) 25 pg (25-35) 25 pg (25-35) Mean Corpuscular Hemoglobin Concent 31 g/dL (31-37) 31 g/dL (31-37) 31 g/dL (31-37) Red Cell Distribution Width 19.1 % (11.5-14.5) 19.4 % (11.5-14.5) 19.0 % (11.5-14.5) Platelet Count 407 x10^3/uL (140-400) 420 x10^3/uL (140-400) 358 x10^3/uL (140-400) Sodium Level 142 mmol/L (136-145) 143 mmol/L (136-145) Potassium Level 3.3 mmol/L (3.5-5.1) 3.5 mmol/L (3.5-5.1) Chloride Level 107 mmol/L (98-107) 109 mmol/L (98-107) Carbon Dioxide Level 25 mmol/L (21-32) 25 mmol/L (21-32) Anion Gap 10 (6-14) 9 (6-14) Blood Urea Nitrogen 26 mg/dL (7-20) 22 mg/dL (7-20) Creatinine 1.2 mg/dL (0.6-1.0) 1.0 mg/dL (0.6-1.0) Estimated GFR (Cockcroft-Gault) 45.8 56.6 BUN/Creatinine Ratio 22 (6-20) Glucose Level 123 mg/dL (70-99) 147 mg/dL (70-99) Lactic Acid Level 3.5 mmol/L (0.4-2.0) 2.5 mmol/L (0.4-2.0) Calcium Level 7.4 mg/dL (8.5-10.1) 7.8 mg/dL (8.5-10.1) Total Bilirubin 0.3 mg/dL (0.2-1.0) Aspartate Amino Transf (AST/SGOT) 12 U/L (15-37) Alanine Aminotransferase (ALT/SGPT) 6 U/L (14-59) Alkaline Phosphatase 58 U/L (46-116) Total Protein 5.3 g/dL (6.4-8.2) Albumin 2.1 g/dL (3.4-5.0) Albumin/Globulin Ratio 0.7 (1.0-1.7) Procalcitonin 9.52 ng/mL (0.00-0.10) Neutrophils (%) (Auto) 95 % (31-73) Lymphocytes (%) (Auto) 2 % (24-48) Monocytes (%) (Auto) 3 % (0-9) Eosinophils (%) (Auto) 0 % (0-3) Basophils (%) (Auto) 0 % (0-3) Neutrophils # (Auto) 21.4 x10^3/uL (1.8-7.7) Lymphocytes # (Auto) 0.4 x10^3/uL (1.0-4.8) Monocytes # (Auto) 0.6 x10^3/uL (0.0-1.1) Eosinophils # (Auto) 0.0 x10^3/uL (0.0-0.7) Basophils # (Auto) 0.0 x10^3/uL (0.0-0.2) Phosphorus Level 3.5 mg/dL (2.6-4.7) Magnesium Level 1.4 mg/dL (1.8-2.4) Laboratory Tests Test 11/12/19 10:05 11/12/19 14:20 11/13/19 05:35 White Blood Count 13.2 x10^3/uL (4.0-11.0) 14.3 x10^3/uL (4.0-11.0) 22.5 x10^3/uL (4.0-11.0) Red Blood Count 3.47 x10^6/uL (3.50-5.40) 3.34 x10^6/uL (3.50-5.40) 2.95 x10^6/uL (3.50-5.40) Hemoglobin 8.7 g/dL (12.0-15.5) 8.3 g/dL (12.0-15.5) 7.3 g/dL (12.0-15.5) Hematocrit 27.7 % (36.0-47.0) 26.6 % (36.0-47.0) 23.4 % (36.0-47.0) Mean Corpuscular Volume 80 fL (79-100) 80 fL (79-100) 79 fL (79-100) Mean Corpuscular Hemoglobin 25 pg (25-35) 25 pg (25-35) 25 pg (25-35) Mean Corpuscular Hemoglobin Concent 31 g/dL (31-37) 31 g/dL (31-37) 31 g/dL (31-37) Red Cell Distribution Width 19.1 % (11.5-14.5) 19.4 % (11.5-14.5) 19.0 % (11.5-14.5) Platelet Count 407 x10^3/uL (140-400) 420 x10^3/uL (140-400) 358 x10^3/uL (140-400) Sodium Level 142 mmol/L (136-145) 143 mmol/L (136-145) Potassium Level 3.3 mmol/L (3.5-5.1) 3.5 mmol/L (3.5-5.1) Chloride Level 107 mmol/L (98-107) 109 mmol/L (98-107) Carbon Dioxide Level 25 mmol/L (21-32) 25 mmol/L (21-32) Anion Gap 10 (6-14) 9 (6-14) Blood Urea Nitrogen 26 mg/dL (7-20) 22 mg/dL (7-20) Creatinine 1.2 mg/dL (0.6-1.0) 1.0 mg/dL (0.6-1.0) Estimated GFR (Cockcroft-Gault) 45.8 56.6 BUN/Creatinine Ratio 22 (6-20) Glucose Level 123 mg/dL (70-99) 147 mg/dL (70-99) Lactic Acid Level 3.5 mmol/L (0.4-2.0) 2.5 mmol/L (0.4-2.0) Calcium Level 7.4 mg/dL (8.5-10.1) 7.8 mg/dL (8.5-10.1) Total Bilirubin 0.3 mg/dL (0.2-1.0) Aspartate Amino Transf (AST/SGOT) 12 U/L (15-37) Alanine Aminotransferase (ALT/SGPT) 6 U/L (14-59) Alkaline Phosphatase 58 U/L (46-116) Total Protein 5.3 g/dL (6.4-8.2) Albumin 2.1 g/dL (3.4-5.0) Albumin/Globulin Ratio 0.7 (1.0-1.7) Procalcitonin 9.52 ng/mL (0.00-0.10) Neutrophils (%) (Auto) 95 % (31-73) Lymphocytes (%) (Auto) 2 % (24-48) Monocytes (%) (Auto) 3 % (0-9) Eosinophils (%) (Auto) 0 % (0-3) Basophils (%) (Auto) 0 % (0-3) Neutrophils # (Auto) 21.4 x10^3/uL (1.8-7.7) Lymphocytes # (Auto) 0.4 x10^3/uL (1.0-4.8) Monocytes # (Auto) 0.6 x10^3/uL (0.0-1.1) Eosinophils # (Auto) 0.0 x10^3/uL (0.0-0.7) Basophils # (Auto) 0.0 x10^3/uL (0.0-0.2) Phosphorus Level 3.5 mg/dL (2.6-4.7) Magnesium Level 1.4 mg/dL (1.8-2.4) Medications Active Scripts Medications Dose Route/Sig Max Daily Dose Days Date Category Augmentin 500-125 Tablet (Amoxicillin/Potassium Clav) 1 Each Tablet 1 Tab PO BID 09/03/19 Rx Culturelle (Lactobacillus Rhamnosus Gg) 1 Each Cap.sprink 1 Cap PO BID 09/03/19 Rx Dok (Docusate Sodium) 100 Mg Capsule 100 Mg PO PRN BID PRN 30 09/03/19 Rx Tylenol (Acetaminophen) 325 Mg Tablet 650 Mg PO PRN Q4HRS PRN 09/03/19 Rx Xarelto (Rivaroxaban) 10 Mg Tablet 20 Mg PO DAILYWSUP 60 09/03/19 Rx Feosol (Ferrous Sulfate) 325 Mg Tablet 325 Mg PO BIDWMEALS 30 09/03/19 Rx Doxycycline Hyclate 100 Mg Tablet 100 Mg PO BID 10 09/03/19 Rx Seroquel (Quetiapine Fumarate) 400 Mg Tablet 1.5 Tab PO QHS 08/30/19 Reported Alprazolam 1 Mg Tablet 0.5 Tab PO TID 08/30/19 Reported Ropinirole Hcl 0.25 Mg Tablet 0.25 Mg PO BID 08/30/19 Reported Melatonin 5 Mg Tab.rapdis 1 Tab PO QHS 30 08/30/19 Reported Metoprolol Tartrate 25 Mg Tablet 0.5 Tab PO BID 08/30/19 Reported Pantoprazole Sodium (Pantoprazole Sodium) 40 Mg Tablet.dr 40 Mg PO DAILYAC 08/30/19 Reported Venlafaxine Hcl Er (Venlafaxine Hcl) 150 Mg Cap.er.24h 150 Mg PO QHS 08/11/19 Reported Duoneb 0.5-3(2.5) Mg/3 Ml (Albuterol/Ipratropium) 3 Ml Ampul.neb 3 Ml NEB RTQID 30 03/26/18 Rx Mucinex Dm Er 600-30 Mg Tablet (Guaifenesin/Dextromethorphan) 1 Each Tab.er.12h 1 Each PO BID 03/18/18 Reported Seroquel Xr (Quetiapine Fumarate) 400 Mg Tab.er.24h 800 Mg PO HS 03/18/18 Reported Comments cxr 11/13 reviewed. sc air on left leaa, KISHAN PTX, bilateral infiltrates Impression . 1. Acute on chronic hypoxic and hypercapnic respiratory failure secondary to multifactorial etiologies including acute exacerbation of chronic obstructive pulmonary disease, shock , left-sided pneumothorax and suspected tracheal tear 2. Bilateral interstitial infiltrates, suspect aspiration pneumonia She did receive 3 liters of IV fluids for possible sepsis. 3. Emesis while on BiPAP initially at [place], possibility of aspiration pneumonia is a consideration. 4. Left-sided pneumothorax post-attempted line placement, status post chest tube. We will continue chest tube to suction. She has persistent air leak. 5. Underlying chronic obstructive pulmonary disease with chronic hypoxic respiratory failure and noncompliance. 6. Acute kidney injury.improved 7. Shock , likely septic shock. 8. Abnormal ct chest with suspected tracheal injury/ air in venous system 9. Anemia Plan . 1. Continue present assist control mode. We will follow ABGs and make necessary adjustments. 2. CT chest, head, abdomen and pelvis reviewed 3. Continue chest tube to suction. 4. Broad-spectrum antibiotics. 5. IV steroids. 6. vasopressor support 7. Monitor urine output. 8. ID and Renal recommendations. 9. Stress ulcer and DVT prophylaxis. 10. Wean vasopressor targeting blood pressure 90 systolic and above. 11. Will do Bronch, although less likely to confirm cervical tracheal tear in this setting 12. Numerous attempts to transfer to / [facility] last night not successful as they declined to accept patient . we don't have thoracic surgery in house 11. Discussed with RN and RT./ Dr Valente 12. Tx today 13. replace VASHTI Nelson MD Nov 13, 2019 09:01
[2019-11-13] MEDS: PANTOPRAZOLE IV PUSH 40 MG VIAL. IVP SCH ×2 (09:22→16:37)
[2019-11-13] MEDS: MIDAZOLAM HCL 50 MG in IV NORMAL SALINE 50ML 50 ML IV PRN ×3 (09:25→18:28)
[2019-11-13] MEDS ORDERED: LIDOCAINE 2% VISCOUS 100 ML BOTTLE. MM PRN (09:30)
[2019-11-13 09:44] LABS: % BANDS 36 % (0-9); % LYMPHS 4 % (24-48); % METAS 4 % (0-0); % MONOS 2 % (0-10); % MYELOS 1 % (0-0); % SEGS 53 % (35-66); PLT ESTIMATE ADEQUATE (ADEQUATE); TOXIC GRANULATION MOD
[2019-11-13 09:45] LABS: ANISOCYTOSIS SLIGHT
[2019-11-13 09:46] LABS: POLYCHROMASIA MOD; TEAR DROP CELLS FEW
[2019-11-13 09:47] LABS: TOXIC VACUOLATION SLIGHT
--- NOTE | 2019-11-13 10:13 | OP ---
DATE OF SURGERY: 11/13/2019 PROCEDURE: Bronchoscopy. INDICATION: Possible tracheal tear. DESCRIPTION OF PROCEDURE: No immediate family member was available for informed consent. This was an emergent procedure and procedure was performed while the patient on 100% oxygen and sedated. Bronch was introduced through the endotracheal tube. Upon visualization of the distal trachea, there were some mild creamy colored secretions seen in the distal trachea. I did not see any obvious tracheal tear. The juliet was sharp. The right lung was examined. All subsegments of right upper, right middle, and right lower lobe were examined. Minimal secretions seen in the right lower lobe that were aspirated. Bronch was introduced into the left lung. There were secretions seen in the left lower lobe. No endobronchial lesion seen. No injury seen. Bronchoalveolar lavage performed from the left lower lobe. The patient did have desaturation in the mid 80s during the procedure and upon withdrawal of the bronchoscope, the saturation came up in the 90s. IMPRESSION: 1. No definite tracheal injury seen distal to the endotracheal tube. However, possibility of a proximal tracheal tear cannot be ruled out. 2. Minimal secretions seen in the distal trachea and both the lungs. Secretions were removed. Bronchoalveolar lavage performed from the left lower lobe. Follow the culture results. No endobronchial lesion seen. VASHTI FORTUNE MD DR: DEE/vita JOB#: [id number] / [id number]
[2019-11-13] MEDS: AA 4.25 %/CALCIUM/LYTES/D5W 1,000 ML IV SCH (10:28)
[2019-11-13] MEDS: VANCOMYCIN PER PHARMACY MC PRN (10:38)
--- NOTE | 2019-11-13 10:41 | PDOC ---
Objective: Objective: D/w Dr. Arriaza - declined by [facility] and [place] no CTS here. Vital Signs: Vital Signs Date Time Temp Pulse Resp B/P (MAP) Pulse Ox O2 Delivery O2 Flow Rate FiO2 11/13/19 10:28 92 11/13/19 09:55 Ventilator 11/13/19 06:00 109 22 109/68 (82) 11/13/19 04:00 98.4 98.4 Labs: Laboratory Tests Test 11/12/19 14:20 11/13/19 05:35 11/13/19 07:45 White Blood Count 14.3 x10^3/uL 22.5 x10^3/uL Red Blood Count 3.34 x10^6/uL 2.95 x10^6/uL Hemoglobin 8.3 g/dL 7.3 g/dL Hematocrit 26.6 % 23.4 % Mean Corpuscular Volume 80 fL 79 fL Mean Corpuscular Hemoglobin 25 pg 25 pg Mean Corpuscular Hemoglobin Concent 31 g/dL 31 g/dL Red Cell Distribution Width 19.4 % 19.0 % Platelet Count 420 x10^3/uL 358 x10^3/uL Lactic Acid Level 2.5 mmol/L Neutrophils (%) (Auto) 95 % Lymphocytes (%) (Auto) 2 % Monocytes (%) (Auto) 3 % Eosinophils (%) (Auto) 0 % Basophils (%) (Auto) 0 % Neutrophils # (Auto) 21.4 x10^3/uL Lymphocytes # (Auto) 0.4 x10^3/uL Monocytes # (Auto) 0.6 x10^3/uL Eosinophils # (Auto) 0.0 x10^3/uL Basophils # (Auto) 0.0 x10^3/uL Segmented Neutrophils % 53 % Band Neutrophils % 36 % Lymphocytes % 4 % Monocytes % 2 % Metamyelocytes % 4 % Myelocytes % 1 % Toxic Granulation Mod Toxic Vacuolation Slight Dohle Bodies Mod Platelet Estimate Adequate Polychromasia Mod Basophilic Stippling Present Anisocytosis Slight Tear Drop Cells Few Sodium Level 143 mmol/L Potassium Level 3.5 mmol/L Chloride Level 109 mmol/L Carbon Dioxide Level 25 mmol/L Anion Gap 9 Blood Urea Nitrogen 22 mg/dL Creatinine 1.0 mg/dL Estimated GFR (Cockcroft-Gault) 56.6 Glucose Level 147 mg/dL Calcium Level 7.8 mg/dL Phosphorus Level 3.5 mg/dL Magnesium Level 1.4 mg/dL O2 Saturation 90 % Arterial Blood pH 7.32 Arterial Blood pCO2 at Patient Temp 43 mmHg Arterial Blood pO2 at Patient Temp 60 mmHg Arterial Blood HCO3 22 mmol/L Arterial Blood Base Excess -4 mmol/L FiO2 100 Imaging: Head CT 11/12 IMPRESSION: No acute intracranial pathology. C/A/P CT 11/12 IMPRESSION: 1. Endotracheal intubation with pneumomediastinum and equivocal findings for potential posterior tracheal wall injury. If it is important to determine whether a small tracheal injury exists without interrupting the positioning of the tube, the chest CT could be repeated following administration of a trace amount of water-soluble contrast material down the endotracheal tube to assess for mediastinal leak. 2. Patient's left-sided chest tube has its side-port in the left-sided chest wall where a large amount of subcutaneous emphysema is present. Patient does have a small left apical pneumothorax with no findings of tension. 3. Patient's extensive pneumomediastinum and subcutaneous emphysema in the left chest is also associated with gas in the left upper extremity venous system, which is at potential risk for air embolus. 4. Multifocal pneumonia has worsened since the last chest CT of slightly over 2 months ago. Although a component of aspiration pneumonitis is difficult to exclude, the endotracheal tube cuff appears very well inflated. It is likely a clinical judgment on how well inflated it should be. 5. Diffuse small bowel ileus with fluid distended stomach, small bowel and distal thoracic esophagus despite presence of an enteric tube. Consider repositioning the patient more upright such that the enteric tube tip more effectively evacuates the stomach and small bowel. Echocardiogram 11/13 pending Bronchoscopy 11/13 IMPRESSION: 1. No definite tracheal injury seen distal to the endotracheal tube. However, possibility of a proximal tracheal tear cannot be ruled out. 2. Minimal secretions seen in the distal trachea and both the lungs. Secretions were removed. Bronchoalveolar lavage performed from the left lower lobe. Follow the culture results. No endobronchial lesion seen. PE: GEN: intubated HEENT: dark bilious fluid in OG tube, ~800cc in canister LUNGS: coarse, squeaks to left, on vent HEART: tachycardic ABD: quiet, soft NEURO/PSYCH: sedated A/P: Resp failure, aspiration, possible tracheal tear ACD/YESSY, coffee-ground emesis -- Difficult situation as above, continue support per GI w/ OG and IV PPI. Hemodynamically unstable?: Yes Is patient in severe pain?: No Is NPO status required?: Yes NAIDA SANZ Nov 13, 2019 10:41
--- NOTE | 2019-11-13 10:45 | CARD ---
MR#: [id number] Date of Study: 11/13/2019 Ordering Physician: VASHTI FORTUNE, Referring Physician: VASHTI FORTUNE, Tech: Queta Crowe APPROVED REPORT EXAM: Two-dimensional and M-mode echocardiogram with Doppler and color Doppler. Other Information Quality : FairHR: 113bpm Technically limited study due to smoking. INDICATION COPD Congestive Heart Failure 2D DIMENSIONS Left Atrium(2D)2.4 (1.6-4.0cm)IVSd1.0 (0.7-1.1cm) Aortic Root(2D)2.8 (2.0-3.7cm)LVDd3.6 (3.9-5.9cm) LVOT Diameter2.0 (1.8-2.4cm)PWd1.3 (0.7-1.1cm) LVDs2.1 (2.5-4.0cm)FS (%) 40.4 % SV38.7 ml Aortic Valve AoV Peak Kana.143.4cm/sAoV VTI24.0cm AO Peak GR.8.2mmHgLVOT VTI 15.45cm AO Mean GR.5mmHg Mitral Valve MV E Ttwsefmd37.4cm/sMV E Peak Gr.4mmHg MV DECEL [id number] A Ztlgdikr64.0cm/s MV E Mean Gr.2mmHgE/A Ratio0.9 TDI Lateral E' P. V10.35cm/sMedial E' P. V11.01cm/s E/Lateral E'4.8E/Medial E'4.5 Tricuspid Valve TR P. Vpidtawq191fn/sRAP OORKBLFF1alIz TR Peak Gr.44dcTuRCYH05akRk Pulmonary Vein S1 Msrljsso19.2cm/sS2 Pifdvrtk19.01cm/s D2 Nhcryekf76.0cm/s LEFT VENTRICLE The left ventricle is normal size. There is mild concentric left ventricular hypertrophy. The left ve ntricular systolic function is normal and the ejection fraction is within normal range. The Ejection Fraction is 55-60%. There is normal LV segmental wall motion. Transmitral Doppler flow pattern is Gra de I-abnormal relaxation pattern. RIGHT VENTRICLE The right ventricle is borderline dilated. There is normal right ventricular wall thickness. The righ t ventricular systolic function is normal. ATRIA The left atrium size is normal. The right atrium size is normal. Interatrial septal thickening is not ed. AORTIC VALVE The aortic valve is not well visualized. Doppler and Color Flow revealed no significant aortic regurg itation. There is no significant aortic valvular stenosis. MITRAL VALVE The mitral valve is normal in structure and function. There is no evidence of mitral valve prolapse. There is no mitral valve stenosis. Doppler and Color Flow revealed no mitral valve regurgitation note d. TRICUSPID VALVE The tricuspid valve is not well visualized. Doppler and Color Flow revealed mild tricuspid regurgitat ion with an estimated PAP of 46 mmHg. There is no tricuspid valve stenosis. PULMONIC VALVE The pulmonic valve is not well visualized. Doppler and Color Flow revealed no pulmonic valvular regur gitation. GREAT VESSELS The aortic root is normal in size. The IVC is normal in size and collapses >50% with inspiration. PERICARDIAL EFFUSION There is a trace circumferential pericardial effusion with no hemodynamic significance. Critical Notification Critical Value: No <Conclusion> The left ventricle is normal size. The left ventricular systolic function is normal and the ejection fraction is within normal range. The Ejection Fraction is 55-60%. There is mild concentric left ventricular hypertrophy. Doppler and Color Flow revealed no significant aortic regurgitation. There is no significant aortic valvular stenosis. Doppler and Color Flow revealed no mitral valve regurgitation noted. Doppler and Color Flow revealed mild tricuspid regurgitation with an estimated PAP of 46 mmHg. Signed by : Guanakito Cummings MD Electronically Approved : 11/13/2019 10:44:53
[2019-11-13] MEDS ORDERED: MAGNESIUM SULFATE 2GM 50 ML IV ONE (11:00)
[2019-11-13] MEDS ORDERED: VANCOMYCIN 1 GM in IV NORMAL SALINE 250ML 250 ML IV SCH (13:00)
--- NOTE | 2019-11-13 13:11 | PN ---
DATE: SUBJECTIVE: The patient continues to be intubated and mechanically ventilated. She has continued on Levophed. She had no blood gas done this morning, has had chest x-ray done; however, it has not been read by the radiologist. She continues to have small left apical pneumothorax and extensive subcutaneous emphysema in the left side where the chest tube is placed. Extensive infiltrate on both sides. Her CT scan of the chest, abdomen and pelvis were concerning for possible tracheal injury. I actually spoke with the transfer center, [facility], and unfortunately initially they said that they are at the capacity. Subsequently, the cardiothoracic surgeon called me and stated that he would like her to have a bronchoscopy as a better way to confirm tracheal injury; however, Dr. Arriaza has a different view and he thinks that bronchoscopy would not be helpful in diagnosing the tracheal injury. I again spoke with the transfer center at [facility] and they also stated that they would not be able to take her and we might try to transfer her again today. PHYSICAL EXAMINATION: GENERAL: When I examined her this morning, she was pale, cachectic, but no jaundice, cyanosis or thyromegaly. No jugular venous distention. No lower limb edema. VITAL SIGNS: Her heart rate was 109, blood pressure was 109/68, temperature was 98.4, respiratory rate was 22 and oxygen saturation was 92% on FiO2 of 100%. HEAD, EYES, EARS, NOSE AND THROAT: Showed normocephalic, atraumatic. She has orotracheal and orogastric tube in place. She has a left-sided chest tube and central line. NECK: Supple. Heart: Normal first and second heart sounds. No gallop or murmur. CHEST: Shows central trachea, equal bilateral chest expansion, air entry, vesicular sounds. I could not really appreciate any crepitation or rhonchi anteriorly. ABDOMEN: Slightly distended, soft, and nontender. NEUROLOGIC: She is heavily sedated. Her intake was 3500, output was 3520. LABORATORY DATA: Her lab work this morning is still pending at the time of this dictation. Her chemistry showed a serum sodium 143, potassium 3.5, chloride 109, bicarbonate 25, anion gap of 9, BUN 22, creatinine 1, estimated GFR was 56 mL per minute. Her glucose 147, calcium was 7.8. Her procalcitonin was 9.5. Her white cell count this morning was 22,500, hemoglobin 7.3, hematocrit 23, MCV 79 and platelet count 358,000. ASSESSMENT: 1. Acute on chronic hypoxic hypercapnic respiratory failure, secondary to likely aspiration pneumonia, worsened and aggravated by left-sided pneumothorax. 2. She has bilateral interstitial infiltrate due to infection versus fluid overload. She has also had emesis while on BiPAP machine, possible aspiration pneumonia. 3. Left-sided pneumothorax, post-attempted line placement, status post chest tube placement, currently connected to suction. 4. She has underlying chronic obstructive pulmonary disease, chronic hypoxic respiratory failure, aggravated by her noncompliance with medication particularly narcotics and has likely septic shock. There was obviously possibility of tracheal injury. PLAN: To continue with sedation. Continue with mechanical ventilation. Continue with Levophed. Continue with steroids and bronchodilator. Continue with IV antibiotic. I will make another attempt to transfer her to [facility]. BERTRAND RENTERIA MD DR: SADAF/vita JOB#: [id number] / [id number]
[2019-11-13 14:38] LABS: HEMATOCRIT 24.9 % (36.0-47.0); HEMOGLOBIN 8.3 g/dL (12.0-15.5)
--- NOTE | 2019-11-13 19:19 | PN ---
DATE: 11/13/2019 During a family meeting with the patient's and sister, I have explained to them regarding her critical illness with respiratory failure, septic shock, and currently on vasopressor and 100% oxygen and possibility of tracheal tear in addition to the pneumothorax. They understand and they had said that she has been a totally noncompliant patient. She has been intubated multiple times. She does not follow any medical advices. I did explain to them that we will continue with present aggressive care and I had recommended that if despite aggressive care if she a code blue, then we should not do any CPR or electrical shock and they are agreeable with that. I have discussed with RN and she will be a DNR. VASHTI FORTUNE MD DR: DEE/vita JOB#: [id number] / [id number]
[2019-11-13 20:47] LABS: INFLUENZA A PATIENT NEGATIVE (NEGATIVE); INFLUENZA B PATIENT NEGATIVE (NEGATIVE)
[2019-11-14] VITALS (30 sets, daily range): BP systolic 79–140; BP diastolic 49–105
[2019-11-14] MEDS: PIPERACILLIN/TAZOBACTAM 4.5 GM in IV NORMAL SALINE 100ML 100 ML IV SCH ×5 (00:05→23:56)
[2019-11-14] MEDS: MIDAZOLAM HCL 50 MG in IV NORMAL SALINE 50ML 50 ML IV PRN ×6 (01:15→23:55)
[2019-11-14] MEDS: AA 4.25 %/CALCIUM/LYTES/D5W 1,000 ML IV SCH ×2 (02:06→10:47)
[2019-11-14] MEDS: NOREPINEPHRINE VIAL 8 MG in IV DEXTROSE 5% 250 ML IV PRN (03:54)
[2019-11-14] MEDS: methylPREDNISolone SOD SUCC PF 40 MG/ML VIAL. IV SCH ×3 (05:37→21:43)
[2019-11-14 05:49] LABS: ALBUMIN 1.8 g/dL (3.4-5.0); ALBUMIN/GLOBULIN RATIO 0.5 (1.0-1.7); ALK PHOS 37 U/L (46-116); ALT (SGPT) < 6 U/L (14-59); ANION GAP 8 (6-14); AST (SGOT) 7 U/L (15-37); BLOOD UREA NITROGEN 20 mg/dL (7-20); BUN/CREATININE RATIO 25 (6-20); CALCIUM 8.7 mg/dL (8.5-10.1); CARBON DIOXIDE 27 mmol/L (21-32); CHLORIDE 106 mmol/L (98-107); CREATININE 0.8 mg/dL (0.6-1.0); GFR 73.2; GLUCOSE 179 mg/dL (70-99); POTASSIUM 3.1 mmol/L (3.5-5.1); SODIUM 141 mmol/L (136-145); TOTAL BILIRUBIN 0.4 mg/dL (0.2-1.0); TOTAL PROTEIN 5.3 g/dL (6.4-8.2)
[2019-11-14 05:59] LABS: HEMATOCRIT 23.2 % (36.0-47.0); HEMOGLOBIN 7.6 g/dL (12.0-15.5); RED BLOOD COUNT 2.96 x10^6/uL (3.50-5.40); RED CELL DISTRIBUTION WIDTH 18.9 % (11.5-14.5); WHITE BLOOD COUNT 14.5 x10^3/uL (4.0-11.0)
[2019-11-14] MEDS: IPRATRPIUM/ALBUTEROL 0.5/2.5MG 3 ML NEBU. NEB SCH ×4 (07:21→21:36)
--- NOTE | 2019-11-14 07:31 | PDOC ---
Infectious Disease Note Subjective: Subjective pt remains intubated and sedated on pressors but now on lower dose UO improved d/w rn Vital Signs: Vital Signs Vital Signs Date Time Temp Pulse Resp B/P (MAP) Pulse Ox O2 Delivery O2 Flow Rate FiO2 11/14/19 07:21 96 Ventilator 11/14/19 06:00 88 22 98/64 (75) 11/14/19 04:00 98.5 98.5 Physical Exam: PHYSICAL EXAM GENERAL: Intubated, sedated. HEENT: Sclerae are anicteric. NG tube in place. NECK: Supple. LUNGS: Crepitus on the left side with coarse bs, wheezing. Left-sided chest tube present. HEART: S1, S2, tachycardia, ABDOMEN: Soft, nontender.distended EXTREMITIES: Trace edema. Lt Femoral line in the groin. DERMATOLOGIC: Warm, dry. No generalized rash. CENTRAL NERVOUS SYSTEM: Intubated. LINES: Lt Femoral line, sites look okay.PIVs Medications: Inpatient Meds: Current Medications Medications (Trade) Dose Ordered Sig/Isma Start Time Stop Time Status Last Admin Dose Admin Acetaminophen (Tylenol Supp) 325 mg PRN Q6HRS PRN 11/12/19 16:00 Albumin Human 500 ml @ 125 mls/hr 1X ONCE 11/12/19 16:30 11/12/19 20:29 DC 11/12/19 16:45 125 MLS/HR Albuterol/ Ipratropium (Duoneb) 3 ml RTQID 11/12/19 20:00 11/14/19 07:21 3 ML Amino Acids/ Electrolytes/ Dextrose 1,000 ml @ 80 mls/hr [id number] 11/13/19 10:15 11/14/19 02:06 80 MLS/HR Fentanyl Citrate (Fentanyl 2ml Vial) 100 mcg 1X ONCE 11/12/19 07:15 11/12/19 07:20 DC 11/12/19 07:24 100 MCG Levofloxacin/ Dextrose 150 ml @ 100 mls/hr Q48H 11/14/19 10:00 Lidocaine HCl (Lidocaine 2% Viscous) 100 ml PRN 1X PRN 11/13/19 09:30 11/14/19 09:29 11/13/19 09:36 100 ML Lorazepam (Ativan Inj) 2 mg PRN Q1HR PRN 11/13/19 10:00 11/13/19 09:58 2 MG Magnesium Sulfate 50 ml @ 25 mls/hr 1X ONCE 11/13/19 11:00 11/13/19 12:59 DC 11/13/19 11:03 25 MLS/HR Methylprednisolone Sodium Succinate (SOLU-Medrol 40MG VIAL) 40 mg Q8HRS 11/12/19 11:00 11/14/19 05:37 40 MG Midazolam HCl (Versed) 5 mg 1X ONCE 11/12/19 07:15 11/12/19 07:20 DC 11/12/19 07:24 5 MG Midazolam HCl 50 mg/Sodium Chloride 50 ml @ 0 mls/hr CONT PRN 11/12/19 07:00 11/14/19 05:50 10 MLS/HR Norepinephrine Bitartrate 8 mg/ Dextrose 258 ml @ 10.836 mls/ hr CONT PRN 11/12/19 08:15 11/14/19 03:54 8.669 MLS/HR Pantoprazole Sodium (PROTONIX VIAL for IV PUSH) 40 mg BIDAC 11/12/19 16:30 11/13/19 16:37 40 MG Piperacillin Sod/ Tazobactam Sod 3.375 gm/Sodium Chloride 50 ml @ 100 mls/hr Q8H 11/12/19 10:00 UNV Piperacillin Sod/ Tazobactam Sod 4.5 gm/Sodium Chloride 100 ml @ 200 mls/hr Q6HRS 11/12/19 12:00 11/14/19 05:37 200 MLS/HR Potassium Chloride/Water 100 ml @ 100 mls/hr 1X ONCE 11/12/19 16:00 11/12/19 16:59 DC 11/12/19 15:59 100 MLS/HR Propofol 100 ml @ 0 mls/hr CONT PRN 11/12/19 07:00 Sodium Chloride 500 ml @ 500 mls/hr 1X ONCE 11/12/19 16:30 11/12/19 17:29 DC 11/12/19 16:30 500 MLS/HR Vancomycin HCl (Vanco Per Pharmacy) 1 each PRN DAILY PRN 11/12/19 10:00 11/13/19 10:38 1 EACH Vancomycin HCl (Vancomycin Trough Level) 1 each 1X ONCE 11/14/19 12:30 11/14/19 12:31 Vancomycin HCl 1.5 gm/Sodium Chloride 500 ml @ 250 mls/hr 1X ONCE 11/12/19 11:00 11/12/19 12:59 DC 11/12/19 12:24 250 MLS/HR Vancomycin HCl 1 gm/Sodium Chloride 250 ml @ 250 mls/hr Q24H 11/13/19 13:00 11/13/19 12:58 250 MLS/HR Labs: Lab Laboratory Tests Test 11/13/19 07:45 11/13/19 14:30 11/13/19 19:45 11/14/19 00:25 O2 Saturation 90 % (92-99) Arterial Blood pH 7.32 (7.35-7.45) Arterial Blood pCO2 at Patient Temp 43 mmHg (35-46) Arterial Blood pO2 at Patient Temp 60 mmHg (65-108) Arterial Blood HCO3 22 mmol/L (21-28) Arterial Blood Base Excess -4 mmol/L (-3-3) FiO2 100 Hemoglobin 8.3 g/dL (12.0-15.5) Hematocrit 24.9 % (36.0-47.0) Mean Corpuscular Hemoglobin Concent 34 g/dL (31-37) Influenza Type A Antigen Negative (NEGATIVE) Influenza Type B Antigen Negative (NEGATIVE) Glucose (Fingerstick) 175 mg/dL (70-99) Test 11/14/19 05:15 11/14/19 05:26 White Blood Count 14.5 x10^3/uL (4.0-11.0) Red Blood Count 2.96 x10^6/uL (3.50-5.40) Hemoglobin 7.6 g/dL (12.0-15.5) Hematocrit 23.2 % (36.0-47.0) Mean Corpuscular Volume 78 fL (79-100) Mean Corpuscular Hemoglobin 26 pg (25-35) Mean Corpuscular Hemoglobin Concent 33 g/dL (31-37) Red Cell Distribution Width 18.9 % (11.5-14.5) Platelet Count 236 x10^3/uL (140-400) Sodium Level 141 mmol/L (136-145) Potassium Level 3.1 mmol/L (3.5-5.1) Chloride Level 106 mmol/L (98-107) Carbon Dioxide Level 27 mmol/L (21-32) Anion Gap 8 (6-14) Blood Urea Nitrogen 20 mg/dL (7-20) Creatinine 0.8 mg/dL (0.6-1.0) Estimated GFR (Cockcroft-Gault) 73.2 BUN/Creatinine Ratio 25 (6-20) Glucose Level 179 mg/dL (70-99) Calcium Level 8.7 mg/dL (8.5-10.1) Total Bilirubin 0.4 mg/dL (0.2-1.0) Aspartate Amino Transf (AST/SGOT) 7 U/L (15-37) Alanine Aminotransferase (ALT/SGPT) < 6 U/L (14-59) Alkaline Phosphatase 37 U/L (46-116) Total Protein 5.3 g/dL (6.4-8.2) Albumin 1.8 g/dL (3.4-5.0) Albumin/Globulin Ratio 0.5 (1.0-1.7) Glucose (Fingerstick) 175 mg/dL (70-99) Micro CT C/A/P 1. Endotracheal intubation with pneumomediastinum and equivocal findings for potential posterior tracheal wall injury. If it is important to determine whether a small tracheal injury exists without interrupting the positioning of the tube, the chest CT could be repeated following administration of a trace amount of water-soluble contrast material down the endotracheal tube to assess for mediastinal leak. 2. Patient's left-sided chest tube has its side-port in the left-sided chest wall where a large amount of subcutaneous emphysema is present. Patient does have a small left apical pneumothorax with no findings of tension. 3. Patient's extensive pneumomediastinum and subcutaneous emphysema in the left chest is also associated with gas in the left upper extremity venous system, which is at potential risk for air embolus. 4. Multifocal pneumonia has worsened since the last chest CT of slightly over 2 months ago. Although a component of aspiration pneumonitis is difficult to exclude, the endotracheal tube cuff appears very well inflated. It is likely a clinical judgment on how well inflated it should be. 5. Diffuse small bowel ileus with fluid distended stomach, small bowel and distal thoracic esophagus despite presence of an enteric tube. Consider repositioning the patient more upright such that the enteric tube tip more effectively evacuates the stomach and small bowel. Objective: Assessment: 1. Severe sepsis ,shock, source appears multifactorial 2. Acute hypoxic respiratory failure ,left-sided pneumothorax, extensive pneumomediastinum, potential tracheal injury status post line placement, chest tube., CT with multiple abn 3. Leucocytosis and lactic acidosis ,leucocytosis can also have a reactive component 4. Aspiration pneumonia with emesis while on BiPAP at [facility]. 5. Bilateral interstitial infiltrates at [facility], likely worsening congestive heart failure, status post IV fluids, now on pressors, CT chest pending at this time. 6. Coffee-ground emesis. Bowel obstruction, Ileus 7. History of pulmonary embolism. Chronic respiratory failure, on home O2 with history of chronic obstructive pulmonary disease, 8 Bipolar disorder. 9. History of methicillin-resistant Staphylococcus aureus. 10 Hypokalemia. 11. Anemia. 12. Protein-calorie malnutrition. 13. History of smoking. 14.H/O noncomplaiance 15.Severe PCM Plan: Plan of Care Continue empiric IV vancomycin, Zosyn and Levaquin, may need renal dosing. Follow up creatinine closely. Adjust dose of vancomycin depending on renal function. influenza screen neg ECHO noted f/u bronch cultures f/u cults and labs in am Condition critical. Overall, prognosis poor. Attempts were made to Transfer to or [facility] , denied D/W MAIDA KIM MD Nov 14, 2019 07:31
--- NOTE | 2019-11-14 08:01 | RAD ---
EXAM: PORTABLE CHEST 1V INDICATION: Respiratory failure. TECHNIQUE: Single AP view COMPARISON: 11/13/2019 FINDINGS: Patient remains intubated with ET tube terminating 5.3 cm above the jluiet. Enteric tube passes below the diaphragms, looped as before. Left chest tube remains present with tip projecting over the left hilum. The side-port projects medial to the lateral chest wall. The heart size is normal. Great vessels show aortic calcifications. There is slight increase in left perihilar opacities in the interval. Lungs show persistent diffuse interstitial prominence and ill-defined airspace opacities most conspicuous in the left lower lobe. Small left apical pneumothorax remains. No significant pleural effusion. There are no significant osseous abnormalities. Extensive subcutaneous emphysema in the left chest remains present but in the lower left neck, appears to have decreased slightly in the interval. There is gas tracking in the medial left upper extremity that is equivocal for vascular involvement. IMPRESSION: 1. Lines and tubes as described including endotracheal intubation in satisfactory position in the left chest tube that radiographically appears well positioned in the left pleural space with stable small left pneumothorax 2. decreasing subcutaneous emphysema although more soft tissue gas is evident in the medial left upper extremity. Electronically signed by: Matt Gomez MD (11/14/2019 7:58 AM) [facility]
[2019-11-14] MEDS ORDERED: ELECTROLYTE (ICU) PROTOCOL. MC PRN (08:15)
[2019-11-14 08:30] LABS: BASE EXCESS ABG 0 mmol/L (-3-3); HCO3 ABG 25 mmol/L (21-28); PCO2 ABG 41 mmHg (35-46); PO2 ABG 60 mmHg (65-108); SAT O2 ABG 91 % (92-99)
--- NOTE | 2019-11-14 08:37 | PN ---
DATE: SUBJECTIVE: The patient is resting, slightly propped up in bed, continued to be heavily sedated, intubated and mechanically ventilated. She apparently is doing much better with a tidal volume of 500. Her FiO2 is down slightly to 80%. PHYSICAL EXAMINATION: GENERAL: When I examined her, she looked pale, cachectic, but no jaundice, cyanosis or thyromegaly. No jugular venous distention. No limb edema. VITAL SIGNS: Her heart rate was 88, blood pressure 98/64, her temperature was 98.5. Her oxygen saturation was 96% on FiO2 of 80%. HEAD, EYES, EARS, NOSE AND THROAT: Normocephalic, atraumatic. She has orotracheal and orogastric tube. NECK: Supple. CARDIAC: Normal first and second heart sounds. No gallop or murmur. CHEST: Shows central trachea, equal bilateral reduced expansion, air entry, vesicular sounds. I could not appreciate any crepitation or rhonchi anteriorly. She has a chest tube with left side to underwater seal and continued to have air leak. ABDOMEN: Slightly distended, soft, nontender. NEUROLOGIC: She is heavily sedated. Her intake over the last 24 hours was 3500, output was 3500. LABORATORY DATA: As of this morning showed a white cell count 14,500, hemoglobin 7.6, hematocrit 23, MCV 78 and platelet count 236,000. Serum sodium 141, potassium 3.1, chloride 106, bicarbonate 27, anion gap of 8, BUN 20, creatinine 0.8, estimated GFR was 73 mL per minute. Her glucose 175, calcium was 8.7. Total bilirubin, AST, ALT, alkaline phosphatase were normal. Total protein 5.3, albumin was 1.8. ASSESSMENT: 1. Acute on chronic hypoxic hypercapnic respiratory failure secondary to aspiration pneumonia, worse and aggravated by left side pneumothorax. 2. She has bilateral interstitial infiltrate due to infection versus fluid overload. She also has had emesis while on BiPAP machine with possible aspiration pneumonia. 3. Left-sided pneumothorax, post-attempted line placement, status post chest tube placement, currently connected to suction. 3. She has underlying chronic obstructive pulmonary disease. 4. Chronic hypoxic respiratory failure, aggravated by noncompliance with medication particularly narcotic abuse. 5. Septic shock. 6. Possible tracheal injury. Apparently, she has had bronchoscopy, which showed no obvious tracheal injury. PLAN: To continue with sedation. Continue with Levophed. Continue with mechanical ventilation and wean as tolerated. Continue with steroids and bronchodilator. Continue IV antibiotic. She has hypokalemia that was replaced. I will start her on ICU exercise protocol. BERTRAND RENTERIA MD DR: SADAF/vita JOB#: [id number] / [id number]
[2019-11-14] MEDS: POTASSIUM CHLORIDE 20MEQ 100 ML IV SCH ×2 (09:03→10:30)
[2019-11-14] MEDS: PANTOPRAZOLE IV PUSH 40 MG VIAL. IVP SCH ×2 (09:41→16:32)
--- NOTE | 2019-11-14 09:49 | PDOC ---
Objective: Objective: D/w nurse - less from OG, had a solid stool. Now a DNR. Vital Signs: Vital Signs Date Time Temp Pulse Resp B/P (MAP) Pulse Ox O2 Delivery O2 Flow Rate FiO2 11/14/19 09:41 22 99 Ventilator 11/14/19 09:00 84 100/52 (68) 11/14/19 08:00 97.5 97.5 Labs: Laboratory Tests Test 11/13/19 14:30 11/13/19 19:45 11/14/19 00:25 11/14/19 05:15 Hemoglobin 8.3 g/dL 7.6 g/dL Hematocrit 24.9 % 23.2 % Mean Corpuscular Hemoglobin Concent 34 g/dL 33 g/dL Influenza Type A Antigen Negative Influenza Type B Antigen Negative Glucose (Fingerstick) 175 mg/dL White Blood Count 14.5 x10^3/uL Red Blood Count 2.96 x10^6/uL Mean Corpuscular Volume 78 fL Mean Corpuscular Hemoglobin 26 pg Red Cell Distribution Width 18.9 % Platelet Count 236 x10^3/uL Sodium Level 141 mmol/L Potassium Level 3.1 mmol/L Chloride Level 106 mmol/L Carbon Dioxide Level 27 mmol/L Anion Gap 8 Blood Urea Nitrogen 20 mg/dL Creatinine 0.8 mg/dL Estimated GFR (Cockcroft-Gault) 73.2 BUN/Creatinine Ratio 25 Glucose Level 179 mg/dL Calcium Level 8.7 mg/dL Magnesium Level 1.8 mg/dL Total Bilirubin 0.4 mg/dL Aspartate Amino Transf (AST/SGOT) 7 U/L Alanine Aminotransferase (ALT/SGPT) < 6 U/L Alkaline Phosphatase 37 U/L Total Protein 5.3 g/dL Albumin 1.8 g/dL Albumin/Globulin Ratio 0.5 Test 11/14/19 05:26 Glucose (Fingerstick) 175 mg/dL Imaging: CXR 11/14 IMPRESSION: 1. Lines and tubes as described including endotracheal intubation in satisfactory position in the left chest tube that radiographically appearswell positioned in the left pleural space with stable small left pneumothorax 2. decreasing subcutaneous emphysema although more soft tissue gas is evident in the medial left upper extremity. Echo 11/13 <Conclusion> The left ventricle is normal size. The left ventricular systolic function is normal and the ejection fraction is within normal range. The Ejection Fraction is 55-60%. There is mild concentric left ventricular hypertrophy. Doppler and Color Flow revealed no significant aortic regurgitation. There is no significant aortic valvular stenosis. Doppler and Color Flow revealed no mitral valve regurgitation noted. Doppler and Color Flow revealed mild tricuspid regurgitation with an estimated PAP of 46 mmHg. PE: GEN: intubated LUNGS: coarse anteriorly, subcutaneous emphysema HEART: RRR ABD: soft, OG output more bilious NEURO/PSYCH: sedated A/P: Resp failure, aspiration, possible tracheal tear ACD/YESSY, coffee-ground emesis -- Continue same per GI. Hemodynamically unstable?: Yes Is patient in severe pain?: No Is NPO status required?: Yes NAIDA SANZ Nov 14, 2019 09:49
[2019-11-14 09:51] LABS: FIO2 ABG 80% VENT
--- NOTE | 2019-11-14 11:26 | PDOC ---
PULMONARY PROGRESS NOTES Subjective remains intubated, sedated ,on 80%FIO2, with continous air leak on chest tube .ct chest findings suspicious for tracheal tear. S/P Bronch 11/13. No tracheal tear seen distal to ET tube Numerous attempts to transfer to / [facility] 11/12 not successful as they declined to accept patient . we don't have thoracic surgery in house Vitals Vital Signs Date Time Temp Pulse Resp B/P (MAP) Pulse Ox O2 Delivery O2 Flow Rate FiO2 11/14/19 11:00 94 22 129/70 (89) 98 Ventilator 11/14/19 08:00 97.5 97.5 Lungs: Other (crepitus and continous squeaking sound left upper chest) Cardiovascular: S1, S2 Abdomen: Soft, Non-tender Extremities: Other (1+edema) Skin: Warm Labs Laboratory Tests Test 11/12/19 14:20 11/13/19 05:35 11/13/19 07:45 11/13/19 14:30 White Blood Count 14.3 x10^3/uL (4.0-11.0) 22.5 x10^3/uL (4.0-11.0) Red Blood Count 3.34 x10^6/uL (3.50-5.40) 2.95 x10^6/uL (3.50-5.40) Hemoglobin 8.3 g/dL (12.0-15.5) 7.3 g/dL (12.0-15.5) 8.3 g/dL (12.0-15.5) Hematocrit 26.6 % (36.0-47.0) 23.4 % (36.0-47.0) 24.9 % (36.0-47.0) Mean Corpuscular Volume 80 fL (79-100) 79 fL (79-100) Mean Corpuscular Hemoglobin 25 pg (25-35) 25 pg (25-35) Mean Corpuscular Hemoglobin Concent 31 g/dL (31-37) 31 g/dL (31-37) 34 g/dL (31-37) Red Cell Distribution Width 19.4 % (11.5-14.5) 19.0 % (11.5-14.5) Platelet Count 420 x10^3/uL (140-400) 358 x10^3/uL (140-400) Lactic Acid Level 2.5 mmol/L (0.4-2.0) Neutrophils (%) (Auto) 95 % (31-73) Lymphocytes (%) (Auto) 2 % (24-48) Monocytes (%) (Auto) 3 % (0-9) Eosinophils (%) (Auto) 0 % (0-3) Basophils (%) (Auto) 0 % (0-3) Neutrophils # (Auto) 21.4 x10^3/uL (1.8-7.7) Lymphocytes # (Auto) 0.4 x10^3/uL (1.0-4.8) Monocytes # (Auto) 0.6 x10^3/uL (0.0-1.1) Eosinophils # (Auto) 0.0 x10^3/uL (0.0-0.7) Basophils # (Auto) 0.0 x10^3/uL (0.0-0.2) Segmented Neutrophils % 53 % (35-66) Band Neutrophils % 36 % (0-9) Lymphocytes % 4 % (24-48) Monocytes % 2 % (0-10) Metamyelocytes % 4 % (0-0) Myelocytes % 1 % (0-0) Toxic Granulation Mod Toxic Vacuolation Slight Dohle Bodies Mod Platelet Estimate Adequate (ADEQUATE) Polychromasia Mod Basophilic Stippling Present Anisocytosis Slight Tear Drop Cells Few Sodium Level 143 mmol/L (136-145) Potassium Level 3.5 mmol/L (3.5-5.1) Chloride Level 109 mmol/L (98-107) Carbon Dioxide Level 25 mmol/L (21-32) Anion Gap 9 (6-14) Blood Urea Nitrogen 22 mg/dL (7-20) Creatinine 1.0 mg/dL (0.6-1.0) Estimated GFR (Cockcroft-Gault) 56.6 Glucose Level 147 mg/dL (70-99) Calcium Level 7.8 mg/dL (8.5-10.1) Phosphorus Level 3.5 mg/dL (2.6-4.7) Magnesium Level 1.4 mg/dL (1.8-2.4) O2 Saturation 90 % (92-99) Arterial Blood pH 7.32 (7.35-7.45) Arterial Blood pCO2 at Patient Temp 43 mmHg (35-46) Arterial Blood pO2 at Patient Temp 60 mmHg (65-108) Arterial Blood HCO3 22 mmol/L (21-28) Arterial Blood Base Excess -4 mmol/L (-3-3) FiO2 100 Test 11/13/19 19:45 11/14/19 00:25 11/14/19 05:15 11/14/19 05:26 Influenza Type A Antigen Negative (NEGATIVE) Influenza Type B Antigen Negative (NEGATIVE) Glucose (Fingerstick) 175 mg/dL (70-99) 175 mg/dL (70-99) White Blood Count 14.5 x10^3/uL (4.0-11.0) Red Blood Count 2.96 x10^6/uL (3.50-5.40) Hemoglobin 7.6 g/dL (12.0-15.5) Hematocrit 23.2 % (36.0-47.0) Mean Corpuscular Volume 78 fL (79-100) Mean Corpuscular Hemoglobin 26 pg (25-35) Mean Corpuscular Hemoglobin Concent 33 g/dL (31-37) Red Cell Distribution Width 18.9 % (11.5-14.5) Platelet Count 236 x10^3/uL (140-400) Sodium Level 141 mmol/L (136-145) Potassium Level 3.1 mmol/L (3.5-5.1) Chloride Level 106 mmol/L (98-107) Carbon Dioxide Level 27 mmol/L (21-32) Anion Gap 8 (6-14) Blood Urea Nitrogen 20 mg/dL (7-20) Creatinine 0.8 mg/dL (0.6-1.0) Estimated GFR (Cockcroft-Gault) 73.2 BUN/Creatinine Ratio 25 (6-20) Glucose Level 179 mg/dL (70-99) Calcium Level 8.7 mg/dL (8.5-10.1) Magnesium Level 1.8 mg/dL (1.8-2.4) Total Bilirubin 0.4 mg/dL (0.2-1.0) Aspartate Amino Transf (AST/SGOT) 7 U/L (15-37) Alanine Aminotransferase (ALT/SGPT) < 6 U/L (14-59) Alkaline Phosphatase 37 U/L (46-116) Total Protein 5.3 g/dL (6.4-8.2) Albumin 1.8 g/dL (3.4-5.0) Albumin/Globulin Ratio 0.5 (1.0-1.7) Test 11/14/19 08:00 O2 Saturation 91 % (92-99) Arterial Blood pH 7.41 (7.35-7.45) Arterial Blood pCO2 at Patient Temp 41 mmHg (35-46) Arterial Blood pO2 at Patient Temp 60 mmHg (65-108) Arterial Blood HCO3 25 mmol/L (21-28) Arterial Blood Base Excess 0 mmol/L (-3-3) FiO2 80% vent Laboratory Tests Test 11/13/19 14:30 11/13/19 19:45 11/14/19 00:25 11/14/19 05:15 Hemoglobin 8.3 g/dL (12.0-15.5) 7.6 g/dL (12.0-15.5) Hematocrit 24.9 % (36.0-47.0) 23.2 % (36.0-47.0) Mean Corpuscular Hemoglobin Concent 34 g/dL (31-37) 33 g/dL (31-37) Influenza Type A Antigen Negative (NEGATIVE) Influenza Type B Antigen Negative (NEGATIVE) Glucose (Fingerstick) 175 mg/dL (70-99) White Blood Count 14.5 x10^3/uL (4.0-11.0) Red Blood Count 2.96 x10^6/uL (3.50-5.40) Mean Corpuscular Volume 78 fL (79-100) Mean Corpuscular Hemoglobin 26 pg (25-35) Red Cell Distribution Width 18.9 % (11.5-14.5) Platelet Count 236 x10^3/uL (140-400) Sodium Level 141 mmol/L (136-145) Potassium Level 3.1 mmol/L (3.5-5.1) Chloride Level 106 mmol/L (98-107) Carbon Dioxide Level 27 mmol/L (21-32) Anion Gap 8 (6-14) Blood Urea Nitrogen 20 mg/dL (7-20) Creatinine 0.8 mg/dL (0.6-1.0) Estimated GFR (Cockcroft-Gault) 73.2 BUN/Creatinine Ratio 25 (6-20) Glucose Level 179 mg/dL (70-99) Calcium Level 8.7 mg/dL (8.5-10.1) Magnesium Level 1.8 mg/dL (1.8-2.4) Total Bilirubin 0.4 mg/dL (0.2-1.0) Aspartate Amino Transf (AST/SGOT) 7 U/L (15-37) Alanine Aminotransferase (ALT/SGPT) < 6 U/L (14-59) Alkaline Phosphatase 37 U/L (46-116) Total Protein 5.3 g/dL (6.4-8.2) Albumin 1.8 g/dL (3.4-5.0) Albumin/Globulin Ratio 0.5 (1.0-1.7) Test 11/14/19 05:26 11/14/19 08:00 Glucose (Fingerstick) 175 mg/dL (70-99) O2 Saturation 91 % (92-99) Arterial Blood pH 7.41 (7.35-7.45) Arterial Blood pCO2 at Patient Temp 41 mmHg (35-46) Arterial Blood pO2 at Patient Temp 60 mmHg (65-108) Arterial Blood HCO3 25 mmol/L (21-28) Arterial Blood Base Excess 0 mmol/L (-3-3) FiO2 80% vent Medications Active Scripts Medications Dose Route/Sig Max Daily Dose Days Date Category Augmentin 500-125 Tablet (Amoxicillin/Potassium Clav) 1 Each Tablet 1 Tab PO BID 09/03/19 Rx Culturelle (Lactobacillus Rhamnosus Gg) 1 Each Cap.sprink 1 Cap PO BID 30 09/03/19 Rx Dok (Docusate Sodium) 100 Mg Capsule 100 Mg PO PRN BID PRN 30 09/03/19 Rx Tylenol (Acetaminophen) 325 Mg Tablet 650 Mg PO PRN Q4HRS PRN 30 09/03/19 Rx Xarelto (Rivaroxaban) 10 Mg Tablet 20 Mg PO DAILYWSUP 60 09/03/19 Rx Feosol (Ferrous Sulfate) 325 Mg Tablet 325 Mg PO BIDWMEALS 30 09/03/19 Rx Doxycycline Hyclate 100 Mg Tablet 100 Mg PO BID 10 09/03/19 Rx Seroquel (Quetiapine Fumarate) 400 Mg Tablet 1.5 Tab PO QHS 08/30/19 Reported Alprazolam 1 Mg Tablet 0.5 Tab PO TID 08/30/19 Reported Ropinirole Hcl 0.25 Mg Tablet 0.25 Mg PO BID 08/30/19 Reported Melatonin 5 Mg Tab.rapdis 1 Tab PO QHS 30 08/30/19 Reported Metoprolol Tartrate 25 Mg Tablet 0.5 Tab PO BID 08/30/19 Reported Pantoprazole Sodium (Pantoprazole Sodium) 40 Mg Tablet.dr 40 Mg PO DAILYAC 08/30/19 Reported Venlafaxine Hcl Er (Venlafaxine Hcl) 150 Mg Cap.er.24h 150 Mg PO QHS 08/11/19 Reported Duoneb 0.5-3(2.5) Mg/3 Ml (Albuterol/Ipratropium) 3 Ml Ampul.neb 3 Ml NEB RTQID 30 03/26/18 Rx Mucinex Dm Er 600-30 Mg Tablet (Guaifenesin/Dextromethorphan) 1 Each Tab.er.12h 1 Each PO BID 03/18/18 Reported Seroquel Xr (Quetiapine Fumarate) 400 Mg Tab.er.24h 800 Mg PO HS 03/18/18 Reported Comments cxr 11/14 reviewed. Impression . 1. Acute on chronic hypoxic and hypercapnic respiratory failure secondary to multifactorial etiologies including acute exacerbation of chronic obstructive pulmonary disease, shock , left-sided pneumothorax and suspected tracheal tear 2. Bilateral interstitial infiltrates, suspect aspiration pneumonia She did receive 3 liters of IV fluids for possible sepsis. 3. Emesis while on BiPAP initially at [place], possibility of aspiration pneumonia is a consideration. 4. Left-sided pneumothorax post-attempted line placement, status post chest tube. Small PTX persist. continue chest tube to suction. 5. Underlying chronic obstructive pulmonary disease with chronic hypoxic respiratory failure and noncompliance. 6. Acute kidney injury.improved 7. Shock , likely septic shock. 8. Abnormal ct chest with suspected tracheal injury/ air in venous system. s/p Bronch , No tracheal tear seen distal to ET tube 9. Anemia Plan . 1. Continue present assist control mode. We will follow ABGs and make necessary adjustments. 2. CT chest, head, abdomen and pelvis reviewed 3. Continue chest tube to suction. 4. Broad-spectrum antibiotics. 5. IV steroids. 6. vasopressor support, off levo now 7. Monitor urine output. 8. ID and Renal recommendations. 9. Stress ulcer and DVT prophylaxis. 10 Numerous attempts to transfer to / [facility] not successful as they declined to accept patient . we don't have thoracic surgery in house. Will need VAT if no improvement in air leak, PTX 11. Discussed with RN and RT./ Dr Valente 12. Tx prn 13. replace Mg d/w sister cct 30 min VASHTI FORTUNE MD Nov 14, 2019 11:26
[2019-11-14] MEDS: TPN PER PHARMACY MC PRN (12:28)
--- NOTE | 2019-11-14 12:28 | NUR ---
Pharmacy TPN Dosing Note S: CB CASTILLO is a 59 year old F Currently receiving Central Continuous TPN started 11/14/19 B:Pertinent PMH: ILEUS, COFFEE GROUND EMESIS. Height: 5 feet, 7 inches Weight: 66.5 kg Current diet: NPO LABS: Sodium: 141 Potassium: 3.1 Chloride: 106 Calcium: 8.7 Corrected Calcium: 10.46 Magnesium: 1.8 CO2: 27 SCr: 0.8 Glucose: 175 Albumin: 1.8 AST: 7 ALT: <6 TPN FORMULA: TPN TYPE: Central Continuous AMINO ACIDS: 75 gm DEXTROSE: 195 gm LIPIDS: 20 gm SODIUM CHLORIDE: 90 mEq POTASSIUM CHLORIDE: 50 mEq POTASSIUM PHOSPHATE: 13.6 mmol MAGNESIUM: 10 mEq CALCIUM: 10 mEq MULTIPLE VITAMIN: 10 ml TRACE ELEMENTS: 1 ml(s) TPN PLAN: K was replaced by IVPB today. Will start standard TPN with macro recommendations from R[employer]beratory Furnace Supervisor. BMP/ Phos/ Mag daily x 3 days. R: Begin TPN Will monitor electrolytes, glucose, and tolerance to TPN. MEAGAN HALLMAN Rich, 11/14/19 [id number]
[2019-11-14 13:05] LABS: VANC TR 6.5 mcg/mL (10.0-20.0)
[2019-11-14] MEDS: VANCOMYCIN PER PHARMACY MC PRN (13:17)
--- NOTE | 2019-11-14 13:17 | NUR ---
Pharmacy Vancomycin Dosing Note S: Consulted to monitor and dose vancomycin started 11/12/19. O: CB CASTILLO is a 59 year old F with Sepsis, Pneumonia. Other Antibiotics: LEVAQUIN ZOSYN LABS: Last BUN: 20 Last Creatinine: 0.8 Creatinine Clearance: 75 mL/min Last WBC: 14.5 Last Procalcitonin: 9.52 Tmax (past 24 hours): 98.5 Microbiology: 11/12: BLOOD CX PENDING I/O: 3991/ 3045 Drug Levels: Last Trough level: 6.5 on 11/14/19 at 1240 Last dose given 11/13/19 at 1258 Vancomycin Dosing: Dosing Weight: Actual Target Trough: 15-20 A: Based on: patient's renal function and trough level. P: 1. Begin Vancomycin 1000 mg IV q12h 2. Follow up Trough level on 11/16/19 at 0130 3. Pharmacy will continue to monitor, follow and adjust therapy as needed. MEAGAN HALLMAN RPH, 11/14/19 0399
[2019-11-14 13:26] LABS: CALCIUM 8.7 mg/dL (8.5-10.1); CREATININE 0.8 mg/dL (0.6-1.0); GFR 73.2; MAGNESIUM 1.8 mg/dL (1.8-2.4); POTASSIUM 3.5 mmol/L (3.5-5.1)
--- NOTE | 2019-11-14 13:30 | NUR ---
Order received from Dr. Valente to obtain PICC line. Not a central line in IJ due to SQ air. RN obtained consent w/ 2nd RN via phone from Rivera- patient's . RN notified Nursing Functional Tester [employer], who notified [facility]. Consent faxed to Queta SOLIMAN. Patient will have femoral line until PICC placed.
[2019-11-14] MEDS: VANCOMYCIN 1 GM in IV NORMAL SALINE 250ML 250 ML IV SCH (13:35)
--- NOTE | 2019-11-14 15:07 | PATHOLOGY ---
Note [facility] Accession Number: [id number] TESTS RESULT FLAG UNITS REF RANGE LAB Clinician Provided Cytology Information No. of containers..01 Other (Miscellaneous) Source: LLL BAL DIAGNOSIS: LLL BAL NEGATIVE FOR MALIGNANT CELLS. FEW REACTIVE BRONCHIAL EPITHELIAL CELLS AND PULMONARY MACROPHAGES IDENTIFIED WITHIN A BACKGROUND OF NEUTROPHILS. Signed out by: Kranthi Waldrop MD, Pathologist NPI- [id number] Performed by: Elana Chua, Master Baker ([facility]) Gross description: 01 3 ML, COLORLESS, CLOUDY /LCS 11/13/2019 1550 Local FLAG LEGEND: L-Low Normal,H-High Normal,LL-Alert Low,HH-Alert High <-Panic Low,>-Panic High,A-Abnormal,AA-Critical Abnormal Performed at: [address] [place] [address] Hiram Alejandro MD, 02 [facility] [address] [place] [address] Kranthi Waldrop MD, Specimen Comment: A duplicate report has been generated due to demographic updates. Performed at: [address], [place], [place] [id number] MD Hiram Alejandro MD Phone: [phone]
--- NOTE | 2019-11-14 21:45 | RAD ---
Exam: Chest one view INDICATION: PICC placement TECHNIQUE: Frontal view of the chest Comparisons: X-ray today FINDINGS: Endotracheal tube with tip approximately 5 cm above the juliet. Enteric tube traverses below the diaphragm coiled in the left upper quadrant likely in the stomach. There is a right-sided PICC with tip in the SVC. Additionally there is a left-sided chest tube with tip in the left mid hemithorax. The sidehole of the chest tube projects at the lateral chest wall and may not be completely intrathoracic. The cardiomediastinal silhouette and pulmonary vessels are within normal limits. Patchy airspace disease is noted in the lungs bilaterally greatest in the left mid and lower lung. Stable small left apical pneumothorax. Extensive subcutaneous emphysema. IMPRESSION: 1. Lines and tubes described above. The right chest tube sidehole projects at the level of the lateral chest wall and may not be completely intrathoracic. Extensive subcutaneous emphysema. 2. Persistent airspace disease and small left apical pneumothorax. Electronically signed by: Noreen Breen MD (11/14/2019 9:42 PM) [id number]
[2019-11-14] MEDS ORDERED: TOTAL PARENTERAL NUTRITION IV SCH ×10 (22:00)
[2019-11-14] MEDS ORDERED: AMINO ACID IV SCH ×10 (22:00)
[2019-11-14] MEDS ORDERED: DEXTROSE 70% IV SCH ×10 (22:00)
[2019-11-14] MEDS ORDERED: [UNRECOGNIZED DRUG - OTHER] IV SCH ×10 (22:00)
[2019-11-15] VITALS (26 sets, daily range): BP systolic 100–163; BP diastolic 60–115
[2019-11-15] MEDS: VANCOMYCIN 1 GM in IV NORMAL SALINE 250ML 250 ML IV SCH (02:11)
[2019-11-15] MEDS: methylPREDNISolone SOD SUCC PF 40 MG/ML VIAL. IV SCH ×3 (05:35→22:21)
[2019-11-15] MEDS: PIPERACILLIN/TAZOBACTAM 4.5 GM in IV NORMAL SALINE 100ML 100 ML IV SCH ×4 (05:35→23:56)
[2019-11-15 05:42] LABS: RED BLOOD COUNT 2.63 x10^6/uL (3.50-5.40); RED CELL DISTRIBUTION WIDTH 19.7 % (11.5-14.5)
[2019-11-15 05:57] LABS: CALCIUM 8.8 mg/dL (8.5-10.1); CREATININE 0.8 mg/dL (0.6-1.0); GFR 73.2; MAGNESIUM 1.8 mg/dL (1.8-2.4); POTASSIUM 3.8 mmol/L (3.5-5.1)
--- NOTE | 2019-11-15 06:07 | NUR ---
This RN has reviewed and approves of SN's charting.
[2019-11-15 06:08] LABS: HEMOGLOBIN 6.8 g/dL (12.0-15.5)
[2019-11-15 06:09] LABS: HEMATOCRIT 20.6 % (36.0-47.0)
[2019-11-15] MEDS: MIDAZOLAM HCL 50 MG in IV NORMAL SALINE 50ML 50 ML IV PRN ×4 (06:57→17:29)
[2019-11-15] MEDS: PANTOPRAZOLE IV PUSH 40 MG VIAL. IVP SCH ×2 (07:19→16:29)
--- NOTE | 2019-11-15 07:41 | PDOC ---
Infectious Disease Note Subjective: Subjective pt remains intubated and sedated off pressors HB 6.8 d/w rn Vital Signs: Vital Signs Vital Signs Date Time Temp Pulse Resp B/P (MAP) Pulse Ox O2 Delivery O2 Flow Rate FiO2 11/15/19 06:02 97 11/15/19 06:00 68 22 134/82 (99) Ventilator 11/15/19 04:00 98.8 98.8 Physical Exam: PHYSICAL EXAM GENERAL: Intubated, sedated. HEENT: Sclerae are anicteric. NG tube in place. NECK: Supple. LUNGS: diffuse coarse bs ,somewhat improved than admission, Left-sided chest tube present. HEART: S1, S2, ABDOMEN: Soft, nontender.distended EXTREMITIES: Trace edema. DERMATOLOGIC: Warm, dry. No generalized rash. CENTRAL NERVOUS SYSTEM: Intubated. LINES: Lt Femoral line removed, RUE PICC line intact, clean Medications: Inpatient Meds: Current Medications Medications (Trade) Dose Ordered Sig/Isma Start Time Stop Time Status Last Admin Dose Admin Acetaminophen (Tylenol Supp) 325 mg PRN Q6HRS PRN 11/12/19 16:00 Albumin Human 500 ml @ 125 mls/hr 1X ONCE 11/12/19 16:30 11/12/19 20:29 DC 11/12/19 16:45 125 MLS/HR Albuterol/ Ipratropium (Duoneb) 3 ml RTQID 11/12/19 20:00 11/14/19 21:36 3 ML Amino Acids/ Electrolytes/ Dextrose 1,000 ml @ 80 mls/hr [id number] 11/13/19 10:15 11/14/19 10:49 DC 11/14/19 02:06 80 MLS/HR Fentanyl Citrate (Fentanyl 2ml Vial) 100 mcg 1X ONCE 11/12/19 07:15 11/12/19 07:20 DC 11/12/19 07:24 100 MCG Info (Icu Electrolyte Protocol) 1 ea CONT PRN PRN 11/14/19 08:15 Info (Tpn Per Pharmacy) 1 each PRN DAILY PRN 11/14/19 11:00 11/14/19 12:28 1 EACH Levofloxacin/ Dextrose 150 ml @ 100 mls/hr Q24H 11/14/19 10:00 11/14/19 09:03 100 MLS/HR Lidocaine HCl (Lidocaine 2% Viscous) 100 ml PRN 1X PRN 11/13/19 09:30 11/14/19 09:29 DC 11/13/19 09:36 100 ML Lorazepam (Ativan Inj) 2 mg PRN Q1HR PRN 11/13/19 10:00 11/15/19 07:19 2 MG Magnesium Sulfate 50 ml @ 25 mls/hr 1X ONCE 11/13/19 11:00 11/13/19 12:59 DC 11/13/19 11:03 25 MLS/HR Methylprednisolone Sodium Succinate (SOLU-Medrol 40MG VIAL) 40 mg Q8HRS 11/12/19 11:00 11/15/19 05:35 40 MG Midazolam HCl (Versed) 5 mg 1X ONCE 11/12/19 07:15 11/12/19 07:20 DC 11/12/19 07:24 5 MG Midazolam HCl 50 mg/Sodium Chloride 50 ml @ 0 mls/hr CONT PRN 11/12/19 07:00 11/15/19 06:57 8 MLS/HR Norepinephrine Bitartrate 8 mg/ Dextrose 258 ml @ 10.836 mls/ hr CONT PRN 11/12/19 08:15 11/14/19 03:54 8.669 MLS/HR Pantoprazole Sodium (PROTONIX VIAL for IV PUSH) 40 mg BIDAC 11/12/19 16:30 11/15/19 07:19 40 MG Piperacillin Sod/ Tazobactam Sod 3.375 gm/Sodium Chloride 50 ml @ 100 mls/hr Q8H 11/12/19 10:00 UNV Piperacillin Sod/ Tazobactam Sod 4.5 gm/Sodium Chloride 100 ml @ 200 mls/hr Q6HRS 11/12/19 12:00 11/15/19 05:35 200 MLS/HR Potassium Chloride/Water 100 ml @ 100 mls/hr Q1H 11/14/19 09:00 11/14/19 10:59 DC 11/14/19 10:30 100 MLS/HR Propofol 100 ml @ 0 mls/hr CONT PRN 11/12/19 07:00 Sodium Chloride 90 meq/Potassium Chloride 50 meq/ Potassium Phosphate 13.6 mmol/Magnesium Sulfate 10 meq/ Calcium Gluconate 10 meq/ Multivitamins 10 ml/Chromium/ Copper/Manganese/ Seleni/Zn 1 ml/ Total Parenteral Nutrition/Amino Acids/Dextrose/ Fat Emulsion Intravenous 1,500 ml @ 62.5 mls/hr TPN CONT 11/14/19 22:00 11/15/19 21:59 11/14/19 21:43 62.5 MLS/HR Vancomycin HCl (Vanco Per Pharmacy) 1 each PRN DAILY PRN 11/12/19 10:00 11/14/19 13:17 1 EACH Vancomycin HCl (Vancomycin Trough Level) 1 each 1X ONCE 11/16/19 01:30 11/16/19 01:31 Vancomycin HCl 1.5 gm/Sodium Chloride 500 ml @ 250 mls/hr 1X ONCE 11/12/19 11:00 11/12/19 12:59 DC 11/12/19 12:24 250 MLS/HR Vancomycin HCl 1 gm/Sodium Chloride 250 ml @ 250 mls/hr Q12H 11/14/19 14:00 11/15/19 02:11 250 MLS/HR Labs: Lab Laboratory Tests Test 11/14/19 08:00 11/14/19 12:40 11/15/19 00:05 11/15/19 05:15 O2 Saturation 91 % (92-99) Arterial Blood pH 7.41 (7.35-7.45) Arterial Blood pCO2 at Patient Temp 41 mmHg (35-46) Arterial Blood pO2 at Patient Temp 60 mmHg (65-108) Arterial Blood HCO3 25 mmol/L (21-28) Arterial Blood Base Excess 0 mmol/L (-3-3) FiO2 80% vent Sodium Level 140 mmol/L (136-145) 141 mmol/L (136-145) Potassium Level 3.5 mmol/L (3.5-5.1) 3.8 mmol/L (3.5-5.1) Chloride Level 106 mmol/L (98-107) 107 mmol/L (98-107) Carbon Dioxide Level 30 mmol/L (21-32) 29 mmol/L (21-32) Anion Gap 4 (6-14) 5 (6-14) Blood Urea Nitrogen 21 mg/dL (7-20) 23 mg/dL (7-20) Creatinine 0.8 mg/dL (0.6-1.0) 0.8 mg/dL (0.6-1.0) Estimated GFR (Cockcroft-Gault) 73.2 73.2 Glucose Level 186 mg/dL (70-99) 218 mg/dL (70-99) Calcium Level 8.7 mg/dL (8.5-10.1) 8.8 mg/dL (8.5-10.1) Magnesium Level 1.8 mg/dL (1.8-2.4) 1.8 mg/dL (1.8-2.4) Vancomycin Level Trough 6.5 mcg/mL (10.0-20.0) Vancomycin Last Dose Date 11/13/19 Vancomycin Last Dose Time 1300 Glucose (Fingerstick) 183 mg/dL (70-99) White Blood Count 10.0 x10^3/uL (4.0-11.0) Red Blood Count 2.63 x10^6/uL (3.50-5.40) Hemoglobin 6.8 g/dL (12.0-15.5) Hematocrit 20.6 % (36.0-47.0) Mean Corpuscular Volume 78 fL (79-100) Mean Corpuscular Hemoglobin 26 pg (25-35) Mean Corpuscular Hemoglobin Concent 33 g/dL (31-37) Red Cell Distribution Width 19.7 % (11.5-14.5) Platelet Count 150 x10^3/uL (140-400) Phosphorus Level 2.0 mg/dL (2.6-4.7) Triglycerides Level 145 mg/dL (0-150) Test 11/15/19 05:21 Glucose (Fingerstick) 199 mg/dL (70-99) Micro CT C/A/P 1. Endotracheal intubation with pneumomediastinum and equivocal findings for potential posterior tracheal wall injury. If it is important to determine whether a small tracheal injury exists without interrupting the positioning of the tube, the chest CT could be repeated following administration of a trace amount of water-soluble contrast material down the endotracheal tube to assess for mediastinal leak. 2. Patient's left-sided chest tube has its side-port in the left-sided chest wall where a large amount of subcutaneous emphysema is present. Patient does have a small left apical pneumothorax with no findings of tension. 3. Patient's extensive pneumomediastinum and subcutaneous emphysema in the left chest is also associated with gas in the left upper extremity venous system, which is at potential risk for air embolus. 4. Multifocal pneumonia has worsened since the last chest CT of slightly over 2 months ago. Although a component of aspiration pneumonitis is difficult to exclude, the endotracheal tube cuff appears very well inflated. It is likely a clinical judgment on how well inflated it should be. 5. Diffuse small bowel ileus with fluid distended stomach, small bowel and distal thoracic esophagus despite presence of an enteric tube. Consider repositioning the patient more upright such that the enteric tube tip more effectively evacuates the stomach and small bowel. Objective: Assessment: 1. Severe sepsis ,shock, source appears multifactorial,cult nonrevealing so far 2. Acute hypoxic respiratory failure ,left-sided pneumothorax, extensive pneumomediastinum, potential tracheal injury status post line placement, chest tube., CT with multiple abn 3. Leucocytosis and lactic acidosis ,leucocytosis can also have a reactive component 4. Aspiration pneumonia with emesis while on BiPAP at [facility]. 5. Bilateral interstitial infiltrates at [facility], likely worsening congestive heart failure, status post IV fluids, s/p bronch 6. Coffee-ground emesis. Bowel obstruction, Ileus 7. History of pulmonary embolism. Chronic respiratory failure, on home O2 with history of chronic obstructive pulmonary disease, 8 Bipolar disorder. 9. History of methicillin-resistant Staphylococcus aureus. 10 Hypokalemia. 11. Anemia. 12. Protein-calorie malnutrition. 13. History of smoking. 14.H/O noncomplaiance 15.Severe PCM Plan: Plan of Care Continue empiric IV Zosyn and Levaquin, may need renal dosing. Dc IV Vanc influenza screen neg ECHO noted f/u bronch cultures f/u cults and labs in am Condition critical. Overall, prognosis poor. Attempts were made to Transfer to or [facility] , denied D/W MAIDA KIM MD Nov 15, 2019 07:40
--- NOTE | 2019-11-15 07:46 | RAD ---
EXAM: PORTABLE CHEST 1V INDICATION: Respiratory failure. TECHNIQUE: Portable semiupright AP chest COMPARISON: 11/14/2019 FINDINGS: Patient remains intubated with the ET tube terminating 4.9 cm above the juliet. Right PICC line also remains present, tip terminating near the cavoatrial junction. Enteric tube passes below the diaphragms, looped in the stomach. The patient is left chest tube remains present but appears to have backed out slightly with the side-port now projecting over the left-sided chest wall soft tissues. The heart size is normal. The great vessels appear unremarkable. There are bilateral perihilar opacities that appear similar to prior. Lungs show patchy airspace opacities bilaterally, more conspicuous in the lower lungs with slight improvement in aeration of the left lower lobe. Small left apical pneumothorax without evidence of tension remains present. It is essentially unchanged. No acute osseous abnormalities. There is greater subcutaneous emphysema in the left chest wall. IMPRESSION: Lines and tubes as described, including a left-sided chest tube that appears to have backed out some from the left pleural space was slightly greater left chest wall subcutaneous emphysema but unchanged small left pneumothorax. No evidence of tension. FOR INTERNAL CODING PURPOSES Critical result: Findings discussed with patient's ICU nurse Carrie who took the report on behalf of Dr. VASHTI FORTUNE at 11/15/2019 7:38 AM. RESULT CODE: (C) Electronically signed by: Matt Gomez MD (11/15/2019 7:43 AM) [facility]
[2019-11-15] MEDS: IPRATRPIUM/ALBUTEROL 0.5/2.5MG 3 ML NEBU. NEB SCH ×4 (08:20→20:26)
[2019-11-15 09:04] LABS: BASE EXCESS ABG 1 mmol/L (-3-3); HCO3 ABG 25 mmol/L (21-28); PCO2 ABG 37 mmHg (35-46); PO2 ABG 84 mmHg (65-108); SAT O2 ABG 96 % (92-99)
[2019-11-15 09:07] LABS: FIO2 ABG 60
--- NOTE | 2019-11-15 09:16 | PN ---
DATE: 11/15/2019 SUBJECTIVE: The patient is resting, slightly propped up in bed, in no apparent distress. She continued to be sedated, intubated and mechanically ventilated. She is off Levophed. Her FiO2 is slightly better today at 60%, maintaining her oxygen saturation at 97%. Apparently, her hemoglobin and hematocrit has dropped down to 6.8 and 20.6, and we arranged for her to be typed and crossed and transfused 1 unit of packed RBCs. PHYSICAL EXAMINATION: GENERAL: When I saw her this morning, she was pale, somewhat cachectic but no jaundice, cyanosis or thyromegaly. No jugular venous distention. No limb edema. VITAL SIGNS: Her heart rate was 68, blood pressure was 134/82, temperature was 98.8, respiratory rate 22 and oxygen saturation was 96% on FiO2 of 60%. HEAD, EYES, EARS, NOSE AND THROAT: Showed normocephalic, atraumatic. She has orotracheal and orogastric tube in place. NECK: Supple. CARDIAC: Normal first and second heart sounds. No gallop, rub or murmur. CHEST: Shows central trachea, equally reduced expansion, reduced air entry, vesicular sounds with bilateral scattered rhonchi and wheezing on both sides. She has chest tube to underwater seal on the left side. Her intake was 3400 and output was 3045. LABORATORY DATA: Her lab work showed a white cell count 10,000, hemoglobin 6.8, hematocrit 20.6, MCV 78 and platelet count of 150,000. Her chemistry showed a serum sodium of 141, potassium 3.8, chloride 107, bicarbonate 29, anion gap of 5, BUN 23 and creatinine 0.8. Estimated GFR was 73 mL per minute. Her glucose was 118, calcium was 8.8, phosphorus 2 and magnesium was 1.8. Her blood gases as of yesterday showed a pH of 7.41, pCO2 of 41, pO2 of 60, bicarbonate 25, and oxygen saturation was 91%. Her influenza A and B were negative. Her chest x-ray as of yesterday showed that the patient has the right chest tube side hole projects at the level of the lateral chest wall and may not be completely intrathoracic, extensive subcutaneous emphysema, persistent airspace disease and small left apical pneumothorax. ASSESSMENT: 1. [id number] hypoxic/hypercapnic respiratory failure secondary to aspiration pneumonia, made worse and aggravated by left-sided pneumothorax. 2. The patient has bilateral interstitial infiltrates due to infection versus fluid overload. She also had emesis while on BiPAP machine, possible aspiration pneumonia. 3. Left-sided pneumothorax post-attempted line placement, status post chest tube placement, currently connected to suction. 4. She has underlying chronic obstructive pulmonary disease. 5. Chronic hypoxic respiratory failure exacerbated by noncompliance with medication and particularly narcotic abuse. 6. Septic shock. 7. Possible tracheal injury and apparently has had bronchoscopy, which showed no obvious tracheal injury. The part of the trachea was inspected. PLAN: To continue with mechanical ventilation. Continue with bronchodilator. Continue with IV antibiotic and steroids. For her anemia, we did type and cross, and we will transfuse her 1 unit of packed RBC. BERTRAND RENTERIA MD DR: SADAF/vita JOB#: [id number] / [id number]
[2019-11-15] MEDS ORDERED: VECURONIUM BOLUS 10 MG VIAL. IV ONE (11:44)
--- NOTE | 2019-11-15 11:47 | RAD ---
PORTABLE CHEST 1V Clinical Indication: Chest tube placement. Comparison: AP chest, earlier same day. Findings: Endotracheal tube, right PICC, an enteric tube are in stable position. The left chest tube has been advanced or replaced, the side-port is now in the pleural space. Lateral chest wall subcutaneous air is slightly greater. Tiny left apical pneumothorax is likely unchanged, evaluation is limited due to overlying tubing. Cardiac silhouette is stable. Bilateral perihilar opacities are unchanged. Bibasilar airspace opacities are mildly improved. Diffuse interstitial opacities are unchanged. IMPRESSION: 1. Left chest tube has been advanced. Tiny left apical pneumothorax is unchanged. 2. Diffuse interstitial opacities are unchanged. 3. Bibasilar airspace opacities are mildly improved. Electronically signed by: Giancarlo Godinez MD (11/15/2019 11:44 AM) [id number]
--- NOTE | 2019-11-15 11:59 | NUR ---
Notified Dr. Arriaza of radiology report from CXR, Dr. Arriaza advanced chest tube at bedside. CXR repeated stat to confirm placement. After results of CXR, Dr. Arriaza advanced it slightly further, then sutured in place.
[2019-11-15] MEDS: TPN PER PHARMACY MC PRN ×3 (12:00→12:55)
--- NOTE | 2019-11-15 12:02 | PDOC ---
PULMONARY PROGRESS NOTES Subjective remains intubated, sedated ,on 60%FIO2, with continous air leak on chest tube .ct chest findings suspicious for tracheal tear. S/P Bronch 11/13. No tracheal tear seen distal to ET tube but cannot exclude higher tracheal tear Vitals Vital Signs Date Time Temp Pulse Resp B/P (MAP) Pulse Ox O2 Delivery O2 Flow Rate FiO2 11/15/19 11:00 98.6 69 22 155/79 (104) 96 Ventilator 98.6 Lungs: Other (crepitus and continous squeaking sound left upper chest) Cardiovascular: S1, S2 Abdomen: Soft, Non-tender Extremities: Other (1+edema) Skin: Warm Labs Laboratory Tests Test 11/13/19 14:30 11/13/19 19:45 11/14/19 00:25 11/14/19 05:15 Hemoglobin 8.3 g/dL (12.0-15.5) 7.6 g/dL (12.0-15.5) Hematocrit 24.9 % (36.0-47.0) 23.2 % (36.0-47.0) Mean Corpuscular Hemoglobin Concent 34 g/dL (31-37) 33 g/dL (31-37) Influenza Type A Antigen Negative (NEGATIVE) Influenza Type B Antigen Negative (NEGATIVE) Glucose (Fingerstick) 175 mg/dL (70-99) White Blood Count 14.5 x10^3/uL (4.0-11.0) Red Blood Count 2.96 x10^6/uL (3.50-5.40) Mean Corpuscular Volume 78 fL (79-100) Mean Corpuscular Hemoglobin 26 pg (25-35) Red Cell Distribution Width 18.9 % (11.5-14.5) Platelet Count 236 x10^3/uL (140-400) Sodium Level 141 mmol/L (136-145) Potassium Level 3.1 mmol/L (3.5-5.1) Chloride Level 106 mmol/L (98-107) Carbon Dioxide Level 27 mmol/L (21-32) Anion Gap 8 (6-14) Blood Urea Nitrogen 20 mg/dL (7-20) Creatinine 0.8 mg/dL (0.6-1.0) Estimated GFR (Cockcroft-Gault) 73.2 BUN/Creatinine Ratio 25 (6-20) Glucose Level 179 mg/dL (70-99) Calcium Level 8.7 mg/dL (8.5-10.1) Magnesium Level 1.8 mg/dL (1.8-2.4) Total Bilirubin 0.4 mg/dL (0.2-1.0) Aspartate Amino Transf (AST/SGOT) 7 U/L (15-37) Alanine Aminotransferase (ALT/SGPT) < 6 U/L (14-59) Alkaline Phosphatase 37 U/L (46-116) Total Protein 5.3 g/dL (6.4-8.2) Albumin 1.8 g/dL (3.4-5.0) Albumin/Globulin Ratio 0.5 (1.0-1.7) Test 11/14/19 05:26 11/14/19 08:00 11/14/19 12:40 11/15/19 00:05 Glucose (Fingerstick) 175 mg/dL (70-99) 183 mg/dL (70-99) O2 Saturation 91 % (92-99) Arterial Blood pH 7.41 (7.35-7.45) Arterial Blood pCO2 at Patient Temp 41 mmHg (35-46) Arterial Blood pO2 at Patient Temp 60 mmHg (65-108) Arterial Blood HCO3 25 mmol/L (21-28) Arterial Blood Base Excess 0 mmol/L (-3-3) FiO2 80% vent Sodium Level 140 mmol/L (136-145) Potassium Level 3.5 mmol/L (3.5-5.1) Chloride Level 106 mmol/L (98-107) Carbon Dioxide Level 30 mmol/L (21-32) Anion Gap 4 (6-14) Blood Urea Nitrogen 21 mg/dL (7-20) Creatinine 0.8 mg/dL (0.6-1.0) Estimated GFR (Cockcroft-Gault) 73.2 Glucose Level 186 mg/dL (70-99) Calcium Level 8.7 mg/dL (8.5-10.1) Magnesium Level 1.8 mg/dL (1.8-2.4) Vancomycin Level Trough 6.5 mcg/mL (10.0-20.0) Vancomycin Last Dose Date 11/13/19 Vancomycin Last Dose Time 1300 Test 11/15/19 05:15 11/15/19 05:21 11/15/19 08:00 White Blood Count 10.0 x10^3/uL (4.0-11.0) Red Blood Count 2.63 x10^6/uL (3.50-5.40) Hemoglobin 6.8 g/dL (12.0-15.5) Hematocrit 20.6 % (36.0-47.0) Mean Corpuscular Volume 78 fL (79-100) Mean Corpuscular Hemoglobin 26 pg (25-35) Mean Corpuscular Hemoglobin Concent 33 g/dL (31-37) Red Cell Distribution Width 19.7 % (11.5-14.5) Platelet Count 150 x10^3/uL (140-400) Sodium Level 141 mmol/L (136-145) Potassium Level 3.8 mmol/L (3.5-5.1) Chloride Level 107 mmol/L (98-107) Carbon Dioxide Level 29 mmol/L (21-32) Anion Gap 5 (6-14) Blood Urea Nitrogen 23 mg/dL (7-20) Creatinine 0.8 mg/dL (0.6-1.0) Estimated GFR (Cockcroft-Gault) 73.2 Glucose Level 218 mg/dL (70-99) Calcium Level 8.8 mg/dL (8.5-10.1) Phosphorus Level 2.0 mg/dL (2.6-4.7) Magnesium Level 1.8 mg/dL (1.8-2.4) Triglycerides Level 145 mg/dL (0-150) Glucose (Fingerstick) 199 mg/dL (70-99) O2 Saturation 96 % (92-99) Arterial Blood pH 7.45 (7.35-7.45) Arterial Blood pCO2 at Patient Temp 37 mmHg (35-46) Arterial Blood pO2 at Patient Temp 84 mmHg (65-108) Arterial Blood HCO3 25 mmol/L (21-28) Arterial Blood Base Excess 1 mmol/L (-3-3) FiO2 60 Laboratory Tests Test 11/14/19 12:40 11/15/19 00:05 11/15/19 05:15 11/15/19 05:21 Sodium Level 140 mmol/L (136-145) 141 mmol/L (136-145) Potassium Level 3.5 mmol/L (3.5-5.1) 3.8 mmol/L (3.5-5.1) Chloride Level 106 mmol/L (98-107) 107 mmol/L (98-107) Carbon Dioxide Level 30 mmol/L (21-32) 29 mmol/L (21-32) Anion Gap 4 (6-14) 5 (6-14) Blood Urea Nitrogen 21 mg/dL (7-20) 23 mg/dL (7-20) Creatinine 0.8 mg/dL (0.6-1.0) 0.8 mg/dL (0.6-1.0) Estimated GFR (Cockcroft-Gault) 73.2 73.2 Glucose Level 186 mg/dL (70-99) 218 mg/dL (70-99) Calcium Level 8.7 mg/dL (8.5-10.1) 8.8 mg/dL (8.5-10.1) Magnesium Level 1.8 mg/dL (1.8-2.4) 1.8 mg/dL (1.8-2.4) Vancomycin Level Trough 6.5 mcg/mL (10.0-20.0) Vancomycin Last Dose Date 11/13/19 Vancomycin Last Dose Time 1300 Glucose (Fingerstick) 183 mg/dL (70-99) 199 mg/dL (70-99) White Blood Count 10.0 x10^3/uL (4.0-11.0) Red Blood Count 2.63 x10^6/uL (3.50-5.40) Hemoglobin 6.8 g/dL (12.0-15.5) Hematocrit 20.6 % (36.0-47.0) Mean Corpuscular Volume 78 fL (79-100) Mean Corpuscular Hemoglobin 26 pg (25-35) Mean Corpuscular Hemoglobin Concent 33 g/dL (31-37) Red Cell Distribution Width 19.7 % (11.5-14.5) Platelet Count 150 x10^3/uL (140-400) Phosphorus Level 2.0 mg/dL (2.6-4.7) Triglycerides Level 145 mg/dL (0-150) Test 11/15/19 08:00 O2 Saturation 96 % (92-99) Arterial Blood pH 7.45 (7.35-7.45) Arterial Blood pCO2 at Patient Temp 37 mmHg (35-46) Arterial Blood pO2 at Patient Temp 84 mmHg (65-108) Arterial Blood HCO3 25 mmol/L (21-28) Arterial Blood Base Excess 1 mmol/L (-3-3) FiO2 60 Medications Active Scripts Medications Dose Route/Sig Max Daily Dose Days Date Category Augmentin 500-125 Tablet (Amoxicillin/Potassium Clav) 1 Each Tablet 1 Tab PO BID 10 09/03/19 Rx Culturelle (Lactobacillus Rhamnosus Gg) 1 Each Cap.sprink 1 Cap PO BID 30 09/03/19 Rx Dok (Docusate Sodium) 100 Mg Capsule 100 Mg PO PRN BID PRN 30 09/03/19 Rx Tylenol (Acetaminophen) 325 Mg Tablet 650 Mg PO PRN Q4HRS PRN 30 09/03/19 Rx Xarelto (Rivaroxaban) 10 Mg Tablet 20 Mg PO DAILYWSUP 60 09/03/19 Rx Feosol (Ferrous Sulfate) 325 Mg Tablet 325 Mg PO BIDWMEALS 30 09/03/19 Rx Doxycycline Hyclate 100 Mg Tablet 100 Mg PO BID 10 09/03/19 Rx Seroquel (Quetiapine Fumarate) 400 Mg Tablet 1.5 Tab PO QHS 08/30/19 Reported Alprazolam 1 Mg Tablet 0.5 Tab PO TID 08/30/19 Reported Ropinirole Hcl 0.25 Mg Tablet 0.25 Mg PO BID 08/30/19 Reported Melatonin 5 Mg Tab.rapdis 1 Tab PO QHS 30 08/30/19 Reported Metoprolol Tartrate 25 Mg Tablet 0.5 Tab PO BID 08/30/19 Reported Pantoprazole Sodium (Pantoprazole Sodium) 40 Mg Tablet.dr 40 Mg PO DAILYAC 08/30/19 Reported Venlafaxine Hcl Er (Venlafaxine Hcl) 150 Mg Cap.er.24h 150 Mg PO QHS 08/11/19 Reported Duoneb 0.5-3(2.5) Mg/3 Ml (Albuterol/Ipratropium) 3 Ml Ampul.neb 3 Ml NEB RTQID 30 03/26/18 Rx Mucinex Dm Er 600-30 Mg Tablet (Guaifenesin/Dextromethorphan) 1 Each Tab.er.12h 1 Each PO BID 03/18/18 Reported Seroquel Xr (Quetiapine Fumarate) 400 Mg Tab.er.24h 800 Mg PO HS 03/18/18 Reported Comments cxr 2/7 reviewed. left pleural chest tube port out of pleural space small PTX Impression . 1. Acute on chronic hypoxic and hypercapnic respiratory failure secondary to multifactorial etiologies including acute exacerbation of chronic obstructive pulmonary disease, shock , left-sided pneumothorax and suspected tracheal tear 2. Bilateral interstitial infiltrates, suspect aspiration pneumonia She did receive 3 liters of IV fluids for possible sepsis. off pressor 3. Emesis while on BiPAP initially at [place], possibility of aspiration pneumonia is a consideration. 4. Left-sided pneumothorax post-attempted line placement, status post chest tube. Left PTX persist. continue chest tube to suction. 5. Underlying chronic obstructive pulmonary disease with chronic hypoxic respiratory failure and noncompliance. 6. Acute kidney injury.improved 7. Shock , likely septic shock. 8. Abnormal ct chest with suspected tracheal injury/ air in venous system. s/p Bronch , No tracheal tear seen distal to ET tube, cannot exclude higher level tear 9. Anemia Plan . 1. Continue present assist control mode. We will follow ABGs and make necessary adjustments.I had advanced chest tube today 2. CT chest, head, abdomen and pelvis reviewed 3. Continue chest tube to suction. 4. Broad-spectrum antibiotics. 5. IV steroids. 6. vasopressor support, off levo now 7. Monitor urine output. 8. ID and Renal recommendations. 9. Stress ulcer and DVT prophylaxis. 10 Numerous attempts to transfer to / [facility] not successful as they declined transfer 11/13 . Per their request Bronch has been done.we don't have thoracic surgery in house. Will need VAT for persistent continuos air leak, and suspected tracheal tear. 11. Discussed with RN and RT./ Dr Valente and Dr Cameron at again today. Transfer team declined transfer again today. spoke with [facility] . They don't have beds in ICU 12. Tx prn 13. DNR cct 35 min VASHTI FORTUNE MD Nov 15, 2019 12:02
--- NOTE | 2019-11-15 12:08 | PDOC ---
Objective: Objective: Reviewed chart, on TPN. Vital Signs: Vital Signs Date Time Temp Pulse Resp B/P (MAP) Pulse Ox O2 Delivery O2 Flow Rate FiO2 11/15/19 11:00 98.6 69 22 155/79 (104) 96 Ventilator 98.6 Labs: Laboratory Tests Test 11/14/19 12:40 11/15/19 00:05 11/15/19 05:15 11/15/19 05:21 Sodium Level 140 mmol/L 141 mmol/L Potassium Level 3.5 mmol/L 3.8 mmol/L Chloride Level 106 mmol/L 107 mmol/L Carbon Dioxide Level 30 mmol/L 29 mmol/L Anion Gap 4 5 Blood Urea Nitrogen 21 mg/dL 23 mg/dL Creatinine 0.8 mg/dL 0.8 mg/dL Estimated GFR (Cockcroft-Gault) 73.2 73.2 Glucose Level 186 mg/dL 218 mg/dL Calcium Level 8.7 mg/dL 8.8 mg/dL Magnesium Level 1.8 mg/dL 1.8 mg/dL Vancomycin Level Trough 6.5 mcg/mL Vancomycin Last Dose Date 11/13/19 Vancomycin Last Dose Time 1300 Glucose (Fingerstick) 183 mg/dL 199 mg/dL White Blood Count 10.0 x10^3/uL Red Blood Count 2.63 x10^6/uL Hemoglobin 6.8 g/dL Hematocrit 20.6 % Mean Corpuscular Volume 78 fL Mean Corpuscular Hemoglobin 26 pg Mean Corpuscular Hemoglobin Concent 33 g/dL Red Cell Distribution Width 19.7 % Platelet Count 150 x10^3/uL Phosphorus Level 2.0 mg/dL Triglycerides Level 145 mg/dL Test 11/15/19 08:00 O2 Saturation 96 % Arterial Blood pH 7.45 Arterial Blood pCO2 at Patient Temp 37 mmHg Arterial Blood pO2 at Patient Temp 84 mmHg Arterial Blood HCO3 25 mmol/L Arterial Blood Base Excess 1 mmol/L FiO2 60 Imaging: CXR 11/15 IMPRESSION: 1. Left chest tube has been advanced. Tiny left apical pneumothorax is unchanged. 2. Diffuse interstitial opacities are unchanged. 3. Bibasilar airspace opacities are mildly improved. PE: GEN: intubated LUNGS: coarse, subcutaneous emphysema HEART: tachycardic ABD: soft, bilious OG output NEURO/PSYCH: sedated A/P: Resp failure, aspiration pneumonia, possible tracheal tear, pneumothorax ACD/YESSY - hgb to 6.8 -- Transfusion ordered. Continue same per GI. Hemodynamically unstable?: Yes Is patient in severe pain?: No Is NPO status required?: Yes NAIDA SANZ Nov 15, 2019 12:08
--- NOTE | 2019-11-15 12:18 | NUR ---
SS following for discharge planning. SS received request for transfer to . SS contacted and made request for transfer, ; fax [phone]. SS contacted radiology, [phone], and requested images be clouded to . Records faxed per request to . Packet and transfer form being placed on chart. SS will await further communication from .
--- NOTE | 2019-11-15 14:03 | NUR ---
Pharmacy TPN Dosing Note S: CB CASTILLO is a 59 year old F Currently receiving Central Continuous TPN started 11/14/19 B:Pertinent PMH: ILEUS, COFFEE GROUND EMESIS. Height: 5 feet, 7 inches Weight: 65.8 kg Current diet: NPO LABS: Sodium: 141 Potassium: 3.8 Chloride: 107 Calcium: 8.8 Corrected Calcium: 10.56 Magnesium: 1.8 CO2: 29 SCr: 0.8 Glucose: 175 Albumin: 1.8 AST: 7 ALT: <6 TPN FORMULA: TPN TYPE: Central Continuous AMINO ACIDS: 75 gm DEXTROSE: 195 gm LIPIDS: 20 gm SODIUM CHLORIDE: 90 mEq SODIUM ACETATE: -- mEq SODIUM PHOSPHATE: -- mmol POTASSIUM CHLORIDE: 50 mEq POTASSIUM ACETATE: -- mEq POTASSIUM PHOSPHATE: 15 mmol MAGNESIUM: 10 mEq CALCIUM: 8 mEq INSULIN: -- units MULTIPLE VITAMIN: 10 ml TRACE ELEMENTS: 1 ml(s) TPN PLAN: Ca level is slightly elevated, so decreased to 8 meq in TPN and phos is low, so increased to 15 mmol in bag R: Continue TPN as per above Will monitor electrolytes, glucose, and tolerance to TPN. KIRA GAGE [facility], 11/15/19 [id number]
--- NOTE | 2019-11-15 15:52 | NUR ---
SS following up with discharge planning. [facility] denied pt for transfer. [facility] transfer team notified SS that they have no ICU beds at this time and do not keep a wait list for ICU and encouraged Dr. Beckwith to try other hospitals. SS discussed with Dr. Beckwith and Dr. Beckwith reported that he will monitor pt over the weekend and if not improved will attempt transfer to [facility] on Monday. ICU notified. SS will continue to follow for discharge planning.
[2019-11-15] MEDS ORDERED: [UNRECOGNIZED DRUG - OTHER] IV SCH ×10 (22:00)
[2019-11-15] MEDS ORDERED: AMINO ACID IV SCH ×10 (22:00)
[2019-11-15] MEDS ORDERED: TOTAL PARENTERAL NUTRITION IV SCH ×10 (22:00)
[2019-11-15] MEDS ORDERED: DEXTROSE 70% IV SCH ×10 (22:00)
[2019-11-16] VITALS (24 sets, daily range): BP systolic 100–195; BP diastolic 64–108
[2019-11-16] MEDS: MIDAZOLAM HCL 50 MG in IV NORMAL SALINE 50ML 50 ML IV PRN ×6 (01:12→20:33)
[2019-11-16] MEDS: PIPERACILLIN/TAZOBACTAM 4.5 GM in IV NORMAL SALINE 100ML 100 ML IV SCH ×4 (05:40→23:55)
[2019-11-16] MEDS: methylPREDNISolone SOD SUCC PF 40 MG/ML VIAL. IV SCH (05:40)
[2019-11-16 06:12] LABS: HEMATOCRIT 27.3 % (36.0-47.0); RED BLOOD COUNT 3.43 x10^6/uL (3.50-5.40); RED CELL DISTRIBUTION WIDTH 19.2 % (11.5-14.5)
--- NOTE | 2019-11-16 06:17 | PDOC ---
PULMONARY PROGRESS NOTES Subjective on vent, sedated versed fentanyl, small ett secretion ,on 60%FIO2, peep 5,with continuos air leak on chest tube . Vitals Vital Signs Date Time Temp Pulse Resp B/P (MAP) Pulse Ox O2 Delivery O2 Flow Rate FiO2 11/16/19 06:00 76 22 106/65 (79) 96 Ventilator 11/16/19 04:00 97.8 97.8 Comments ros unable to obtain on vent sedated HEENT: Other (nc at perrl nose clear orally intubated neck no lad no thyromegaly sub cut emphysema ) Lungs: Other (crepitus and continous squeaking sound left upper chest) Cardiovascular: S1, S2 Abdomen: Soft, Non-tender Extremities: Other (1+edema) Skin: Warm Labs Laboratory Tests Test 11/14/19 08:00 11/14/19 12:40 11/15/19 00:05 11/15/19 05:15 O2 Saturation 91 % (92-99) Arterial Blood pH 7.41 (7.35-7.45) Arterial Blood pCO2 at Patient Temp 41 mmHg (35-46) Arterial Blood pO2 at Patient Temp 60 mmHg (65-108) Arterial Blood HCO3 25 mmol/L (21-28) Arterial Blood Base Excess 0 mmol/L (-3-3) FiO2 80% vent Sodium Level 140 mmol/L (136-145) 141 mmol/L (136-145) Potassium Level 3.5 mmol/L (3.5-5.1) 3.8 mmol/L (3.5-5.1) Chloride Level 106 mmol/L (98-107) 107 mmol/L (98-107) Carbon Dioxide Level 30 mmol/L (21-32) 29 mmol/L (21-32) Anion Gap 4 (6-14) 5 (6-14) Blood Urea Nitrogen 21 mg/dL (7-20) 23 mg/dL (7-20) Creatinine 0.8 mg/dL (0.6-1.0) 0.8 mg/dL (0.6-1.0) Estimated GFR (Cockcroft-Gault) 73.2 73.2 Glucose Level 186 mg/dL (70-99) 218 mg/dL (70-99) Calcium Level 8.7 mg/dL (8.5-10.1) 8.8 mg/dL (8.5-10.1) Magnesium Level 1.8 mg/dL (1.8-2.4) 1.8 mg/dL (1.8-2.4) Vancomycin Level Trough 6.5 mcg/mL (10.0-20.0) Vancomycin Last Dose Date 11/13/19 Vancomycin Last Dose Time 1300 Glucose (Fingerstick) 183 mg/dL (70-99) White Blood Count 10.0 x10^3/uL (4.0-11.0) Red Blood Count 2.63 x10^6/uL (3.50-5.40) Hemoglobin 6.8 g/dL (12.0-15.5) Hematocrit 20.6 % (36.0-47.0) Mean Corpuscular Volume 78 fL (79-100) Mean Corpuscular Hemoglobin 26 pg (25-35) Mean Corpuscular Hemoglobin Concent 33 g/dL (31-37) Red Cell Distribution Width 19.7 % (11.5-14.5) Platelet Count 150 x10^3/uL (140-400) Phosphorus Level 2.0 mg/dL (2.6-4.7) Triglycerides Level 145 mg/dL (0-150) Test 11/15/19 05:21 11/15/19 08:00 11/16/19 00:22 Glucose (Fingerstick) 199 mg/dL (70-99) 230 mg/dL (70-99) O2 Saturation 96 % (92-99) Arterial Blood pH 7.45 (7.35-7.45) Arterial Blood pCO2 at Patient Temp 37 mmHg (35-46) Arterial Blood pO2 at Patient Temp 84 mmHg (65-108) Arterial Blood HCO3 25 mmol/L (21-28) Arterial Blood Base Excess 1 mmol/L (-3-3) FiO2 60 Laboratory Tests Test 11/15/19 08:00 11/16/19 00:22 O2 Saturation 96 % (92-99) Arterial Blood pH 7.45 (7.35-7.45) Arterial Blood pCO2 at Patient Temp 37 mmHg (35-46) Arterial Blood pO2 at Patient Temp 84 mmHg (65-108) Arterial Blood HCO3 25 mmol/L (21-28) Arterial Blood Base Excess 1 mmol/L (-3-3) FiO2 60 Glucose (Fingerstick) 230 mg/dL (70-99) Medications Active Scripts Medications Dose Route/Sig Max Daily Dose Days Date Category Augmentin 500-125 Tablet (Amoxicillin/Potassium Clav) 1 Each Tablet 1 Tab PO BID 10 09/03/19 Rx Culturelle (Lactobacillus Rhamnosus Gg) 1 Each Cap.sprink 1 Cap PO BID 30 09/03/19 Rx Dok (Docusate Sodium) 100 Mg Capsule 100 Mg PO PRN BID PRN 30 09/03/19 Rx Tylenol (Acetaminophen) 325 Mg Tablet 650 Mg PO PRN Q4HRS PRN 30 09/03/19 Rx Xarelto (Rivaroxaban) 10 Mg Tablet 20 Mg PO DAILYWSUP 60 09/03/19 Rx Feosol (Ferrous Sulfate) 325 Mg Tablet 325 Mg PO BIDWMEALS 30 09/03/19 Rx Doxycycline Hyclate 100 Mg Tablet 100 Mg PO BID 10 09/03/19 Rx Seroquel (Quetiapine Fumarate) 400 Mg Tablet 1.5 Tab PO QHS 08/30/19 Reported Alprazolam 1 Mg Tablet 0.5 Tab PO TID 08/30/19 Reported Ropinirole Hcl 0.25 Mg Tablet 0.25 Mg PO BID 08/30/19 Reported Melatonin 5 Mg Tab.rapdis 1 Tab PO QHS 30 08/30/19 Reported Metoprolol Tartrate 25 Mg Tablet 0.5 Tab PO BID 08/30/19 Reported Pantoprazole Sodium (Pantoprazole Sodium) 40 Mg Tablet.dr 40 Mg PO DAILYAC 08/30/19 Reported Venlafaxine Hcl Er (Venlafaxine Hcl) 150 Mg Cap.er.24h 150 Mg PO QHS 08/11/19 Reported Duoneb 0.5-3(2.5) Mg/3 Ml (Albuterol/Ipratropium) 3 Ml Ampul.neb 3 Ml NEB RTQID 30 03/26/18 Rx Mucinex Dm Er 600-30 Mg Tablet (Guaifenesin/Dextromethorphan) 1 Each Tab.er.12h 1 Each PO BID 03/18/18 Reported Seroquel Xr (Quetiapine Fumarate) 400 Mg Tab.er.24h 800 Mg PO HS 03/18/18 Reported Comments cxr 11/16 reviewed. chest tube, sub cut emphysema ? worse ett ok Impression . 1. Acute on chronic hypoxic and hypercapnic respiratory failure secondary to multifactorial etiologies including acute exacerbation of chronic obstructive pulmonary disease, shock , left-sided pneumothorax and suspected tracheal tear 2. Bilateral interstitial infiltrates, suspect aspiration pneumonia She did receive 3 liters of IV fluids for possible sepsis. off pressor 3. Emesis while on BiPAP initially at [place], possibility of aspiration pneumonia is a consideration. 4. Left-sided pneumothorax post-attempted line placement, status post chest tube. Left PTX persist. continue chest tube to suction. 5. Underlying chronic obstructive pulmonary disease with chronic hypoxic respiratory failure and noncompliance. 6. Acute kidney injury.improved 7. Shock , likely septic shock. 8. Abnormal ct chest with suspected tracheal injury/ air in venous system. s/p Bronch , No tracheal tear seen distal to ET tube, cannot exclude higher level tear 9. Anemia Plan . 1. Continue present assist control mode. cont vent support, setting reviewed, ct has air leak, will dc peep, We will follow ABGs and make necessary adjustments.I had advanced chest tube today 2. CT chest, head, abdomen and pelvis reviewed 3. Continue chest tube to suction. 4. Broad-spectrum antibiotics. 5. change solumedrol to daily 6. vasopressor support, off levo now 7. Monitor urine output. 8. ID and Renal recommendations. 9. Stress ulcer and DVT prophylaxis. 10 dr wells made Numerous attempts to transfer to / [facility] not successful as they declined transfer 11/13 . Per their request Bronch has been done.we don't have thoracic surgery in house. Will need VAT for persistent continuos air leak, and suspected tracheal tear. 11. dr wells, Discussed ./ Dr Valente and Dr Cameron at 11/15. Transfer team declined transfer yesterday. spoke with [facility] . They don't have beds in ICU, 12. Tx prn 13. DNR 14. dr wells--> ct chest findings suspicious for tracheal tear. S/P Bronch /. No tracheal tear seen distal to ET tube but cannot exclude higher tracheal tear discussed with RN and RT ESTEFANÍA HIGGINS MD Nov 16, 2019 06:17
--- NOTE | 2019-11-16 06:23 | RAD ---
PORTABLE CHEST 1V Clinical History: Follow-up intubated Technique: AP view of the chest was obtained at 11/16/2019 9:00 AM. Comparison: November 15, 2019. Findings: There is moderate right chest wall subcutaneous emphysema and marked left chest wall subcutaneous emphysema. The left-sided chest tube is again seen. There is a small left pneumothorax. There is blunting of the costophrenic angles. The heart is normal size. The pulmonary vessels are difficult to evaluate. There is patchy reticular opacities of the lungs. The right PICC is again seen unchanged. Endotracheal tube and NG tube are again seen unchanged. Impression: 1. Chest wall subcutaneous emphysema left worse than right appears worse than on the prior study. 2. Small left pneumothorax not seen previously. 3. Patchy reticular opacities of lungs left worse than right. This appears mildly worse. 4. Mild pleural effusions. Electronically signed by: Young Sidhu III, MD (11/16/2019 6:20 AM) [id number]
[2019-11-16 06:36] LABS: CALCIUM 8.9 mg/dL (8.5-10.1); CREATININE 0.8 mg/dL (0.6-1.0); GFR 73.2; MAGNESIUM 1.9 mg/dL (1.8-2.4); PHOSPHORUS 2.9 mg/dL (2.6-4.7)
[2019-11-16] MEDS: IPRATRPIUM/ALBUTEROL 0.5/2.5MG 3 ML NEBU. NEB SCH ×4 (07:24→20:05)
[2019-11-16 07:34] LABS: BASE EXCESS ABG 1 mmol/L (-3-3); HCO3 ABG 26 mmol/L (21-28); PCO2 ABG 42 mmHg (35-46); PO2 ABG 88 mmHg (65-108); SAT O2 ABG 96 % (92-99)
[2019-11-16 07:38] LABS: FIO2 ABG 60%
[2019-11-16] MEDS: PANTOPRAZOLE IV PUSH 40 MG VIAL. IVP SCH ×2 (08:01→16:51)
--- NOTE | 2019-11-16 09:23 | PDOC ---
Infectious Disease Note Subjective: Subjective pt remains intubated and sedated tachypneic, tachycardic d/w rn Vital Signs: Vital Signs Vital Signs Date Time Temp Pulse Resp B/P (MAP) Pulse Ox O2 Delivery O2 Flow Rate FiO2 11/16/19 08:00 Mechanical Ventilator 11/16/19 07:25 98 11/16/19 07:00 84 23 122/74 (90) 11/16/19 04:00 97.8 97.8 Physical Exam: PHYSICAL EXAM GENERAL: Intubated, sedated. HEENT: Sclerae are anicteric. NG tube in place. NECK: Supple. LUNGS: diffuse coarse bs ,somewhat improved than admission, Left-sided chest tube present.sqweaking sounds upper airways HEART: S1, S2, tachy ABDOMEN: Soft, nontender.distended EXTREMITIES: Trace edema. DERMATOLOGIC: Warm, dry. No generalized rash. CENTRAL NERVOUS SYSTEM: Intubated. LINES: Lt Femoral line removed, RUE PICC line intact, clean Medications: Inpatient Meds: Current Medications Medications (Trade) Dose Ordered Sig/Isma Start Time Stop Time Status Last Admin Dose Admin Acetaminophen (Tylenol Supp) 325 mg PRN Q6HRS PRN 11/12/19 16:00 Albumin Human 500 ml @ 125 mls/hr 1X ONCE 11/12/19 16:30 11/12/19 20:29 DC 11/12/19 16:45 125 MLS/HR Albuterol/ Ipratropium (Duoneb) 3 ml RTQID 11/12/19 20:00 11/16/19 07:24 3 ML Amino Acids/ Electrolytes/ Dextrose 1,000 ml @ 80 mls/hr [id number] 11/13/19 10:15 11/14/19 10:49 DC 11/14/19 02:06 80 MLS/HR Fentanyl Citrate (Fentanyl 2ml Vial) 100 mcg 1X ONCE 11/12/19 07:15 11/12/19 07:20 DC 11/12/19 07:24 100 MCG Info ([facility]cu Electrolyte Protocol) 1 ea CONT PRN PRN 11/14/19 08:15 Info (Tpn Per Pharmacy) 1 each PRN DAILY PRN 11/14/19 11:00 11/15/19 12:55 1 EACH Levofloxacin/ Dextrose 150 ml @ 100 mls/hr Q24H 11/14/19 10:00 11/15/19 09:43 100 MLS/HR Lidocaine HCl (Lidocaine 2% Viscous) 100 ml PRN 1X PRN 11/13/19 09:30 11/14/19 09:29 DC 11/13/19 09:36 100 ML Lorazepam (Ativan Inj) 2 mg PRN Q1HR PRN 11/13/19 10:00 11/16/19 05:43 2 MG Magnesium Sulfate 50 ml @ 25 mls/hr 1X ONCE 11/13/19 11:00 11/13/19 12:59 DC 11/13/19 11:03 25 MLS/HR Methylprednisolone Sodium Succinate (SOLU-Medrol 40MG VIAL) 40 mg Q8HRS 11/12/19 11:00 11/16/19 05:40 40 MG Midazolam HCl (Versed) 5 mg 1X ONCE 11/12/19 07:15 11/12/19 07:20 DC 11/12/19 07:24 5 MG Midazolam HCl 50 mg/Sodium Chloride 50 ml @ 0 mls/hr CONT PRN 11/12/19 07:00 11/16/19 07:39 8 MLS/HR Norepinephrine Bitartrate 8 mg/ Dextrose 258 ml @ 10.836 mls/ hr CONT PRN 11/12/19 08:15 11/14/19 03:54 8.669 MLS/HR Pantoprazole Sodium (PROTONIX VIAL for IV PUSH) 40 mg BIDAC 11/12/19 16:30 11/16/19 08:01 40 MG Piperacillin Sod/ Tazobactam Sod 3.375 gm/Sodium Chloride 50 ml @ 100 mls/hr Q8H 11/12/19 10:00 UNV Piperacillin Sod/ Tazobactam Sod 4.5 gm/Sodium Chloride 100 ml @ 200 mls/hr Q6HRS 11/12/19 12:00 11/16/19 05:40 200 MLS/HR Potassium Chloride/Water 100 ml @ 100 mls/hr Q1H 11/14/19 09:00 11/14/19 10:59 DC 11/14/19 10:30 100 MLS/HR Propofol 100 ml @ 0 mls/hr CONT PRN 11/12/19 07:00 Sodium Chloride 90 meq/Potassium Chloride 50 meq/ Potassium Phosphate 13.6 mmol/Magnesium Sulfate 10 meq/ Calcium Gluconate 10 meq/ Multivitamins 10 ml/Chromium/ Copper/Manganese/ Seleni/Zn 1 ml/ Total Parenteral Nutrition/Amino Acids/Dextrose/ Fat Emulsion Intravenous 1,500 ml @ 62.5 mls/hr TPN CONT 11/14/19 22:00 11/15/19 21:59 DC 11/14/19 21:43 62.5 MLS/HR Sodium Chloride 90 meq/Potassium Chloride 50 meq/ Potassium Phosphate 15 mmol/ Magnesium Sulfate 10 meq/Calcium Gluconate 8 meq/ Multivitamins 10 ml/Chromium/ Copper/Manganese/ Seleni/Zn 1 ml/ Total Parenteral Nutrition/Amino Acids/Dextrose/ Fat Emulsion Intravenous 1,500 ml @ 62.5 mls/hr TPN CONT 11/15/19 22:00 11/16/19 21:59 11/15/19 22:21 62.5 MLS/HR Vancomycin HCl (Vanco Per Pharmacy) 1 each PRN DAILY PRN 11/12/19 10:00 11/15/19 08:32 DC 11/14/19 13:17 1 EACH Vancomycin HCl (Vancomycin Trough Level) 1 each 1X ONCE 11/16/19 01:30 11/15/19 08:33 DC Vancomycin HCl 1.5 gm/Sodium Chloride 500 ml @ 250 mls/hr 1X ONCE 11/12/19 11:00 11/12/19 12:59 DC 11/12/19 12:24 250 MLS/HR Vancomycin HCl 1 gm/Sodium Chloride 250 ml @ 250 mls/hr Q12H 11/14/19 14:00 11/15/19 08:30 DC 11/15/19 02:11 250 MLS/HR Vecuronium [place] (Norcuron Bolus) 10 mg STK-MED ONCE 11/15/19 11:44 11/15/19 11:45 DC Labs: Lab Laboratory Tests Test 11/16/19 00:22 11/16/19 05:45 11/16/19 07:37 Glucose (Fingerstick) 230 mg/dL (70-99) White Blood Count 11.0 x10^3/uL (4.0-11.0) Red Blood Count 3.43 x10^6/uL (3.50-5.40) Hemoglobin 9.0 g/dL (12.0-15.5) Hematocrit 27.3 % (36.0-47.0) Mean Corpuscular Volume 80 fL (79-100) Mean Corpuscular Hemoglobin 26 pg (25-35) Mean Corpuscular Hemoglobin Concent 33 g/dL (31-37) Red Cell Distribution Width 19.2 % (11.5-14.5) Platelet Count 168 x10^3/uL (140-400) Sodium Level 141 mmol/L (136-145) Potassium Level 4.0 mmol/L (3.5-5.1) Chloride Level 105 mmol/L (98-107) Carbon Dioxide Level 29 mmol/L (21-32) Anion Gap 7 (6-14) Blood Urea Nitrogen 25 mg/dL (7-20) Creatinine 0.8 mg/dL (0.6-1.0) Estimated GFR (Cockcroft-Gault) 73.2 Glucose Level 220 mg/dL (70-99) Calcium Level 8.9 mg/dL (8.5-10.1) Phosphorus Level 2.9 mg/dL (2.6-4.7) Magnesium Level 1.9 mg/dL (1.8-2.4) O2 Saturation 96 % (92-99) Arterial Blood pH 7.40 (7.35-7.45) Arterial Blood pCO2 at Patient Temp 42 mmHg (35-46) Arterial Blood pO2 at Patient Temp 88 mmHg (65-108) Arterial Blood HCO3 26 mmol/L (21-28) Arterial Blood Base Excess 1 mmol/L (-3-3) FiO2 60% Micro CT C/A/P 1. Endotracheal intubation with pneumomediastinum and equivocal findings for potential posterior tracheal wall injury. If it is important to determine whether a small tracheal injury exists without interrupting the positioning of the tube, the chest CT could be repeated following administration of a trace amount of water-soluble contrast material down the endotracheal tube to assess for mediastinal leak. 2. Patient's left-sided chest tube has its side-port in the left-sided chest wall where a large amount of subcutaneous emphysema is present. Patient does have a small left apical pneumothorax with no findings of tension. 3. Patient's extensive pneumomediastinum and subcutaneous emphysema in the left chest is also associated with gas in the left upper extremity venous system, which is at potential risk for air embolus. 4. Multifocal pneumonia has worsened since the last chest CT of slightly over 2 months ago. Although a component of aspiration pneumonitis is difficult to exclude, the endotracheal tube cuff appears very well inflated. It is likely a clinical judgment on how well inflated it should be. 5. Diffuse small bowel ileus with fluid distended stomach, small bowel and distal thoracic esophagus despite presence of an enteric tube. Consider repositioning the patient more upright such that the enteric tube tip more effectively evacuates the stomach and small bowel. Objective: Assessment: 1. Severe sepsis ,shock, source appears multifactorial,off pressors 2. Acute hypoxic respiratory failure ,left-sided pneumothorax, extensive pneumomediastinum, potential tracheal injury (status post line plac [facility] at [facility]), chest tube., CT with multiple abn including leak 3. Leucocytosis and lactic acidosis improving 4. Aspiration pneumonia with emesis while on BiPAP at [facility]. 5. Bilateral interstitial infiltrates at [facility], likely worsening congestive heart failure, status post IV fluids, s/p bronch 6. Coffee-ground emesis. Bowel obstruction, Ileus 7. History of pulmonary embolism. Chronic respiratory failure, on home O2 with history of chronic obstructive pulmonary disease, 8 Bipolar disorder. 9. History of methicillin-resistant Staphylococcus aureus. 10 Hypokalemia. 11. Anemia. 12. Protein-calorie malnutrition. 13. History of smoking. 14.H/O noncomplaiance 15.Severe PCM Plan: Plan of Care Continue empiric IV Zosyn and Levaquin, may need renal dosing. add micafungin DC IV Vanc influenza screen neg ECHO noted f/u bronch cultures,yeast likely contaminant f/u cults and labs in am Condition critical. Overall, prognosis very poor. Attempts were made numerous times to transfer to or [facility] , has not been accepted D/W Dr Carbajal D/W MAIDA KIM MD Nov 16, 2019 09:23
[2019-11-16] MEDS ORDERED: VECURONIUM BOLUS 10 MG VIAL. IV ONE (10:04)
[2019-11-16] MEDS: VECURONIUM BOLUS 10 MG VIAL. IV PRN ×3 (10:11→20:05)
[2019-11-16] MEDS: METOPROLOL TARTRATE 5 MG/5 ML VIAL. IVP SCH ×3 (10:40→23:57)
--- NOTE | 2019-11-16 11:00 | RAD ---
EXAM: CHEST AP ONLY INDICATION: Tube placement. Patient is intubated but had increased gurgling from her endotracheal tube during routine bedside care. TECHNIQUE: Single AP view COMPARISON: Earlier same day chest x-ray at 5:00 AM FINDINGS: The heart size is normal. The great vessels appear unremarkable. Unchanged bilateral hilar fullness, varying in conspicuity depending on patient positioning. The lungs show similar-appearing patchy airspace opacities most conspicuous in the lower lobes and on the right greater than the left.. There is no pleural effusion or pneumothorax. There are no significant osseous abnormalities. There is worsening chest wall and upper extremity subcutaneous emphysema, with apparent inflation of the right breast with interstitial gas. IMPRESSION: 1. Stable positioning of the endotracheal tube in apparent satisfactory position with also stable apparent satisfactory positioning of left chest tube, right PICC line and enteric tube. 2. Worsening subcutaneous emphysema in the chest. FOR INTERNAL CODING PURPOSES Critical result: Findings discussed with patient's ICU nurse Swathi who took the report on on behalf of Dr. ESTEFANÍA HIGGINS at 11/16/2019 10:53 AM. RESULT CODE: (C) Electronically signed by: Matt Gomez MD (11/16/2019 10:58 AM) [facility]
[2019-11-16] MEDS: MICAFUNGIN 100 MG in IV DEXTROSE 5% 100ML 100 ML IV SCH (11:23)
[2019-11-16] MEDS: TPN PER PHARMACY MC PRN (12:23)
--- NOTE | 2019-11-16 12:25 | NUR ---
Pharmacy TPN Dosing Note S: CB CASTILLO is a 59 year old F Currently receiving Central Continuous TPN started 11/14/19 B:Pertinent PMH: ILEUS, COFFEE GROUND EMESIS. Height: 5 feet, 7 inches Weight: 67.0 kg Current diet: NPO LABS: Sodium: 141 Potassium: 4 Chloride: 105 Calcium: 8.9 Corrected Calcium: 10.66 Magnesium: 1.9 CO2: 29 SCr: 0.8 Glucose: 220 Albumin: 1.8 AST: 7 ALT: <6 TPN FORMULA: TPN TYPE: Central Continuous AMINO ACIDS: 75 gm DEXTROSE: 195 gm LIPIDS: 20 gm SODIUM CHLORIDE: 90 mEq POTASSIUM CHLORIDE: 50 mEq POTASSIUM PHOSPHATE: 15 mmol MAGNESIUM: 10 mEq CALCIUM: 8 mEq MULTIPLE VITAMIN: 10 ml TRACE ELEMENTS: 1 ml TPN PLAN: Continue same. R: Continue TPN Will monitor electrolytes, glucose, and tolerance to TPN. Komal Calero RPH, 11/16/19 [id number]
--- NOTE | 2019-11-16 12:37 | PN ---
DATE: 11/16/2019 SUBJECTIVE: The patient is resting, slightly propped up in bed, continues to be sedated, intubated and mechanically ventilated. She is off Levophed. She is on TPN and IV antibiotic. She is maintaining her oxygen saturation at 98% on FiO2 of 50%. PHYSICAL EXAMINATION: GENERAL: When I examined her this morning, she was pale, cachectic, but no jaundice, cyanosis, or thyromegaly. No jugular venous distension. No lower limb edema. VITAL SIGNS: Her heart rate was 84, blood pressure was 122/74, temperature was 97.8, respiratory rate 23, and oxygen saturation was 98% on FiO2 of 50%. HEAD, EYES, EARS, NOSE AND THROAT: Showed normocephalic, atraumatic. She has orotracheal and orogastric tube in place. NECK: Supple. HEART: Normal first and second heart sounds. No gallop or murmur. CHEST: Shows central trachea, equal bilateral expansion, air entry, bilateral scattered rhonchi. I could not appreciate any crepitation. She has subcutaneous emphysema, marked crepitus, mostly in the left side. ABDOMEN: Slightly distended, soft, nontender. NEUROLOGIC: She is sedated. Her intake over the last 24 hours was 3000, output was 2000. LABORATORY DATA: Her lab work this morning showed a white cell count of 11,000, hemoglobin 9, hematocrit 27, MCV was 80 and platelet count of 168,000. Her chemistry showed a serum sodium 141, potassium 4, chloride 105, bicarbonate 29, anion gap of 7, BUN 25, creatinine 0.8, estimated GFR was 73 mL per minute. Her glucose was 220. Calcium was 8.9, phosphorus was 2.9 and magnesium was 1.9. Her chest x-ray showed that the chest wall subcutaneous emphysema, left worse than right, appears worse than the prior study. She has small left pneumothorax not seen previously. Patchy reticular opacities of the lung, left worse than right, this appears mildly worse. Mild pleural effusion. ASSESSMENT: 1. Acute on chronic hypoxic hypercapnic respiratory failure secondary to multifactorial including acute exacerbation of chronic obstructive pulmonary disease, septic shock, left-sided pneumothorax with suspected tracheal tear. 2. Bilateral interstitial infiltrates, suspected aspiration pneumonia, emesis while on BiPAP, but initially at [facility] possible aspiration pneumonia is a consideration. 3. Left-sided pneumothorax post attempted line placement, status post chest tube, left pneumothorax ____ and her chest tube was continued to be suctioned. 4. Underlying chronic obstructive pulmonary disease, chronic hypoxic respiratory failure, noncompliance with medication and narcotic abuse. 5. Acute kidney injury, improving. 6. Shock, likely septic shock, improving. She underwent bronchoscopy with no tracheal tear seen distal to the ET tube. 7. Anemia, status post blood transfusion. PLAN: Continue with sedation. Continue with mechanical ventilation, wean as tolerated. Continue nutritional support from TPN. Continue with ____ intermittent suction. Continue with IV antibiotic as recommended by the Infectious Disease specialist. BERTRAND RENTERIA MD DR: SADAF/vita JOB#: [id number] / [id number]
[2019-11-16] MEDS ORDERED: DEXTROSE 50% 25 GM / 50ML DISP.SYRIN. IV PRN (13:00)
[2019-11-16] MEDS ORDERED: IV DEXTROSE 5% 250 ML BAG. IV PRN (13:00)
[2019-11-16] MEDS: INSULIN LISPRO 300 UNITS/3 ML VIAL. SQ SCH ×2 (13:48→16:58)
--- NOTE | 2019-11-16 14:41 | PDOC2 ---
CONSULT Date of Consult Date of Consult DATE: 11/16/19 TIME: 14:33 Reason for Consult Reason for Consult: Tachycardia Referring Physician Referring Physician: Dr. Valente Identification/Chief Complaint Chief Complaint Respiratory failure as above. Source Source: Chart review History of Present Illness Reason for Visit: The patient is a 59-year-old female with a very complicated recent medical history as outlined above including respiratory failure with the patient being placed on a ventilator, pneumonia, left-sided pneumothorax status post chest tube placement and improving acute kidney injury. She is followed by the pulmonary, ID and primary care services. A recent echocardiogram on showed an ejection fraction of 55-60% with mild left ventricular hypertrophy and mild tricuspid regurgitation with a pulmonary artery pressure 46 mmHg. We were asked today to evaluate several relatively brief episodes of tachycardia. The patient has remained on a ventilator during this time. Review of the rhythm shows sinus tachycardia at a rate of 140. The patient's nurse states that this time the patient was less sedated and became somewhat agitated. There are no ischemic changes identified. At the present time the patient is more comfortable on the ventilator in sinus rhythm with a rate of 82. Past Medical History Cardiovascular: HTN, Hyperlipidemia Pulmonary: COPD, Pulmonary embolus, Previously Intubated, Pneumonia, Other (intubation) Renal/: Acute renal failure Past Surgical History Past Surgical History: Other (patient on a ventilator) Family History Family History: Hypertension Social History 2 packs per day ALCOHOL: none Drugs: Other Current Medications Current Medications Current Medications Fentanyl Citrate 30 ml @ 0 mls/hr CONT PRN IV SEE PROTOCOL Last administered on 11/16/19at 12:08; Start 11/12/19 at 07:00 Propofol 100 ml @ 0 mls/hr CONT PRN IV SEE PROTOCOL; Start 11/12/19 at 07:00 Midazolam HCl 50 mg/Sodium Chloride 50 ml @ 0 mls/hr CONT PRN IV SEE PROTOCOL Last administered on 11/16/19at 11:22; Start 11/12/19 at 07:00 Midazolam HCl (Versed) 5 mg STK-MED ONCE .ROUTE ; Start 11/12/19 at 07:11; Stop 11/12/19 at 07:11; Status DC Fentanyl Citrate (Fentanyl 2ml Vial) 100 mcg STK-MED ONCE .ROUTE ; Start 11/12/19 at 07:11; Stop 11/12/19 at 07:12; Status DC Midazolam HCl (Versed) 5 mg 1X ONCE IV Last administered on 11/12/19 07:24; Start 11/12/19 at 07:15; Stop 11/12/19 at 07:20; Status DC Fentanyl Citrate (Fentanyl 2ml Vial) 100 mcg 1X ONCE IVP Last administered on 11/12/19at 07:24; Start 11/12/19 at 07:15; Stop 11/12/19 at 07:20; Status DC Norepinephrine Bitartrate 8 mg/ Dextrose 258 ml @ 10.836 mls/ hr CONT PRN IV HYPOTENSION Last administered on 11/14/19at 03:54; Start 11/12/19 at 08:15 Methylprednisolone Sodium Succinate (SOLU-Medrol 40MG VIAL) 40 mg Q8HRS IV Last administered on 11/16/19at 05:40; Start 11/12/19 at 11:00; Stop 11/16/19 at 09:49; Status DC Levofloxacin/ Dextrose 150 ml @ 100 mls/hr Q24H IV Last administered on 11/12/19at 10:35; Start 11/12/19 at 11:00; Stop 11/12/19 at 12:35; Status DC Piperacillin Sod/ Tazobactam Sod 3.375 gm/Sodium Chloride 50 ml @ 100 mls/hr Q8H IV ; Start 11/12/19 at 10:00; Status UNV Vancomycin HCl (Vanco Per Pharmacy) 1 each PRN DAILY PRN MC SEE COMMENTS Last administered on 11/14/19at 13:17; Start 11/12/19 at 10:00; Stop 11/15/19 at 08:32; Status DC Pantoprazole Sodium (PROTONIX VIAL for IV PUSH) 40 mg DAILYAC IVP Last administered on 11/12/19at 10:36; Start 11/12/19 at 11:00; Stop 11/12/19 at 12:36; Status DC Piperacillin Sod/ Tazobactam Sod 4.5 gm/Sodium Chloride 100 ml @ 200 mls/hr Q6HRS IV Last administered on 11/16/19at 13:36; Start 11/12/19 at 12:00 Vancomycin HCl 1.5 gm/Sodium Chloride 500 ml @ 250 mls/hr 1X ONCE IV Last administered on 11/12/19at 12:24; Start 11/12/19 at 11:00; Stop 11/12/19 at 12:59; Status DC Lorazepam (Ativan Inj) 2 mg PRN Q2HR PRN IVP ANXIETY / AGITATION Last administered on 11/12/19at 15:59; Start 11/12/19 at 10:15; Stop 11/13/19 at 09:56; Status DC Sodium Chloride 1,000 ml @ 1,770 mls/hr Q34M IV Last administered on 11/12/19at 10:35; Start 11/12/19 at 10:30; Stop 11/12/19 at 11:30; Status DC Sodium Chloride 500 ml @ 1,000 mls/hr PRN Q30MIN PRN IV SEE COMMENTS; Start 11/12/19 at 11:00 Vancomycin HCl 1 gm/Sodium Chloride 250 ml @ 250 mls/hr Q24H IV Last administered on 11/13/19at 12:58; Start 11/13/19 at 13:00; Stop 11/14/19 at 13:12; Status DC Vancomycin HCl (Vancomycin Trough Level) 1 each 1X ONCE MC Last administered on 11/14/19at 12:30; Start 11/14/19 at 12:30; Stop 11/14/19 at 12:31; Status DC Levofloxacin/ Dextrose 150 ml @ 100 mls/hr Q48H IV ; Start 11/14/19 at 10:00; Stop 11/14/19 at 07:59; Status DC Pantoprazole Sodium (PROTONIX VIAL for IV PUSH) 40 mg BIDAC IVP Last administered on 11/16/19at 08:01; Start 11/12/19 at 16:30 Potassium Chloride/Water 100 ml @ 100 mls/hr 1X ONCE IV Last administered on 11/12/19at 15:59; Start 11/12/19 at 16:00; Stop 11/12/19 at 16:59; Status DC Acetaminophen (Tylenol Supp) 325 mg PRN Q6HRS PRN PA MILD PAIN / TEMP; Start 11/12/19 at 16:00 Albumin Human 500 ml @ 125 mls/hr 1X ONCE IV Last administered on 11/12/19at 16:45; Start 11/12/19 at 16:30; Stop 11/12/19 at 20:29; Status DC Sodium Chloride 500 ml @ 500 mls/hr 1X ONCE IV Last administered on 11/12/19at 16:30; Start 11/12/19 at 16:30; Stop 11/12/19 at 17:29; Status DC Albuterol/ Ipratropium (Duoneb) 3 ml RTQID NEB Last administered on 11/16/19at 11:04; Start 11/12/19 at 20:00 Lidocaine HCl (Lidocaine 2% Viscous) 100 ml PRN 1X PRN MM MOUTH PAIN Last administered on 11/13/19 09:36; Start 11/13/19 at 09:30; Stop 11/14/19 at 09:29; Status DC Lorazepam (Ativan Inj) 2 mg PRN Q1HR PRN IVP ANXIETY / AGITATION Last administered on 11/16/19 10:03; Start 11/13/19 at 10:00 Amino Acids/ Electrolytes/ Dextrose 1,000 ml @ 80 mls/hr [id number] IV Last administered on 11/14/19 02:06; Start 11/13/19 at 10:15; Stop 11/14/19 at 10:49; Status DC Magnesium Sulfate 50 ml @ 25 mls/hr 1X ONCE IV Last administered on 11/13/19 11:03; Start 11/13/19 at 11:00; Stop 11/13/19 at 12:59; Status DC Potassium Chloride/Water 100 ml @ 100 mls/hr Q1H IV Last administered on 11/14/19at 10:30; Start 11/14/19 at 09:00; Stop 11/14/19 at 10:59; Status DC Levofloxacin/ Dextrose 150 ml @ 100 mls/hr Q24H IV Last administered on 11/16/19at 10:10; Start 11/14/19 at 10:00 Info (Icu Electrolyte Protocol) 1 ea CONT PRN PRN MC PER PROTOCOL; Start 11/14/19 at 08:15 Info (Tpn Per Pharmacy) 1 each PRN DAILY PRN MC SEE COMMENTS Last administered on 11/16/19at 12:23; Start 11/14/19 at 11:00 Sodium Chloride 90 meq/Potassium Chloride 50 meq/ Potassium Phosphate 13.6 mmol/Magnesium Sulfate 10 meq/ Calcium Gluconate 10 meq/ Multivitamins 10 ml/Chromium/ Copper/Manganese/ Seleni/Zn 1 ml/ Total Parenteral Nutrition/Amino Acids/Dextrose/ Fat Emulsion Intravenous 1,500 ml @ 62.5 mls/hr TPN CONT IV Last administered on 11/14/19at 21:43; Start 11/14/19 at 22:00; Stop 11/15/19 at 21:59; Status DC Vancomycin HCl 1 gm/Sodium Chloride 250 ml @ 250 mls/hr Q12H IV Last administered on 11/15/19at 02:11; Start 11/14/19 at 14:00; Stop 11/15/19 at 08:30; Status DC Vancomycin HCl (Vancomycin Trough Level) 1 each 1X ONCE MC ; Start 11/16/19 at 01:30; Stop 11/15/19 at 08:33; Status DC Vecuronium Temple (Norcuron Bolus) 10 mg STK-MED ONCE IV ; Start 11/15/19 at 11:44; Stop 11/15/19 at 11:45; Status DC Sodium Chloride 90 meq/Potassium Chloride 50 meq/ Potassium Phosphate 15 mmol/ Magnesium Sulfate 10 meq/Calcium Gluconate 8 meq/ Multivitamins 10 ml/Chromium/ Copper/Manganese/ Seleni/Zn 1 ml/ Total Parenteral Nutrition/Amino Acids/Dextrose/ Fat Emulsion Intravenous 1,500 ml @ 62.5 mls/hr TPN CONT IV Last administered on 11/15/19at 22:21; Start 11/15/19 at 22:00; Stop 11/16/19 at 21:59 Methylprednisolone Sodium Succinate (SOLU-Medrol 40MG VIAL) 40 mg DAILY IV ; Start 11/17/19 at 09:00 Vecuronium Temple (Norcuron Bolus) 10 mg STK-MED ONCE IV ; Start 11/16/19 at 10:04; Stop 11/16/19 at 10:04; Status DC Vecuronium Temple (Norcuron Bolus) 6 mg PRN Q4HRS PRN IV SEDATION Last ad ministered on 11/16/19at 10:11; Start 11/16/19 at 10:15 Vecuronium Temple 50 mg/ Miscellaneous 50 ml @ 3.216 mls/ hr CONT PRN IV SEE I/O RECORD; Start 11/16/19 at 10:15 Metoprolol Tartrate (Lopressor Vial) 5 mg Q6HRS IVP Last administered on 11/16/19at 10:40; Start 11/16/19 at 11:00 Micafungin Sodium 100 mg/Dextrose 100 ml @ 100 mls/hr Q24H IV Last administered on 11/16/19at 11:23; Start 11/16/19 at 11:00 Linezolid/Dextrose 300 ml @ 300 mls/hr Q12HR IV Last administered on 11/16/19at 11:48; Start 11/16/19 at 11:00 Sodium Chloride 90 meq/Potassium Chloride 50 meq/ Potassium Phosphate 15 mmol/ Magnesium Sulfate 10 meq/Calcium Gluconate 8 meq/ Multivitamins 10 ml/Chromium/ Copper/Manganese/ Seleni/Zn 1 ml/ Total Parenteral Nutrition/Amino Acids/Dextrose/ Fat Emulsion Intravenous 1,500 ml @ 62.5 mls/hr TPN CONT IV ; Start 11/16/19 at 22:00; Stop 11/17/19 at 21:59 Insulin Human Lispro (HumaLOG) 0-5 UNITS TIDWMEALS SQ Last administered on 11/16/19at 13:48; Start 11/16/19 at 13:00 Dextrose (Dextrose 50%-Water Syringe) 12.5 gm PRN Q15MIN PRN IV SEE COMMENTS; Start 11/16/19 at 13:00 Dextrose (Iv Dextrose 5%) 250 ml PRN Q15MIN PRN IV SEE COMMENTS; Start 11/16/19 at 13:00 Active Scripts Active Augmentin 500-125 Tablet (Amoxicillin/Potassium Clav) 1 Each Tablet 1 Tab PO BID 10 Days Culturelle (Lactobacillus Rhamnosus Gg) 1 Each Cap.sprink 1 Cap PO BID 30 Days Dok (Docusate Sodium) 100 Mg Capsule 100 Mg PO PRN BID PRN 30 Days Tylenol (Acetaminophen) 325 Mg Tablet 650 Mg PO PRN Q4HRS PRN 30 Days Xarelto (Rivaroxaban) 10 Mg Tablet 20 Mg PO DAILYWSUP 60 Days Feosol (Ferrous Sulfate) 325 Mg Tablet 325 Mg PO BIDWMEALS 30 Days Doxycycline Hyclate 100 Mg Tablet 100 Mg PO BID 10 Days Duoneb 0.5-3(2.5) Mg/3 Ml (Albuterol/Ipratropium) 3 Ml Ampul.neb 3 Ml NEB RTQID 30 Days Reported Seroquel (Quetiapine Fumarate) 400 Mg Tablet 1.5 Tab PO QHS Alprazolam 1 Mg Tablet 0.5 Tab PO TID Ropinirole Hcl 0.25 Mg Tablet 0.25 Mg PO BID Melatonin 5 Mg Tab.rapdis 1 Tab PO QHS 30 Days Metoprolol Tartrate 25 Mg Tablet 0.5 Tab PO BID Pantoprazole Sodium (Pantoprazole Sodium) 40 Mg Tablet.dr 40 Mg PO DAILYAC Venlafaxine Hcl Er (Venlafaxine Hcl) 150 Mg Cap.er.24h 150 Mg PO QHS Mucinex Dm Er 600-30 Mg Tablet (Guaifenesin/Dextromethorphan) 1 Each Tab.er.12h 1 Each PO BID Seroquel Xr (Quetiapine Fumarate) 400 Mg Tab.er.24h 800 Mg PO HS Allergies Allergies: Coded Allergies: No Known Drug Allergies (Unverified , 03/18/18) ROS Review of System Review of systems not obtainable Physical Exam General: Other (sedated on a ventilator) Lungs: Other (decreased breath sounds) Heart: Regular rate Abdomen: Normal bowel sounds Vitals VITALS Vital Signs Date Time Temp Pulse Resp B/P (MAP) Pulse Ox O2 Delivery O2 Flow Rate FiO2 11/16/19 13:31 100 Ventilator 11/16/19 12:08 22 11/16/19 12:00 98.5 61 125/75 (92) 98.5 Labs Labs Laboratory Tests Test 11/15/19 00:05 11/15/19 05:15 11/15/19 05:21 11/15/19 08:00 Glucose (Fingerstick) 183 mg/dL (70-99) 199 mg/dL (70-99) White Blood Count 10.0 x10^3/uL (4.0-11.0) Red Blood Count 2.63 x10^6/uL (3.50-5.40) Hemoglobin 6.8 g/dL (12.0-15.5) Hematocrit 20.6 % (36.0-47.0) Mean Corpuscular Volume 78 fL (79-100) Mean Corpuscular Hemoglobin 26 pg (25-35) Mean Corpuscular Hemoglobin Concent 33 g/dL (31-37) Red Cell Distribution Width 19.7 % (11.5-14.5) Platelet Count 150 x10^3/uL (140-400) Sodium Level 141 mmol/L (136-145) Potassium Level 3.8 mmol/L (3.5-5.1) Chloride Level 107 mmol/L (98-107) Carbon Dioxide Level 29 mmol/L (21-32) Anion Gap 5 (6-14) Blood Urea Nitrogen 23 mg/dL (7-20) Creatinine 0.8 mg/dL (0.6-1.0) Estimated GFR (Cockcroft-Gault) 73.2 Glucose Level 218 mg/dL (70-99) Calcium Level 8.8 mg/dL (8.5-10.1) Phosphorus Level 2.0 mg/dL (2.6-4.7) Magnesium Level 1.8 mg/dL (1.8-2.4) Triglycerides Level 145 mg/dL (0-150) O2 Saturation 96 % (92-99) Arterial Blood pH 7.45 (7.35-7.45) Arterial Blood pCO2 at Patient Temp 37 mmHg (35-46) Arterial Blood pO2 at Patient Temp 84 mmHg (65-108) Arterial Blood HCO3 25 mmol/L (21-28) Arterial Blood Base Excess 1 mmol/L (-3-3) FiO2 60 Test 11/16/19 00:22 11/16/19 05:45 11/16/19 07:37 11/16/19 12:23 Glucose (Fingerstick) 230 mg/dL (70-99) 328 mg/dL (70-99) White Blood Count 11.0 x10^3/uL (4.0-11.0) Red Blood Count 3.43 x10^6/uL (3.50-5.40) Hemoglobin 9.0 g/dL (12.0-15.5) Hematocrit 27.3 % (36.0-47.0) Mean Corpuscular Volume 80 fL (79-100) Mean Corpuscular Hemoglobin 26 pg (25-35) Mean Corpuscular Hemoglobin Concent 33 g/dL (31-37) Red Cell Distribution Width 19.2 % (11.5-14.5) Platelet Count 168 x10^3/uL (140-400) Sodium Level 141 mmol/L (136-145) Potassium Level 4.0 mmol/L (3.5-5.1) Chloride Level 105 mmol/L (98-107) Carbon Dioxide Level 29 mmol/L (21-32) Anion Gap 7 (6-14) Blood Urea Nitrogen 25 mg/dL (7-20) Creatinine 0.8 mg/dL (0.6-1.0) Estimated GFR (Cockcroft-Gault) 73.2 Glucose Level 220 mg/dL (70-99) Calcium Level 8.9 mg/dL (8.5-10.1) Phosphorus Level 2.9 mg/dL (2.6-4.7) Magnesium Level 1.9 mg/dL (1.8-2.4) O2 Saturation 96 % (92-99) Arterial Blood pH 7.40 (7.35-7.45) Arterial Blood pCO2 at Patient Temp 42 mmHg (35-46) Arterial Blood pO2 at Patient Temp 88 mmHg (65-108) Arterial Blood HCO3 26 mmol/L (21-28) Arterial Blood Base Excess 1 mmol/L (-3-3) FiO2 60% Laboratory Tests Test 11/16/19 00:22 11/16/19 05:45 11/16/19 07:37 11/16/19 12:23 Glucose (Fingerstick) 230 mg/dL (70-99) 328 mg/dL (70-99) White Blood Count 11.0 x10^3/uL (4.0-11.0) Red Blood Count 3.43 x10^6/uL (3.50-5.40) Hemoglobin 9.0 g/dL (12.0-15.5) Hematocrit 27.3 % (36.0-47.0) Mean Corpuscular Volume 80 fL (79-100) Mean Corpuscular Hemoglobin 26 pg (25-35) Mean Corpuscular Hemoglobin Concent 33 g/dL (31-37) Red Cell Distribution Width 19.2 % (11.5-14.5) Platelet Count 168 x10^3/uL (140-400) Sodium Level 141 mmol/L (136-145) Potassium Level 4.0 mmol/L (3.5-5.1) Chloride Level 105 mmol/L (98-107) Carbon Dioxide Level 29 mmol/L (21-32) Anion Gap 7 (6-14) Blood Urea Nitrogen 25 mg/dL (7-20) Creatinine 0.8 mg/dL (0.6-1.0) Estimated GFR (Cockcroft-Gault) 73.2 Glucose Level 220 mg/dL (70-99) Calcium Level 8.9 mg/dL (8.5-10.1) Phosphorus Level 2.9 mg/dL (2.6-4.7) Magnesium Level 1.9 mg/dL (1.8-2.4) O2 Saturation 96 % (92-99) Arterial Blood pH 7.40 (7.35-7.45) Arterial Blood pCO2 at Patient Temp 42 mmHg (35-46) Arterial Blood pO2 at Patient Temp 88 mmHg (65-108) Arterial Blood HCO3 26 mmol/L (21-28) Arterial Blood Base Excess 1 mmol/L (-3-3) FiO2 60% Images Images As above. Assessment/Plan Assessment/Plan 1. Tachycardia. Relatively brief episodes of sinus tachycardia as noted above. These are most prominent when the patient is agitated. Recent echocardiogram shows normal LV systolic function and moderately elevated pulmonary artery pressures at 46 mmHg. At this time would continue to monitor rhythm. Would not start new medications at this time. Patient may be treated with when necessary IV beta blockers if needed for sinus tachy arrhythmias. 2. Respiratory failure, pneumonia, pneumothorax. Complicated hospital course as above. Continues to be followed by multiple consultants. Thank you for allowing us to participate in the care of your patient. PATRIZIA HAMPTON MD Nov 16, 2019 14:41
--- NOTE | 2019-11-16 15:34 | EKG ---
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
[2019-11-16] MEDS: PROPOFOL 100 ML IV PRN (20:09)
[2019-11-16] MEDS ORDERED: TOTAL PARENTERAL NUTRITION IV SCH ×10 (22:00)
[2019-11-16] MEDS ORDERED: AMINO ACID IV SCH ×10 (22:00)
[2019-11-16] MEDS ORDERED: [UNRECOGNIZED DRUG - OTHER] IV SCH ×10 (22:00)
[2019-11-16] MEDS ORDERED: DEXTROSE 70% IV SCH ×10 (22:00)
[2019-11-17] VITALS (24 sets, daily range): BP systolic 92–161; BP diastolic 62–96
[2019-11-17] MEDS: MIDAZOLAM HCL 50 MG in IV NORMAL SALINE 50ML 50 ML IV PRN ×4 (02:32→18:34)
[2019-11-17] MEDS: VECURONIUM BOLUS 10 MG VIAL. IV PRN (02:33)
[2019-11-17] MEDS: PROPOFOL 100 ML IV PRN ×2 (05:32→18:04)
[2019-11-17] MEDS: PIPERACILLIN/TAZOBACTAM 4.5 GM in IV NORMAL SALINE 100ML 100 ML IV SCH ×4 (05:32→23:59)
[2019-11-17] MEDS: INSULIN LISPRO 300 UNITS/3 ML VIAL. SQ SCH ×3 (05:36→18:07)
[2019-11-17] MEDS: METOPROLOL TARTRATE 5 MG/5 ML VIAL. IVP SCH ×3 (05:37→17:12)
--- NOTE | 2019-11-17 05:58 | PDOC ---
PULMONARY PROGRESS NOTES Subjective on vent, oxygenation worse, sedated versed fentanyl, propofol, paralytic prn as stacking breath may cause worsening ptx, small ett secretion ,on 100%FIO2, peep 5, desating, ct has air leak Vitals Vital Signs Date Time Temp Pulse Resp B/P (MAP) Pulse Ox O2 Delivery O2 Flow Rate FiO2 11/17/19 05:37 129 136/87 11/17/19 05:36 89 Ventilator 11/17/19 05:00 19 11/17/19 04:00 98.9 98.9 Comments ros unable to obtain on vent sedated HEENT: Other (nc at perrl nose clear orally intubated neck no lad no thyromegaly sub cut emphysema ) Lungs: Crackles, Other (crepitus and continous squeaking sound left upper chest) Cardiovascular: S1, S2 Abdomen: Soft, Non-tender, Other (no mass) Extremities: Other (1+edema) Skin: Warm Labs Laboratory Tests Test 11/15/19 08:00 11/16/19 00:22 11/16/19 05:45 11/16/19 07:37 O2 Saturation 96 % (92-99) 96 % (92-99) Arterial Blood pH 7.45 (7.35-7.45) 7.40 (7.35-7.45) Arterial Blood pCO2 at Patient Temp 37 mmHg (35-46) 42 mmHg (35-46) Arterial Blood pO2 at Patient Temp 84 mmHg (65-108) 88 mmHg (65-108) Arterial Blood HCO3 25 mmol/L (21-28) 26 mmol/L (21-28) Arterial Blood Base Excess 1 mmol/L (-3-3) 1 mmol/L (-3-3) FiO2 60 60% Glucose (Fingerstick) 230 mg/dL (70-99) White Blood Count 11.0 x10^3/uL (4.0-11.0) Red Blood Count 3.43 x10^6/uL (3.50-5.40) Hemoglobin 9.0 g/dL (12.0-15.5) Hematocrit 27.3 % (36.0-47.0) Mean Corpuscular Volume 80 fL (79-100) Mean Corpuscular Hemoglobin 26 pg (25-35) Mean Corpuscular Hemoglobin Concent 33 g/dL (31-37) Red Cell Distribution Width 19.2 % (11.5-14.5) Platelet Count 168 x10^3/uL (140-400) Sodium Level 141 mmol/L (136-145) Potassium Level 4.0 mmol/L (3.5-5.1) Chloride Level 105 mmol/L (98-107) Carbon Dioxide Level 29 mmol/L (21-32) Anion Gap 7 (6-14) Blood Urea Nitrogen 25 mg/dL (7-20) Creatinine 0.8 mg/dL (0.6-1.0) Estimated GFR (Cockcroft-Gault) 73.2 Glucose Level 220 mg/dL (70-99) Calcium Level 8.9 mg/dL (8.5-10.1) Phosphorus Level 2.9 mg/dL (2.6-4.7) Magnesium Level 1.9 mg/dL (1.8-2.4) Test 11/16/19 12:23 11/16/19 16:54 11/16/19 23:54 11/17/19 05:35 Glucose (Fingerstick) 328 mg/dL (70-99) 232 mg/dL (70-99) 194 mg/dL (70-99) 177 mg/dL (70-99) Laboratory Tests Test 11/16/19 07:37 11/16/19 12:23 11/16/19 16:54 11/16/19 23:54 O2 Saturation 96 % (92-99) Arterial Blood pH 7.40 (7.35-7.45) Arterial Blood pCO2 at Patient Temp 42 mmHg (35-46) Arterial Blood pO2 at Patient Temp 88 mmHg (65-108) Arterial Blood HCO3 26 mmol/L (21-28) Arterial Blood Base Excess 1 mmol/L (-3-3) FiO2 60% Glucose (Fingerstick) 328 mg/dL (70-99) 232 mg/dL (70-99) 194 mg/dL (70-99) Test 11/17/19 05:35 Glucose (Fingerstick) 177 mg/dL (70-99) Medications Active Scripts Medications Dose Route/Sig Max Daily Dose Days Date Category Augmentin 500-125 Tablet (Amoxicillin/Potassium Clav) 1 Each Tablet 1 Tab PO BID 09/03/19 Rx Culturelle (Lactobacillus Rhamnosus Gg) 1 Each Cap.sprink 1 Cap PO BID 30 09/03/19 Rx Dok (Docusate Sodium) 100 Mg Capsule 100 Mg PO PRN BID PRN 30 09/03/19 Rx Tylenol (Acetaminophen) 325 Mg Tablet 650 Mg PO PRN Q4HRS PRN 30 09/03/19 Rx Xarelto (Rivaroxaban) 10 Mg Tablet 20 Mg PO DAILYWSUP 60 09/03/19 Rx Feosol (Ferrous Sulfate) 325 Mg Tablet 325 Mg PO BIDWMEALS 30 09/03/19 Rx Doxycycline Hyclate 100 Mg Tablet 100 Mg PO BID 10 09/03/19 Rx Seroquel (Quetiapine Fumarate) 400 Mg Tablet 1.5 Tab PO QHS 08/30/19 Reported Alprazolam 1 Mg Tablet 0.5 Tab PO TID 08/30/19 Reported Ropinirole Hcl 0.25 Mg Tablet 0.25 Mg PO BID 08/30/19 Reported Melatonin 5 Mg Tab.rapdis 1 Tab PO QHS 30 08/30/19 Reported Metoprolol Tartrate 25 Mg Tablet 0.5 Tab PO BID 08/30/19 Reported Pantoprazole Sodium (Pantoprazole Sodium) 40 Mg Tablet.dr 40 Mg PO DAILYAC 08/30/19 Reported Venlafaxine Hcl Er (Venlafaxine Hcl) 150 Mg Cap.er.24h 150 Mg PO QHS 08/11/19 Reported Duoneb 0.5-3(2.5) Mg/3 Ml (Albuterol/Ipratropium) 3 Ml Ampul.neb 3 Ml NEB RTQID 30 03/26/18 Rx Mucinex Dm Er 600-30 Mg Tablet (Guaifenesin/Dextromethorphan) 1 Each Tab.er.12h 1 Each PO BID 03/18/18 Reported Seroquel Xr (Quetiapine Fumarate) 400 Mg Tab.er.24h 800 Mg PO HS 03/18/18 Reported Comments cxr 11/16 reviewed. chest tube, sub cut emphysema ? worse ett ok Impression . 1. Acute on chronic hypoxic and hypercapnic respiratory failure secondary to multifactorial etiologies including acute exacerbation of chronic obstructive pulmonary disease, septic shock , left-sided pneumothorax and ? tracheal tear 2. Bilateral interstitial infiltrates, suspect aspiration pneumonia She did receive 3 liters of IV fluids for possible sepsis. off pressor 3. Emesis while on BiPAP initially at [place], possibility of aspiration pneumonia is a consideration. 4. Left-sided pneumothorax post-attempted line placement, status post chest tube. Left PTX persist. continue chest tube to suction. 5. Underlying chronic obstructive pulmonary disease with chronic hypoxic respiratory failure and noncompliance. 6. Acute kidney injury.improved 7. septic shock. 8. Abnormal ct chest, ? tracheal injury/ air in venous system. s/p Bronch , No tracheal tear seen distal to ET tube, cannot exclude higher level tear 9. Anemia Plan . 1. Continue present assist control mode. cont vent support, setting reviewed, ct has air leak, cxr no change, oxygenation worsening, chest tube is functioning, nothing else to offer 2. CT chest, head, abdomen and pelvis reviewed 3. Continue chest tube to suction. 4. Broad-spectrum antibiotics per ID. 5. solumedrol daily 6. vasopressor support, off levo now 7. Monitor urine output. 8. ID and Renal recommendations. 9. Stress ulcer and DVT prophylaxis. 10 dr wells made Numerous attempts to transfer to [facility] not successful as they declined transfer 11/13, 11/14, 11/15 . Per their request Bronch has been done.we don't have thoracic surgery in house. may need VAT for persistent continuos air leak, and suspected tracheal tear. 11. DNR 12. BD 13. prognosis very poor 14. discussed with RN and RT ESTEFANÍA HIGGINS MD Nov 17, 2019 05:58
--- NOTE | 2019-11-17 06:18 | NUR ---
PT continues to drop O2 sat with each care. Recovery time increased to >2 hours. Minimal offloading and mouth care done. Dr Carbajal at bedside and Vecuronium drip ordered and started at this time to minimize pt O2 use.
[2019-11-17 06:20] LABS: HEMATOCRIT 35.8 % (36.0-47.0); HEMOGLOBIN 11.5 g/dL (12.0-15.5); RED BLOOD COUNT 4.43 x10^6/uL (3.50-5.40); RED CELL DISTRIBUTION WIDTH 20.2 % (11.5-14.5)
[2019-11-17 06:27] LABS: CALCIUM 8.7 mg/dL (8.5-10.1); CREATININE 0.6 mg/dL (0.6-1.0); MAGNESIUM 1.8 mg/dL (1.8-2.4); PHOSPHORUS 2.2 mg/dL (2.6-4.7); POTASSIUM 3.9 mmol/L (3.5-5.1)
[2019-11-17] MEDS: PANTOPRAZOLE IV PUSH 40 MG VIAL. IVP SCH ×2 (07:17→17:12)
[2019-11-17] MEDS: IPRATRPIUM/ALBUTEROL 0.5/2.5MG 3 ML NEBU. NEB SCH ×4 (07:47→20:07)
[2019-11-17 07:55] LABS: BASE EXCESS ABG 3 mmol/L (-3-3); HCO3 ABG 30 mmol/L (21-28); PCO2 ABG 59 mmHg (35-46); SAT O2 ABG 84 % (92-99)
[2019-11-17 07:57] LABS: FIO2 ABG 100; PO2 ABG 50 mmHg (65-108)
[2019-11-17] MEDS ORDERED: INSULIN LISPRO 300 UNITS/3 ML VIAL. SQ SCH (08:00)
--- NOTE | 2019-11-17 08:12 | RAD ---
Exam performed: Single view chest HISTORY: Ventilator protocol. DATE OF SERVICE: 06/28/2020. COMPARISON: Single view chest from 12/27/2019. Single AP semiupright portable chest findings: Endotracheal tube, feeding tube and a left-sided chest tube remains similar position. There is interval placement of a right-sided chest tube projecting in the medial right apex. A right arm PICC line is redemonstrated. Increasing hazy opacification seen in the right lung base with a small right pleural effusion as well as in the right suprahilar region. Ongoing diffuse airspace opacities are seen in both lungs without interval change. There is fullness of both hilar regions. Extensive subcutaneous emphysema along bilateral chest wall and lower neck appears similar. IMPRESSION: Interval placement of a right-sided chest tube with stable additional lines and tubes. Increasing airspace opacities right lung base and right suprahilar region with probable small right pleural effusion with ongoing patchy airspace opacities elsewhere in both lungs. Extensive bilateral subcutaneous emphysema Electronically signed by: Irina Nathan MD (11/17/2019 8:09 AM) [facility]
[2019-11-17] MEDS: methylPREDNISolone SOD SUCC PF 40 MG/ML VIAL. IV SCH (08:22)
--- NOTE | 2019-11-17 08:37 | PDOC ---
Infectious Disease Note Subjective: Subjective pt remains intubated and sedated on paralytic agent resp condition has deteriorated cont to have CT leak not on pressors no fevers no diarrhea D/W RN Vital Signs: Vital Signs Vital Signs Date Time Temp Pulse Resp B/P (MAP) Pulse Ox O2 Delivery O2 Flow Rate FiO2 11/17/19 08:00 97.9 108 33 117/83 (94) 85 Ventilator 97.9 Physical Exam: PHYSICAL EXAM GENERAL: Intubated, sedated. HEENT: Sclerae are anicteric. NG tube in place. NECK: swelling and crepitus going down the lt chest wall Chestwall swelling and crepitus more pronounced Lt side LUNGS: diffuse coarse bs ,somewhat improved than admission, Left-sided chest tube present.sqweaking sounds upper airways HEART: S1, S2, tachy ABDOMEN: Soft, nontender.distended EXTREMITIES: Trace edema. DERMATOLOGIC: Warm, dry. No generalized rash. CENTRAL NERVOUS SYSTEM: Intubated. LINES: Lt Femoral line removed, RUE PICC line intact, clean Medications: Inpatient Meds: Current Medications Medications (Trade) Dose Ordered Sig/Isma Start Time Stop Time Status Last Admin Dose Admin Acetaminophen (Tylenol Supp) 325 mg PRN Q6HRS PRN 11/12/19 16:00 Albumin Human 500 ml @ 125 mls/hr 1X ONCE 11/12/19 16:30 11/12/19 20:29 DC 11/12/19 16:45 125 MLS/HR Albuterol/ Ipratropium (Duoneb) 3 ml RTQID 11/12/19 20:00 11/17/19 07:47 3 ML Amino Acids/ Electrolytes/ Dextrose 1,000 ml @ 80 mls/hr [id number] 11/13/19 10:15 11/14/19 10:49 DC 11/14/19 02:06 80 MLS/HR Dextrose (Dextrose 50%-Water Syringe) 12.5 gm PRN Q15MIN PRN 11/16/19 13:00 Dextrose (Iv Dextrose 5%) 250 ml PRN Q15MIN PRN 11/16/19 13:00 Fentanyl Citrate (Fentanyl 2ml Vial) 100 mcg 1X ONCE 11/12/19 07:15 11/12/19 07:20 DC 11/12/19 07:24 100 MCG Info ([facility]cu Electrolyte Protocol) 1 ea CONT PRN PRN 11/14/19 08:15 Info (Tpn Per Pharmacy) 1 each PRN DAILY PRN 11/14/19 11:00 11/16/19 12:23 1 EACH Insulin Human Lispro (HumaLOG) 0-7 UNITS Q6HRS 11/17/19 06:00 Levofloxacin/ Dextrose 150 ml @ 100 mls/hr Q24H 11/14/19 10:00 11/16/19 10:10 100 MLS/HR Lidocaine HCl (Lidocaine 2% Viscous) 100 ml PRN 1X PRN 11/13/19 09:30 11/14/19 09:29 DC 11/13/19 09:36 100 ML Linezolid/Dextrose 300 ml @ 300 mls/hr Q12HR 11/16/19 11:00 11/17/19 08:23 300 MLS/HR Lorazepam (Ativan Inj) 2 mg PRN Q1HR PRN 11/13/19 10:00 11/16/19 20:05 2 MG Magnesium Sulfate 50 ml @ 25 mls/hr 1X ONCE 11/13/19 11:00 11/13/19 12:59 DC 11/13/19 11:03 25 MLS/HR Methylprednisolone Sodium Succinate (SOLU-Medrol 40MG VIAL) 40 mg DAILY 11/17/19 09:00 11/17/19 08:22 40 MG Metoprolol Tartrate (Lopressor Vial) 5 mg Q6HRS 11/16/19 11:00 11/17/19 05:37 5 MG Micafungin Sodium 100 mg/Dextrose 100 ml @ 100 mls/hr Q24H 11/16/19 11:00 11/16/19 11:23 100 MLS/HR Midazolam HCl (Versed) 5 mg 1X ONCE 11/12/19 07:15 11/12/19 07:20 DC 11/12/19 07:24 5 MG Midazolam HCl 50 mg/Sodium Chloride 50 ml @ 0 mls/hr CONT PRN 11/12/19 07:00 11/17/19 07:51 10 MLS/HR Norepinephrine Bitartrate 8 mg/ Dextrose 258 ml @ 10.836 mls/ hr CONT PRN 11/12/19 08:15 11/14/19 03:54 8.669 MLS/HR Pantoprazole Sodium (PROTONIX VIAL for IV PUSH) 40 mg BIDAC 11/12/19 16:30 11/17/19 07:17 40 MG Piperacillin Sod/ Tazobactam Sod 3.375 gm/Sodium Chloride 50 ml @ 100 mls/hr Q8H 11/12/19 10:00 UNV Piperacillin Sod/ Tazobactam Sod 4.5 gm/Sodium Chloride 100 ml @ 200 mls/hr Q6HRS 11/12/19 12:00 11/17/19 05:32 200 MLS/HR Potassium Chloride/Water 100 ml @ 100 mls/hr Q1H 11/14/19 09:00 11/14/19 10:59 DC 11/14/19 10:30 100 MLS/HR Propofol 100 ml @ 0 mls/hr CONT PRN 11/12/19 07:00 11/17/19 05:32 8.1 MLS/HR Sodium Chloride 90 meq/Potassium Chloride 50 meq/ Potassium Phosphate 13.6 mmol/Magnesium Sulfate 10 meq/ Calcium Gluconate 10 meq/ Multivitamins 10 ml/Chromium/ Copper/Manganese/ Seleni/Zn 1 ml/ Total Parenteral Nutrition/Amino Acids/Dextrose/ Fat Emulsion Intravenous 1,500 ml @ 62.5 mls/hr TPN CONT 11/14/19 22:00 11/15/19 21:59 DC 11/14/19 21:43 62.5 MLS/HR Sodium Chloride 90 meq/Potassium Chloride 50 meq/ Potassium Phosphate 15 mmol/ Magnesium Sulfate 10 meq/Calcium Gluconate 8 meq/ Multivitamins 10 ml/Chromium/ Copper/Manganese/ Seleni/Zn 1 ml/ Total Parenteral Nutrition/Amino Acids/Dextrose/ Fat Emulsion Intravenous 1,500 ml @ 62.5 mls/hr TPN CONT 11/16/19 22:00 11/17/19 21:59 11/16/19 22:02 62.5 MLS/HR Vancomycin HCl (Vanco Per Pharmacy) 1 each PRN DAILY PRN 11/12/19 10:00 11/15/19 08:32 DC 11/14/19 13:17 1 EACH Vancomycin HCl (Vancomycin Trough Level) 1 each 1X ONCE 11/16/19 01:30 11/15/19 08:33 DC Vancomycin HCl 1.5 gm/Sodium Chloride 500 ml @ 250 mls/hr 1X ONCE 11/12/19 11:00 11/12/19 12:59 DC 11/12/19 12:24 250 MLS/HR Vancomycin HCl 1 gm/Sodium Chloride 250 ml @ 250 mls/hr Q12H 11/14/19 14:00 11/15/19 08:30 DC 11/15/19 02:11 250 MLS/HR Vecuronium [place] 50 mg/ Miscellaneous 50 ml @ 3.216 mls/ hr CONT PRN 11/16/19 10:15 Vecuronium [place] (Norcuron Bolus) 6 mg PRN Q4HRS PRN 11/16/19 10:15 11/17/19 02:33 6 MG Labs: Lab Laboratory Tests Test 11/16/19 12:23 11/16/19 16:54 11/16/19 23:54 11/17/19 05:35 Glucose (Fingerstick) 328 mg/dL (70-99) 232 mg/dL (70-99) 194 mg/dL (70-99) 177 mg/dL (70-99) Test 11/17/19 06:00 11/17/19 07:53 White Blood Count 18.0 x10^3/uL (4.0-11.0) Red Blood Count 4.43 x10^6/uL (3.50-5.40) Hemoglobin 11.5 g/dL (12.0-15.5) Hematocrit 35.8 % (36.0-47.0) Mean Corpuscular Volume 81 fL (79-100) Mean Corpuscular Hemoglobin 26 pg (25-35) Mean Corpuscular Hemoglobin Concent 32 g/dL (31-37) Red Cell Distribution Width 20.2 % (11.5-14.5) Platelet Count 216 x10^3/uL (140-400) Sodium Level 144 mmol/L (136-145) Potassium Level 3.9 mmol/L (3.5-5.1) Chloride Level 105 mmol/L (98-107) Carbon Dioxide Level 31 mmol/L (21-32) Anion Gap 8 (6-14) Blood Urea Nitrogen 20 mg/dL (7-20) Creatinine 0.6 mg/dL (0.6-1.0) Estimated GFR (Cockcroft-Gault) 102.0 Glucose Level 192 mg/dL (70-99) Calcium Level 8.7 mg/dL (8.5-10.1) Phosphorus Level 2.2 mg/dL (2.6-4.7) Magnesium Level 1.8 mg/dL (1.8-2.4) O2 Saturation 84 % (92-99) Arterial Blood pH 7.33 (7.35-7.45) Arterial Blood pCO2 at Patient Temp 59 mmHg (35-46) Arterial Blood pO2 at Patient Temp 50 mmHg (65-108) Arterial Blood HCO3 30 mmol/L (21-28) Arterial Blood Base Excess 3 mmol/L (-3-3) FiO2 [address] C/A/P 1. Endotracheal intubation with pneumomediastinum and equivocal findings for potential posterior tracheal wall injury. If it is important to determine whether a small tracheal injury exists without interrupting the positioning of the tube, the chest CT could be repeated following administration of a trace amount of water-soluble contrast material down the endotracheal tube to assess for mediastinal leak. 2. Patient's left-sided chest tube has its side-port in the left-sided chest wall where a large amount of subcutaneous emphysema is present. Patient does have a small left apical pneumothorax with no findings of tension. 3. Patient's extensive pneumomediastinum and subcutaneous emphysema in the left chest is also associated with gas in the left upper extremity venous system, which is at potential risk for air embolus. 4. Multifocal pneumonia has worsened since the last chest CT of slightly over 2 months ago. Although a component of aspiration pneumonitis is difficult to exclude, the endotracheal tube cuff appears very well inflated. It is likely a clinical judgment on how well inflated it should be. 5. Diffuse small bowel ileus with fluid distended stomach, small bowel and distal thoracic esophagus despite presence of an enteric tube. Consider repositioning the patient more upright such that the enteric tube tip more effectively evacuates the stomach and small bowel. Objective: Assessment: 1. Severe sepsis POA cultures nonrevealing so far 2. Acute hypoxic respiratory failure ,left-sided pneumothorax, extensive pneumomediastinum, potential tracheal injury (status post line placement at [facility]), chest tube., CT with multiple abnormalities including persistent leak 3. Leucocytosis on steroids 4. Lactic acidosis 5.. Aspiration pneumonia with emesis while on BiPAP at [facility]. 5. Bilateral interstitial infiltrates at [facility], likely worsening congestive heart failure, status post IV fluids, s/p bronch 6. Coffee-ground emesis. Bowel obstruction, Ileus 7. History of pulmonary embolism. Chronic respiratory failure, on home O2 with history of chronic obstructive pulmonary disease, 8 Bipolar disorder. 9. History of methicillin-resistant Staphylococcus aureus. 10 Hypokalemia. 11. Anemia. 12. Protein-calorie malnutrition. 13. History of smoking. 14.H/O noncomplaiance 15.Severe PCM Plan: Plan of Care Continue empiric IV Zosyn and Levaquin, may need renal dosing., micafungin,zyvox influenza screen neg ECHO noted f/u bronch cultures,yeast likely contaminant f/u cults and labs in am Critically ill Overall, prognosis very poor. Numerous attempts were made to transfer to or [facility] , has not been accepted D/W MAIDA KIM MD Nov 17, 2019 08:37
--- NOTE | 2019-11-17 09:57 | PN ---
DATE: 11/17/2019 SUBJECTIVE: The patient is resting, slightly propped up in bed. She is sedated, paralyzed, continues to be intubated and mechanically ventilated. She is now on FiO2 of 100% with a PEEP of 5, maintaining her oxygen saturation only at about 85-86%. Her chest x-ray showed that she has worsening subcutaneous emphysema on the chest. The lungs showed patchy airspace opacities, most conspicuous in the lower lobes on the right greater than left. OBJECTIVE: GENERAL: On examining her, she was pale, but no jaundice, cyanosis or thyromegaly. No jugular venous distention. No lower limb edema. VITAL SIGNS: Her heart rate was 96, blood pressure was 96/69, her temperature was 98.9, respiratory rate was 29 and oxygen saturation was 86% on FiO2 of 100%. HEAD, EYES, EARS, NOSE AND THROAT: Showed normocephalic, atraumatic. She has orotracheal and orogastric tube. NECK: Supple. HEART: Showed normal first and second heart sounds. No gallop or murmur. CHEST: Shows central trachea, equal bilateral expansion, air entry, vesicular sounds. Crepitus on the left side chest wall and the neck. ABDOMEN: Distended, soft, nontender. NEUROLOGIC: She is heavily sedated and paralyzed. Her intake over the last 24 hours was 3100, output was 2400. LABORATORY DATA: Her white cell count was 18,000, hemoglobin 11, hematocrit 35, MCV 81 and platelet count of 216,000. Her chemistry showed a serum sodium 144, potassium 3.9, chloride 105, bicarbonate 31, anion gap of 8, BUN 20, creatinine 0.6, estimated GFR was 102 mL per minute. Her glucose was 92, calcium was 8.7, phosphorus 2.2, and magnesium was 1.8. Her blood gases this morning showed a pH of 7.33, pCO2 of 59, pO2 of 50, bicarbonate 30 and oxygen saturation was 84% on FiO2 of 100%. ASSESSMENT: 1. Acute on chronic hypoxic, hypercapnic respiratory failure secondary to acute exacerbation of chronic obstructive pulmonary disease, septic shock, left side pneumothorax as well as aspiration pneumonia. 2. Left-sided pneumothorax status post attempted line placement, status post chest tube. 3. The patient is known to have chronic obstructive pulmonary disease. 4. Chronic hypoxic hypercapnic respiratory failure with noncompliance with medication and narcotic abuse. 5. Acute kidney injury, improving. 6. Anemia status post blood transfusion. PLAN: To continue with sedation. She is on vecuronium for paralysis. Continue mechanical ventilation. The patient's condition is worsening. She probably has ARDS. Her white cell count is also rising, although she is already on IV antibiotic. So far, all her cultures are negative. BERTRAND RENTERIA MD DR: SADAF/[facility]ita JOB#: [id number] / [id number]
[2019-11-17] MEDS: MICAFUNGIN 100 MG in IV DEXTROSE 5% 100ML 100 ML IV SCH (11:05)
[2019-11-17] MEDS: VECURONIUM BROMIDE 50 MG in TOTAL VOLUME 50 ML IV PRN (11:06)
[2019-11-17] MEDS: TPN PER PHARMACY MC PRN (12:39)
--- NOTE | 2019-11-17 12:47 | NUR ---
Pharmacy TPN Dosing Note S: CB CASTILLO is a 59 year old F Currently receiving Central Continuous TPN started 11/14/19 B:Pertinent PMH: ILEUS, COFFEE GROUND EMESIS. Height: 5 feet, 7 inches Weight: 65.5 kg Current diet: NPO LABS: Sodium: 144 Potassium: 3.9 Chloride: 105 Calcium: 8.7 Corrected Calcium: 10.46 Magnesium: 1.8 CO2: 31 SCr: 0.6 Glucose: 177-284 Albumin: 1.8 AST: 7 ALT: <6 TPN FORMULA: TPN TYPE: Central Continuous AMINO ACIDS: 75 gm DEXTROSE: 195 gm LIPIDS: 20 gm SODIUM CHLORIDE: 90 mEq POTASSIUM CHLORIDE: 50 mEq POTASSIUM PHOSPHATE: 20 mmol MAGNESIUM: 10 mEq CALCIUM: 5 mEq MULTIPLE VITAMIN: 10 ml TRACE ELEMENTS: 1 ml(s) TPN PLAN: Potassium phosphate 15mmol IVPB x1 ordered for today and increased in next bag of TPN to 20mmol. Calcium reduced to 5mEq for solubility and d/t elevated corrected calcium. R: Change TPN per plan and ordered formula. Will monitor electrolytes, glucose, and tolerance to TPN. Komal Calero [facility], 11/17/19 1315
[2019-11-17] MEDS ORDERED: NS IV ONE (13:00)
[2019-11-17] MEDS ORDERED: POTASSIUM PHOSPHATE DIBASIC IV ONE (13:00)
[2019-11-17] MEDS ORDERED: [UNRECOGNIZED DRUG - OTHER] IV SCH ×10 (22:00)
[2019-11-17] MEDS ORDERED: TOTAL PARENTERAL NUTRITION IV SCH ×10 (22:00)
[2019-11-17] MEDS ORDERED: DEXTROSE 70% IV SCH ×10 (22:00)
[2019-11-17] MEDS ORDERED: AMINO ACID IV SCH ×10 (22:00)
[2019-11-18] VITALS (23 sets, daily range): BP systolic 84–158; BP diastolic 61–93
[2019-11-18] MEDS: INSULIN LISPRO 300 UNITS/3 ML VIAL. SQ SCH ×4 (00:02→17:45)
[2019-11-18] MEDS: MIDAZOLAM HCL 50 MG in IV NORMAL SALINE 50ML 50 ML IV PRN ×5 (00:42→23:29)
[2019-11-18] MEDS: VECURONIUM BROMIDE 50 MG in TOTAL VOLUME 50 ML IV PRN (04:52)
--- NOTE | 2019-11-18 05:36 | NUR ---
After patient was bathed, patient became tachycardic, BP dropped into 70s/80s systolic, and O2 sats remained 88-90%. Patient bolused with sedation during bath. After patient BP not recovering Propofol was shut off. BP then began to increase. Will continue to monitor vital signs and patient status.
--- NOTE | 2019-11-18 05:39 | NUR ---
This RN approves of SN charting on this patient.
[2019-11-18 05:43] LABS: HEMATOCRIT 32.4 % (36.0-47.0); HEMOGLOBIN 10.3 g/dL (12.0-15.5); RED BLOOD COUNT 4.04 x10^6/uL (3.50-5.40); RED CELL DISTRIBUTION WIDTH 20.6 % (11.5-14.5); WHITE BLOOD COUNT 22.4 x10^3/uL (4.0-11.0)
[2019-11-18] MEDS: PIPERACILLIN/TAZOBACTAM 4.5 GM in IV NORMAL SALINE 100ML 100 ML IV SCH (05:57)
[2019-11-18] MEDS: METOPROLOL TARTRATE 5 MG/5 ML VIAL. IVP SCH ×4 (05:58→17:35)
[2019-11-18 06:00] LABS: CALCIUM 9.1 mg/dL (8.5-10.1); CREATININE 0.6 mg/dL (0.6-1.0); MAGNESIUM 1.9 mg/dL (1.8-2.4); PHOSPHORUS 2.8 mg/dL (2.6-4.7); POTASSIUM 4.5 mmol/L (3.5-5.1)
--- NOTE | 2019-11-18 06:13 | RAD ---
PORTABLE CHEST 1V Clinical Indication: Respiratory failure. Comparison: AP chest, prior day. Findings: Endotracheal tube, enteric tube, and right PICC are stable. Mid left hemithorax chest tube is stable. The mediastinal contours are stable. Bilateral hilar prominence is unchanged. No pleural effusion or pneumothorax is identified. Bilateral interstitial and alveolar opacities are not significantly changed. Severe diffuse subcutaneous air is unchanged. IMPRESSION: 1. Stable life support devices. 2. Bilateral infiltrates are unchanged. 3. No pneumothorax. Electronically signed by: Giancarlo Godinez MD (11/18/2019 6:10 AM) [id number]
[2019-11-18] MEDS: IPRATRPIUM/ALBUTEROL 0.5/2.5MG 3 ML NEBU. NEB SCH ×4 (07:32→19:36)
[2019-11-18 07:56] LABS: BASE EXCESS ABG 3 mmol/L (-3-3); HCO3 ABG 30 mmol/L (21-28); PCO2 ABG 58 mmHg (35-46); PO2 ABG 53 mmHg (65-108); SAT O2 ABG 85 % (92-99)
[2019-11-18] MEDS: PANTOPRAZOLE IV PUSH 40 MG VIAL. IVP SCH ×2 (07:56→16:38)
[2019-11-18] MEDS: methylPREDNISolone SOD SUCC PF 40 MG/ML VIAL. IV SCH (07:56)
[2019-11-18 07:59] LABS: FIO2 ABG 100
[2019-11-18] MEDS ORDERED: ACETAMINOPHEN 650 MG/20.3 ML SOLUTION. PEG PRN (08:15)
--- NOTE | 2019-11-18 08:22 | PDOC ---
Infectious Disease Note Subjective Subjective pt remains intubated and sedated on paralytic agent resp condition has deteriorated cont to have CT leak not on pressors no fevers no diarrhea D/W RN JESUS LEE unable to obtain Vital Sign Vital Signs Vital Signs Date Time Temp Pulse Resp B/P (MAP) Pulse Ox O2 Delivery O2 Flow Rate FiO2 11/18/19 07:33 90 Ventilator 11/18/19 06:00 100 22 137/85 (102) 11/18/19 04:00 99.4 99.4 Physical Exam PHYSICAL EXAM GENERAL: Intubated, sedated. HEENT: Sclerae are anicteric. NG tube in place. NECK: swelling and crepitus going down the lt chest wall Chestwall swelling and crepitus more pronounced Lt side LUNGS: diffuse coarse bs ,somewhat improved than admission, Left-sided chest tube present.sqweaking sounds upper airways HEART: S1, S2, tachy ABDOMEN: Soft, nontender.distended : Diaz in place EXTREMITIES: Trace edema. DERMATOLOGIC: Warm, dry. No generalized rash. CENTRAL NERVOUS SYSTEM: Intubated. LINES: Lt Femoral line removed, RUE PICC line intact, clean Labs Lab Laboratory Tests Test 11/17/19 11:53 11/17/19 18:05 11/17/19 23:57 11/18/19 05:15 Glucose (Fingerstick) 284 mg/dL (70-99) 253 mg/dL (70-99) 263 mg/dL (70-99) White Blood Count 22.4 x10^3/uL (4.0-11.0) Red Blood Count 4.04 x10^6/uL (3.50-5.40) Hemoglobin 10.3 g/dL (12.0-15.5) Hematocrit 32.4 % (36.0-47.0) Mean Corpuscular Volume 80 fL (79-100) Mean Corpuscular Hemoglobin 26 pg (25-35) Mean Corpuscular Hemoglobin Concent 32 g/dL (31-37) Red Cell Distribution Width 20.6 % (11.5-14.5) Platelet Count 207 x10^3/uL (140-400) Sodium Level 140 mmol/L (136-145) Potassium Level 4.5 mmol/L (3.5-5.1) Chloride Level 103 mmol/L (98-107) Carbon Dioxide Level 31 mmol/L (21-32) Anion Gap 6 (6-14) Blood Urea Nitrogen 19 mg/dL (7-20) Creatinine 0.6 mg/dL (0.6-1.0) Estimated GFR (Cockcroft-Gault) 102.0 Glucose Level 221 mg/dL (70-99) Calcium Level 9.1 mg/dL (8.5-10.1) Phosphorus Level 2.8 mg/dL (2.6-4.7) Magnesium Level 1.9 mg/dL (1.8-2.4) Test 11/18/19 05:52 11/18/19 07:45 Glucose (Fingerstick) 184 mg/dL (70-99) O2 Saturation 85 % (92-99) Arterial Blood pH 7.33 (7.35-7.45) Arterial Blood pCO2 at Patient Temp 58 mmHg (35-46) Arterial Blood pO2 at Patient Temp 53 mmHg (65-108) Arterial Blood HCO3 30 mmol/L (21-28) Arterial Blood Base Excess 3 mmol/L (-3-3) FiO2 100 Micro Microbiology 11/13/19 - Final, Complete 11/12/19 Blood Culture - Final, Complete NO GROWTH AFTER 5 DAYS Objective Assessment 1. Severe sepsis -POA cultures nonrevealing so far- Fever this am 2. Acute hypoxic respiratory failure ,left-sided pneumothorax, extensive pneumomediastinum, potential tracheal injury (status post line placement at [facility]), chest tube., CT with multiple abnormalities including persistent leak 3. Leucocytosis on steroids 4. Lactic acidosis 5.. Aspiration pneumonia with emesis while on BiPAP at [facility]. 5. Bilateral interstitial infiltrates at [facility], likely worsening congestive heart failure, status post IV fluids, s/p bronch 6. Coffee-ground emesis. Bowel obstruction, Ileus 7. History of pulmonary embolism. Chronic respiratory failure, on home O2 with history of chronic obstructive pulmonary disease, 8 Bipolar disorder. 9. History of methicillin-resistant Staphylococcus aureus. 10 Hypokalemia. 11. Anemia. 12. Protein-calorie malnutrition. 13. History of smoking. 14.H/O noncomplaiance 15.Severe PCM Plan Plan of Care Blood cults times 2/sputum. Urine is very clear Change to Meropenem Check Lactic and Procal this am D/c Levaquin (11/12) after todays dose to complete 7 days, Cont micafungin,zyvox influenza screen neg ECHO noted f/u bronch cultures,yeast likely contaminant f/u cults and labs in am Critically ill Overall, prognosis very poor. Numerous attempts were made to transfer to or [facility] , has not been accepted. May go to [facility] today D/W DEEPALI VILLEDA MD Nov 18, 2019 08:22
--- NOTE | 2019-11-18 09:42 | PDOC ---
PULMONARY PROGRESS NOTES Subjective on vent, oxygenation worse, sedated versed fentanyl, propofol, paralytic PT NOW ON 100% AND 6 PEEP Vitals Vital Signs Date Time Temp Pulse Resp B/P (MAP) Pulse Ox O2 Delivery O2 Flow Rate FiO2 11/18/19 09:00 118 22 111/85 (94) 94 Ventilator 11/18/19 08:00 100.5 100.5 Comments ros unable to obtain on vent sedated HEENT: Other Lungs: Crackles Cardiovascular: S1, S2 Abdomen: Soft, Non-tender, Other (no mass) Extremities: Other (1+edema) Skin: Warm Labs Laboratory Tests Test 11/16/19 12:23 11/16/19 16:54 11/16/19 23:54 11/17/19 05:35 Glucose (Fingerstick) 328 mg/dL (70-99) 232 mg/dL (70-99) 194 mg/dL (70-99) 177 mg/dL (70-99) Test 11/17/19 06:00 11/17/19 07:53 11/17/19 11:53 11/17/19 18:05 White Blood Count 18.0 x10^3/uL (4.0-11.0) Red Blood Count 4.43 x10^6/uL (3.50-5.40) Hemoglobin 11.5 g/dL (12.0-15.5) Hematocrit 35.8 % (36.0-47.0) Mean Corpuscular Volume 81 fL (79-100) Mean Corpuscular Hemoglobin 26 pg (25-35) Mean Corpuscular Hemoglobin Concent 32 g/dL (31-37) Red Cell Distribution Width 20.2 % (11.5-14.5) Platelet Count 216 x10^3/uL (140-400) Sodium Level 144 mmol/L (136-145) Potassium Level 3.9 mmol/L (3.5-5.1) Chloride Level 105 mmol/L (98-107) Carbon Dioxide Level 31 mmol/L (21-32) Anion Gap 8 (6-14) Blood Urea Nitrogen 20 mg/dL (7-20) Creatinine 0.6 mg/dL (0.6-1.0) Estimated GFR (Cockcroft-Gault) 102.0 Glucose Level 192 mg/dL (70-99) Calcium Level 8.7 mg/dL (8.5-10.1) Phosphorus Level 2.2 mg/dL (2.6-4.7) Magnesium Level 1.8 mg/dL (1.8-2.4) O2 Saturation 84 % (92-99) Arterial Blood pH 7.33 (7.35-7.45) Arterial Blood pCO2 at Patient Temp 59 mmHg (35-46) Arterial Blood pO2 at Patient Temp 50 mmHg (65-108) Arterial Blood HCO3 30 mmol/L (21-28) Arterial Blood Base Excess 3 mmol/L (-3-3) FiO2 100 Glucose (Fingerstick) 284 mg/dL (70-99) 253 mg/dL (70-99) Test 11/17/19 23:57 11/18/19 05:15 11/18/19 05:52 11/18/19 07:45 Glucose (Fingerstick) 263 mg/dL (70-99) 184 mg/dL (70-99) White Blood Count 22.4 x10^3/uL (4.0-11.0) Red Blood Count 4.04 x10^6/uL (3.50-5.40) Hemoglobin 10.3 g/dL (12.0-15.5) Hematocrit 32.4 % (36.0-47.0) Mean Corpuscular Volume 80 fL (79-100) Mean Corpuscular Hemoglobin 26 pg (25-35) Mean Corpuscular Hemoglobin Concent 32 g/dL (31-37) Red Cell Distribution Width 20.6 % (11.5-14.5) Platelet Count 207 x10^3/uL (140-400) Sodium Level 140 mmol/L (136-145) Potassium Level 4.5 mmol/L (3.5-5.1) Chloride Level 103 mmol/L (98-107) Carbon Dioxide Level 31 mmol/L (21-32) Anion Gap 6 (6-14) Blood Urea Nitrogen 19 mg/dL (7-20) Creatinine 0.6 mg/dL (0.6-1.0) Estimated GFR (Cockcroft-Gault) 102.0 Glucose Level 221 mg/dL (70-99) Calcium Level 9.1 mg/dL (8.5-10.1) Phosphorus Level 2.8 mg/dL (2.6-4.7) Magnesium Level 1.9 mg/dL (1.8-2.4) O2 Saturation 85 % (92-99) Arterial Blood pH 7.33 (7.35-7.45) Arterial Blood pCO2 at Patient Temp 58 mmHg (35-46) Arterial Blood pO2 at Patient Temp 53 mmHg (65-108) Arterial Blood HCO3 30 mmol/L (21-28) Arterial Blood Base Excess 3 mmol/L (-3-3) FiO2 100 Test 11/18/19 08:56 Lactic Acid Level 2.7 mmol/L (0.4-2.0) Laboratory Tests Test 11/17/19 11:53 11/17/19 18:05 11/17/19 23:57 11/18/19 05:15 Glucose (Fingerstick) 284 mg/dL (70-99) 253 mg/dL (70-99) 263 mg/dL (70-99) White Blood Count 22.4 x10^3/uL (4.0-11.0) Red Blood Count 4.04 x10^6/uL (3.50-5.40) Hemoglobin 10.3 g/dL (12.0-15.5) Hematocrit 32.4 % (36.0-47.0) Mean Corpuscular Volume 80 fL (79-100) Mean Corpuscular Hemoglobin 26 pg (25-35) Mean Corpuscular Hemoglobin Concent 32 g/dL (31-37) Red Cell Distribution Width 20.6 % (11.5-14.5) Platelet Count 207 x10^3/uL (140-400) Sodium Level 140 mmol/L (136-145) Potassium Level 4.5 mmol/L (3.5-5.1) Chloride Level 103 mmol/L (98-107) Carbon Dioxide Level 31 mmol/L (21-32) Anion Gap 6 (6-14) Blood Urea Nitrogen 19 mg/dL (7-20) Creatinine 0.6 mg/dL (0.6-1.0) Estimated GFR (Cockcroft-Gault) 102.0 Glucose Level 221 mg/dL (70-99) Calcium Level 9.1 mg/dL (8.5-10.1) Phosphorus Level 2.8 mg/dL (2.6-4.7) Magnesium Level 1.9 mg/dL (1.8-2.4) Test 11/18/19 05:52 11/18/19 07:45 11/18/19 08:56 Glucose (Fingerstick) 184 mg/dL (70-99) O2 Saturation 85 % (92-99) Arterial Blood pH 7.33 (7.35-7.45) Arterial Blood pCO2 at Patient Temp 58 mmHg (35-46) Arterial Blood pO2 at Patient Temp 53 mmHg (65-108) Arterial Blood HCO3 30 mmol/L (21-28) Arterial Blood Base Excess 3 mmol/L (-3-3) FiO2 100 Lactic Acid Level 2.7 mmol/L (0.4-2.0) Medications Active Scripts Medications Dose Route/Sig Max Daily Dose Days Date Category Augmentin 500-125 Tablet (Amoxicillin/Potassium Clav) 1 Each Tablet 1 Tab PO BID 10 09/03/19 Rx Culturelle (Lactobacillus Rhamnosus Gg) 1 Each Cap.sprink 1 Cap PO BID 30 09/03/19 Rx Dok (Docusate Sodium) 100 Mg Capsule 100 Mg PO PRN BID PRN 30 09/03/19 Rx Tylenol (Acetaminophen) 325 Mg Tablet 650 Mg PO PRN Q4HRS PRN 30 09/03/19 Rx Xarelto (Rivaroxaban) 10 Mg Tablet 20 Mg PO DAILYWSUP 60 09/03/19 Rx Feosol (Ferrous Sulfate) 325 Mg Tablet 325 Mg PO BIDWMEALS 30 09/03/19 Rx Doxycycline Hyclate 100 Mg Tablet 100 Mg PO BID 10 09/03/19 Rx Seroquel (Quetiapine Fumarate) 400 Mg Tablet 1.5 Tab PO QHS 08/30/19 Reported Alprazolam 1 Mg Tablet 0.5 Tab PO TID 08/30/19 Reported Ropinirole Hcl 0.25 Mg Tablet 0.25 Mg PO BID 08/30/19 Reported Melatonin 5 Mg Tab.rapdis 1 Tab PO QHS 30 08/30/19 Reported Metoprolol Tartrate 25 Mg Tablet 0.5 Tab PO BID 08/30/19 Reported Pantoprazole Sodium (Pantoprazole Sodium) 40 Mg Tablet.dr 40 Mg PO DAILYAC 08/30/19 Reported Venlafaxine Hcl Er (Venlafaxine Hcl) 150 Mg Cap.er.24h 150 Mg PO QHS 08/11/19 Reported Duoneb 0.5-3(2.5) Mg/3 Ml (Albuterol/Ipratropium) 3 Ml Ampul.neb 3 Ml NEB RTQID 30 03/26/18 Rx Mucinex Dm Er 600-30 Mg Tablet (Guaifenesin/Dextromethorphan) 1 Each Tab.er.12h 1 Each PO BID 03/18/18 Reported Seroquel Xr (Quetiapine Fumarate) 400 Mg Tab.er.24h 800 Mg PO HS 03/18/18 Reported Comments Impression . 1. Acute on chronic hypoxic and hypercapnic respiratory failure secondary to multifactorial etiologies including acute exacerbation of chronic obstructive pulmonary disease, septic shock , left-sided pneumothorax 2. Bilateral interstitial infiltrates, suspect aspiration pneumonia 3. Emesis while on BiPAP initially at [place], possibility of aspiration pneumonia is a consideration. 4. Left-sided pneumothorax post-attempted line placement, status post chest tube. Left PTX persist. continue chest tube to suction. 5. Underlying chronic obstructive pulmonary disease with chronic hypoxic respiratory failure and noncompliance. 6. Acute kidney injury.improved 7. septic shock. 8. Abnormal ct chest, ? tracheal injury/ air in venous system. s/p Bronch , No tracheal tear seen distal to ET tube, cannot exclude higher level tear 9. Anemia Plan . SPOKE WITH SISTER AT BEDSIDE PT TOO ILL TO TRAVEL TO A DIFFERENT CENTER SISTER INFORMED ME THAT IF PT IS NO BETTER BY END OF WEEK THE FAMILY MAY CONSIDER DC ALL SUPPORT AND ALLOW NATURAL , I CONCUR THE PROGNOSIS IN THIS SITUATION IS VERY POOR CHEST TUBES FOR NOW ANTIPX PER IC IV FLUIDS OFF PRESSORS FOR NOW STERODIS Dr. Arriaza made Numerous attempts to transfer to [facility] not successful as they declined transfer 11/13, 11/14, 11/15 . Per their request Bronch has been done.we don't have thoracic surgery in house. may need VAT for persistent continuos air leak, and suspected tracheal tear. BO LINCOLN MD Nov 18, 2019 09:42
[2019-11-18] MEDS: MEROPENEM 500 MG in IV NORMAL SALINE 50ML 50 ML IV SCH ×3 (10:09→17:36)
--- NOTE | 2019-11-18 10:46 | NUR ---
SS following up with discharge planning. SS discussed with pt's RN. Pt was denied for transfer by [facility] and [facility] last week. Pt needing cardiothoracic surgeon. SS contacted [facility] transfer team, ; fax [phone], and made request for transfer. SS fax requested clinical. Packet, transfer form, and [facility] form on chart. SS awaiting acceptance decision and will proceed accordingly. Pt's RN notified.
--- NOTE | 2019-11-18 11:00 | PDOC ---
Subjective: Subjective: No GI concerns per nurse. 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 Objective: Vital Signs: Vital Signs Date Time Temp Pulse Resp B/P (MAP) Pulse Ox O2 Delivery O2 Flow Rate FiO2 11/18/19 10:00 112 22 141/91 (108) 94 Ventilator 11/18/19 08:00 100.5 100.5 Labs: Laboratory Tests Test 11/17/19 11:53 11/17/19 18:05 11/17/19 23:57 11/18/19 05:15 Glucose (Fingerstick) 284 mg/dL 253 mg/dL 263 mg/dL White Blood Count 22.4 x10^3/uL Red Blood Count 4.04 x10^6/uL Hemoglobin 10.3 g/dL Hematocrit 32.4 % Mean Corpuscular Volume 80 fL Mean Corpuscular Hemoglobin 26 pg Mean Corpuscular Hemoglobin Concent 32 g/dL Red Cell Distribution Width 20.6 % Platelet Count 207 x10^3/uL Sodium Level 140 mmol/L Potassium Level 4.5 mmol/L Chloride Level 103 mmol/L Carbon Dioxide Level 31 mmol/L Anion Gap 6 Blood Urea Nitrogen 19 mg/dL Creatinine 0.6 mg/dL Estimated GFR (Cockcroft-Gault) 102.0 Glucose Level 221 mg/dL Calcium Level 9.1 mg/dL Phosphorus Level 2.8 mg/dL Magnesium Level 1.9 mg/dL Test 11/18/19 05:52 11/18/19 07:45 11/18/19 08:56 Glucose (Fingerstick) 184 mg/dL O2 Saturation 85 % Arterial Blood pH 7.33 Arterial Blood pCO2 at Patient Temp 58 mmHg Arterial Blood pO2 at Patient Temp 53 mmHg Arterial Blood HCO3 30 mmol/L Arterial Blood Base Excess 3 mmol/L FiO2 100 Lactic Acid Level 2.7 mmol/L Procalcitonin 1.29 ng/mL BRONCH RES 1 Final Yeast isolated. BLOOD CULTURE Final NO GROWTH AFTER 5 DAYS Source: LLL BAL DIAGNOSIS: LLL BAL NEGATIVE FOR MALIGNANT CELLS. FEW REACTIVE BRONCHIAL EPITHELIAL CELLS AND PULMONARY MACROPHAGES IDENTIFIED WITHIN A BACKGROUND OF NEUTROPHILS. Imaging: CXR 11/18 IMPRESSION: 1. Stable life support devices. 2. Bilateral infiltrates are unchanged. 3. No pneumothorax. PE: GEN: ill, intubated LUNGS: coarse, vent HEART: tachycardic ABD: soft, quiet NEURO/PSYCH: sedated A/P: Resp failure, aspiration pneumonia, possible tracheal tear, pneumothorax - transfer attempts last week denied ACD/YESSY - Hgb improved/stable, no obvious bleeding, on IV PPI and TPN, had previously recommended outpt 'scopes -- Continue same per GI. Hemodynamically unstable?: Yes Is patient in severe pain?: No Is NPO status required?: Yes NAIDA SANZ Nov 18, 2019 11:00
[2019-11-18] MEDS: MICAFUNGIN 100 MG in IV DEXTROSE 5% 100ML 100 ML IV SCH (11:08)
--- NOTE | 2019-11-18 11:25 | PN ---
DATE: 11/18/2019 SUBJECTIVE: The patient continues to be intubated, mechanically ventilated, sedated and paralyzed. Continues to require 100% FiO2, maintaining her oxygen saturations 85% and 95%. She did spike her temperature and she apparently was seen by the Infectious Disease, who changed her antibiotic. PHYSICAL EXAMINATION: GENERAL: When I examined her, she was pale, cachectic, but no jaundice, cyanosis or thyromegaly. No jugular venous distention. No lower limb edema. VITAL SIGNS: Her heart rate was 100, blood pressure 137/85, temperature was 99, respiratory rate was 22 and oxygen saturation was 90% on FiO2 of 100%. HEAD, EYES, EARS, NOSE AND THROAT: Showed normocephalic, atraumatic. NECK: Supple with orotracheal and orogastric tube in place. HEART: Showed normal first and second heart sounds. No gallop or murmur. CHEST: Showed central trachea, equal bilateral expansion, air entry, vesicular sounds. She has subcutaneous crepitus on the left side. ABDOMEN: Distended, soft, nontender. NEUROLOGIC: She is heavily sedated, paralyzed. Her intake over the last 24 hours was 2975, output was 4385. LABORATORY DATA: As of this morning, her blood gas showed a pH of 7.33, pCO2 of 58, pO2 of 53, bicarbonate 30 and oxygen saturation was 85% on FiO2 of 100%. White cell count is high at 22,000, hemoglobin 10, hematocrit 32, MCV 80 and platelet count 207,000. Her chemistry showed a serum sodium 140, potassium 4.5, chloride 103, bicarbonate 31, anion gap of 6, BUN 19, creatinine 0.6, estimated GFR was 102 mL per minute. Her calcium was 9.1, phosphorus 2.8, and magnesium was 1.9. ASSESSMENT: 1. [id number] hypoxic, hypercapnic respiratory failure due to a. Acute chronic obstructive pulmonary disease exacerbation. b. Aspiration pneumonia. She was put on BiPAP at [facility]. c. Septic shock. d. Left-sided pneumothorax. 2. Left side pneumothorax status post attempted line placement, status post chest tube placement. The left lung has completely expanded; however, she has extensive subcutaneous emphysema on the left side. 3. Chronic obstructive pulmonary disease. 4. Chronic hypoxic hypercapnic respiratory failure, noncompliance with medication, narcotic abuse. 5. Acute kidney injury, improving. 6. Anemia status post blood transfusion. PLAN: To continue with sedation and paralysis. Continue with mechanical ventilation. The patient's condition has worsened. She is hypoxic despite being on FiO2 of 100% indicating probably ARDS. Her white cell count is little rising. Apparently, Dr. Singh has changed her antibiotic. She is now on meropenem. Her Levaquin was discontinued. BERTRAND RENTERIA MD DR: SADAF/vita JOB#: [id number] / [id number]
[2019-11-18] MEDS: TPN PER PHARMACY MC PRN (12:45)
--- NOTE | 2019-11-18 12:52 | NUR ---
Pharmacy TPN Dosing Note S: CB CASTILLO is a 59 year old F Currently receiving Central Continuous TPN started 11/14/19 B:Pertinent PMH: ILEUS, COFFEE GROUND EMESIS. Height: 5 feet, 7 inches Weight: 63.8 kg Current diet: NPO LABS: Sodium: 140 Potassium: 4.5 Chloride: 103 Calcium: 9.1 Corrected Calcium: 10.86 Magnesium: 1.9 CO2: 31 SCr: 0.6 Glucose: 221 Albumin: 1.8 AST: 7 ALT: <6 TPN FORMULA: TPN TYPE: Central Continuous AMINO ACIDS: 75 gm DEXTROSE: 195 gm LIPIDS: 20 gm SODIUM CHLORIDE: 90 mEq SODIUM ACETATE: -- mEq SODIUM PHOSPHATE: -- mmol POTASSIUM CHLORIDE: 50 mEq POTASSIUM ACETATE: -- mEq POTASSIUM PHOSPHATE: 20 mmol MAGNESIUM: 10 mEq CALCIUM: 5 mEq INSULIN: -- units MULTIPLE VITAMIN: 10 ml TRACE ELEMENTS: 1 ml(s) TPN PLAN: 11/18 renewal same tpn R: Continue TPN AT 62.5ML/HR Will monitor electrolytes, glucose, and tolerance to TPN. TRICE TURNER [facility], 11/18/19 [id number]
--- NOTE | 2019-11-18 17:36 | NUR ---
Wound Care: Consult to eval and treat for wound to coccyx. Pt is on vent, has a chest tube, a catheter, and is receiving TPN. She is sedated and incontinent of bowel. Open area to coccyx is in the midline cleft area, and is consistent with incontinence associated skin damage/intertrigo. 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 Small wound noted to L groin with light purple bruising following the femoral artery. Wound slough covered with undermining from 9-2 measuring 0.3cm. Small piece of medihoney alginate packed into wound and covered with Telfa dressing. No other open areas noted on head to toe assessment. Pt turned to L side with wedge, pillow between knees and floating heels. On ICU bed. Will follow up 11/26/2019
[2019-11-18] MEDS ORDERED: DEXTROSE 70% IV SCH ×10 (22:00)
[2019-11-18] MEDS ORDERED: AMINO ACID IV SCH ×10 (22:00)
[2019-11-18] MEDS ORDERED: [UNRECOGNIZED DRUG - OTHER] IV SCH ×10 (22:00)
[2019-11-18] MEDS ORDERED: TOTAL PARENTERAL NUTRITION IV SCH ×10 (22:00)
[2019-11-19] VITALS (24 sets, daily range): BP systolic 92–177; BP diastolic 61–99
[2019-11-19] MEDS: MEROPENEM 500 MG in IV NORMAL SALINE 50ML 50 ML IV SCH ×4 (00:12→17:36)
[2019-11-19] MEDS: METOPROLOL TARTRATE 5 MG/5 ML VIAL. IVP SCH ×5 (00:12→18:00)
[2019-11-19] MEDS: INSULIN LISPRO 300 UNITS/3 ML VIAL. SQ SCH ×4 (00:14→17:41)
[2019-11-19] MEDS: VECURONIUM BROMIDE 50 MG in TOTAL VOLUME 50 ML IV PRN (02:59)
[2019-11-19] MEDS: MIDAZOLAM HCL 50 MG in IV NORMAL SALINE 50ML 50 ML IV PRN ×4 (04:34→20:59)
[2019-11-19 06:13] LABS: ALBUMIN 1.5 g/dL (3.4-5.0); ALBUMIN/GLOBULIN RATIO 0.3 (1.0-1.7); CALCIUM 9.1 mg/dL (8.5-10.1); CREATININE 0.6 mg/dL (0.6-1.0); POTASSIUM 5.2 mmol/L (3.5-5.1); TOTAL BILIRUBIN 0.3 mg/dL (0.2-1.0); TOTAL PROTEIN 5.9 g/dL (6.4-8.2)
[2019-11-19 06:33] LABS: BASO % 0 % (0-3); EOS # 0.5 x10^3/uL (0.0-0.7); EOS % 1 % (0-3); HEMATOCRIT 30.8 % (36.0-47.0); HEMOGLOBIN 9.9 g/dL (12.0-15.5); LYMPH # 1.8 x10^3/uL (1.0-4.8); LYMPH % 5 % (24-48); MEAN CORPUSCULAR HEMOGLOBIN 26 pg (25-35); MEAN CORPUSCULAR HGB CONC 32 g/dL (31-37); MEAN CORPUSCULAR VOLUME 80 fL (79-100); MONO # 2.3 x10^3/uL (0.0-1.1); MONO % 7 % (0-9); NEUT # 30.3 x10^3/uL (1.8-7.7); NEUT % 87 % (31-73); PLATELET COUNT 287 x10^3/uL (140-400); RED BLOOD COUNT 3.83 x10^6/uL (3.50-5.40); RED CELL DISTRIBUTION WIDTH 20.4 % (11.5-14.5); WHITE BLOOD COUNT 34.9 x10^3/uL (4.0-11.0)
--- NOTE | 2019-11-19 07:22 | PDOC ---
Infectious Disease Note Subjective Subjective pt remains intubated and sedated on paralytic agent resp condition has deteriorated cont to have CT leak not on pressors no fevers no diarrhea D/W RN JESUS LEE unable to obtain Vital Sign Vital Signs Vital Signs Date Time Temp Pulse Resp B/P (MAP) Pulse Ox O2 Delivery O2 Flow Rate FiO2 11/19/19 06:43 22 11/19/19 06:12 115 157/98 11/19/19 06:00 91 Ventilator 11/19/19 04:00 99.7 99.7 Physical Exam PHYSICAL EXAM GENERAL: Intubated, sedated. HEENT: Sclerae are anicteric. NG tube in place. NECK: swelling and crepitus going down the lt chest wall Chestwall swelling and crepitus more pronounced Lt side - ? less today LUNGS: diffuse coarse bs Left-sided chest tube present. HEART: S1, S2, tachy ABDOMEN: Soft, nontender.distended : Diaz in place EXTREMITIES: Trace edema. DERMATOLOGIC: Warm, dry. No generalized rash. CENTRAL NERVOUS SYSTEM: Intubated./Paralyzed LINES: Lt Femoral line removed, RUE PICC line intact, clean Labs Lab Laboratory Tests Test 11/18/19 07:45 11/18/19 08:56 11/18/19 12:53 11/18/19 12:57 O2 Saturation 85 % (92-99) Arterial Blood pH 7.33 (7.35-7.45) Arterial Blood pCO2 at Patient Temp 58 mmHg (35-46) Arterial Blood pO2 at Patient Temp 53 mmHg (65-108) Arterial Blood HCO3 30 mmol/L (21-28) Arterial Blood Base Excess 3 mmol/L (-3-3) FiO2 100 Lactic Acid Level 2.7 mmol/L (0.4-2.0) 3.7 mmol/L (0.4-2.0) Procalcitonin 1.29 ng/mL (0.00-0.10) Glucose (Fingerstick) 327 mg/dL (70-99) Test 11/18/19 17:40 11/19/19 00:12 11/19/19 05:40 11/19/19 06:08 Glucose (Fingerstick) 295 mg/dL (70-99) 281 mg/dL (70-99) 286 mg/dL (70-99) White Blood Count 34.9 x10^3/uL (4.0-11.0) Red Blood Count 3.83 x10^6/uL (3.50-5.40) Hemoglobin 9.9 g/dL (12.0-15.5) Hematocrit 30.8 % (36.0-47.0) Mean Corpuscular Volume 80 fL (79-100) Mean Corpuscular Hemoglobin 26 pg (25-35) Mean Corpuscular Hemoglobin Concent 32 g/dL (31-37) Red Cell Distribution Width 20.4 % (11.5-14.5) Platelet Count 287 x10^3/uL (140-400) Neutrophils (%) (Auto) 87 % (31-73) Lymphocytes (%) (Auto) 5 % (24-48) Monocytes (%) (Auto) 7 % (0-9) Eosinophils (%) (Auto) 1 % (0-3) Basophils (%) (Auto) 0 % (0-3) Neutrophils # (Auto) 30.3 x10^3/uL (1.8-7.7) Lymphocytes # (Auto) 1.8 x10^3/uL (1.0-4.8) Monocytes # (Auto) 2.3 x10^3/uL (0.0-1.1) Eosinophils # (Auto) 0.5 x10^3/uL (0.0-0.7) Basophils # (Auto) 0.0 x10^3/uL (0.0-0.2) Sodium Level 136 mmol/L (136-145) Potassium Level 5.2 mmol/L (3.5-5.1) Chloride Level 99 mmol/L (98-107) Carbon Dioxide Level 35 mmol/L (21-32) Anion Gap 2 (6-14) Blood Urea Nitrogen 23 mg/dL (7-20) Creatinine 0.6 mg/dL (0.6-1.0) Estimated GFR (Cockcroft-Gault) 102.0 BUN/Creatinine Ratio 38 (6-20) Glucose Level 295 mg/dL (70-99) Calcium Level 9.1 mg/dL (8.5-10.1) Total Bilirubin 0.3 mg/dL (0.2-1.0) Aspartate Amino Transf (AST/SGOT) 10 U/L (15-37) Alanine Aminotransferase (ALT/SGPT) 8 U/L (14-59) Alkaline Phosphatase 98 U/L (46-116) Total Protein 5.9 g/dL (6.4-8.2) Albumin 1.5 g/dL (3.4-5.0) Albumin/Globulin Ratio 0.3 (1.0-1.7) Micro Microbiology 11/13/19 - Final, Complete 11/12/19 Blood Culture - Final, Complete NO GROWTH AFTER 5 DAYS Objective Assessment 1. Severe sepsis -POA cultures nonrevealing so far- Fever this am mild. Procalcitonin some better. 2. Acute hypoxic respiratory failure ,left-sided pneumothorax, extensive pneumomediastinum, potential tracheal injury (status post line placement at [facility]), chest tube., CT with multiple abnormalities including persistent leak 3. Leukocytosis - ? reactive worse also on steroids 4. Lactic acidosis - remains elevated 5.. Aspiration pneumonia with emesis while on BiPAP at [facility]. 5. Bilateral interstitial infiltrates at [facility], likely worsening congestive heart failure, status post IV fluids, s/p bronch 6. Coffee-ground emesis. Bowel obstruction, Ileus 7. History of pulmonary embolism. Chronic respiratory failure, on home O2 with history of chronic obstructive pulmonary disease, 8 Bipolar disorder. 9. History of methicillin-resistant Staphylococcus aureus. 10 Hypokalemia. 11. Anemia. 12. Protein-calorie malnutrition. 13. History of smoking. 14.H/O noncomplaiance 15.Severe PCM Plan Plan of Care Abx adjusted 11/18 but cont to decline clinically with increased WBC and lactic could be reactive process- Consider repeat CT scan chest/abd/pelvis if stable enough to undergo procedure but will defer to Critical care Blood cults times 2/sputum. 10 Urine is very clear Changed to Meropenem D/c Levaquin (11/12) after todays dose to complete 7 days, Cont micafungin, zyvox influenza screen neg ECHO noted f/u bronch cultures,yeast likely contaminant f/u cults and labs in am Critically ill Overall, prognosis very poor. Numerous attempts were made to transfer to or [facility] , has not been accepted. May go to [facility] but too ill to travel D/W DEEPALI VILLEDA MD Nov 19, 2019 07:22
[2019-11-19] MEDS: IPRATRPIUM/ALBUTEROL 0.5/2.5MG 3 ML NEBU. NEB SCH ×4 (07:30→20:12)
[2019-11-19 07:46] LABS: BASE EXCESS ABG 4 mmol/L (-3-3); HCO3 ABG 31 mmol/L (21-28); PCO2 ABG 55 mmHg (35-46); PO2 ABG 69 mmHg (65-108); SAT O2 ABG 93 % (92-99)
[2019-11-19] MEDS: PANTOPRAZOLE IV PUSH 40 MG VIAL. IVP SCH ×2 (08:32→16:30)
[2019-11-19 08:41] LABS: FIO2 ABG 100
--- NOTE | 2019-11-19 08:44 | RAD ---
PORTABLE CHEST 1V History: Respiratory failure Comparison: 11/18/2019 Findings: Single view of the chest is submitted. There is again enteric catheter coursing into the stomach, not fully seen. There is again endotracheal tube with tip about 4 cm from juliet and a right upper extremity PICC with the tip in the mid to superior aspect of the superior vena cava. There is again left chest tube. Difficult to accurately compare due to the prominent soft tissue gas, there is suspected small left pleural effusion probably unchanged. There is again extensive gas in the soft tissues bilaterally although decreased. Pericardial cardiac silhouette is stable. There is again abnormal right perihilar and suprahilar opacity as well as fullness of the left hilum. There is airspace opacity also of the mid to inferior right hemithorax and also to a lesser degree on the left although slightly improved aeration of the mid to inferior left hemithorax. There are again suspected small bilateral pleural effusions. Impression: 1. There is extensive soft tissue gas bilaterally although decreased. There is small left apical pneumothorax probably unchanged, again left chest tube present. There is slight improved aeration of the left hemithorax although persistent bilateral infiltrates and abnormal perihilar opacity greater on the right as seen previously. Electronically signed by: Luke Schafeer MD (11/19/2019 8:41 AM) [id number]
[2019-11-19] MEDS: methylPREDNISolone SOD SUCC PF 40 MG/ML VIAL. IV SCH (08:46)
--- NOTE | 2019-11-19 09:21 | PN ---
DATE: SUBJECTIVE: The patient continued to be intubated, mechanical ventilated, sedated and paralyzed. Her oxygen saturation is back to 100%. PHYSICAL EXAMINATION: GENERAL: When I examined her, she was pale, cachectic, but no jaundice, cyanosis or thyromegaly. No jugular venous distention. No limb edema. VITAL SIGNS: Her heart rate was 115, blood pressure 157/98, temperature was 99.7, respiratory rate 22, and oxygen saturation was 94% on FiO2 of 100%. HEAD, EYES, EARS, NOSE AND THROAT: Normocephalic, atraumatic. NECK: Supple. She has orotracheal and orogastric tube. CARDIAC: Normal first and second heart sounds. No gallop or murmur. CHEST: Shows central trachea, equal bilateral expansion, air entry. I could not appreciate any crepitation or rhonchi anteriorly. She has chest tube to the left side. She has crepitus all over the left side of the chest due to subcutaneous emphysema. ABDOMEN: Slightly distended, soft, nontender. NEUROLOGIC: She is sedated and paralyzed. Her intake was 2400, output was 3718. LABORATORY DATA: Her lab work this morning showed a white cell count of 34,900, hemoglobin 10, hematocrit 30, MCV 80 and platelet count 287,000. Her chemistry showed a serum sodium 136, potassium 5.2, chloride 99, bicarbonate 35, anion gap of 2, BUN 23, creatinine 0.6, estimated GFR was 102 mL per minute. Her glucose was 295, calcium was 9. Total bilirubin, AST, ALT, alkaline phosphatase were normal. Total protein 5.9, albumin 1.5. ASSESSMENT: 1. Acute on chronic hypoxic hypercapnic respiratory failure due to: A. Acute exacerbation of chronic obstructive pulmonary disease. B. Aspiration pneumonia when she was put on BiPAP machine at [facility]. C. Septic shock. D. Left sided pneumothorax. 2. Left-sided pneumothorax, status post attempted line placement, status post chest tube placement. Left lung has completely expanded; however, with extensive subcutaneous emphysema on the left side. 3. Chronic obstructive pulmonary disease. 4. Chronic hypoxic hypercapnic respiratory failure with noncompliance with medications, narcotic abuse. 5. Acute kidney injury, improving. 6. Anemia, status post blood transfusion. PLAN: 1. To continue sedation and paralysis. 2. Continue with mechanical ventilation. 3. Continue with IV antibiotic, bronchodilator and steroids. BERTRAND RENTERIA MD DR: SADAF/vita JOB#: [id number] / [id number]
[2019-11-19] MEDS: MICAFUNGIN 100 MG in IV DEXTROSE 5% 100ML 100 ML IV SCH (10:17)
--- NOTE | 2019-11-19 12:12 | PDOC ---
G I PROGRESS NOTE Subjective Sedated on ventilator. Objective Others' notes reviewed. Physical Exam Lungs coarse bilaterally. Left upper chest "squeak" seems less prominent. RRR Abdomen soft, not distended. OG output bilious. Review of Relevant I have reviewed the following items ashley (where applicable) has been applied. Labs Laboratory Tests Test 11/17/19 18:05 11/17/19 23:57 11/18/19 05:15 11/18/19 05:52 Glucose (Fingerstick) 253 mg/dL (70-99) 263 mg/dL (70-99) 184 mg/dL (70-99) White Blood Count 22.4 x10^3/uL (4.0-11.0) Red Blood Count 4.04 x10^6/uL (3.50-5.40) Hemoglobin 10.3 g/dL (12.0-15.5) Hematocrit 32.4 % (36.0-47.0) Mean Corpuscular Volume 80 fL (79-100) Mean Corpuscular Hemoglobin 26 pg (25-35) Mean Corpuscular Hemoglobin Concent 32 g/dL (31-37) Red Cell Distribution Width 20.6 % (11.5-14.5) Platelet Count 207 x10^3/uL (140-400) Sodium Level 140 mmol/L (136-145) Potassium Level 4.5 mmol/L (3.5-5.1) Chloride Level 103 mmol/L (98-107) Carbon Dioxide Level 31 mmol/L (21-32) Anion Gap 6 (6-14) Blood Urea Nitrogen 19 mg/dL (7-20) Creatinine 0.6 mg/dL (0.6-1.0) Estimated GFR (Cockcroft-Gault) 102.0 Glucose Level 221 mg/dL (70-99) Calcium Level 9.1 mg/dL (8.5-10.1) Phosphorus Level 2.8 mg/dL (2.6-4.7) Magnesium Level 1.9 mg/dL (1.8-2.4) Test 11/18/19 07:45 11/18/19 08:56 11/18/19 12:53 11/18/19 12:57 O2 Saturation 85 % (92-99) Arterial Blood pH 7.33 (7.35-7.45) Arterial Blood pCO2 at Patient Temp 58 mmHg (35-46) Arterial Blood pO2 at Patient Temp 53 mmHg (65-108) Arterial Blood HCO3 30 mmol/L (21-28) Arterial Blood Base Excess 3 mmol/L (-3-3) FiO2 100 Lactic Acid Level 2.7 mmol/L (0.4-2.0) 3.7 mmol/L (0.4-2.0) Procalcitonin 1.29 ng/mL (0.00-0.10) Glucose (Fingerstick) 327 mg/dL (70-99) Test 11/18/19 17:40 11/19/19 00:12 11/19/19 05:40 11/19/19 06:08 Glucose (Fingerstick) 295 mg/dL (70-99) 281 mg/dL (70-99) 286 mg/dL (70-99) White Blood Count 34.9 x10^3/uL (4.0-11.0) Red Blood Count 3.83 x10^6/uL (3.50-5.40) Hemoglobin 9.9 g/dL (12.0-15.5) Hematocrit 30.8 % (36.0-47.0) Mean Corpuscular Volume 80 fL (79-100) Mean Corpuscular Hemoglobin 26 pg (25-35) Mean Corpuscular Hemoglobin Concent 32 g/dL (31-37) Red Cell Distribution Width 20.4 % (11.5-14.5) Platelet Count 287 x10^3/uL (140-400) Neutrophils (%) (Auto) 87 % (31-73) Lymphocytes (%) (Auto) 5 % (24-48) Monocytes (%) (Auto) 7 % (0-9) Eosinophils (%) (Auto) 1 % (0-3) Basophils (%) (Auto) 0 % (0-3) Neutrophils # (Auto) 30.3 x10^3/uL (1.8-7.7) Lymphocytes # (Auto) 1.8 x10^3/uL (1.0-4.8) Monocytes # (Auto) 2.3 x10^3/uL (0.0-1.1) Eosinophils # (Auto) 0.5 x10^3/uL (0.0-0.7) Basophils # (Auto) 0.0 x10^3/uL (0.0-0.2) Sodium Level 136 mmol/L (136-145) Potassium Level 5.2 mmol/L (3.5-5.1) Chloride Level 99 mmol/L (98-107) Carbon Dioxide Level 35 mmol/L (21-32) Anion Gap 2 (6-14) Blood Urea Nitrogen 23 mg/dL (7-20) Creatinine 0.6 mg/dL (0.6-1.0) Estimated GFR (Cockcroft-Gault) 102.0 BUN/Creatinine Ratio 38 (6-20) Glucose Level 295 mg/dL (70-99) Calcium Level 9.1 mg/dL (8.5-10.1) Total Bilirubin 0.3 mg/dL (0.2-1.0) Aspartate Amino Transf (AST/SGOT) 10 U/L (15-37) Alanine Aminotransferase (ALT/SGPT) 8 U/L (14-59) Alkaline Phosphatase 98 U/L (46-116) Total Protein 5.9 g/dL (6.4-8.2) Albumin 1.5 g/dL (3.4-5.0) Albumin/Globulin Ratio 0.3 (1.0-1.7) Test 11/19/19 07:30 O2 Saturation 93 % (92-99) Arterial Blood pH 7.37 (7.35-7.45) Arterial Blood pCO2 at Patient Temp 55 mmHg (35-46) Arterial Blood pO2 at Patient Temp 69 mmHg (65-108) Arterial Blood HCO3 31 mmol/L (21-28) Arterial Blood Base Excess 4 mmol/L (-3-3) FiO2 100 Laboratory Tests Test 11/18/19 12:53 11/18/19 12:57 11/18/19 17:40 11/19/19 00:12 Lactic Acid Level 3.7 mmol/L (0.4-2.0) Glucose (Fingerstick) 327 mg/dL (70-99) 295 mg/dL (70-99) 281 mg/dL (70-99) Test 11/19/19 05:40 11/19/19 06:08 11/19/19 07:30 White Blood Count 34.9 x10^3/uL (4.0-11.0) Red Blood Count 3.83 x10^6/uL (3.50-5.40) Hemoglobin 9.9 g/dL (12.0-15.5) Hematocrit 30.8 % (36.0-47.0) Mean Corpuscular Volume 80 fL (79-100) Mean Corpuscular Hemoglobin 26 pg (25-35) Mean Corpuscular Hemoglobin Concent 32 g/dL (31-37) Red Cell Distribution Width 20.4 % (11.5-14.5) Platelet Count 287 x10^3/uL (140-400) Neutrophils (%) (Auto) 87 % (31-73) Lymphocytes (%) (Auto) 5 % (24-48) Monocytes (%) (Auto) 7 % (0-9) Eosinophils (%) (Auto) 1 % (0-3) Basophils (%) (Auto) 0 % (0-3) Neutrophils # (Auto) 30.3 x10^3/uL (1.8-7.7) Lymphocytes # (Auto) 1.8 x10^3/uL (1.0-4.8) Monocytes # (Auto) 2.3 x10^3/uL (0.0-1.1) Eosinophils # (Auto) 0.5 x10^3/uL (0.0-0.7) Basophils # (Auto) 0.0 x10^3/uL (0.0-0.2) Sodium Level 136 mmol/L (136-145) Potassium Level 5.2 mmol/L (3.5-5.1) Chloride Level 99 mmol/L (98-107) Carbon Dioxide Level 35 mmol/L (21-32) Anion Gap 2 (6-14) Blood Urea Nitrogen 23 mg/dL (7-20) Creatinine 0.6 mg/dL (0.6-1.0) Estimated GFR (Cockcroft-Gault) 102.0 BUN/Creatinine Ratio 38 (6-20) Glucose Level 295 mg/dL (70-99) Calcium Level 9.1 mg/dL (8.5-10.1) Total Bilirubin 0.3 mg/dL (0.2-1.0) Aspartate Amino Transf (AST/SGOT) 10 U/L (15-37) Alanine Aminotransferase (ALT/SGPT) 8 U/L (14-59) Alkaline Phosphatase 98 U/L (46-116) Total Protein 5.9 g/dL (6.4-8.2) Albumin 1.5 g/dL (3.4-5.0) Albumin/Globulin Ratio 0.3 (1.0-1.7) Glucose (Fingerstick) 286 mg/dL (70-99) O2 Saturation 93 % (92-99) Arterial Blood pH 7.37 (7.35-7.45) Arterial Blood pCO2 at Patient Temp 55 mmHg (35-46) Arterial Blood pO2 at Patient Temp 69 mmHg (65-108) Arterial Blood HCO3 31 mmol/L (21-28) Arterial Blood Base Excess 4 mmol/L (-3-3) FiO2 100 Microbiology 11/18/19 Blood Culture - Preliminary, Resulted NO GROWTH AFTER 1 DAY 11/13/19 - Final, Complete Hemoglobin stable. WBC's up. Barely oxygenating on 100%. Lactate increasing. Vitals/I & O Vital Sign - Last 24 Hours 11/18/19 11/18/19 11/18/19 11/18/19 12:58 13:00 13:11 13:27 Pulse 99 109 Resp 22 B/P (MAP) 92/61 134/88 (103) Pulse Ox 99 97 97 O2 Delivery Ventilator Ventilator 11/18/19 11/18/19 11/18/19 11/18/19 13:57 14:00 15:00 15:49 Pulse 94 102 Resp 22 22 B/P (MAP) 158/93 (114) 152/92 (112) Pulse Ox 97 97 96 96 O2 Delivery Ventilator Ventilator Ventilator 11/18/19 11/18/19 11/18/19 11/18/19 16:00 16:00 17:00 17:35 Temp 99.1 99.1 Pulse 104 73 98 Resp 22 22 B/P (MAP) 95/78 (84) 130/89 (103) 130/89 Pulse Ox 98 96 O2 Delivery Ventilator Mechanical Ventilator Ventilator 11/18/19 11/18/19 11/18/19 11/18/19 18:00 19:00 19:24 19:36 Pulse 79 78 Resp 22 22 22 B/P (MAP) 141/90 (107) 141/90 (107) Pulse Ox 96 98 98 O2 Delivery Ventilator Ventilator Ventilator 11/18/19 11/18/19 11/18/19 11/18/19 19:59 20:00 20:00 21:00 Temp 98.2 98.2 Pulse 84 86 Resp 22 22 22 B/P (MAP) 103/71 (82) 97/65 (76) Pulse Ox 97 98 O2 Delivery Ventilator Mechanical Ventilator Room Air 11/18/19 11/18/19 11/18/19 11/18/19 21:15 22:00 23:00 23:30 Pulse 83 87 Resp 22 22 B/P (MAP) 119/72 (88) 138/77 (97) Pulse Ox 98 98 99 99 O2 Delivery Ventilator Ventilator Ventilator Ventilator 11/19/19 11/19/19 11/19/19 11/19/19 00:00 00:00 00:12 01:00 Temp 98.1 98.1 Pulse 70 88 71 Resp 22 22 B/P (MAP) 103/72 (82) 105/64 (78) Pulse Ox 96 95 O2 Delivery Ventilator Mechanical Ventilator Ventilator 11/19/19 11/19/19 11/19/19 11/19/19 01:10 01:25 01:55 02:00 Pulse 98 Resp 22 22 22 B/P (MAP) 151/94 (113) Pulse Ox 98 98 O2 Delivery Ventilator Ventilator 11/19/19 11/19/19 11/19/19 11/19/19 03:00 03:20 04:00 04:00 Temp 99.7 99.7 Pulse 105 107 Resp 22 22 B/P (MAP) 176/96 (122) 177/98 (124) Pulse Ox 97 96 94 O2 Delivery Ventilator Mechanical Ventilator Ventilator 11/19/19 11/19/19 11/19/19 11/19/19 04:36 05:00 06:00 06:12 Pulse 113 83 115 Resp 22 22 B/P (MAP) 177/90 (119) 157/98 (117) 157/98 Pulse Ox 95 90 91 O2 Delivery Ventilator Ventilator Ventilator 11/19/19 11/19/19 11/19/19 11/19/19 06:43 07:00 07:13 07:30 Pulse 96 Resp 22 22 B/P (MAP) 160/91 (114) Pulse Ox 91 95 94 O2 Delivery Ventilator Ventilator 11/19/19 11/19/19 11/19/19 11/19/19 08:00 08:00 09:00 09:40 Temp 99.9 99.9 Pulse 100 116 Resp 22 22 B/P (MAP) 114/85 (95) 171/99 (123) Pulse Ox 94 93 94 O2 Delivery Mechanical Ventilator Ventilator Ventilator Ventilator 11/19/19 11/19/19 11/19/19 10:00 10:57 11:56 Pulse 115 112 Resp 22 B/P (MAP) 154/90 (111) 149/93 Pulse Ox 95 94 O2 Delivery Ventilator Ventilator Intake and Output 11/18/19 11/18/19 11/19/19 15:00 23:00 07:00 Intake Total 650 ml 1395.9 ml 1012.9 ml Output Total 915 ml 660 ml 1445 ml Balance -265 ml 735.9 ml -432.1 ml Assessment Probable gastric stress bleeding, inactive at present. ARF/tracheal injury with leak, ongoing. Plan of Care: Continue current Tx, Mgmt Plan of Care Note Continue antisecretory. Hemodynamically unstable?: Yes Is patient in severe pain?: No Is NPO status required?: Yes ELI RIBERA MD Nov 19, 2019 12:12
[2019-11-19] MEDS: TPN PER PHARMACY MC PRN (12:57)
--- NOTE | 2019-11-19 14:05 | NUR ---
Pharmacy TPN Dosing Note S: CB CASTILLO is a 59 year old F Currently receiving Central Continuous TPN started 11/14/19 B:Pertinent PMH: ILEUS, COFFEE GROUND EMESIS. Height: 5 feet, 7 inches Weight: 63.6 kg Current diet: NPO LABS: Sodium: 140 Potassium: 4.5 Chloride: 103 Calcium: 9.1 Corrected Calcium: 10.86 Magnesium: 1.9 CO2: 31 SCr: 0.6 Glucose: 221 Albumin: 1.8 AST: 7 ALT: <6 TPN FORMULA: TPN TYPE: Central Continuous AMINO ACIDS: 75 gm DEXTROSE: 195 gm LIPIDS: 20 gm SODIUM CHLORIDE: 90 mEq SODIUM ACETATE: -- mEq SODIUM PHOSPHATE: -- mmol POTASSIUM CHLORIDE: 30 mEq POTASSIUM ACETATE: -- mEq POTASSIUM PHOSPHATE: 13.6 mmol MAGNESIUM: 10 mEq CALCIUM: 5 mEq INSULIN: 15 units MULTIPLE VITAMIN: 10 ml TRACE ELEMENTS: 1 ml(s) TPN PLAN: 11/19 ADD INSULIN 15 UNITS TO TPN, DECREASE KCL TO 30 MEQ AND KPHOS TO 13.6MM. R: Continue TPN AT 62ML/HR Will monitor electrolytes, glucose, and tolerance to TPN. TRICE TURNER [facility], 11/19/19 1148
--- NOTE | 2019-11-19 15:15 | PDOC ---
PULMONARY PROGRESS NOTES Subjective PT STILL ON 100%FIO2 AND 6 PEEP Vitals Vital Signs Date Time Temp Pulse Resp B/P (MAP) Pulse Ox O2 Delivery O2 Flow Rate FiO2 11/19/19 13:51 94 11/19/19 12:00 Mechanical Ventilator 11/19/19 11:56 112 149/93 11/19/19 10:00 22 11/19/19 08:00 99.9 99.9 Comments ros unable to obtain on vent sedated HEENT: Other Lungs: Crackles Cardiovascular: S1, S2 Abdomen: Soft, Non-tender, Other (no mass) Extremities: Other (1+edema) Skin: Warm Labs Laboratory Tests Test 11/17/19 18:05 11/17/19 23:57 11/18/19 05:15 11/18/19 05:52 Glucose (Fingerstick) 253 mg/dL (70-99) 263 mg/dL (70-99) 184 mg/dL (70-99) White Blood Count 22.4 x10^3/uL (4.0-11.0) Red Blood Count 4.04 x10^6/uL (3.50-5.40) Hemoglobin 10.3 g/dL (12.0-15.5) Hematocrit 32.4 % (36.0-47.0) Mean Corpuscular Volume 80 fL (79-100) Mean Corpuscular Hemoglobin 26 pg (25-35) Mean Corpuscular Hemoglobin Concent 32 g/dL (31-37) Red Cell Distribution Width 20.6 % (11.5-14.5) Platelet Count 207 x10^3/uL (140-400) Sodium Level 140 mmol/L (136-145) Potassium Level 4.5 mmol/L (3.5-5.1) Chloride Level 103 mmol/L (98-107) Carbon Dioxide Level 31 mmol/L (21-32) Anion Gap 6 (6-14) Blood Urea Nitrogen 19 mg/dL (7-20) Creatinine 0.6 mg/dL (0.6-1.0) Estimated GFR (Cockcroft-Gault) 102.0 Glucose Level 221 mg/dL (70-99) Calcium Level 9.1 mg/dL (8.5-10.1) Phosphorus Level 2.8 mg/dL (2.6-4.7) Magnesium Level 1.9 mg/dL (1.8-2.4) Test 11/18/19 07:45 11/18/19 08:56 11/18/19 12:53 11/18/19 12:57 O2 Saturation 85 % (92-99) Arterial Blood pH 7.33 (7.35-7.45) Arterial Blood pCO2 at Patient Temp 58 mmHg (35-46) Arterial Blood pO2 at Patient Temp 53 mmHg (65-108) Arterial Blood HCO3 30 mmol/L (21-28) Arterial Blood Base Excess 3 mmol/L (-3-3) FiO2 100 Lactic Acid Level 2.7 mmol/L (0.4-2.0) 3.7 mmol/L (0.4-2.0) Procalcitonin 1.29 ng/mL (0.00-0.10) Glucose (Fingerstick) 327 mg/dL (70-99) Test 11/18/19 17:40 11/19/19 00:12 11/19/19 05:40 11/19/19 06:08 Glucose (Fingerstick) 295 mg/dL (70-99) 281 mg/dL (70-99) 286 mg/dL (70-99) White Blood Count 34.9 x10^3/uL (4.0-11.0) Red Blood Count 3.83 x10^6/uL (3.50-5.40) Hemoglobin 9.9 g/dL (12.0-15.5) Hematocrit 30.8 % (36.0-47.0) Mean Corpuscular Volume 80 fL (79-100) Mean Corpuscular Hemoglobin 26 pg (25-35) Mean Corpuscular Hemoglobin Concent 32 g/dL (31-37) Red Cell Distribution Width 20.4 % (11.5-14.5) Platelet Count 287 x10^3/uL (140-400) Neutrophils (%) (Auto) 87 % (31-73) Lymphocytes (%) (Auto) 5 % (24-48) Monocytes (%) (Auto) 7 % (0-9) Eosinophils (%) (Auto) 1 % (0-3) Basophils (%) (Auto) 0 % (0-3) Neutrophils # (Auto) 30.3 x10^3/uL (1.8-7.7) Lymphocytes # (Auto) 1.8 x10^3/uL (1.0-4.8) Monocytes # (Auto) 2.3 x10^3/uL (0.0-1.1) Eosinophils # (Auto) 0.5 x10^3/uL (0.0-0.7) Basophils # (Auto) 0.0 x10^3/uL (0.0-0.2) Sodium Level 136 mmol/L (136-145) Potassium Level 5.2 mmol/L (3.5-5.1) Chloride Level 99 mmol/L (98-107) Carbon Dioxide Level 35 mmol/L (21-32) Anion Gap 2 (6-14) Blood Urea Nitrogen 23 mg/dL (7-20) Creatinine 0.6 mg/dL (0.6-1.0) Estimated GFR (Cockcroft-Gault) 102.0 BUN/Creatinine Ratio 38 (6-20) Glucose Level 295 mg/dL (70-99) Calcium Level 9.1 mg/dL (8.5-10.1) Total Bilirubin 0.3 mg/dL (0.2-1.0) Aspartate Amino Transf (AST/SGOT) 10 U/L (15-37) Alanine Aminotransferase (ALT/SGPT) 8 U/L (14-59) Alkaline Phosphatase 98 U/L (46-116) Total Protein 5.9 g/dL (6.4-8.2) Albumin 1.5 g/dL (3.4-5.0) Albumin/Globulin Ratio 0.3 (1.0-1.7) Test 11/19/19 07:30 11/19/19 12:11 O2 Saturation 93 % (92-99) Arterial Blood pH 7.37 (7.35-7.45) Arterial Blood pCO2 at Patient Temp 55 mmHg (35-46) Arterial Blood pO2 at Patient Temp 69 mmHg (65-108) Arterial Blood HCO3 31 mmol/L (21-28) Arterial Blood Base Excess 4 mmol/L (-3-3) FiO2 100 Glucose (Fingerstick) 363 mg/dL (70-99) Laboratory Tests Test 11/18/19 17:40 11/19/19 00:12 11/19/19 05:40 11/19/19 06:08 Glucose (Fingerstick) 295 mg/dL (70-99) 281 mg/dL (70-99) 286 mg/dL (70-99) White Blood Count 34.9 x10^3/uL (4.0-11.0) Red Blood Count 3.83 x10^6/uL (3.50-5.40) Hemoglobin 9.9 g/dL (12.0-15.5) Hematocrit 30.8 % (36.0-47.0) Mean Corpuscular Volume 80 fL (79-100) Mean Corpuscular Hemoglobin 26 pg (25-35) Mean Corpuscular Hemoglobin Concent 32 g/dL (31-37) Red Cell Distribution Width 20.4 % (11.5-14.5) Platelet Count 287 x10^3/uL (140-400) Neutrophils (%) (Auto) 87 % (31-73) Lymphocytes (%) (Auto) 5 % (24-48) Monocytes (%) (Auto) 7 % (0-9) Eosinophils (%) (Auto) 1 % (0-3) Basophils (%) (Auto) 0 % (0-3) Neutrophils # (Auto) 30.3 x10^3/uL (1.8-7.7) Lymphocytes # (Auto) 1.8 x10^3/uL (1.0-4.8) Monocytes # (Auto) 2.3 x10^3/uL (0.0-1.1) Eosinophils # (Auto) 0.5 x10^3/uL (0.0-0.7) Basophils # (Auto) 0.0 x10^3/uL (0.0-0.2) Sodium Level 136 mmol/L (136-145) Potassium Level 5.2 mmol/L (3.5-5.1) Chloride Level 99 mmol/L (98-107) Carbon Dioxide Level 35 mmol/L (21-32) Anion Gap 2 (6-14) Blood Urea Nitrogen 23 mg/dL (7-20) Creatinine 0.6 mg/dL (0.6-1.0) Estimated GFR (Cockcroft-Gault) 102.0 BUN/Creatinine Ratio 38 (6-20) Glucose Level 295 mg/dL (70-99) Calcium Level 9.1 mg/dL (8.5-10.1) Total Bilirubin 0.3 mg/dL (0.2-1.0) Aspartate Amino Transf (AST/SGOT) 10 U/L (15-37) Alanine Aminotransferase (ALT/SGPT) 8 U/L (14-59) Alkaline Phosphatase 98 U/L (46-116) Total Protein 5.9 g/dL (6.4-8.2) Albumin 1.5 g/dL (3.4-5.0) Albumin/Globulin Ratio 0.3 (1.0-1.7) Test 11/19/19 07:30 11/19/19 12:11 O2 Saturation 93 % (92-99) Arterial Blood pH 7.37 (7.35-7.45) Arterial Blood pCO2 at Patient Temp 55 mmHg (35-46) Arterial Blood pO2 at Patient Temp 69 mmHg (65-108) Arterial Blood HCO3 31 mmol/L (21-28) Arterial Blood Base Excess 4 mmol/L (-3-3) FiO2 100 Glucose (Fingerstick) 363 mg/dL (70-99) Medications Active Scripts Medications Dose Route/Sig Max Daily Dose Days Date Category Augmentin 500-125 Tablet (Amoxicillin/Potassium Clav) 1 Each Tablet 1 Tab PO BID 10 09/03/19 Rx Culturelle (Lactobacillus Rhamnosus Gg) 1 Each Cap.sprink 1 Cap PO BID 30 09/03/19 Rx Dok (Docusate Sodium) 100 Mg Capsule 100 Mg PO PRN BID PRN 30 09/03/19 Rx Tylenol (Acetaminophen) 325 Mg Tablet 650 Mg PO PRN Q4HRS PRN 30 09/03/19 Rx Xarelto (Rivaroxaban) 10 Mg Tablet 20 Mg PO DAILYWSUP 60 09/03/19 Rx Feosol (Ferrous Sulfate) 325 Mg Tablet 325 Mg PO BIDWMEALS 30 09/03/19 Rx Doxycycline Hyclate 100 Mg Tablet 100 Mg PO BID 10 09/03/19 Rx Seroquel (Quetiapine Fumarate) 400 Mg Tablet 1.5 Tab PO QHS 08/30/19 Reported Alprazolam 1 Mg Tablet 0.5 Tab PO TID 08/30/19 Reported Ropinirole Hcl 0.25 Mg Tablet 0.25 Mg PO BID 08/30/19 Reported Melatonin 5 Mg Tab.rapdis 1 Tab PO QHS 30 08/30/19 Reported Metoprolol Tartrate 25 Mg Tablet 0.5 Tab PO BID 08/30/19 Reported Pantoprazole Sodium (Pantoprazole Sodium) 40 Mg Tablet.dr 40 Mg PO DAILYAC 08/30/19 Reported Venlafaxine Hcl Er (Venlafaxine Hcl) 150 Mg Cap.er.24h 150 Mg PO QHS 08/11/19 Reported Duoneb 0.5-3(2.5) Mg/3 Ml (Albuterol/Ipratropium) 3 Ml Ampul.neb 3 Ml NEB RTQID 30 03/26/18 Rx Mucinex Dm Er 600-30 Mg Tablet (Guaifenesin/Dextromethorphan) 1 Each Tab.er.12h 1 Each PO BID 03/18/18 Reported Seroquel Xr (Quetiapine Fumarate) 400 Mg Tab.er.24h 800 Mg PO HS 03/18/18 Reported Comments Impression . 1. Acute on chronic hypoxic and hypercapnic respiratory failure secondary to multifactorial etiologies including acute exacerbation of chronic obstructive pulmonary disease, septic shock , left-sided pneumothorax 2. Bilateral interstitial infiltrates, suspect aspiration pneumonia 3. Emesis while on BiPAP initially at [place], possibility of aspiration pneumonia is a consideration. 4. Left-sided pneumothorax post-attempted line placement, status post chest tube. Left PTX persist. continue chest tube to suction. 5. Underlying chronic obstructive pulmonary disease with chronic hypoxic respiratory failure and noncompliance. 6. Acute kidney injury.improved 7. septic shock. 8. Abnormal ct chest, ? tracheal injury/ air in venous system. s/p Bronch , No tracheal tear seen distal to ET tube, cannot exclude higher level tear 9. Anemia 1. There is extensive soft tissue gas bilaterally although decreased. There is small left apical pneumothorax probably unchanged, again left chest tube present. There is slight improved aeration of the left hemithorax although persistent bilateral infiltrates and abnormal perihilar opacity greater on the right as seen previously. Plan . PT TO ILL TO TRAVEL ANYWHERE AT THIS POINT WILL CONTINUE CURRENT PLAN SPOKE WITH SISTER AT BEDSIDE SISTER INFORMED ME THAT IF PT IS NO BETTER BY END OF WEEK THE FAMILY MAY CONSIDER DC ALL SUPPORT AND ALLOW NATURAL , I CONCUR THE PROGNOSIS IN THIS SITUATION IS VERY POOR CHEST TUBES FOR NOW ANTIPX PER ID IV FLUIDS OFF PRESSORS FOR NOW STERODIS Dr. Arriaza made Numerous attempts to transfer to [facility] not successful as they declined transfer 11/13, 11/14, 11/15 . Per their request Bronch has been done.we don't have thoracic surgery in house. may need VAT for persistent continuos air leak, and suspected tracheal tear. BO LINCOLN MD Nov 19, 2019 15:15
--- NOTE | 2019-11-19 15:34 | NUR ---
SS following up with discharge planning. Pt was denied for transfer to [facility] and [facility]. Pt remains on the vent at this time. SS will continue to follow for discharge planning.
[2019-11-19] MEDS ORDERED: AMINO ACID IV SCH ×11 (22:00)
[2019-11-19] MEDS ORDERED: TOTAL PARENTERAL NUTRITION IV SCH ×11 (22:00)
[2019-11-19] MEDS ORDERED: [UNRECOGNIZED DRUG - OTHER] IV SCH ×11 (22:00)
[2019-11-19] MEDS ORDERED: DEXTROSE 70% IV SCH ×11 (22:00)
[2019-11-20] VITALS (24 sets, daily range): BP systolic 81–160; BP diastolic 51–95
[2019-11-20] MEDS: MEROPENEM 500 MG in IV NORMAL SALINE 50ML 50 ML IV SCH ×4 (00:11→17:28)
[2019-11-20] MEDS: INSULIN LISPRO 300 UNITS/3 ML VIAL. SQ SCH ×4 (00:13→17:30)
[2019-11-20] MEDS: MIDAZOLAM HCL 50 MG in IV NORMAL SALINE 50ML 50 ML IV PRN ×5 (01:58→23:01)
[2019-11-20] MEDS: VECURONIUM BROMIDE 50 MG in TOTAL VOLUME 50 ML IV PRN ×2 (04:59→23:02)
[2019-11-20] MEDS: METOPROLOL TARTRATE 5 MG/5 ML VIAL. IVP SCH ×4 (05:54→17:28)
[2019-11-20 06:32] LABS: BASO # 0.1 x10^3/uL (0.0-0.2); BASO % 0 % (0-3); EOS # 0.2 x10^3/uL (0.0-0.7); EOS % 1 % (0-3); HEMATOCRIT 27.5 % (36.0-47.0); HEMOGLOBIN 8.6 g/dL (12.0-15.5); LYMPH # 1.6 x10^3/uL (1.0-4.8); LYMPH % 6 % (24-48); MEAN CORPUSCULAR HEMOGLOBIN 25 pg (25-35); MEAN CORPUSCULAR HGB CONC 31 g/dL (31-37); MEAN CORPUSCULAR VOLUME 81 fL (79-100); MONO # 2.1 x10^3/uL (0.0-1.1); MONO % 8 % (0-9); NEUT # 22.7 x10^3/uL (1.8-7.7); NEUT % 85 % (31-73); PLATELET COUNT 262 x10^3/uL (140-400); RED CELL DISTRIBUTION WIDTH 20.3 % (11.5-14.5); WHITE BLOOD COUNT 26.7 x10^3/uL (4.0-11.0)
[2019-11-20 07:14] LABS: ALBUMIN 1.3 g/dL (3.4-5.0); ALBUMIN/GLOBULIN RATIO 0.3 (1.0-1.7); CREATININE 0.6 mg/dL (0.6-1.0); MAGNESIUM 1.8 mg/dL (1.8-2.4); PHOSPHORUS 2.9 mg/dL (2.6-4.7); POTASSIUM 5.1 mmol/L (3.5-5.1); TOTAL BILIRUBIN 0.2 mg/dL (0.2-1.0); TOTAL PROTEIN 5.6 g/dL (6.4-8.2)
--- NOTE | 2019-11-20 07:26 | PDOC ---
Infectious Disease Note Subjective Subjective pt remains intubated and sedated on paralytic agent resp condition has deteriorated cont to have CT leak not on pressors no fevers no diarrhea D/W RN Vital Sign Vital Signs Vital Signs Date Time Temp Pulse Resp B/P (MAP) Pulse Ox O2 Delivery O2 Flow Rate FiO2 11/20/19 07:00 72 22 155/95 (115) 97 Ventilator 11/20/19 04:00 98.4 98.4 Physical Exam PHYSICAL EXAM GENERAL: Intubated, sedated. HEENT: Sclerae are anicteric. NG tube in place. NECK: swelling and crepitus going down the lt chest wall Chestwall swelling and crepitus more pronounced Lt side - ? less today LUNGS: diffuse coarse bs Left-sided chest tube present. HEART: S1, S2, tachy ABDOMEN: Soft, nontender.distended : Diaz in place EXTREMITIES: Trace edema. DERMATOLOGIC: Warm, dry. No generalized rash. CENTRAL NERVOUS SYSTEM: Intubated./Paralyzed LINES: Lt Femoral line removed, RUE PICC line intact, clean Labs Lab Laboratory Tests Test 11/19/19 07:30 11/19/19 12:11 11/19/19 17:39 11/20/19 00:00 O2 Saturation 93 % (92-99) Arterial Blood pH 7.37 (7.35-7.45) Arterial Blood pCO2 at Patient Temp 55 mmHg (35-46) Arterial Blood pO2 at Patient Temp 69 mmHg (65-108) Arterial Blood HCO3 31 mmol/L (21-28) Arterial Blood Base Excess 4 mmol/L (-3-3) FiO2 100 Glucose (Fingerstick) 363 mg/dL (70-99) 313 mg/dL (70-99) 328 mg/dL (70-99) Test 11/20/19 06:00 11/20/19 06:25 White Blood Count 26.7 x10^3/uL (4.0-11.0) Red Blood Count 3.40 x10^6/uL (3.50-5.40) Hemoglobin 8.6 g/dL (12.0-15.5) Hematocrit 27.5 % (36.0-47.0) Mean Corpuscular Volume 81 fL (79-100) Mean Corpuscular Hemoglobin 25 pg (25-35) Mean Corpuscular Hemoglobin Concent 31 g/dL (31-37) Red Cell Distribution Width 20.3 % (11.5-14.5) Platelet Count 262 x10^3/uL (140-400) Neutrophils (%) (Auto) 85 % (31-73) Lymphocytes (%) (Auto) 6 % (24-48) Monocytes (%) (Auto) 8 % (0-9) Eosinophils (%) (Auto) 1 % (0-3) Basophils (%) (Auto) 0 % (0-3) Neutrophils # (Auto) 22.7 x10^3/uL (1.8-7.7) Lymphocytes # (Auto) 1.6 x10^3/uL (1.0-4.8) Monocytes # (Auto) 2.1 x10^3/uL (0.0-1.1) Eosinophils # (Auto) 0.2 x10^3/uL (0.0-0.7) Basophils # (Auto) 0.1 x10^3/uL (0.0-0.2) Glucose (Fingerstick) 269 mg/dL (70-99) Micro CXR 11/19 Impression: 1. There is extensive soft tissue gas bilaterally although decreased. There is small left apical pneumothorax probably unchanged, again left chest tube present. There is slight improved aeration of the left hemithorax although persistent bilateral infiltrates and abnormal perihilar opacity greater on the right as seen previously. Microbiology 11/13/19 - Final, Complete 11/12/19 Blood Culture - Final, Complete NO GROWTH AFTER 5 DAYS Objective Assessment 1. Severe sepsis -POA cultures nonrevealing so far- Fever - better this am mild. Blood cults 11/18 neg 2. Acute hypoxic respiratory failure ,left-sided pneumothorax, extensive pneumomediastinum, potential tracheal injury (status post line placement at [facility]), chest tube., CT with multiple abnormalities including persistent leak 3. Leukocytosis - better ? reactive also on steroids 4. Lactic acidosis - remains elevated 5.. Aspiration pneumonia with emesis while on BiPAP at [facility]. 5. Bilateral interstitial infiltrates at [facility], likely worsening congestive heart failure, status post IV fluids, s/p bronch 6. Coffee-ground emesis. Bowel obstruction, Ileus 7. History of pulmonary embolism. Chronic respiratory failure, on home O2 with history of chronic obstructive pulmonary disease, 8 Bipolar disorder. 9. History of methicillin-resistant Staphylococcus aureus. 10 Hypokalemia. 11. Anemia. 12. Protein-calorie malnutrition. 13. History of smoking. 14.H/O noncomplaiance 15.Severe PCM Plan Plan of Care Abx adjusted 11/18 now some improvemtent Consider repeat CT scan chest/abd/pelvis if worsens Blood cults times 2/sputum. 11/18 Urine is very clear Changed to Meropenem D/c Levaquin (11/12) after todays dose to complete 7 days, Cont micafungin, zyvox influenza screen neg ECHO noted f/u bronch cultures,yeast likely contaminant f/u cults and labs in am Critically ill Overall, prognosis very poor. Numerous attempts were made to transfer to or [facility] , has not been accepted. May go to [facility] but too ill to travel D/W DEEPALI VILLEDA MD Nov 20, 2019 07:26
[2019-11-20] MEDS: IPRATRPIUM/ALBUTEROL 0.5/2.5MG 3 ML NEBU. NEB SCH ×4 (07:59→20:00)
--- NOTE | 2019-11-20 08:05 | RAD ---
PORTABLE CHEST 1V Clinical indications: Respiratory failure. Follow-up study. COMPARISON: November 19, 2019 FINDINGS/ IMPRESSION: A right IJ central line is now apparent and the tip is seen within the upper superior vena cava. There have been no other interval tube or line changes. Small left apical pneumothorax is unchanged. Position of left-sided chest tube is unchanged. Bilateral pleural effusions are unchanged. Bilateral lung infiltrates are unchanged. The heart size and mediastinum and prominent left hilum are unchanged. Soft tissue emphysema of the right lateral chest wall has decreased. Electronically signed by: Carlos Casanova MD (11/20/2019 8:02 AM) [facility]
--- NOTE | 2019-11-20 08:13 | PDOC ---
Infectious Disease Note Subjective Subjective pt remains intubated and sedated on paralytic agent resp condition has deteriorated cont to have CT leak not on pressors no fevers no diarrhea D/W RN JESUS LEE unable to obtain Vital Sign Vital Signs Vital Signs Date Time Temp Pulse Resp B/P (MAP) Pulse Ox O2 Delivery O2 Flow Rate FiO2 11/20/19 07:00 72 22 155/95 (115) 97 Ventilator 11/20/19 04:00 98.4 98.4 Physical Exam PHYSICAL EXAM GENERAL: Intubated, sedated. HEENT: Sclerae are anicteric. NG tube in place. NECK: swelling and crepitus going down the lt chest wall Chestwall swelling and crepitus more pronounced Lt side - stable today LUNGS: less coarse bs Left-sided chest tube present. HEART: S1, S2, tachy ABDOMEN: Soft, nontender.distended : Diaz in place EXTREMITIES: Trace edema. DERMATOLOGIC: Warm, dry. No generalized rash. CENTRAL NERVOUS SYSTEM: Intubated./Paralyzed LINES: Lt Femoral line removed, RUE PICC line intact, clean Labs Lab Laboratory Tests Test 11/19/19 12:11 11/19/19 17:39 11/20/19 00:00 11/20/19 06:00 Glucose (Fingerstick) 363 mg/dL (70-99) 313 mg/dL (70-99) 328 mg/dL (70-99) White Blood Count 26.7 x10^3/uL (4.0-11.0) Red Blood Count 3.40 x10^6/uL (3.50-5.40) Hemoglobin 8.6 g/dL (12.0-15.5) Hematocrit 27.5 % (36.0-47.0) Mean Corpuscular Volume 81 fL (79-100) Mean Corpuscular Hemoglobin 25 pg (25-35) Mean Corpuscular Hemoglobin Concent 31 g/dL (31-37) Red Cell Distribution Width 20.3 % (11.5-14.5) Platelet Count 262 x10^3/uL (140-400) Neutrophils (%) (Auto) 85 % (31-73) Lymphocytes (%) (Auto) 6 % (24-48) Monocytes (%) (Auto) 8 % (0-9) Eosinophils (%) (Auto) 1 % (0-3) Basophils (%) (Auto) 0 % (0-3) Neutrophils # (Auto) 22.7 x10^3/uL (1.8-7.7) Lymphocytes # (Auto) 1.6 x10^3/uL (1.0-4.8) Monocytes # (Auto) 2.1 x10^3/uL (0.0-1.1) Eosinophils # (Auto) 0.2 x10^3/uL (0.0-0.7) Basophils # (Auto) 0.1 x10^3/uL (0.0-0.2) Sodium Level 135 mmol/L (136-145) Potassium Level 5.1 mmol/L (3.5-5.1) Chloride Level 97 mmol/L (98-107) Carbon Dioxide Level 37 mmol/L (21-32) Anion Gap 1 (6-14) Blood Urea Nitrogen 28 mg/dL (7-20) Creatinine 0.6 mg/dL (0.6-1.0) Estimated GFR (Cockcroft-Gault) 102.0 BUN/Creatinine Ratio 47 (6-20) Glucose Level 274 mg/dL (70-99) Calcium Level 9.0 mg/dL (8.5-10.1) Phosphorus Level 2.9 mg/dL (2.6-4.7) Magnesium Level 1.8 mg/dL (1.8-2.4) Total Bilirubin 0.2 mg/dL (0.2-1.0) Aspartate Amino Transf (AST/SGOT) 6 U/L (15-37) Alanine Aminotransferase (ALT/SGPT) 7 U/L (14-59) Alkaline Phosphatase 79 U/L (46-116) Total Protein 5.6 g/dL (6.4-8.2) Albumin 1.3 g/dL (3.4-5.0) Albumin/Globulin Ratio 0.3 (1.0-1.7) Test 11/20/19 06:25 Glucose (Fingerstick) 269 mg/dL (70-99) Micro CXR 11/19 Impression: 1. There is extensive soft tissue gas bilaterally although decreased. There is small left apical pneumothorax probably unchanged, again left chest tube present. There is slight improved aeration of the left hemithorax although persistent bilateral infiltrates and abnormal perihilar opacity greater on the right as seen previously. Microbiology 11/13/19 - Final, Complete 11/12/19 Blood Culture - Final, Complete NO GROWTH AFTER 5 DAYS Objective Assessment 1. Severe sepsis -POA cultures nonrevealing so far- Fever - better this am mild. Blood cults / neg 2. Acute hypoxic respiratory failure ,left-sided pneumothorax, extensive pneumomediastinum, potential tracheal injury (status post line placement at [facility]), chest tube., CT with multiple abnormalities including persistent leak 3. Leukocytosis - better ? reactive also on steroids 4. Lactic acidosis - remains elevated 5.. Aspiration pneumonia with emesis while on BiPAP at [facility]. 5. Bilateral interstitial infiltrates at [facility], likely worsening congestive heart failure, status post IV fluids, s/p bronch 6. Coffee-ground emesis. Bowel obstruction, Ileus 7. History of pulmonary embolism. Chronic respiratory failure, on home O2 with history of chronic obstructive pulmonary disease, 8 Bipolar disorder. 9. History of methicillin-resistant Staphylococcus aureus. 10 Hypokalemia. 11. Anemia. 12. Protein-calorie malnutrition. 13. History of smoking. 14.H/O noncomplaiance 15.Severe PCM Plan Plan of Care Abx adjusted 11/18 now some improvement Consider repeat CT scan chest/abd/pelvis if worsens Blood cults times 2/sputum. 11/18 Urine is very clear Changed to Meropenem 11/18 D/c Levaquin (11/12) after todays dose to complete 7 days, Cont micafungin, zyvox influenza screen neg ECHO noted f/u bronch cultures,yeast likely contaminant f/u cults and labs in am Critically ill Overall, prognosis very poor. Numerous attempts were made to transfer to or [facility] , has not been accepted. May go to [facility] but too ill to travel D/w Dr. Valente D/W DEEPALI VILLEDA MD Nov 20, 2019 08:13
--- NOTE | 2019-11-20 08:15 | PN ---
DATE: 11/20/2019 SUBJECTIVE: The patient continued to be sedated, paralyzed, intubated and mechanically ventilated. She continued to require 100% FiO2. Apparently, the decision was to withdraw care on Monday. Her niece has talked to the family to keep everybody on the same page. PHYSICAL EXAMINATION: GENERAL: When I examined her this morning, she was resting slightly propped up in bed, pale, cachectic, but no jaundice, cyanosis or thyromegaly. No jugular venous distension. No lower limb edema. VITAL SIGNS: Her heart rate was 72, blood pressure 155/95, temperature was 98.4, respiratory rate 22, and oxygen saturation was 97% on FiO2 of 100%. HEAD, EYES, EARS, NOSE AND THROAT: Showed normocephalic, atraumatic. She has orotracheal and orogastric tube in place. NECK: Supple. CARDIAC: Normal first and second heart sounds. No gallop or murmur. CHEST: Shows central trachea, equal bilateral expansion, air entry, vesicular breath sounds. Very few scattered rhonchi. She has subcutaneous crepitus due to severe subcutaneous emphysema on the left side. ABDOMEN: Soft, nontender. NEUROLOGIC: She is sedated, paralyzed. Her intake is 3050, output was 2700. LABORATORY DATA: As of this morning, her white cell count was 26,000, hemoglobin 8.6, hematocrit 27.5, MCV 81 and platelet count 262,000. Her chemistry is still pending at the time of this dictation. As of yesterday, her BUN was 23, creatinine 0.6. Vancomycin trough level was 6.5. Chest x-ray showed extensive soft tissue gas bilaterally, although decreased. There is small left apical pneumothorax, probably unchanged, again left chest tube present. Slight improvement in aeration of the left hemithorax, although persistent bilateral infiltrates and abnormal perihilar opacity, greater on the right as seen previously. ASSESSMENT: 1. Vifug-ns-ikvsvkh hypoxic, hypercapnic respiratory failure due to: A. Acute exacerbation of chronic obstructive pulmonary disease. B. Aspiration pneumonia when she was on BiPAP, seen at [facility]. C. Septic shock. D. Left-sided pneumothorax. 2. Left-sided pneumothorax, status post attempted line placement, status post chest tube. Left lung has completely expanded; however, extensive subcutaneous emphysema on the left side. 3. Chronic obstructive pulmonary disease. 4. Chronic hypoxic hypercapnic respiratory failure, noncompliance with medication, narcotic abuse. 5. Acute kidney injury, improving. 6. Acute blood loss anemia, status post blood transfusion. PLAN: 1. To continue with sedation and paralysis. 2. Continue mechanical ventilation. 3. Continue IV antibiotics. 4. Bronchodilator and steroids. Apparently, the family decided to withdraw care on Monday. BRETRAND RENTERIA MD DR: SADAF/vita JOB#: [id number] / [id number]
[2019-11-20 08:16] LABS: BASE EXCESS ABG 7 mmol/L (-3-3); HCO3 ABG 34 mmol/L (21-28); PO2 ABG 74 mmHg (65-108); SAT O2 ABG 94 % (92-99)
[2019-11-20 08:19] LABS: FIO2 ABG 100; PCO2 ABG 62 mmHg (35-46)
[2019-11-20] MEDS: PANTOPRAZOLE IV PUSH 40 MG VIAL. IVP SCH ×2 (09:07→16:51)
[2019-11-20] MEDS: methylPREDNISolone SOD SUCC PF 40 MG/ML VIAL. IV SCH (09:07)
--- NOTE | 2019-11-20 09:51 | NUR ---
Turned patient to left side. Shortly after, patient's SPO2 decreased to the mid-80s and TV decreased on the ventilator, patient was turned back on back and SPO2 slowly increased again over about 30 minutes. Will leave on back to recover and do smaller tilts from side to side.
[2019-11-20] MEDS: MICAFUNGIN 100 MG in IV DEXTROSE 5% 100ML 100 ML IV SCH (10:32)
--- NOTE | 2019-11-20 11:38 | PDOC ---
PULMONARY PROGRESS NOTES Subjective PT STILL ON 100%FIO2 AND 6 PEEP Vitals Vital Signs Date Time Temp Pulse Resp B/P (MAP) Pulse Ox O2 Delivery O2 Flow Rate FiO2 11/20/19 11:00 110 22 160/94 (116) 91 Ventilator 11/20/19 08:00 98.6 98.6 Comments ros unable to obtain on vent sedated HEENT: Other Lungs: Crackles Cardiovascular: S1, S2 Abdomen: Soft, Non-tender, Other (no mass) Extremities: Other (1+edema) Skin: Warm Labs Laboratory Tests Test 11/18/19 12:53 11/18/19 12:57 11/18/19 17:40 11/19/19 00:12 Lactic Acid Level 3.7 mmol/L (0.4-2.0) Glucose (Fingerstick) 327 mg/dL (70-99) 295 mg/dL (70-99) 281 mg/dL (70-99) Test 11/19/19 05:40 11/19/19 06:08 11/19/19 07:30 11/19/19 12:11 White Blood Count 34.9 x10^3/uL (4.0-11.0) Red Blood Count 3.83 x10^6/uL (3.50-5.40) Hemoglobin 9.9 g/dL (12.0-15.5) Hematocrit 30.8 % (36.0-47.0) Mean Corpuscular Volume 80 fL (79-100) Mean Corpuscular Hemoglobin 26 pg (25-35) Mean Corpuscular Hemoglobin Concent 32 g/dL (31-37) Red Cell Distribution Width 20.4 % (11.5-14.5) Platelet Count 287 x10^3/uL (140-400) Neutrophils (%) (Auto) 87 % (31-73) Lymphocytes (%) (Auto) 5 % (24-48) Monocytes (%) (Auto) 7 % (0-9) Eosinophils (%) (Auto) 1 % (0-3) Basophils (%) (Auto) 0 % (0-3) Neutrophils # (Auto) 30.3 x10^3/uL (1.8-7.7) Lymphocytes # (Auto) 1.8 x10^3/uL (1.0-4.8) Monocytes # (Auto) 2.3 x10^3/uL (0.0-1.1) Eosinophils # (Auto) 0.5 x10^3/uL (0.0-0.7) Basophils # (Auto) 0.0 x10^3/uL (0.0-0.2) Sodium Level 136 mmol/L (136-145) Potassium Level 5.2 mmol/L (3.5-5.1) Chloride Level 99 mmol/L (98-107) Carbon Dioxide Level 35 mmol/L (21-32) Anion Gap 2 (6-14) Blood Urea Nitrogen 23 mg/dL (7-20) Creatinine 0.6 mg/dL (0.6-1.0) Estimated GFR (Cockcroft-Gault) 102.0 BUN/Creatinine Ratio 38 (6-20) Glucose Level 295 mg/dL (70-99) Calcium Level 9.1 mg/dL (8.5-10.1) Total Bilirubin 0.3 mg/dL (0.2-1.0) Aspartate Amino Transf (AST/SGOT) 10 U/L (15-37) Alanine Aminotransferase (ALT/SGPT) 8 U/L (14-59) Alkaline Phosphatase 98 U/L (46-116) Total Protein 5.9 g/dL (6.4-8.2) Albumin 1.5 g/dL (3.4-5.0) Albumin/Globulin Ratio 0.3 (1.0-1.7) Glucose (Fingerstick) 286 mg/dL (70-99) 363 mg/dL (70-99) O2 Saturation 93 % (92-99) Arterial Blood pH 7.37 (7.35-7.45) Arterial Blood pCO2 at Patient Temp 55 mmHg (35-46) Arterial Blood pO2 at Patient Temp 69 mmHg (65-108) Arterial Blood HCO3 31 mmol/L (21-28) Arterial Blood Base Excess 4 mmol/L (-3-3) FiO2 100 Test 11/19/19 17:39 11/20/19 00:00 11/20/19 06:00 11/20/19 06:25 Glucose (Fingerstick) 313 mg/dL (70-99) 328 mg/dL (70-99) 269 mg/dL (70-99) White Blood Count 26.7 x10^3/uL (4.0-11.0) Red Blood Count 3.40 x10^6/uL (3.50-5.40) Hemoglobin 8.6 g/dL (12.0-15.5) Hematocrit 27.5 % (36.0-47.0) Mean Corpuscular Volume 81 fL (79-100) Mean Corpuscular Hemoglobin 25 pg (25-35) Mean Corpuscular Hemoglobin Concent 31 g/dL (31-37) Red Cell Distribution Width 20.3 % (11.5-14.5) Platelet Count 262 x10^3/uL (140-400) Neutrophils (%) (Auto) 85 % (31-73) Lymphocytes (%) (Auto) 6 % (24-48) Monocytes (%) (Auto) 8 % (0-9) Eosinophils (%) (Auto) 1 % (0-3) Basophils (%) (Auto) 0 % (0-3) Neutrophils # (Auto) 22.7 x10^3/uL (1.8-7.7) Lymphocytes # (Auto) 1.6 x10^3/uL (1.0-4.8) Monocytes # (Auto) 2.1 x10^3/uL (0.0-1.1) Eosinophils # (Auto) 0.2 x10^3/uL (0.0-0.7) Basophils # (Auto) 0.1 x10^3/uL (0.0-0.2) Sodium Level 135 mmol/L (136-145) Potassium Level 5.1 mmol/L (3.5-5.1) Chloride Level 97 mmol/L (98-107) Carbon Dioxide Level 37 mmol/L (21-32) Anion Gap 1 (6-14) Blood Urea Nitrogen 28 mg/dL (7-20) Creatinine 0.6 mg/dL (0.6-1.0) Estimated GFR (Cockcroft-Gault) 102.0 BUN/Creatinine Ratio 47 (6-20) Glucose Level 274 mg/dL (70-99) Calcium Level 9.0 mg/dL (8.5-10.1) Phosphorus Level 2.9 mg/dL (2.6-4.7) Magnesium Level 1.8 mg/dL (1.8-2.4) Total Bilirubin 0.2 mg/dL (0.2-1.0) Aspartate Amino Transf (AST/SGOT) 6 U/L (15-37) Alanine Aminotransferase (ALT/SGPT) 7 U/L (14-59) Alkaline Phosphatase 79 U/L (46-116) Total Protein 5.6 g/dL (6.4-8.2) Albumin 1.3 g/dL (3.4-5.0) Albumin/Globulin Ratio 0.3 (1.0-1.7) Test 11/20/19 08:00 O2 Saturation 94 % (92-99) Arterial Blood pH 7.35 (7.35-7.45) Arterial Blood pCO2 at Patient Temp 62 mmHg (35-46) Arterial Blood pO2 at Patient Temp 74 mmHg (65-108) Arterial Blood HCO3 34 mmol/L (21-28) Arterial Blood Base Excess 7 mmol/L (-3-3) FiO2 100 Laboratory Tests Test 11/19/19 12:11 11/19/19 17:39 11/20/19 00:00 11/20/19 06:00 Glucose (Fingerstick) 363 mg/dL (70-99) 313 mg/dL (70-99) 328 mg/dL (70-99) White Blood Count 26.7 x10^3/uL (4.0-11.0) Red Blood Count 3.40 x10^6/uL (3.50-5.40) Hemoglobin 8.6 g/dL (12.0-15.5) Hematocrit 27.5 % (36.0-47.0) Mean Corpuscular Volume 81 fL (79-100) Mean Corpuscular Hemoglobin 25 pg (25-35) Mean Corpuscular Hemoglobin Concent 31 g/dL (31-37) Red Cell Distribution Width 20.3 % (11.5-14.5) Platelet Count 262 x10^3/uL (140-400) Neutrophils (%) (Auto) 85 % (31-73) Lymphocytes (%) (Auto) 6 % (24-48) Monocytes (%) (Auto) 8 % (0-9) Eosinophils (%) (Auto) 1 % (0-3) Basophils (%) (Auto) 0 % (0-3) Neutrophils # (Auto) 22.7 x10^3/uL (1.8-7.7) Lymphocytes # (Auto) 1.6 x10^3/uL (1.0-4.8) Monocytes # (Auto) 2.1 x10^3/uL (0.0-1.1) Eosinophils # (Auto) 0.2 x10^3/uL (0.0-0.7) Basophils # (Auto) 0.1 x10^3/uL (0.0-0.2) Sodium Level 135 mmol/L (136-145) Potassium Level 5.1 mmol/L (3.5-5.1) Chloride Level 97 mmol/L (98-107) Carbon Dioxide Level 37 mmol/L (21-32) Anion Gap 1 (6-14) Blood Urea Nitrogen 28 mg/dL (7-20) Creatinine 0.6 mg/dL (0.6-1.0) Estimated GFR (Cockcroft-Gault) 102.0 BUN/Creatinine Ratio 47 (6-20) Glucose Level 274 mg/dL (70-99) Calcium Level 9.0 mg/dL (8.5-10.1) Phosphorus Level 2.9 mg/dL (2.6-4.7) Magnesium Level 1.8 mg/dL (1.8-2.4) Total Bilirubin 0.2 mg/dL (0.2-1.0) Aspartate Amino Transf (AST/SGOT) 6 U/L (15-37) Alanine Aminotransferase (ALT/SGPT) 7 U/L (14-59) Alkaline Phosphatase 79 U/L (46-116) Total Protein 5.6 g/dL (6.4-8.2) Albumin 1.3 g/dL (3.4-5.0) Albumin/Globulin Ratio 0.3 (1.0-1.7) Test 11/20/19 06:25 11/20/19 08:00 Glucose (Fingerstick) 269 mg/dL (70-99) O2 Saturation 94 % (92-99) Arterial Blood pH 7.35 (7.35-7.45) Arterial Blood pCO2 at Patient Temp 62 mmHg (35-46) Arterial Blood pO2 at Patient Temp 74 mmHg (65-108) Arterial Blood HCO3 34 mmol/L (21-28) Arterial Blood Base Excess 7 mmol/L (-3-3) FiO2 100 Medications Active Scripts Medications Dose Route/Sig Max Daily Dose Days Date Category Augmentin 500-125 Tablet (Amoxicillin/Potassium Clav) 1 Each Tablet 1 Tab PO BID 10 09/03/19 Rx Culturelle (Lactobacillus Rhamnosus Gg) 1 Each Cap.sprink 1 Cap PO BID 30 09/03/19 Rx Dok (Docusate Sodium) 100 Mg Capsule 100 Mg PO PRN BID PRN 30 09/03/19 Rx Tylenol (Acetaminophen) 325 Mg Tablet 650 Mg PO PRN Q4HRS PRN 30 09/03/19 Rx Xarelto (Rivaroxaban) 10 Mg Tablet 20 Mg PO DAILYWSUP 60 09/03/19 Rx Feosol (Ferrous Sulfate) 325 Mg Tablet 325 Mg PO BIDWMEALS 30 09/03/19 Rx Doxycycline Hyclate 100 Mg Tablet 100 Mg PO BID 10 09/03/19 Rx Seroquel (Quetiapine Fumarate) 400 Mg Tablet 1.5 Tab PO QHS 08/30/19 Reported Alprazolam 1 Mg Tablet 0.5 Tab PO TID 08/30/19 Reported Ropinirole Hcl 0.25 Mg Tablet 0.25 Mg PO BID 08/30/19 Reported Melatonin 5 Mg Tab.rapdis 1 Tab PO QHS 30 08/30/19 Reported Metoprolol Tartrate 25 Mg Tablet 0.5 Tab PO BID 08/30/19 Reported Pantoprazole Sodium (Pantoprazole Sodium) 40 Mg Tablet.dr 40 Mg PO DAILYAC 08/30/19 Reported Venlafaxine Hcl Er (Venlafaxine Hcl) 150 Mg Cap.er.24h 150 Mg PO QHS 08/11/19 Reported Duoneb 0.5-3(2.5) Mg/3 Ml (Albuterol/Ipratropium) 3 Ml Ampul.neb 3 Ml NEB RTQID 30 03/26/18 Rx Mucinex Dm Er 600-30 Mg Tablet (Guaifenesin/Dextromethorphan) 1 Each Tab.er.12h 1 Each PO BID 03/18/18 Reported Seroquel Xr (Quetiapine Fumarate) 400 Mg Tab.er.24h 800 Mg PO HS 03/18/18 Reported Comments Impression . 1. Acute on chronic hypoxic and hypercapnic respiratory failure secondary to multifactorial etiologies including acute exacerbation of chronic obstructive pulmonary disease, septic shock , left-sided pneumothorax 2. Bilateral interstitial infiltrates, suspect aspiration pneumonia 3. Emesis while on BiPAP initially at [place], possibility of aspiration pneumo nguyễn is a consideration. 4. Left-sided pneumothorax post-attempted line placement, status post chest tube. Left PTX persist. continue chest tube to suction. 5. Underlying chronic obstructive pulmonary disease with chronic hypoxic respiratory failure and noncompliance. 6. Acute kidney injury.improved 7. septic shock. 8. Abnormal ct chest, ? tracheal injury/ air in venous system. s/p Bronch , No tracheal tear seen distal to ET tube, cannot exclude higher level tear 9. Anemia 1. There is extensive soft tissue gas bilaterally although decreased. There is small left apical pneumothorax probably unchanged, again left chest tube present. There is slight improved aeration of the left hemithorax although persistent bilateral infiltrates and abnormal perihilar opacity greater on the right as seen previously. Plan . WILL HAVE FAMILY CONFERENCE LATER TODAY, POSSIBLE DC SUPPORT TODAY OR TOMORROW PT TO ILL TO TRAVEL ANYWHERE AT THIS POINT WILL CONTINUE CURRENT PLAN SPOKE WITH SISTER AT BEDSIDE SISTER INFORMED ME THAT IF PT IS NO BETTER BY END OF WEEK THE FAMILY MAY CONSIDER DC ALL SUPPORT AND ALLOW NATURAL , I CONCUR THE PROGNOSIS IN THIS SITUATION IS VERY POOR CHEST TUBES FOR NOW, CXR IS BETTER ANTIPX PER ID IV FLUIDS OFF PRESSORS FOR NOW [facility] Dr. Arriaza made Numerous attempts to transfer to / [facility] not successful as they declined transfer 11/13, 11/14, 11/15 . Per their request Bronch has been done.we don't have thoracic surgery in house. may need VAT for persistent continuos air leak, and suspected tracheal tear. BO LINCOLN MD Nov 20, 2019 11:38
--- NOTE | 2019-11-20 12:30 | PDOC ---
Subjective: Subjective: Family present - says was unstable when turned. Objective: Vital Signs: Vital Signs Date Time Temp Pulse Resp B/P (MAP) Pulse Ox O2 Delivery O2 Flow Rate FiO2 11/20/19 12:12 113 151/83 11/20/19 11:37 94 Ventilator 11/20/19 11:00 22 11/20/19 08:00 98.6 98.6 Labs: Laboratory Tests Test 11/19/19 17:39 11/20/19 00:00 11/20/19 06:00 11/20/19 06:25 Glucose (Fingerstick) 313 mg/dL 328 mg/dL 269 mg/dL White Blood Count 26.7 x10^3/uL Red Blood Count 3.40 x10^6/uL Hemoglobin 8.6 g/dL Hematocrit 27.5 % Mean Corpuscular Volume 81 fL Mean Corpuscular Hemoglobin 25 pg Mean Corpuscular Hemoglobin Concent 31 g/dL Red Cell Distribution Width 20.3 % Platelet Count 262 x10^3/uL Neutrophils (%) (Auto) 85 % Lymphocytes (%) (Auto) 6 % Monocytes (%) (Auto) 8 % Eosinophils (%) (Auto) 1 % Basophils (%) (Auto) 0 % Neutrophils # (Auto) 22.7 x10^3/uL Lymphocytes # (Auto) 1.6 x10^3/uL Monocytes # (Auto) 2.1 x10^3/uL Eosinophils # (Auto) 0.2 x10^3/uL Basophils # (Auto) 0.1 x10^3/uL Sodium Level 135 mmol/L Potassium Level 5.1 mmol/L Chloride Level 97 mmol/L Carbon Dioxide Level 37 mmol/L Anion Gap 1 Blood Urea Nitrogen 28 mg/dL Creatinine 0.6 mg/dL Estimated GFR (Cockcroft-Gault) 102.0 BUN/Creatinine Ratio 47 Glucose Level 274 mg/dL Calcium Level 9.0 mg/dL Phosphorus Level 2.9 mg/dL Magnesium Level 1.8 mg/dL Total Bilirubin 0.2 mg/dL Aspartate Amino Transf (AST/SGOT) 6 U/L Alanine Aminotransferase (ALT/SGPT) 7 U/L Alkaline Phosphatase 79 U/L Total Protein 5.6 g/dL Albumin 1.3 g/dL Albumin/Globulin Ratio 0.3 Test 11/20/19 08:00 11/20/19 12:09 O2 Saturation 94 % Arterial Blood pH 7.35 Arterial Blood pCO2 at Patient Temp 62 mmHg Arterial Blood pO2 at Patient Temp 74 mmHg Arterial Blood HCO3 34 mmol/L Arterial Blood Base Excess 7 mmol/L FiO2 100 Glucose (Fingerstick) 328 mg/dL PE: GEN: intubated LUNGS: crackles HEART: tachycardic ABD: soft NEURO/PSYCH: sedated A/P: Resp failure, possible air leak ACD/YESSY -- Reviewed chart - family meeting later today, await this. Hemodynamically unstable?: Yes Is patient in severe pain?: No Is NPO status required?: Yes NAIDA SANZ Nov 20, 2019 12:30
[2019-11-20] MEDS: TPN PER PHARMACY MC PRN (15:40)
--- NOTE | 2019-11-20 15:45 | NUR ---
Pharmacy TPN Dosing Note S: CB CASTILLO is a 59 year old F Currently receiving Central Continuous TPN started 11/14/19 B:Pertinent PMH: ILEUS, COFFEE GROUND EMESIS. Height: 5 feet, 7 inches Weight: 61.8 kg Current diet: NPO LABS: Sodium: 135 Potassium: 5.1 Chloride: 97 Calcium: 9.0 Corrected Calcium: 11.16 Magnesium: 1.8 CO2: 37 SCr: 0.6 Glucose: 269-238 Albumin: 1.3 AST: 6 ALT: 7 TPN FORMULA: TPN TYPE: Central Continuous AMINO ACIDS: 75 gm DEXTROSE: 195 gm LIPIDS: 20 gm SODIUM CHLORIDE: 120 mEq POTASSIUM CHLORIDE: 20 mEq POTASSIUM PHOSPHATE: 13.6 mmol MAGNESIUM: 10 mEq CALCIUM: 5 mEq INSULIN: 25 units MULTIPLE VITAMIN: 10 ml TRACE ELEMENTS: 1 ml(s) TPN PLAN: Insulin and sodium chloride increased in TPN. Potassium chloride reduced. R: Continue TPN Will monitor electrolytes, glucose, and tolerance to TPN. Komal Calero Rich, 11/20/19 [id number]
--- NOTE | 2019-11-20 18:41 | NUR ---
Notified MTN of imminent with tentative withdraw of care on Monday, 11/22. Dr. Cota had family meeting to go over plan of care. MTN coordinator at bedside shortly after meeting to review case, will be back 11/21 to discuss DCD with sister at bedside. Plan is to treat aggressively and notifiy MTN overnight of any changes.
[2019-11-20] MEDS ORDERED: TOTAL PARENTERAL NUTRITION IV SCH ×11 (22:00)
[2019-11-20] MEDS ORDERED: AMINO ACID IV SCH ×11 (22:00)
[2019-11-20] MEDS ORDERED: DEXTROSE 70% IV SCH ×11 (22:00)
[2019-11-20] MEDS ORDERED: [UNRECOGNIZED DRUG - OTHER] IV SCH ×11 (22:00)
[2019-11-21] VITALS (24 sets, daily range): BP systolic 86–174; BP diastolic 48–95
[2019-11-21] MEDS: MEROPENEM 500 MG in IV NORMAL SALINE 50ML 50 ML IV SCH ×4 (00:24→17:45)
[2019-11-21] MEDS: METOPROLOL TARTRATE 5 MG/5 ML VIAL. IVP SCH ×4 (00:25→17:18)
[2019-11-21] MEDS: INSULIN LISPRO 300 UNITS/3 ML VIAL. SQ SCH ×4 (00:35→17:45)
--- NOTE | 2019-11-21 06:14 | PDOC ---
Infectious Disease Note Subjective Subjective pt remains intubated and sedated on paralytic agent resp condition has deteriorated - seems out of sync now cont to have CT leak not on pressors no fevers no diarrhea D/W RN JESUS LEE unable to obtain Vital Sign Vital Signs Vital Signs Date Time Temp Pulse Resp B/P (MAP) Pulse Ox O2 Delivery O2 Flow Rate FiO2 11/21/19 05:56 96 Ventilator 11/21/19 05:00 95 22 128/66 (86) 11/21/19 04:00 98.5 98.5 Physical Exam PHYSICAL EXAM GENERAL: Intubated, sedated. HEENT: Sclerae are anicteric. NG tube in place. NECK: swelling and crepitus going down the lt chest wall Chestwall swelling and crepitus more pronounced Lt side - stable today LUNGS: less coarse bs Left-sided chest tube present. - out of sync this am HEART: S1, S2, ABDOMEN: Soft, nontender.distended : Diaz in place EXTREMITIES: Trace edema. DERMATOLOGIC: Warm, dry. No generalized rash. CENTRAL NERVOUS SYSTEM: Intubated./Paralyzed LINES: Lt Femoral line removed, RUE PICC line intact, clean Labs Lab Laboratory Tests Test 11/20/19 06:25 11/20/19 08:00 11/20/19 12:09 11/20/19 17:27 Glucose (Fingerstick) 269 mg/dL (70-99) 328 mg/dL (70-99) 289 mg/dL (70-99) O2 Saturation 94 % (92-99) Arterial Blood pH 7.35 (7.35-7.45) Arterial Blood pCO2 at Patient Temp 62 mmHg (35-46) Arterial Blood pO2 at Patient Temp 74 mmHg (65-108) Arterial Blood HCO3 34 mmol/L (21-28) Arterial Blood Base Excess 7 mmol/L (-3-3) FiO2 100 Test 11/21/19 00:33 11/21/19 05:59 Glucose (Fingerstick) 282 mg/dL (70-99) 187 mg/dL (70-99) Micro CXR 11/19 Impression: 1. There is extensive soft tissue gas bilaterally although decreased. There is small left apical pneumothorax probably unchanged, again left chest tube present. There is slight improved aeration of the left hemithorax although persistent bilateral infiltrates and abnormal perihilar opacity greater on the right as seen previously. Microbiology 11/13/19 - Final, Complete 11/12/19 Blood Culture - Final, Complete NO GROWTH AFTER 5 DAYS Objective Assessment 1. Severe sepsis -POA cultures nonrevealing so far- Fever - better this am mild. Blood cults 11/18 neg 2. Acute hypoxic respiratory failure ,left-sided pneumothorax, extensive pneumomediastinum, potential tracheal injury (status post line placement at [facility]), chest tube., CT with multiple abnormalities including persistent leak 3. Leukocytosis - better ? reactive also on steroids 4. Lactic acidosis - remains elevated 5.. Aspiration pneumonia with emesis while on BiPAP at [facility].yeast in sputum 11/19 - ? Colonization 5. Bilateral interstitial infiltrates at [facility], likely worsening congestive heart failure, status post IV fluids, s/p bronch 6. Coffee-ground emesis. Bowel obstruction, Ileus 7. History of pulmonary embolism. Chronic respiratory failure, on home O2 with history of chronic obstructive pulmonary disease, 8 Bipolar disorder. 9. History of methicillin-resistant Staphylococcus aureus. 10 Hypokalemia. 11. Anemia. 12. Protein-calorie malnutrition. 13. History of smoking. 14.H/O noncomplaiance 15.Severe PCM Plan Plan of Care Abx adjusted 11/18 now some improvement Consider repeat CT scan chest/abd/pelvis if worsens Blood cults times 2 Changed to Meropenem 11/18 D/c Levaquin (11/12) after todays dose to complete 7 days, Cont micafungin, zyvox influenza screen neg ECHO noted f/u bronch cultures,yeast likely contaminant f/u cults and labs in am Critically ill Overall, prognosis very poor. Numerous attempts were made to transfer to or [facility] , has not been accepted. May go to [facility] but too ill to travel Awaiting family decisions on extubation as reported leaning towards comfort D/W DEEPALI VILLEDA MD Nov 21, 2019 06:14
[2019-11-21] MEDS: MIDAZOLAM HCL 50 MG in IV NORMAL SALINE 50ML 50 ML IV PRN ×5 (06:41→23:22)
[2019-11-21] MEDS: IPRATRPIUM/ALBUTEROL 0.5/2.5MG 3 ML NEBU. NEB SCH ×4 (07:31→19:51)
[2019-11-21 07:32] LABS: BASO # 0.2 x10^3/uL (0.0-0.2); BASO % 1 % (0-3); EOS # 0.1 x10^3/uL (0.0-0.7); EOS % 0 % (0-3); HEMATOCRIT 29.8 % (36.0-47.0); HEMOGLOBIN 9.3 g/dL (12.0-15.5); LYMPH # 2.2 x10^3/uL (1.0-4.8); LYMPH % 6 % (24-48); MEAN CORPUSCULAR HEMOGLOBIN 25 pg (25-35); MEAN CORPUSCULAR HGB CONC 31 g/dL (31-37); MEAN CORPUSCULAR VOLUME 80 fL (79-100); MONO # 3.2 x10^3/uL (0.0-1.1); MONO % 9 % (0-9); NEUT # 28.8 x10^3/uL (1.8-7.7); NEUT % 84 % (31-73); PLATELET COUNT 367 x10^3/uL (140-400); RED BLOOD COUNT 3.72 x10^6/uL (3.50-5.40); RED CELL DISTRIBUTION WIDTH 20.7 % (11.5-14.5); WHITE BLOOD COUNT 34.5 x10^3/uL (4.0-11.0)
[2019-11-21 07:36] LABS: BLOOD UREA NITROGEN 33 mg/dL (7-20); CALCIUM 9.2 mg/dL (8.5-10.1); CARBON DIOXIDE 41 mmol/L (21-32); CHLORIDE 100 mmol/L (98-107); CREATININE 0.6 mg/dL (0.6-1.0); GLUCOSE 182 mg/dL (70-99); POTASSIUM 5.1 mmol/L (3.5-5.1); SODIUM 139 mmol/L (136-145)
[2019-11-21 08:11] LABS: BASE EXCESS ABG 14 mmol/L (-3-3); HCO3 ABG 42 mmol/L (21-28); PO2 ABG 67 mmHg (65-108); SAT O2 ABG 92 % (92-99)
[2019-11-21] MEDS: PANTOPRAZOLE IV PUSH 40 MG VIAL. IVP SCH ×2 (08:19→16:45)
[2019-11-21] MEDS: methylPREDNISolone SOD SUCC PF 40 MG/ML VIAL. IV SCH (08:19)
--- NOTE | 2019-11-21 08:36 | PDOC ---
PULMONARY PROGRESS NOTES Subjective PT STILL ON 100%FIO2 AND 6 PEEP Vitals Vital Signs Date Time Temp Pulse Resp B/P (MAP) Pulse Ox O2 Delivery O2 Flow Rate FiO2 11/21/19 08:00 98.4 99 22 105/68 (80) 95 Ventilator 98.4 Comments ros unable to obtain on vent sedated HEENT: Other Lungs: Crackles Cardiovascular: S1, S2 Abdomen: Soft, Non-tender, Other (no mass) Extremities: Other (1+edema) Skin: Warm Labs Laboratory Tests Test 11/19/19 12:11 11/19/19 17:39 11/20/19 00:00 11/20/19 06:00 Glucose (Fingerstick) 363 mg/dL (70-99) 313 mg/dL (70-99) 328 mg/dL (70-99) White Blood Count 26.7 x10^3/uL (4.0-11.0) Red Blood Count 3.40 x10^6/uL (3.50-5.40) Hemoglobin 8.6 g/dL (12.0-15.5) Hematocrit 27.5 % (36.0-47.0) Mean Corpuscular Volume 81 fL (79-100) Mean Corpuscular Hemoglobin 25 pg (25-35) Mean Corpuscular Hemoglobin Concent 31 g/dL (31-37) Red Cell Distribution Width 20.3 % (11.5-14.5) Platelet Count 262 x10^3/uL (140-400) Neutrophils (%) (Auto) 85 % (31-73) Lymphocytes (%) (Auto) 6 % (24-48) Monocytes (%) (Auto) 8 % (0-9) Eosinophils (%) (Auto) 1 % (0-3) Basophils (%) (Auto) 0 % (0-3) Neutrophils # (Auto) 22.7 x10^3/uL (1.8-7.7) Lymphocytes # (Auto) 1.6 x10^3/uL (1.0-4.8) Monocytes # (Auto) 2.1 x10^3/uL (0.0-1.1) Eosinophils # (Auto) 0.2 x10^3/uL (0.0-0.7) Basophils # (Auto) 0.1 x10^3/uL (0.0-0.2) Sodium Level 135 mmol/L (136-145) Potassium Level 5.1 mmol/L (3.5-5.1) Chloride Level 97 mmol/L (98-107) Carbon Dioxide Level 37 mmol/L (21-32) Anion Gap 1 (6-14) Blood Urea Nitrogen 28 mg/dL (7-20) Creatinine 0.6 mg/dL (0.6-1.0) Estimated GFR (Cockcroft-Gault) 102.0 BUN/Creatinine Ratio 47 (6-20) Glucose Level 274 mg/dL (70-99) Calcium Level 9.0 mg/dL (8.5-10.1) Phosphorus Level 2.9 mg/dL (2.6-4.7) Magnesium Level 1.8 mg/dL (1.8-2.4) Total Bilirubin 0.2 mg/dL (0.2-1.0) Aspartate Amino Transf (AST/SGOT) 6 U/L (15-37) Alanine Aminotransferase (ALT/SGPT) 7 U/L (14-59) Alkaline Phosphatase 79 U/L (46-116) Total Protein 5.6 g/dL (6.4-8.2) Albumin 1.3 g/dL (3.4-5.0) Albumin/Globulin Ratio 0.3 (1.0-1.7) Test 11/20/19 06:25 11/20/19 08:00 11/20/19 12:09 11/20/19 17:27 Glucose (Fingerstick) 269 mg/dL (70-99) 328 mg/dL (70-99) 289 mg/dL (70-99) O2 Saturation 94 % (92-99) Arterial Blood pH 7.35 (7.35-7.45) Arterial Blood pCO2 at Patient Temp 62 mmHg (35-46) Arterial Blood pO2 at Patient Temp 74 mmHg (65-108) Arterial Blood HCO3 34 mmol/L (21-28) Arterial Blood Base Excess 7 mmol/L (-3-3) FiO2 100 Test 11/21/19 00:33 11/21/19 05:50 11/21/19 05:59 Glucose (Fingerstick) 282 mg/dL (70-99) 187 mg/dL (70-99) White Blood Count 34.5 x10^3/uL (4.0-11.0) Red Blood Count 3.72 x10^6/uL (3.50-5.40) Hemoglobin 9.3 g/dL (12.0-15.5) Hematocrit 29.8 % (36.0-47.0) Mean Corpuscular Volume 80 fL (79-100) Mean Corpuscular Hemoglobin 25 pg (25-35) Mean Corpuscular Hemoglobin Concent 31 g/dL (31-37) Red Cell Distribution Width 20.7 % (11.5-14.5) Platelet Count 367 x10^3/uL (140-400) Neutrophils (%) (Auto) 84 % (31-73) Lymphocytes (%) (Auto) 6 % (24-48) Monocytes (%) (Auto) 9 % (0-9) Eosinophils (%) (Auto) 0 % (0-3) Basophils (%) (Auto) 1 % (0-3) Neutrophils # (Auto) 28.8 x10^3/uL (1.8-7.7) Lymphocytes # (Auto) 2.2 x10^3/uL (1.0-4.8) Monocytes # (Auto) 3.2 x10^3/uL (0.0-1.1) Eosinophils # (Auto) 0.1 x10^3/uL (0.0-0.7) Basophils # (Auto) 0.2 x10^3/uL (0.0-0.2) Sodium Level 139 mmol/L (136-145) Potassium Level 5.1 mmol/L (3.5-5.1) Chloride Level 100 mmol/L (98-107) Carbon Dioxide Level 41 mmol/L (21-32) Anion Gap (6-14) Blood Urea Nitrogen 33 mg/dL (7-20) Creatinine 0.6 mg/dL (0.6-1.0) Estimated GFR (Cockcroft-Gault) 102.0 Glucose Level 182 mg/dL (70-99) Calcium Level 9.2 mg/dL (8.5-10.1) Laboratory Tests Test 11/20/19 12:09 11/20/19 17:27 11/21/19 00:33 11/21/19 05:50 Glucose (Fingerstick) 328 mg/dL (70-99) 289 mg/dL (70-99) 282 mg/dL (70-99) White Blood Count 34.5 x10^3/uL (4.0-11.0) Red Blood Count 3.72 x10^6/uL (3.50-5.40) Hemoglobin 9.3 g/dL (12.0-15.5) Hematocrit 29.8 % (36.0-47.0) Mean Corpuscular Volume 80 fL (79-100) Mean Corpuscular Hemoglobin 25 pg (25-35) Mean Corpuscular Hemoglobin Concent 31 g/dL (31-37) Red Cell Distribution Width 20.7 % (11.5-14.5) Platelet Count 367 x10^3/uL (140-400) Neutrophils (%) (Auto) 84 % (31-73) Lymphocytes (%) (Auto) 6 % (24-48) Monocytes (%) (Auto) 9 % (0-9) Eosinophils (%) (Auto) 0 % (0-3) Basophils (%) (Auto) 1 % (0-3) Neutrophils # (Auto) 28.8 x10^3/uL (1.8-7.7) Lymphocytes # (Auto) 2.2 x10^3/uL (1.0-4.8) Monocytes # (Auto) 3.2 x10^3/uL (0.0-1.1) Eosinophils # (Auto) 0.1 x10^3/uL (0.0-0.7) Basophils # (Auto) 0.2 x10^3/uL (0.0-0.2) Sodium Level 139 mmol/L (136-145) Potassium Level 5.1 mmol/L (3.5-5.1) Chloride Level 100 mmol/L (98-107) Carbon Dioxide Level 41 mmol/L (21-32) Anion Gap (6-14) Blood Urea Nitrogen 33 mg/dL (7-20) Creatinine 0.6 mg/dL (0.6-1.0) Estimated GFR (Cockcroft-Gault) 102.0 Glucose Level 182 mg/dL (70-99) Calcium Level 9.2 mg/dL (8.5-10.1) Test 11/21/19 05:59 Glucose (Fingerstick) 187 mg/dL (70-99) Medications Active Scripts Medications Dose Route/Sig Max Daily Dose Days Date Category Augmentin 500-125 Tablet (Amoxicillin/Potassium Clav) 1 Each Tablet 1 Tab PO BID 10 09/03/19 Rx Culturelle (Lactobacillus Rhamnosus Gg) 1 Each Cap.sprink 1 Cap PO BID 30 09/03/19 Rx Dok (Docusate Sodium) 100 Mg Capsule 100 Mg PO PRN BID PRN 30 09/03/19 Rx Tylenol (Acetaminophen) 325 Mg Tablet 650 Mg PO PRN Q4HRS PRN 30 09/03/19 Rx Xarelto (Rivaroxaban) 10 Mg Tablet 20 Mg PO DAILYWSUP 60 09/03/19 Rx Feosol (Ferrous Sulfate) 325 Mg Tablet 325 Mg PO BIDWMEALS 30 09/03/19 Rx Doxycycline Hyclate 100 Mg Tablet 100 Mg PO BID 10 09/03/19 Rx Seroquel (Quetiapine Fumarate) 400 Mg Tablet 1.5 Tab PO QHS 08/30/19 Reported Alprazolam 1 Mg Tablet 0.5 Tab PO TID 08/30/19 Reported Ropinirole Hcl 0.25 Mg Tablet 0.25 Mg PO BID 08/30/19 Reported Melatonin 5 Mg Tab.rapdis 1 Tab PO QHS 30 08/30/19 Reported Metoprolol Tartrate 25 Mg Tablet 0.5 Tab PO BID 08/30/19 Reported Pantoprazole Sodium (Pantoprazole Sodium) 40 Mg Tablet.dr 40 Mg PO DAILYAC 08/30/19 Reported Venlafaxine Hcl Er (Venlafaxine Hcl) 150 Mg Cap.er.24h 150 Mg PO QHS 08/11/19 Reported Duoneb 0.5-3(2.5) Mg/3 Ml (Albuterol/Ipratropium) 3 Ml Ampul.neb 3 Ml NEB RTQID 30 03/26/18 Rx Mucinex Dm Er 600-30 Mg Tablet (Guaifenesin/Dextromethorphan) 1 Each Tab.er.12h 1 Each PO BID 03/18/18 Reported Seroquel Xr (Quetiapine Fumarate) 400 Mg Tab.er.24h 800 Mg PO HS 03/18/18 Reported Comments Impression . 1. Acute on chronic hypoxic and hypercapnic respiratory failure secondary to multifactorial etiologies including acute exacerbation of chronic obstructive pulmonary disease, septic shock , left-sided pneumothorax 2. Bilateral interstitial infiltrates, suspect aspiration pneumonia 3. Emesis while on BiPAP initially at [place], possibility of aspiration pneumonia is a consideration. 4. Left-sided pneumothorax post-attempted line placement, status post chest tube. Left PTX persist. continue chest tube to suction. 5. Underlying chronic obstructive pulmonary disease with chronic hypoxic respiratory failure and noncompliance. 6. Acute kidney injury.improved 7. septic shock. 8. Abnormal ct chest, ? tracheal injury/ air in venous system. s/p Bronch , No tracheal tear seen distal to ET tube, cannot exclude higher level tear 9. Anemia 1. There is extensive soft tissue gas bilaterally although decreased. There is small left apical pneumothorax probably unchanged, again left chest tube present. There is slight improved aeration of the left hemithorax although persistent bilateral infiltrates and abnormal perihilar opacity greater on the right as seen previously. Plan . SCHEDULE FOR DC ALL SUPPORT TOMORROW AND ORAGAN DONATION SPOKE WITH RN NOW BP LOW WILL GIVE FLUIDS AND START LEVO CXR REVIEWED ANTIPX PER ID IV FLUIDS BO FRAZIER MD Nov 21, 2019 08:36
[2019-11-21 08:54] LABS: FIO2 ABG 100; PCO2 ABG 74 mmHg (35-46)
--- NOTE | 2019-11-21 10:38 | PDOC ---
Objective: Objective: D/w nurse - possibly withdrawing care tomorrow. Vital Signs: Vital Signs Date Time Temp Pulse Resp B/P (MAP) Pulse Ox O2 Delivery O2 Flow Rate FiO2 11/21/19 09:08 95 Ventilator 11/21/19 09:00 101 22 142/81 (101) 11/21/19 08:00 98.4 98.4 Labs: Laboratory Tests Test 11/20/19 12:09 11/20/19 17:27 11/21/19 00:33 11/21/19 05:50 Glucose (Fingerstick) 328 mg/dL 289 mg/dL 282 mg/dL White Blood Count 34.5 x10^3/uL Red Blood Count 3.72 x10^6/uL Hemoglobin 9.3 g/dL Hematocrit 29.8 % Mean Corpuscular Volume 80 fL Mean Corpuscular Hemoglobin 25 pg Mean Corpuscular Hemoglobin Concent 31 g/dL Red Cell Distribution Width 20.7 % Platelet Count 367 x10^3/uL Neutrophils (%) (Auto) 84 % Lymphocytes (%) (Auto) 6 % Monocytes (%) (Auto) 9 % Eosinophils (%) (Auto) 0 % Basophils (%) (Auto) 1 % Neutrophils # (Auto) 28.8 x10^3/uL Lymphocytes # (Auto) 2.2 x10^3/uL Monocytes # (Auto) 3.2 x10^3/uL Eosinophils # (Auto) 0.1 x10^3/uL Basophils # (Auto) 0.2 x10^3/uL Sodium Level 139 mmol/L Potassium Level 5.1 mmol/L Chloride Level 100 mmol/L Carbon Dioxide Level 41 mmol/L Anion Gap Blood Urea Nitrogen 33 mg/dL Creatinine 0.6 mg/dL Estimated GFR (Cockcroft-Gault) 102.0 Glucose Level 182 mg/dL Calcium Level 9.2 mg/dL Test 11/21/19 05:59 11/21/19 08:00 Glucose (Fingerstick) 187 mg/dL O2 Saturation 92 % Arterial Blood pH 7.37 Arterial Blood pCO2 at Patient Temp 74 mmHg Arterial Blood pO2 at Patient Temp 67 mmHg Arterial Blood HCO3 42 mmol/L Arterial Blood Base Excess 14 mmol/L FiO2 100 GRAM STAIN WHITE BLOOD CELLS Final Few GRAM STAIN EPITHELIAL CELLS Final Few GRAM STAIN RESULT 1 Final Comment Small amount of yeast seen. GRAM STAIN RESULT 2 Preliminary Test not performed GRAM STAIN RESULT 3 Preliminary Test not performed GRAM STAIN RESULT 4 Preliminary Test not performed GRAM STAIN EVALUATION Final Comment This specimen is of good quality and is acceptable for routine bacterial culture. Performed at: - [facility] [id number] [facility] [address], [place], [place] [id number] [employer] Machine Operator: CONNIE Hernández MD, Phone: [phone] SPUTUM CULTURE-LC PENDING BLOOD CULTURE Preliminary NO GROWTH AFTER 3 DAYS PE: GEN: intubated LUNGS: coarse HEART: tachycardic ABD: soft NEURO/PSYCH: sedated A/P: Resp failure, possible air leak ACD/YESSY -- Plans as above. Hemodynamically unstable?: Yes Is patient in severe pain?: No Is NPO status required?: Yes NAIDA SANZ Nov 21, 2019 10:38
[2019-11-21] MEDS: MICAFUNGIN 100 MG in IV DEXTROSE 5% 100ML 100 ML IV SCH (11:18)
--- NOTE | 2019-11-21 12:30 | NUR ---
Patient's sister, Janine, met with [facility] family coordinator, agreed with donor after cardiac . Per family wishes, patient is now a full code just in case something happens overnight so donation can happen tomorrow. OR staff notified.
--- NOTE | 2019-11-21 13:01 | PDOC ---
Provider Note Provider Note Anesthesia note; Requested to place arterial line for possible organ procurement. Sterile technique. Chlorhexidene prep, #20 ga Arrow left radial artery without difficulty. secured with tape and covered with op site dressing. Good wave form. Hemodynamically unstable?: Yes Is patient in severe pain?: No Is NPO status required?: Yes Raul FERNANDEZ CRNA Nov 21, 2019 13:01
--- NOTE | 2019-11-21 13:51 | PDOC4 ---
OPERATIVE NOTE Date: Date: Nov 21, 2019 Pre-Op Diagnosis: Consideration for organ donor, raised skin lesion right abdominal wall Post-Op Diagnosis: same Procedure Performed: Excisional biopsy of right abdominal wall 2 cm Surgeon: Abdias Dooley Anesthesia Type: none, patient sedated Blood Loss: none Specimans Obtained: skin biopsy Findings: 2 cm thickened, pigmented raised lesion Complications: none Operative Note: Requested by [facility] to perform skin biopsy of raided lesion of right abdominal wall. Prepped in the usual fashion. Metzenbaum scissors used to excise mass and epidermis. Specimen to pathology for evaluation. Skin repaired with figure 8 3 0 silk suture. Dressing applied. DORY DOOLEY MD Nov 21, 2019 13:51
[2019-11-21] MEDS ORDERED: NOREPINEPHRINE VIAL 8 MG in IV DEXTROSE 5% 250 ML IV PRN (14:00)
[2019-11-21] MEDS: TPN PER PHARMACY MC PRN (14:33)
--- NOTE | 2019-11-21 14:34 | NUR ---
Pharmacy TPN Dosing Note S: CB CASTILLO is a 59 year old F Currently receiving Central Continuous TPN started 11/14/19 B:Pertinent PMH: ILEUS, COFFEE GROUND EMESIS. Height: 5 feet, 7 inches Weight: 61.8 kg Current diet: NPO LABS: Sodium: 139 Potassium: 5.1 Chloride: 100 Calcium: 9.2 Corrected Calcium: 11.36 Magnesium: 1.8 CO2: 37 SCr: 0.6 Glucose: 182-289 Albumin: 1.3 AST: 6 ALT: 7 TPN FORMULA: TPN TYPE: Central Continuous AMINO ACIDS: 75 gm DEXTROSE: 195 gm LIPIDS: 20 gm SODIUM CHLORIDE: 120 mEq POTASSIUM CHLORIDE: 20 mEq POTASSIUM PHOSPHATE: 13.6 mmol MAGNESIUM: 10 mEq CALCIUM: 5 mEq INSULIN: 25 units MULTIPLE VITAMIN: 10 ml TRACE ELEMENTS: 1 ml TPN PLAN: Cont same. R: Continue TPN Will monitor electrolytes, glucose, and tolerance to TPN. Komal Calero [facility], 11/21/19 [id number]
[2019-11-21] MEDS: VECURONIUM BROMIDE 50 MG in TOTAL VOLUME 50 ML IV PRN (17:00)
[2019-11-21] MEDS ORDERED: methylPREDNISolone SOD SUCC 500 MG in IV NORMAL SALINE 100ML 100 ML IV ONE (18:00)
[2019-11-21 20:07] LABS: BASE EXCESS ABG 10 mmol/L (-3-3); HCO3 ABG 36 mmol/L (21-28); PCO2 ABG 57 mmHg (35-46); PO2 ABG 85 mmHg (65-108); SAT O2 ABG 96 % (92-99)
[2019-11-21 20:29] LABS: BASO # 0.1 x10^3/uL (0.0-0.2); BASO % 0 % (0-3); EOS % 0 % (0-3); HEMATOCRIT 25.9 % (36.0-47.0); HEMOGLOBIN 8.4 g/dL (12.0-15.5); LYMPH # 1.7 x10^3/uL (1.0-4.8); LYMPH % 6 % (24-48); MEAN CORPUSCULAR HEMOGLOBIN 26 pg (25-35); MEAN CORPUSCULAR HGB CONC 33 g/dL (31-37); MEAN CORPUSCULAR VOLUME 80 fL (79-100); MONO # 2.5 x10^3/uL (0.0-1.1); MONO % 8 % (0-9); NEUT # 26.3 x10^3/uL (1.8-7.7); NEUT % 86 % (31-73); PLATELET COUNT 305 x10^3/uL (140-400); RED BLOOD COUNT 3.26 x10^6/uL (3.50-5.40); RED CELL DISTRIBUTION WIDTH 20.2 % (11.5-14.5); WHITE BLOOD COUNT 30.6 x10^3/uL (4.0-11.0)
--- NOTE | 2019-11-21 20:46 | NUR ---
TPN not given at 2200 do to patient being withdrawn from ventilator in AM.
[2019-11-21 20:48] LABS: % BANDS 10 % (0-9); % LYMPHS 10 % (24-48); % METAS 2 % (0-0); % MONOS 4 % (0-10); % MYELOS 1 % (0-0); % SEGS 73 % (35-66)
[2019-11-21 20:55] LABS: ALBUMIN 1.4 g/dL (3.4-5.0); CALCIUM 8.5 mg/dL (8.5-10.1); CREATININE 0.5 mg/dL (0.6-1.0); DIRECT BILIRUBIN 0.1 mg/dL (0.0-0.2); GFR 125.9; MAGNESIUM 1.8 mg/dL (1.8-2.4); PHOSPHORUS 3.2 mg/dL (2.6-4.7); POTASSIUM 4.9 mmol/L (3.5-5.1); TOTAL BILIRUBIN 0.2 mg/dL (0.2-1.0); TOTAL PROTEIN 5.9 g/dL (6.4-8.2)
[2019-11-21 20:56] LABS: PLT ESTIMATE ADEQUATE (ADEQUATE)
[2019-11-21 20:57] LABS: ANISOCYTOSIS MOD; POLYCHROMASIA SLIGHT; TOXIC GRANULATION MOD; TOXIC VACUOLATION SLIGHT
[2019-11-21 21:10] LABS: FIO2 ABG 100
[2019-11-21] MEDS ORDERED: DEXTROSE 70% IV SCH ×11 (22:00)
[2019-11-21] MEDS ORDERED: [UNRECOGNIZED DRUG - OTHER] IV SCH ×11 (22:00)
[2019-11-21] MEDS ORDERED: TOTAL PARENTERAL NUTRITION IV SCH ×11 (22:00)
[2019-11-21] MEDS ORDERED: AMINO ACID IV SCH ×11 (22:00)
[2019-11-21] MEDS ORDERED: MAGNESIUM SULFATE 2GM 50 ML IV ONE (22:30)
[2019-11-22] VITALS (13 sets, daily range): BP systolic 83–176; BP diastolic 53–87
[2019-11-22] MEDS: MEROPENEM 500 MG in IV NORMAL SALINE 50ML 50 ML IV SCH ×3 (00:11→12:00)
[2019-11-22] MEDS: METOPROLOL TARTRATE 5 MG/5 ML VIAL. IVP SCH ×3 (00:12→12:00)
--- NOTE | 2019-11-22 00:42 | PN ---
DATE: 11/21/2019 SUBJECTIVE: The patient continued to be intubated, mechanically ventilated and sedated, and paralyzed and apparently the plan is for her to be extubated tomorrow and her sister agreed. PHYSICAL EXAMINATION: GENERAL: When I examined her she appeared cachectic, but no jaundice, cyanosis, or thyromegaly. No jugular venous distention. No limb edema. VITAL SIGNS: Her heart rate was 101, blood pressure 142/81, temperature 98.4, respiratory rate 22, and oxygen saturation 95%. HEAD, EYES, EARS, NOSE, AND THROAT: Showed normocephalic and atraumatic. She has orotracheal and orogastric tube in place. NECK: Supple. HEART: Normal first and second heart sounds with no murmurs. CHEST: Clear to auscultation. No crepitation or rhonchi. ABDOMEN: Distended, soft, and nontender. NEUROLOGIC: She is heavily sedated and paralyzed. Her intake was 1375 and output was 4000. LABORATORY DATA: Her lab work showed a white cell count up to 34,500, hemoglobin 9, hematocrit 29, MCV 80, and platelet count 367,000. Serum sodium was 139, potassium 5.1, chloride 100, bicarbonate 41, anion gap of 0, BUN 33, creatinine 0.6, estimated GFR was 102, glucose was 182, and calcium was 9.2. ASSESSMENT: 1. [id number] hypoxic hypercapnic respiratory failure due to: A. Acute exacerbation of chronic obstructive pulmonary disease. B. Aspiration pneumonia and she was on BiPAP, seen at [facility] Emergency Room. C. Septic shock. D. Left-sided pneumothorax, status post attempted line placement, status post chest tube. 2. Left lung has completely expanded; however, extensive subcutaneous emphysema on the left side. 3. Chronic obstructive pulmonary disease. 4. Chronic hypoxic hypercapnic respiratory failure with noncompliance with medications and narcotic abuse. 5. Acute kidney injury, improving. 6. Acute blood loss anemia, status post blood transfusion. PLAN: Plan is obviously to continue with current plan of management. The patient will be extubated tomorrow. The family has agreed to donate kidneys. BERTRAND RENTERIA MD DR: SADAF/vita JOB#: [id number] / [id number]
[2019-11-22] MEDS ORDERED: hydrALAZINE 20 MG/ML VIAL. IVP PRN (03:00)
[2019-11-22] MEDS: PROPOFOL 100 ML IV PRN ×2 (03:18→03:23)
[2019-11-22] MEDS: VECURONIUM BROMIDE 50 MG in TOTAL VOLUME 50 ML IV PRN (03:53)
[2019-11-22] MEDS: MIDAZOLAM HCL 50 MG in IV NORMAL SALINE 50ML 50 ML IV PRN ×2 (03:54→10:56)
[2019-11-22] MEDS: INSULIN LISPRO 300 UNITS/3 ML VIAL. SQ SCH ×3 (06:44→12:00)
[2019-11-22] MEDS: IPRATRPIUM/ALBUTEROL 0.5/2.5MG 3 ML NEBU. NEB SCH ×2 (08:09→12:00)
[2019-11-22 08:23] LABS: BASE EXCESS ABG 9 mmol/L (-3-3); HCO3 ABG 34 mmol/L (21-28); PCO2 ABG 55 mmHg (35-46); SAT O2 ABG 76 % (92-99)
[2019-11-22 08:53] LABS: FIO2 ABG 100; PO2 ABG 43 mmHg (65-108)
[2019-11-22] MEDS ORDERED: methylPREDNISolone SOD SUCC PF 125 MG/2 ML VIAL. IV ONE (09:00)
[2019-11-22] MEDS: PANTOPRAZOLE IV PUSH 40 MG VIAL. IVP SCH (09:03)
[2019-11-22] MEDS: methylPREDNISolone SOD SUCC PF 40 MG/ML VIAL. IV SCH (09:03)
--- NOTE | 2019-11-22 09:48 | PN ---
DATE: 11/22/2019 SUBJECTIVE: The patient continued to be intubated, mechanically ventilated, sedated and paralyzed. Her blood pressure is extremely labile, glucose between 70-110. She is now on Levophed. Apparently, she is no longer a candidate for some abnormal serology that we have not been able to find out exactly and apparently withdrawal of care scheduled around 12:00 this afternoon. PHYSICAL EXAMINATION: GENERAL: When I saw her this morning, she was extremely pale, cachectic, but no jaundice, cyanosis or thyromegaly. No jugular venous distention. No lower limb edema. VITAL SIGNS: Her heart rate was 108, blood pressure was 87/55, temperature was 99, and respiratory rate was 24, and oxygen saturation was 84% on FiO2 of 100%. HEAD, EYES, EARS, NOSE AND THROAT: Showed normocephalic, atraumatic. She has orotracheal and orogastric tube in place. NECK: Supple. HEART: Normal first and second heart sounds. No gallop or murmur. CHEST: Shows central trachea, equal bilateral expansion, air entry, had a chest tube in the left side. She has subcutaneous emphysema, extensive on the left side. ABDOMEN: Distended, soft, nontender. NEUROLOGIC: She is sedated, paralyzed. Her intake was 2850, output was 2935. LABORATORY DATA: Her lab work this morning is still pending at the time of this dictation. ASSESSMENT: 1. Acute on chronic hypoxic hypercapnic respiratory failure due to: A. Acute exacerbation of chronic obstructive pulmonary disease. B. Aspiration pneumonia when she was on BiPAP at [facility] Emergency Room. C. Left-sided pneumothorax, status post attempted line placement, status post chest tube. D. Bilateral pneumonic infiltrate with septic shock. 2. Left sided pneumothorax, status post attempted line placement, status post chest tube. The left lung has completely expanded; however, extensive subcutaneous emphysema on the left side, continued to resist. 3. Chronic obstructive pulmonary disease. 4. Chronic hypoxic hypercapnic respiratory failure with noncompliance with medications. 5. Narcotic abuse. 6. Acute kidney injury, improving. 7. Acute blood loss anemia, status post blood transfusion. PLAN: Obviously to as she is no longer a candidate for organ procurement for some serological abnormalities that were unable to know, plan is to go ahead with the scheduled terminal extubation at noon time. BERTRAND RENTERIA MD DR: Cari JOB#: [id number] / [id number]
--- NOTE | 2019-11-22 09:50 | PDOC ---
Objective: Objective: D/w nurse - plans to withdraw care at noon today. Vital Signs: Vital Signs Date Time Temp Pulse Resp B/P (MAP) Pulse Ox O2 Delivery O2 Flow Rate FiO2 11/22/19 09:45 24 92 Ventilator 11/22/19 09:00 112 91/56 (68) 11/22/19 08:00 98.1 98.1 Labs: Laboratory Tests Test 11/21/19 12:56 11/21/19 17:43 11/21/19 20:00 11/21/19 20:10 Glucose (Fingerstick) 267 mg/dL 225 mg/dL O2 Saturation 96 % Arterial Blood pH 7.42 Arterial Blood pCO2 at Patient Temp 57 mmHg Arterial Blood pO2 at Patient Temp 85 mmHg Arterial Blood HCO3 36 mmol/L Arterial Blood Base Excess 10 mmol/L FiO2 100 White Blood Count 30.6 x10^3/uL Red Blood Count 3.26 x10^6/uL Hemoglobin 8.4 g/dL Hematocrit 25.9 % Mean Corpuscular Volume 80 fL Mean Corpuscular Hemoglobin 26 pg Mean Corpuscular Hemoglobin Concent 33 g/dL Red Cell Distribution Width 20.2 % Platelet Count 305 x10^3/uL Neutrophils (%) (Auto) 86 % Lymphocytes (%) (Auto) 6 % Monocytes (%) (Auto) 8 % Eosinophils (%) (Auto) 0 % Basophils (%) (Auto) 0 % Neutrophils # (Auto) 26.3 x10^3/uL Lymphocytes # (Auto) 1.7 x10^3/uL Monocytes # (Auto) 2.5 x10^3/uL Eosinophils # (Auto) 0.0 x10^3/uL Basophils # (Auto) 0.1 x10^3/uL Segmented Neutrophils % 73 % Band Neutrophils % 10 % Lymphocytes % 10 % Monocytes % 4 % Metamyelocytes % 2 % Myelocytes % 1 % Toxic Granulation Mod Toxic Vacuolation Slight Platelet Estimate Adequate Polychromasia Slight Anisocytosis Mod Prothrombin Time 16.0 SEC Prothromb Time International Ratio 1.3 Activated Partial Thromboplast Time 27 SEC Fibrinogen 778 mg/dL Sodium Level 139 mmol/L Potassium Level 4.9 mmol/L Chloride Level 100 mmol/L Carbon Dioxide Level 39 mmol/L Anion Gap 0 Blood Urea Nitrogen 31 mg/dL Creatinine 0.5 mg/dL Estimated GFR (Cockcroft-Gault) 125.9 Glucose Level 174 mg/dL Calcium Level 8.5 mg/dL Phosphorus Level 3.2 mg/dL Magnesium Level 1.8 mg/dL Total Bilirubin 0.2 mg/dL Direct Bilirubin 0.1 mg/dL Gamma Glutamyl Transpeptidase 55 U/L Aspartate Amino Transf (AST/SGOT) 13 U/L Alanine Aminotransferase (ALT/SGPT) 14 U/L Alkaline Phosphatase 80 U/L Lactate Dehydrogenase 211 U/L Total Protein 5.9 g/dL Albumin 1.4 g/dL Amylase Level 23 U/L Lipase 118 U/L Test 11/22/19 00:08 11/22/19 06:41 11/22/19 08:00 Glucose (Fingerstick) 97 mg/dL 247 mg/dL O2 Saturation 76 % Arterial Blood pH 7.41 Arterial Blood pCO2 at Patient Temp 55 mmHg Arterial Blood pO2 at Patient Temp 43 mmHg Arterial Blood HCO3 34 mmol/L Arterial Blood Base Excess 9 mmol/L FiO2 100 BLOOD CULTURE Preliminary NO GROWTH AFTER 4 DAYS PE: GEN: intubated NEURO/PSYCH: sedated Family present, did not disturb. A/P: Resp failure, possible air leak -- Withdrawal plans noted. Hemodynamically unstable?: Yes Is patient in severe pain?: No Is NPO status required?: Yes NAIDA SANZ Nov 22, 2019 09:50
[2019-11-22] MEDS: MICAFUNGIN 100 MG in IV DEXTROSE 5% 100ML 100 ML IV SCH (10:55)
[2019-11-22] MEDS: MORPHINE SULFATE 10 MG/ML VIAL. IV PRN ×3 (11:47→13:02)
--- NOTE | 2019-11-22 14:06 | NUR ---
Patient terminally extubated at 1240 with family at bedside. Patient at 1315, notified Dr. Valente and Dr. Cota. Belongings went home with sister, Janine, yesterday 11/21.
--- NOTE | 2019-11-22 14:16 | PDOC ---
PULMONARY PROGRESS NOTES Subjective PT STILL ON 100%FIO2 AND 6 PEEP Vitals Vital Signs Date Time Temp Pulse Resp B/P (MAP) Pulse Ox O2 Delivery O2 Flow Rate FiO2 11/22/19 12:00 107 24 85/61 (69) 88 Ventilator 11/22/19 08:00 98.1 98.1 Comments ros unable to obtain on vent sedated HEENT: Other Lungs: Crackles Cardiovascular: S1, S2 Abdomen: Soft, Non-tender, Other (no mass) Extremities: Other (1+edema) Skin: Warm Labs Laboratory Tests Test 11/20/19 17:27 11/21/19 00:33 11/21/19 05:50 11/21/19 05:59 Glucose (Fingerstick) 289 mg/dL (70-99) 282 mg/dL (70-99) 187 mg/dL (70-99) White Blood Count 34.5 x10^3/uL (4.0-11.0) Red Blood Count 3.72 x10^6/uL (3.50-5.40) Hemoglobin 9.3 g/dL (12.0-15.5) Hematocrit 29.8 % (36.0-47.0) Mean Corpuscular Volume 80 fL (79-100) Mean Corpuscular Hemoglobin 25 pg (25-35) Mean Corpuscular Hemoglobin Concent 31 g/dL (31-37) Red Cell Distribution Width 20.7 % (11.5-14.5) Platelet Count 367 x10^3/uL (140-400) Neutrophils (%) (Auto) 84 % (31-73) Lymphocytes (%) (Auto) 6 % (24-48) Monocytes (%) (Auto) 9 % (0-9) Eosinophils (%) (Auto) 0 % (0-3) Basophils (%) (Auto) 1 % (0-3) Neutrophils # (Auto) 28.8 x10^3/uL (1.8-7.7) Lymphocytes # (Auto) 2.2 x10^3/uL (1.0-4.8) Monocytes # (Auto) 3.2 x10^3/uL (0.0-1.1) Eosinophils # (Auto) 0.1 x10^3/uL (0.0-0.7) Basophils # (Auto) 0.2 x10^3/uL (0.0-0.2) Sodium Level 139 mmol/L (136-145) Potassium Level 5.1 mmol/L (3.5-5.1) Chloride Level 100 mmol/L (98-107) Carbon Dioxide Level 41 mmol/L (21-32) Anion Gap (6-14) Blood Urea Nitrogen 33 mg/dL (7-20) Creatinine 0.6 mg/dL (0.6-1.0) Estimated GFR (Cockcroft-Gault) 102.0 Glucose Level 182 mg/dL (70-99) Calcium Level 9.2 mg/dL (8.5-10.1) Test 11/21/19 08:00 11/21/19 12:56 11/21/19 17:43 11/21/19 20:00 O2 Saturation 92 % (92-99) 96 % (92-99) Arterial Blood pH 7.37 (7.35-7.45) 7.42 (7.35-7.45) Arterial Blood pCO2 at Patient Temp 74 mmHg (35-46) 57 mmHg (35-46) Arterial Blood pO2 at Patient Temp 67 mmHg (65-108) 85 mmHg (65-108) Arterial Blood HCO3 42 mmol/L (21-28) 36 mmol/L (21-28) Arterial Blood Base Excess 14 mmol/L (-3-3) 10 mmol/L (-3-3) FiO2 100 100 Glucose (Fingerstick) 267 mg/dL (70-99) 225 mg/dL (70-99) Test 11/21/19 20:10 11/22/19 00:08 11/22/19 06:41 11/22/19 08:00 White Blood Count 30.6 x10^3/uL (4.0-11.0) Red Blood Count 3.26 x10^6/uL (3.50-5.40) Hemoglobin 8.4 g/dL (12.0-15.5) Hematocrit 25.9 % (36.0-47.0) Mean Corpuscular Volume 80 fL (79-100) Mean Corpuscular Hemoglobin 26 pg (25-35) Mean Corpuscular Hemoglobin Concent 33 g/dL (31-37) Red Cell Distribution Width 20.2 % (11.5-14.5) Platelet Count 305 x10^3/uL (140-400) Neutrophils (%) (Auto) 86 % (31-73) Lymphocytes (%) (Auto) 6 % (24-48) Monocytes (%) (Auto) 8 % (0-9) Eosinophils (%) (Auto) 0 % (0-3) Basophils (%) (Auto) 0 % (0-3) Neutrophils # (Auto) 26.3 x10^3/uL (1.8-7.7) Lymphocytes # (Auto) 1.7 x10^3/uL (1.0-4.8) Monocytes # (Auto) 2.5 x10^3/uL (0.0-1.1) Eosinophils # (Auto) 0.0 x10^3/uL (0.0-0.7) Basophils # (Auto) 0.1 x10^3/uL (0.0-0.2) Segmented Neutrophils % 73 % (35-66) Band Neutrophils % 10 % (0-9) Lymphocytes % 10 % (24-48) Monocytes % 4 % (0-10) Metamyelocytes % 2 % (0-0) Myelocytes % 1 % (0-0) Toxic Granulation Mod Toxic Vacuolation Slight Platelet Estimate Adequate (ADEQUATE) Polychromasia Slight Anisocytosis Mod Prothrombin Time 16.0 SEC (11.7-14.0) Prothromb Time International Ratio 1.3 (0.8-1.1) Activated Partial Thromboplast Time 27 SEC (24-38) Fibrinogen 778 mg/dL (200-440) Sodium Level 139 mmol/L (136-145) Potassium Level 4.9 mmol/L (3.5-5.1) Chloride Level 100 mmol/L (98-107) Carbon Dioxide Level 39 mmol/L (21-32) Anion Gap 0 (6-14) Blood Urea Nitrogen 31 mg/dL (7-20) Creatinine 0.5 mg/dL (0.6-1.0) Estimated GFR (Cockcroft-Gault) 125.9 Glucose Level 174 mg/dL (70-99) Calcium Level 8.5 mg/dL (8.5-10.1) Phosphorus Level 3.2 mg/dL (2.6-4.7) Magnesium Level 1.8 mg/dL (1.8-2.4) Total Bilirubin 0.2 mg/dL (0.2-1.0) Direct Bilirubin 0.1 mg/dL (0.0-0.2) Gamma Glutamyl Transpeptidase 55 U/L (5-55) Aspartate Amino Transf (AST/SGOT) 13 U/L (15-37) Alanine Aminotransferase (ALT/SGPT) 14 U/L (14-59) Alkaline Phosphatase 80 U/L (46-116) Lactate Dehydrogenase 211 U/L (81-234) Total Protein 5.9 g/dL (6.4-8.2) Albumin 1.4 g/dL (3.4-5.0) Amylase Level 23 U/L (25-115) Lipase 118 U/L (73-393) Glucose (Fingerstick) 97 mg/dL (70-99) 247 mg/dL (70-99) O2 Saturation 76 % (92-99) Arterial Blood pH 7.41 (7.35-7.45) Arterial Blood pCO2 at Patient Temp 55 mmHg (35-46) Arterial Blood pO2 at Patient Temp 43 mmHg (65-108) Arterial Blood HCO3 34 mmol/L (21-28) Arterial Blood Base Excess 9 mmol/L (-3-3) FiO2 100 Laboratory Tests Test 11/21/19 17:43 11/21/19 20:00 11/21/19 20:10 11/22/19 00:08 Glucose (Fingerstick) 225 mg/dL (70-99) 97 mg/dL (70-99) O2 Saturation 96 % (92-99) Arterial Blood pH 7.42 (7.35-7.45) Arterial Blood pCO2 at Patient Temp 57 mmHg (35-46) Arterial Blood pO2 at Patient Temp 85 mmHg (65-108) Arterial Blood HCO3 36 mmol/L (21-28) Arterial Blood Base Excess 10 mmol/L (-3-3) FiO2 100 White Blood Count 30.6 x10^3/uL (4.0-11.0) Red Blood Count 3.26 x10^6/uL (3.50-5.40) Hemoglobin 8.4 g/dL (12.0-15.5) Hematocrit 25.9 % (36.0-47.0) Mean Corpuscular Volume 80 fL (79-100) Mean Corpuscular Hemoglobin 26 pg (25-35) Mean Corpuscular Hemoglobin Concent 33 g/dL (31-37) Red Cell Distribution Width 20.2 % (11.5-14.5) Platelet Count 305 x10^3/uL (140-400) Neutrophils (%) (Auto) 86 % (31-73) Lymphocytes (%) (Auto) 6 % (24-48) Monocytes (%) (Auto) 8 % (0-9) Eosinophils (%) (Auto) 0 % (0-3) Basophils (%) (Auto) 0 % (0-3) Neutrophils # (Auto) 26.3 x10^3/uL (1.8-7.7) Lymphocytes # (Auto) 1.7 x10^3/uL (1.0-4.8) Monocytes # (Auto) 2.5 x10^3/uL (0.0-1.1) Eosinophils # (Auto) 0.0 x10^3/uL (0.0-0.7) Basophils # (Auto) 0.1 x10^3/uL (0.0-0.2) Segmented Neutrophils % 73 % (35-66) Band Neutrophils % 10 % (0-9) Lymphocytes % 10 % (24-48) Monocytes % 4 % (0-10) Metamyelocytes % 2 % (0-0) Myelocytes % 1 % (0-0) Toxic Granulation Mod Toxic Vacuolation Slight Platelet Estimate Adequate (ADEQUATE) Polychromasia Slight Anisocytosis Mod Prothrombin Time 16.0 SEC (11.7-14.0) Prothromb Time International Ratio 1.3 (0.8-1.1) Activated Partial Thromboplast Time 27 SEC (24-38) Fibrinogen 778 mg/dL (200-440) Sodium Level 139 mmol/L (136-145) Potassium Level 4.9 mmol/L (3.5-5.1) Chloride Level 100 mmol/L (98-107) Carbon Dioxide Level 39 mmol/L (21-32) Anion Gap 0 (6-14) Blood Urea Nitrogen 31 mg/dL (7-20) Creatinine 0.5 mg/dL (0.6-1.0) Estimated GFR (Cockcroft-Gault) 125.9 Glucose Level 174 mg/dL (70-99) Calcium Level 8.5 mg/dL (8.5-10.1) Phosphorus Level 3.2 mg/dL (2.6-4.7) Magnesium Level 1.8 mg/dL (1.8-2.4) Total Bilirubin 0.2 mg/dL (0.2-1.0) Direct Bilirubin 0.1 mg/dL (0.0-0.2) Gamma Glutamyl Transpeptidase 55 U/L (5-55) Aspartate Amino Transf (AST/SGOT) 13 U/L (15-37) Alanine Aminotransferase (ALT/SGPT) 14 U/L (14-59) Alkaline Phosphatase 80 U/L (46-116) Lactate Dehydrogenase 211 U/L (81-234) Total Protein 5.9 g/dL (6.4-8.2) Albumin 1.4 g/dL (3.4-5.0) Amylase Level 23 U/L (25-115) Lipase 118 U/L (73-393) Test 11/22/19 06:41 11/22/19 08:00 Glucose (Fingerstick) 247 mg/dL (70-99) O2 Saturation 76 % (92-99) Arterial Blood pH 7.41 (7.35-7.45) Arterial Blood pCO2 at Patient Temp 55 mmHg (35-46) Arterial Blood pO2 at Patient Temp 43 mmHg (65-108) Arterial Blood HCO3 34 mmol/L (21-28) Arterial Blood Base Excess 9 mmol/L (-3-3) FiO2 100 Medications Active Scripts Medications Dose Route/Sig Max Daily Dose Days Date Category Augmentin 500-125 Tablet (Amoxicillin/Potassium Clav) 1 Each Tablet 1 Tab PO BID 10 09/03/19 Rx Culturelle (Lactobacillus Rhamnosus Gg) 1 Each Cap.sprink 1 Cap PO BID 30 09/03/19 Rx Dok (Docusate Sodium) 100 Mg Capsule 100 Mg PO PRN BID PRN 30 09/03/19 Rx Tylenol (Acetaminophen) 325 Mg Tablet 650 Mg PO PRN Q4HRS PRN 30 09/03/19 Rx Xarelto (Rivaroxaban) 10 Mg Tablet 20 Mg PO DAILYWSUP 60 09/03/19 Rx Feosol (Ferrous Sulfate) 325 Mg Tablet 325 Mg PO BIDWMEALS 30 09/03/19 Rx Doxycycline Hyclate 100 Mg Tablet 100 Mg PO BID 10 09/03/19 Rx Seroquel (Quetiapine Fumarate) 400 Mg Tablet 1.5 Tab PO QHS 08/30/19 Reported Alprazolam 1 Mg Tablet 0.5 Tab PO TID 08/30/19 Reported Ropinirole Hcl 0.25 Mg Tablet 0.25 Mg PO BID 08/30/19 Reported Melatonin 5 Mg Tab.rapdis 1 Tab PO QHS 30 08/30/19 Reported Metoprolol Tartrate 25 Mg Tablet 0.5 Tab PO BID 08/30/19 Reported Pantoprazole Sodium (Pantoprazole Sodium) 40 Mg Tablet.dr 40 Mg PO DAILYAC 08/30/19 Reported Venlafaxine Hcl Er (Venlafaxine Hcl) 150 Mg Cap.er.24h 150 Mg PO QHS 08/11/19 Reported Duoneb 0.5-3(2.5) Mg/3 Ml (Albuterol/Ipratropium) 3 Ml Ampul.neb 3 Ml NEB RTQID 30 03/26/18 Rx Mucinex Dm Er 600-30 Mg Tablet (Guaifenesin/Dextromethorphan) 1 Each Tab.er.12h 1 Each PO BID 03/18/18 Reported Seroquel Xr (Quetiapine Fumarate) 400 Mg Tab.er.24h 800 Mg PO HS 03/18/18 Reported Comments Impression . 1. Acute on chronic hypoxic and hypercapnic respiratory failure secondary to multifactorial etiologies including acute exacerbation of chronic obstructive pulmonary disease, septic shock , left-sided pneumothorax 2. Bilateral interstitial infiltrates, suspect aspiration pneumonia 3. Emesis while on BiPAP initially at [place], possibility of aspiration pneumonia is a consideration. 4. Left-sided pneumothorax post-attempted line placement, status post chest tube. Left PTX persist. continue chest tube to suction. 5. Underlying chronic obstructive pulmonary disease with chronic hypoxic respiratory failure and noncompliance. 6. Acute kidney injury.improved 7. septic shock. 8. Abnormal ct chest, ? tracheal injury/ air in venous system. s/p Bronch , No tracheal tear seen distal to ET tube, cannot exclude higher level tear 9. Anemia 1. There is extensive soft tissue gas bilaterally although decreased. There is small left apical pneumothorax probably unchanged, again left chest tube present. There is slight improved aeration of the left hemithorax although persistent bilateral infiltrates and abnormal perihilar opacity greater on the right as seen previously. Plan . DC SUPPORT LATE TODAY BO LINCOLN MD Nov 22, 2019 14:16
--- NOTE | 2019-11-25 15:07 | PATHOLOGY ---
[facility] Accession Number: [id number] . 01 Material submitted: . abdomen - ABDOMINAL WALL SKIN LESION - FS. Modifiers: wall . 02 Frozen section diagnosis: . INTRAOPERATIVE CONSULTATION WITH FROZEN SECTION Abdominal wall skin lesion biopsy: - Seborrheic keratosis. No evidence of malignancy. . The results are reported to Elliot of the transplant team. . (EVELIAM:landen; 11/21/2019) . . INTRAOPERATIVE CONSULTATION GROSS DESCRIPTION The specimen is received fresh for intraoperative consultation and is designated "biopsy of skin". This consists of a shave excision of a slightly raised pale brown skin nodule, measuring up to 1.2 cm in length and 0.6 cm in width. There is also a separate small segment of brown tissue measuring up to 0.4 cm in greatest dimension. The skin lesion is serially sectioned perpendicular to the long axis. All is submitted for frozen section as FSA1. The tissue remaining from frozen section is submitted for permanent section as A1. (EVELIAM:landen; 11/21/2019) . . Professional services performed by [facility] at [facility], [address] [place] [address]. Technical services performed by [facility] at [address] [place] [address], [address] [address]. MARIO/CRISTO . 02 Diagnosis: Skin, abdominal wall skin lesion excisional biopsy: - Seborrheic keratosis. (JPM:daljit 11/25/2019) . [facility] 11/25/2019 0907 Local . 02 Comment: There is no evidence of malignancy. (JPM:daljit 11/25/2019) . 02 Electronically signed: . Kranthi Waldrop MD, Pathologist NPI- [id number] . 03 Gross description: . PLEASE SEE GROSS DESCRIPTION DICTATED UNDER FROZEN SECTION. /MBR 11/22/2019 1634 Local . 02 Pathologist provided ICD-10: L82.1 . 02 CPT . 947039, [id number] Specimen Comment: A courtesy copy of this report has been sent to [phone], [phone] Specimen Comment: [id number] Specimen Comment: Report sent to and Performed at: [address] [place] [address] [id number] MD Hiram Alejandro MD Phone: [phone] Performed at: [address] [id number] MD Kranthi Waldrop MD Phone: [phone] Performed at: [address] [place] [address] [id number] MD Hiram Alejandro MD Phone: [phone]
== END 2019-11-22 13:15 | disposition expired | DRG 853 ==
LOC: 1 WEST ICU 06:48
PROVIDERS: ADMIT Internal Medicine; ATTEND Internal Medicine
PROC: 5A1955Z Respiratory Ventilation, Greater than 96 Consecutive Hours (ICD-10-PCS; principal; 2019-11-12)
PROC: 0WBFXZX Excision of Abdominal Wall, External Approach, Diagnostic (ICD-10-PCS; 2019-11-12)
PROC: 0BH17EZ Insertion of Endotracheal Airway into Trachea, Via Natural or Artificial Opening (ICD-10-PCS; 2019-11-12)
PROC: 30233N1 Transfusion of Nonautologous Red Blood Cells into Peripheral Vein, Percutaneous Approach (ICD-10-PCS; 2019-11-13)
PROC: 0B9J7ZX Drainage of Left Lower Lung Lobe, Via Natural or Artificial Opening, Diagnostic (ICD-10-PCS; 2019-11-13)
PROC: 0W9B30Z Drainage of Left Pleural Cavity with Drainage Device, Percutaneous Approach (ICD-10-PCS; 2019-11-18)
DX: A41.9 Sepsis, unspecified organism (principal); J96.21 Acute and chronic respiratory failure with hypoxia; E43 Unspecified severe protein-calorie malnutrition; J69.0 Pneumonitis due to inhalation of food and vomit; J96.22 Acute and chronic respiratory failure with hypercapnia; R65.21 Severe sepsis with septic shock; T79.7XXA Traumatic subcutaneous emphysema, initial encounter; D62 Acute posthemorrhagic anemia; I50.32 Chronic diastolic (congestive) heart failure; J44.0 Chronic obstructive pulmonary disease with (acute) lower respiratory infection; J44.1 Chronic obstructive pulmonary disease with (acute) exacerbation; N17.9 Acute kidney failure, unspecified; E78.5 Hyperlipidemia, unspecified; E87.6 Hypokalemia; F11.10 Opioid abuse, uncomplicated; F17.210 Nicotine dependence, cigarettes, uncomplicated; F31.9 Bipolar disorder, unspecified; F41.9 Anxiety disorder, unspecified; I11.0 Hypertensive heart disease with heart failure; I27.21 Secondary pulmonary arterial hypertension; Z82.3 Family history of stroke; Z82.49 Family history of ischemic heart disease and other diseases of the circulatory system; Z86.14 Personal history of Methicillin resistant Staphylococcus aureus infection; Z86.711 Personal history of pulmonary embolism; Z90.710 Acquired absence of both cervix and uterus; Z91.14 Patient's other noncompliance with medication regimen; Z91.19 Patient's noncompliance with other medical treatment and regimen; Z99.81 Dependence on supplemental oxygen; Z66 Do not resuscitate
CPT/HCPCS: 31622; 36415; 36569; 36600; 70450; 71045; 71250; 74176; 80048; 80053; 80076; 80202; 82150; 82805; 82962; 82977; 83605; 83615; 83690; 83735; 84100; 84145; 84478; 85007; 85014; 85018; 85025; 85027; 85384; 85610; 85730; 86850; 86900; 86901; 86920; 87040; 87070; 87086; 87205; 87804; 88112; 93005; 93306; 94002; 94003; 94640; 94760; C9113; J0360; J0610; J1815; J1956; J2020; J2060; J2185; J2248; J2250; J2270; J2543; J2704; J2920; J3010; J3370; J3475; J3480; J3490; J7030; J7040; J7050; J7620; P9016; P9045; G0378